=== PATIENT | male | born 1950 | race Caucasian/White ===

== ENCOUNTER 2018-07-16 11:17 | Inpatient (IN) | payer OTHER ==
[~2018-07-16] VITALS: Ht 185.4 cm; Wt 116.2 kg
[~2018-07-16 11:17] MED LIST: CYCL10 PO; Coumadin PO; FURO80 PO; GLIP10 PO; ISOMON20 PO; METF500 PO; METO25 PO; Nitroglycerin0.4 MG SL; Norco 10-325 T1 EACH PO; OMEP20ER PO; One Touch Ultr1 EACH MC; POTCHL20ER PO; Prinivil10 MG PO; SIMV40 PO
[2018-07-16 11:57] LABS: BASOPHILS ABSOLUTE AUTO 0.03 K/mm3 (0.00-0.23); BASOPHILS PERCENT AUTO 0 % (0-2); EOSINOPHILS ABSOLUTE AUTO 0.13 K/mm3 (0.00-0.68); EOSINOPHILS PERCENT AUTO 2 % (0-6); IMMATURE GRAN ABSOLUTE AUTO 0.01 K/mm3 (0.00-0.10); IMMATURE GRAN PERCENT AUTO 0 % (0-1); LYMPHOCYTES ABSOLUTE AUTO 0.92 K/mm3 (0.84-5.20); LYMPHOCYTES PERCENT AUTO 12 % (21-46); MONOCYTES ABSOLUTE AUTO 0.92 K/mm3 (0.16-1.47); MONOCYTES PERCENT AUTO 12 % (4-13); Mean Corpuscular HGB 27.3 pg (26.0-34.0); Mean Corpuscular HGB Conc 29.5 g/dL (31.5-36.5); Mean Corpuscular Volume 92 fL (80-100); Mean Platelet Volume 10.1 fL (9.1-12.4); NEUTROPHILS ABSOLUTE AUTO 5.62 K/mm3 (1.96-9.15); NEUTROPHILS PERCENT AUTO 74 % (41-73); Platelet Count 319 K/mm3 (150-400); RDW Coefficient Variation 14.3 % (11.7-14.2); RDW Standard Deviation 48.9 fL (35.1-46.3); Red Blood Cell Count 4.77 M/mm3 (4.30-5.90); White Blood Cell Count 7.63 K/mm3 (4.00-11.30)
[2018-07-16 12:18] LABS: Alanine Aminotransfer (ALT/SGP 27 U/L (12-78); Albumin, Blood 2.9 g/dL (3.4-5.0); Albumin/Globulin Ratio 0.7 (0.8-1.8); Alk Phos 84 U/L (50-136); Anion Gap 6 mmol/L (6-16); Aspartate Aminotrans (AST/SGOT 20 U/L (12-37); Bilirubin, Total 0.4 mg/dL (0.1-1.0); Blood Urea Nitrogen 14 mg/dL (8-24); Bun/Creatinine Ratio 15.2 (12.0-20.0); CO2, Blood 31 mmol/L (21-32); Calcium, Blood 8.6 mg/dL (8.5-10.1); Chloride, Blood 100 mmol/L (98-108); Creatinine, Blood 0.92 mg/dL (0.60-1.20); Glomerular Filtration Rate >60 (60-); Glucose, Blood 96 mg/dL (70-99); Potassium, Blood 4.8 mmol/L (3.5-5.5); Sodium, Blood 137 mmol/L (136-145); Total Protein, Blood 6.9 g/dL (6.4-8.2); Troponin I <0.015 ng/mL (0.000-0.040)
[2018-07-16 14:47] LABS: International Normalized Ratio 2.98; Prothrombin Time Results 28.6 Sec (9.7-11.5)
[2018-07-16] MEDS ORDERED: PIOG30 PO (19:42)
[2018-07-16] MEDS ORDERED: CHOL10002 PO (20:34)
[2018-07-16] MEDS ORDERED: CALCIUM 600+D31 EACH PO (20:34)
[2018-07-17 05:55] LABS: BASOPHILS ABSOLUTE AUTO 0.04 K/mm3 (0.00-0.23); BASOPHILS PERCENT AUTO 1 % (0-2); EOSINOPHILS ABSOLUTE AUTO 0.12 K/mm3 (0.00-0.68); EOSINOPHILS PERCENT AUTO 2 % (0-6); Hemoglobin 12.3 g/dL (13.5-17.5); IMMATURE GRAN ABSOLUTE AUTO 0.02 K/mm3 (0.00-0.10); IMMATURE GRAN PERCENT AUTO 0 % (0-1); LYMPHOCYTES ABSOLUTE AUTO 0.79 K/mm3 (0.84-5.20); LYMPHOCYTES PERCENT AUTO 11 % (21-46); MONOCYTES ABSOLUTE AUTO 0.86 K/mm3 (0.16-1.47); MONOCYTES PERCENT AUTO 12 % (4-13); Mean Corpuscular HGB 26.9 pg (26.0-34.0); Mean Corpuscular HGB Conc 29.3 g/dL (31.5-36.5); Mean Corpuscular Volume 92 fL (80-100); NEUTROPHILS ABSOLUTE AUTO 5.43 K/mm3 (1.96-9.15); NEUTROPHILS PERCENT AUTO 75 % (41-73); Platelet Count 296 K/mm3 (150-400); RDW Coefficient Variation 14.6 % (11.7-14.2); RDW Standard Deviation 48.4 fL (35.1-46.3); Red Blood Cell Count 4.58 M/mm3 (4.30-5.90); White Blood Cell Count 7.26 K/mm3 (4.00-11.30)
[2018-07-17 06:08] LABS: International Normalized Ratio 2.64; Prothrombin Time Results 25.6 Sec (9.7-11.5)
[2018-07-17 06:20] LABS: Alanine Aminotransfer (ALT/SGP 27 U/L (12-78); Albumin, Blood 2.7 g/dL (3.4-5.0); Albumin/Globulin Ratio 0.8 (0.8-1.8); Alk Phos 77 U/L (50-136); Anion Gap 7 mmol/L (6-16); Aspartate Aminotrans (AST/SGOT 19 U/L (12-37); Bilirubin, Total 0.7 mg/dL (0.1-1.0); Blood Urea Nitrogen 16 mg/dL (8-24); Bun/Creatinine Ratio 16.7 (12.0-20.0); CO2, Blood 32 mmol/L (21-32); Calcium, Blood 8.4 mg/dL (8.5-10.1); Chloride, Blood 100 mmol/L (98-108); Creatinine, Blood 0.96 mg/dL (0.60-1.20); Globulin, Blood 3.5 g/dL (2.2-4.0); Glomerular Filtration Rate >60 (60-); Glucose, Blood 121 mg/dL (70-99); Potassium, Blood 4.5 mmol/L (3.5-5.5); Sodium, Blood 139 mmol/L (136-145); Total Protein, Blood 6.2 g/dL (6.4-8.2)
--- NOTE | 2018-07-17 06:25 | NUR ---
SHIFT SUMMARY: BLE EDEMA UP TO LOWER ABD, NON-PITTING. REDNESS AND WARMTH TO BLE NOTED. PT HAS SEVERAL EPISODES OF SOB, W/ EXERTION AND DURING REST. ON 2L VIA NC; MAINTAINING O2 SATS WELL. VSS. TELE IN PLACE; A FIB @ 80 BPM. 900 ML OUTPUT THIS SHIFT. SBA TO THE BATHROOM; CALL LIGHT APPROP. NO INSULIN COV INDICATED TONIGHT. SKIN PEELING/DRY T/O BODY. 20g R WRIST PATENT AND SALINE LOCK. PT REPORTS THAT HE LIVES @ HOME IN A TRAILER ALONE WHERE HE DOES NOT HAVE ANY HOT RUNNING WATER, AND BATHROOM IS OUTSIDE. WILL CONT TO MONITOR AND PROVIDE CARE UNTIL PRESUMED BY ONCOMING RN.
--- NOTE | 2018-07-17 13:41 | NUR ---
echocardiogram completed
--- NOTE | 2018-07-17 17:07 | NUR ---
PT HAS BEEN DOING WELL. AOX4 AND COOPERATIVE OF ALL CARE. PT IS A 1 PERSON STANDBY TO TRANSFER TO CHAIR OR RESTROOM. PT CONTINUES TO FEEL SOB, BUT STATES HE FEELS MUCH BETTER ON HIS 2L OF O2. PT CONTINUES TO HAVE EDEMA +2 FROM TOP OF THIGH TO FEET REDNESS CONTINUES. PT VOIDING WELL, NO DISTRESS NOTED AT THIS TIME. WILL MONITOR.
[2018-07-18 05:39] LABS: International Normalized Ratio 2.96; Prothrombin Time Results 28.4 Sec (9.7-11.5)
[2018-07-18 05:49] LABS: Anion Gap 5 mmol/L (6-16); Blood Urea Nitrogen 15 mg/dL (8-24); Bun/Creatinine Ratio 16.2 (12.0-20.0); CO2, Blood 33 mmol/L (21-32); Calcium, Blood 8.4 mg/dL (8.5-10.1); Chloride, Blood 99 mmol/L (98-108); Creatinine, Blood 0.93 mg/dL (0.60-1.20); Glomerular Filtration Rate >60 (60-); Glucose, Blood 116 mg/dL (70-99); Potassium, Blood 4.6 mmol/L (3.5-5.5); Sodium, Blood 137 mmol/L (136-145)
--- NOTE | 2018-07-18 06:13 | NUR ---
07/18/18 0610 PT AWAKE MOST OF SHIFT. STATES HE "COULDN'T GET COMFORTABLE". SITTING AT BEDSIDE WATCHING TV. VITALS STABLE. SOME FORGETFULNESS NOTED THIS SHIFT. MEDICATED ONCE FOR GENERAL LEG/FEET DISCOMFORT AT 2200.
[2018-07-18] MEDS ORDERED: ASPI81CH PO (17:39)
--- NOTE | 2018-07-18 18:46 | NUR ---
PATIENT IS CONCERNED THAT HE IS NOT ON ALL OF HIS NORMAL MEDICATIONS. PATIENT WOULD LIKE TO KNOW WHY HE IS NOT ON HIS BABY ASPIRIN. ALSO PATIENT STATES THAT THURSDAY AND THURSDAY HE TAKES 7.5MG WARFARIN, THE REST OF THE WEEK HE TAKES 9MG. AT THE HOSPITAL HE IS SCHEDULED TO TAKE 9MG DAILY. HE REFUSED TO TAKE THE 9MG BUT DID AGREE ON TAKING 7.5MG. RN DISCUSSED WITH PATIENT THAT HE NEEDS TO SIT DOWN WITH THE DR AND DISCUSS THE MEDICATIONS HE IS TAKING/ISN'T TAKING AND WHY. TRAMADOL GIVEN FOR KNEE PAIN. PATIENT STATES [facility] IN [place] IS HIS PRIMARY CARE POSSIBLY HAVE HER FAX A MED LIST THURSDAY TO CHECK AGAINST [facility].
--- NOTE | 2018-07-18 22:23 | NUR ---
07/1018 INSTRUCTED PT ON FLUID RESTRICTION ORDER AND REASONS WHY. VERBALIZES UNDERSTANDING.
[2018-07-19 05:59] LABS: International Normalized Ratio 2.99; Prothrombin Time Results 28.7 Sec (9.7-11.5)
[2018-07-19 06:14] LABS: Anion Gap 4 mmol/L (6-16); Blood Urea Nitrogen 14 mg/dL (8-24); Bun/Creatinine Ratio 14.9 (12.0-20.0); CO2, Blood 37 mmol/L (21-32); Calcium, Blood 8.5 mg/dL (8.5-10.1); Chloride, Blood 96 mmol/L (98-108); Creatinine, Blood 0.94 mg/dL (0.60-1.20); Glomerular Filtration Rate >60 (60-); Glucose, Blood 111 mg/dL (70-99); Potassium, Blood 4.3 mmol/L (3.5-5.5); Sodium, Blood 137 mmol/L (136-145)
--- NOTE | 2018-07-19 08:02 | NUR ---
07/19/18 0630 VITALS STABLE. UNEVENTFUL NIGHT.
--- NOTE | 2018-07-19 18:45 | NUR ---
SHIFT SUMMARY PT GIVEN EDUCATION ABOUT FLUID RESTRICTION AND MONITERING HOW MUCH HE DRINKS WHEN HE GOES HOME. PT EXPRESSING FRUSTRATION WITH BEING LIMITED WITH WHAT HE CAN DRINK UBT IS ATTEMPTING TO FOLLOW THE LIMITATION. INDEPENDENT IN TO BATHROOM TO VOID. LEGS REMAIN QUITE EDEMATOUS WITH SCRATCHES TO SHINS.
--- NOTE | 2018-07-20 04:26 | NUR ---
07/20/18 0425 PT SLEEPING NOW AFTER PAIN MED GIVEN. HE IS FRUSTRATED BY FLUID RESTRICTION ORDER. C/O THIRST FREQUENTLY EVEN WHEN GIVEN LEMON SWABS AND ICE CHIPS THROUGHOUT NIGHT. EDEMA HAS GONE DOWN IN LEGS/FEET SINCE ADMISSION. VITALS REMAIN STABLE. NEEDS ENCOURAGEMENT TO FOLLOW PLAN OF CARE INCLUDING FLUID RESTRICTION.
[2018-07-20 05:19] LABS: International Normalized Ratio 2.93; Prothrombin Time Results 28.2 Sec (9.7-11.5)
--- NOTE | 2018-07-20 12:14 | NUR ---
DR. BARTLETT ASKED THAT THE PT'S O2 BE TAKEN OFF AND OXYGEN SATURATION MEASURED. THE PT'S OXYGEN SATURATION WAS BEWTEEN 86-90% AT REST IN THE CHAIR. DR. BARTLETT NOTIFIED. HE ASKED THAT THE PT BE KEPT ON 1-2L O2. PT MENTIONED THAT HE HAS NOT SLEPT WELL IN AROUND 5 YEARS BUT FEELS HE SLEEPS BETTER WITH OXYGEN. DR. BARTLETT NOTIFIED.
--- NOTE | 2018-07-20 16:58 | NUR ---
THIS PT BECOMES SOB UPON EXERTION. HE WEARS 4L O2 VIA NC AT HOME. HE IS [place] WITH ONE HEARING AID IN HIS LEFT EAR. HE USES A URINAL THAT HE PREFERS BE PLACED BETWEEN HIS LEGS WHILE LAYING IN BED. HE HAS COMPLAINED OF DISCOMFORT CAUSED BY WRINKLES IN HIS SHEETS, HE IS UNABLE TO RID THEM HIMSELF. HE HAS SMALL WOUND ON THE TIPS OF HIS BIG TOES, DRESSINGS CHANGED TODAY. HE IS ON A HONEY THICK LIQUIDS DIET AND PUREED FOOD. HIS CHILDREN WISH FOR HIM TO CONSUME 2 ENSURES A DAY. THE PLAN IS FOR HIM TO BE DISCHARGED TOMORROW BACK TO [facility]. NO ACUTE CHANGES THIS SHIFT. WILL CONTINUE TO MONITOR.
--- NOTE | 2018-07-20 17:15 | NUR ---
THIS PATIENT IS ON A 1,200 ML FLUID RESTRICTION. WE HAVE BEEN WORKING TO GIVE HIM 900ML OF FLUIDS DURING THE DAY LEAVING 300ML AT NIGHT. THIS HAS PROVEN TO BE DIFFICULT FOR THE PATIENT. HE IS ON 2L O2 VIA NC. HE HAS A 20G IV IN HIS RIGHT WRIST. HE REFUSED TO WORK WITH PHYSICAL THERAPY TODAY BECAUSE HE WANTED TO SLEEP. NO ACUTE CHANGES DURING THIS SHIFT. WILL CONTINUE TO MONITOR.
--- NOTE | 2018-07-21 03:56 | NUR ---
SHIFT SUMMARY NO ACUTE CHANGES THIS SHIFT. PT HAS RESTED FOR MOST OF THE NIGHT. COMPLIANT WITH 1200 ML FLUID RESTRICTION. MOSTLY REQUESTS ICE CHIPS IN ORDER TO MAKE HIS RESTRICTION STRETCH. PT HAS BEEN UP AMBULATING INDEPENDTLY WITH FWW TO THE BATHROOM. EDEMA TO BLE +2. PT IS BEING DIURESED AND HAS BEEN VOIDING ADEQUATELY. PT MEDICATED FOR PAIN X1. OVERALL ASSESSMENT UNCHANGED. WILL CONTINUE TO MONITOR AND REPORT TO ONCOMING RN.
[2018-07-21 05:46] LABS: International Normalized Ratio 3.77; Prothrombin Time Results 35.4 Sec (9.7-11.5)
[2018-07-21] MEDS ORDERED: ALBU2.5V5 INH (15:07)
[2018-07-21] MEDS ORDERED: DOCU100 PO (15:07)
[2018-07-21] MEDS ORDERED: OMEPRAZOLE MAGN20 MG PO (15:08)
[2018-07-21] MEDS ORDERED: Humulin R500 UNIT/1 SC (15:08)
[2018-07-21] MEDS ORDERED: TRAM50 PO (15:09)
--- NOTE | 2018-07-21 15:15 | NUR ---
PT DISCHARGED AT 15:15
--- NOTE | 2018-07-21 15:38 | NUR ---
BEDSIDE REPORT GIVEN TO CHUY LAURENT IN PCU. PT DISCHARGED FROM MEDICAL FLOOR AT 15:30.
== END 2018-07-21 15:15 | DRG 291 ==
LOC: ER 11:17 → MEDS 16:28
PROVIDERS: Emergency Medicine; Physician Assistant; ADMIT Student in an Organized Health Care Education/Training Program
DX: I50.43 Acute on chronic combined systolic (congestive) and diastolic (congestive) heart failure (principal); J96.01 Acute respiratory failure with hypoxia; I48.0 Paroxysmal atrial fibrillation; E11.65 Type 2 diabetes mellitus with hyperglycemia; F17.200 Nicotine dependence, unspecified, uncomplicated; Z79.01 Long term (current) use of anticoagulants; Z79.84 Long term (current) use of oral hypoglycemic drugs; Z79.899 Other long term (current) drug therapy
CPT/HCPCS: 36415; 71046; 80048; 80053; 82947; 83036; 83880; 84484; 85025; 85610; 85730; 93005; 93010; 93306; 94640; 94760; 96374; 97116; 97162; 97166; 97530; 97535; 99284-25; J1940

== ENCOUNTER 2020-01-16 08:31 | Inpatient (IN) | payer OTHER ==
[~2020-01-16] VITALS: Ht 188 cm; Wt 103.9 kg
[~2020-01-16 08:31] MED LIST changes: +ALBU2.5V5 INH; +ASPI81CH PO; +CALCIUM 600+D31 EACH PO; +CHOL10002 PO; +DOCU100 PO; +Humulin R500 UNIT/1 SC; +OMEPRAZOLE MAGN20 MG PO; +PIOG30 PO; +TRAM50 PO
[2020-01-16] MEDS ORDERED: STIOLTO RESPIMAT4 G1 INH (09:19)
[2020-01-16] MEDS ORDERED: SPIR25 PO (09:20)
[2020-01-16] MEDS ORDERED: TORSE20 PO (09:21)
[2020-01-16] MEDS ORDERED: FOLI1 PO (09:22)
[2020-01-16] MEDS ORDERED: FLUT.05NI (09:25)
[2020-01-16] MEDS ORDERED: WARF5 PO (09:25)
[2020-01-16] MEDS ORDERED: WARF4 PO (09:26)
[2020-01-16 09:32] LABS: BASOPHILS ABSOLUTE AUTO 0.03 K/mm3 (0.00-0.23); BASOPHILS PERCENT AUTO 0 % (0-2); EOSINOPHILS ABSOLUTE AUTO 0.11 K/mm3 (0.00-0.68); EOSINOPHILS PERCENT AUTO 1 % (0-6); Hematocrit 33.5 % (37.0-53.0); Hemoglobin 10.2 g/dL (13.5-17.5); IMMATURE GRAN ABSOLUTE AUTO 0.04 K/mm3 (0.00-0.10); IMMATURE GRAN PERCENT AUTO 0 % (0-1); LYMPHOCYTES ABSOLUTE AUTO 0.74 K/mm3 (0.84-5.20); LYMPHOCYTES PERCENT AUTO 7 % (21-46); MONOCYTES ABSOLUTE AUTO 0.91 K/mm3 (0.16-1.47); MONOCYTES PERCENT AUTO 8 % (4-13); Mean Corpuscular HGB Conc 30.4 g/dL (31.5-36.5); Mean Corpuscular Volume 89 fL (80-100); Mean Platelet Volume 9.8 fL (9.1-12.4); NEUTROPHILS ABSOLUTE AUTO 8.94 K/mm3 (1.96-9.15); NEUTROPHILS PERCENT AUTO 83 % (41-73); Platelet Count 422 K/mm3 (150-400); RDW Coefficient Variation 14.4 % (11.7-14.2); RDW Standard Deviation 46.6 fL (35.1-46.3); Red Blood Cell Count 3.78 M/mm3 (4.30-5.90); White Blood Cell Count 10.77 K/mm3 (4.00-11.30)
[2020-01-16 09:38] LABS: International Normalized Ratio 2.64; Prothrombin Time Results 26.7 Sec (9.7-11.5)
[2020-01-16 09:47] LABS: Albumin/Globulin Ratio 0.7 (0.8-1.8); Bilirubin, Total 0.3 mg/dL (0.1-1.0); Bun/Creatinine Ratio 21.4 (12.0-20.0); Creatinine, Blood 1.54 mg/dL (0.60-1.20); Globulin, Blood 4.6 g/dL (2.2-4.0); Potassium, Blood 4.5 mmol/L (3.5-5.5); Total Protein, Blood 7.6 g/dL (6.4-8.2)
--- NOTE | 2020-01-16 14:27 | NUR ---
ADMIT ARRIVAL TO UNIT AT APPROX 1245 FROM ER. ABLE TO STAND AND PIVOT TRANSFER FROM W/C TO BED. LEFT GANGRENOUS TOE OPEN TO AIR WITH SCANT SS DRAINAGE. CLEANSED AND COVERED WITH GAUZE AND KERLEX AND ELEVATED ON PILLOWS. SEVERE PITTING EDEMA NOTED TO BLE. ER REPORTS GIVING IV LASIX. PT ALERT AND ORIENTED. DENIES PAIN, BUT REPORTS NEUROPATHY TO BLE AND HAS DECREASED SENSATION TO BLE. DR. THOMPSON TO CONSULT TODAY FOR PODIATRY. ORIENTED TO ROOM AND CALL LIGHT. CALL LIGHT WITHIN REACH.
[2020-01-16] MEDS ORDERED: METO25ER PO (15:02)
[2020-01-16] MEDS ORDERED: Aspir 8181 MG PO (15:05)
[2020-01-16] MEDS ORDERED: CALCIUM CIT 311 EACH PO (15:06)
[2020-01-16] MEDS ORDERED: Magnesium250 MG PO (15:06)
[2020-01-16] MEDS ORDERED: TRAM50 PO (15:07)
[2020-01-16] MEDS ORDERED: PROAIR DIGIHAL90 MCG INH (15:07)
[2020-01-16] MEDS ORDERED: NITR.4SL SL (15:08)
--- NOTE | 2020-01-16 16:12 | NUR ---
SHIFT SUMMARY NO ACUTE CHANGES SINCE ADMIT TO UNIT. PT CONT TO DENY PAIN. DRESSING TO LEFT GREAT TOE REMAINS CDI. PT USING BEDSIDE URINAL TO VOID. WAITING FOR PODIATRY TO SEE PT THIS EVENING. NPO AT MIDNIGHT FOR POSSIBLE PROCEDURE TOMORROW. USES CALL LIGHT APPROPRIATELY.
--- NOTE | 2020-01-16 23:50 | NUR ---
PULSE OX ALARMING FOR HR DROPPING BELOW 50. HR OCC DROPPING TO 39 TO LOW 40'S. HOSPITALIST NOTIFIED. NEW ORDER FOR TELE. PER TELEMTRY, PT A/FIB WITH BBB AND PVC'S WITH AN AVERAGE HR IN 60'S.
--- NOTE | 2020-01-17 04:25 | NUR ---
SHIFT SUMMARY: PT HAS BEEN NPO SINCE MIDNIGHT FOR AMPUTATION OF LEFT GREAT TOE. WOUND CURRENTLY WRAPPED IN GAUZE+KERLEX. C/D/I WITH SCANT AMOUNT OF SEROUS DRAINAGE. PULSE TO LLE FAINT/THREADY. REDNESS, SWELLING AND SCALY SKIN NOTED FROM CALF TO FOOT. PT DENIES PAIN D/T NEUROPATHY. PT ABLE TO AMBULATE TO BATHROOM USING FWW. VOIDING WELL. NEW ORDER FOR TELE THIS SHIFT R/T DECREASE IN HR-SEE PREVIOUS NOTE.
[2020-01-17 06:38] LABS: BASOPHILS ABSOLUTE AUTO 0.03 K/mm3 (0.00-0.23); BASOPHILS PERCENT AUTO 0 % (0-2); EOSINOPHILS ABSOLUTE AUTO 0.11 K/mm3 (0.00-0.68); EOSINOPHILS PERCENT AUTO 1 % (0-6); Hematocrit 32.1 % (37.0-53.0); Hemoglobin 9.9 g/dL (13.5-17.5); IMMATURE GRAN ABSOLUTE AUTO 0.03 K/mm3 (0.00-0.10); IMMATURE GRAN PERCENT AUTO 0 % (0-1); LYMPHOCYTES ABSOLUTE AUTO 0.96 K/mm3 (0.84-5.20); LYMPHOCYTES PERCENT AUTO 11 % (21-46); MONOCYTES ABSOLUTE AUTO 0.81 K/mm3 (0.16-1.47); MONOCYTES PERCENT AUTO 10 % (4-13); Mean Corpuscular HGB 27.3 pg (26.0-34.0); Mean Corpuscular HGB Conc 30.8 g/dL (31.5-36.5); Mean Corpuscular Volume 88 fL (80-100); Mean Platelet Volume 9.6 fL (9.1-12.4); NEUTROPHILS ABSOLUTE AUTO 6.63 K/mm3 (1.96-9.15); NEUTROPHILS PERCENT AUTO 77 % (41-73); Platelet Count 394 K/mm3 (150-400); RDW Coefficient Variation 14.5 % (11.7-14.2); RDW Standard Deviation 46.9 fL (35.1-46.3); Red Blood Cell Count 3.63 M/mm3 (4.30-5.90); White Blood Cell Count 8.57 K/mm3 (4.00-11.30)
[2020-01-17 06:53] LABS: International Normalized Ratio 2.34; Prothrombin Time Results 23.9 Sec (9.7-11.5)
[2020-01-17 06:54] LABS: Bun/Creatinine Ratio 17.2 (12.0-20.0); Calcium, Blood 8.9 mg/dL (8.5-10.1); Creatinine, Blood 1.45 mg/dL (0.60-1.20); Potassium, Blood 4.1 mmol/L (3.5-5.5)
[2020-01-17 15:21] LABS: International Normalized Ratio 2.03
[2020-01-17 15:52] LABS: Prothrombin Time Results 20.9 Sec (9.7-11.5)
--- NOTE | 2020-01-17 16:13 | NUR ---
SHIFT SUMMARY SURGERY POSTPONED UNTIL TOMORROW R/T PT/INR BEING TOO HIGH. GIVING VITAMIN K PER ORDERS. NPO AT MIDNIGHT. LABS ORDERED FOR THE MORNING. PT AWARE OF PLAN. PT CONT TO DENY PAIN. LEFT GREAT TOE REMAINS DRESSED WITH GAUZE WITH SCANT SS DRAINAGE. IV ABX PER ORDERS. CALL LIGHT WITHIN REACH.
--- NOTE | 2020-01-18 04:43 | NUR ---
SHIFT SUMMARY: PT HAS BEEN NPO SINCE MIDNIGHT FOR POSSIBLE SURGERY TODAY ON L GREAT TOE. GANGRENOUS TOE WRAPPED IN KERLEX WITH SCANT AMOUNT OF SEROUS FLUID NOTED. DRESSING CHANGED IN BEGINNING OF SHIFT. PT DENIES PAIN R/T NEUROPATHY. STANDING AT BEDSIDE TO USE URINAL. VOIDING WELL. PLAN FOR REPEAT INR THIS MORNING.
[2020-01-18 05:14] LABS: International Normalized Ratio 1.44; Prothrombin Time Results 15.1 Sec (9.7-11.5)
--- NOTE | 2020-01-18 08:09 | NUR ---
lab by to see pt reviewed pt inr result pt was concearned re thinner prophlactic to prevent cva or tia pt is npo for surg today for big toe amp
[2020-01-18 08:17] LABS: BASOPHILS ABSOLUTE AUTO 0.05 K/mm3 (0.00-0.23); BASOPHILS PERCENT AUTO 1 % (0-2); EOSINOPHILS ABSOLUTE AUTO 0.25 K/mm3 (0.00-0.68); EOSINOPHILS PERCENT AUTO 3 % (0-6); Hemoglobin 10.5 g/dL (13.5-17.5); IMMATURE GRAN ABSOLUTE AUTO 0.04 K/mm3 (0.00-0.10); IMMATURE GRAN PERCENT AUTO 0 % (0-1); LYMPHOCYTES ABSOLUTE AUTO 0.78 K/mm3 (0.84-5.20); LYMPHOCYTES PERCENT AUTO 8 % (21-46); MONOCYTES ABSOLUTE AUTO 0.89 K/mm3 (0.16-1.47); MONOCYTES PERCENT AUTO 9 % (4-13); Mean Corpuscular HGB 26.8 pg (26.0-34.0); Mean Corpuscular Volume 89 fL (80-100); Mean Platelet Volume 9.3 fL (9.1-12.4); NEUTROPHILS ABSOLUTE AUTO 7.85 K/mm3 (1.96-9.15); NEUTROPHILS PERCENT AUTO 80 % (41-73); Platelet Count 425 K/mm3 (150-400); RDW Coefficient Variation 14.4 % (11.7-14.2); RDW Standard Deviation 46.5 fL (35.1-46.3); Red Blood Cell Count 3.92 M/mm3 (4.30-5.90); White Blood Cell Count 9.86 K/mm3 (4.00-11.30)
[2020-01-18 08:46] LABS: Bun/Creatinine Ratio 13.4 (12.0-20.0); Calcium, Blood 8.6 mg/dL (8.5-10.1); Creatinine, Blood 1.27 mg/dL (0.60-1.20); Potassium, Blood 4.1 mmol/L (3.5-5.5)
--- NOTE | 2020-01-18 08:48 | NUR ---
DR LEO BY TO SEE PT ASKED WHEN HE IS SCHED FOR SURG
--- NOTE | 2020-01-18 09:39 | NUR ---
pt had questions re his medication will review with him
--- NOTE | 2020-01-18 10:32 | NUR ---
PT IN SHOWER
--- NOTE | 2020-01-18 11:06 | NUR ---
new dressing placed to l big toe cleaned
--- NOTE | 2020-01-18 12:22 | NUR ---
ss by to see pt talked with her re pt home situation pt stated he was unable to bend down to do his dressing and exam his feet also had not had a shower for 3 years due to living in a camp trailer.
--- NOTE | 2020-01-18 13:15 | NUR ---
pt transported to day surg via [facility]
[2020-01-18] MEDS ORDERED: AMOCLA875 PO (14:48)
--- NOTE | 2020-01-18 14:51 | NUR ---
DR THOMPSON CALLED PT TO GO HOME WITH AUGMENTIN 875 MG PO BID FOR 10 DAYS AND A POST-OP SHOE
--- NOTE | 2020-01-18 15:26 | NUR ---
PT ARRIVED BACK TO ROOM 231 FROM PACU S/P L GREAT TOE AMP PT HAS BULKY DRESSING WITH NAKIA WRAP C/D/I ELEV ON PILLOW PT GETS OCC SHARP PAIN BUT GOES AWAY PT THIRSTY CL GIVEN
--- NOTE | 2020-01-18 17:16 | NUR ---
pt req pain meds 1 tab po ultram
--- NOTE | 2020-01-18 18:14 | NUR ---
PT EATING DINNER
--- NOTE | 2020-01-18 18:38 | NUR ---
pt stated pain is going up 81/0 req a stronger pain meds will call radha delgado
--- NOTE | 2020-01-18 23:15 | NUR ---
PERCOCET GIVEN FOR PAIN REPORTED AT 9/10 TO LLE NOT RELIEVED WITH ELEVATION, ICE, AND OTHER PAIN MEDS GIVEN PER MD ORDERS. REQUESTED WALLET BE GIVEN BACK TO HIM THAT WAS IN LOCKED DRAWER. BLACK WALLET GIVEN TO PT WHO THANKS NURSING AND BEGAN LOOKING INSIDE OF THE WALLET. SAFETY MEASURES IN PLACE. WILL CONTINUE TO MONITOR.
--- NOTE | 2020-01-19 06:41 | NUR ---
SHIFT SUMMARY LYING IN SEMI FOWLERS WITH EYES CLOSED. AAO X3, HERNANDEZ, FOLLOWS ALL COMMANDS. RESPIRATIONS EVEN AND UNLABORED ON O2 AT 2L/NC. LUNG SOUNDS CLEAR AND DIMINSHED IN BASES BILATERALLY. ABDOMEN SOFT AND NONDISTENDED. BOWEL SOUNDS PRESENT IN ALL QUADS. LLE ELEVATED ON PILLOWS, ICE PACK IN PLACE. FOOT WRAPPED WITH GAUZE AND NAKIA WRAP. NO BLEEDING, SHADOWING, OR OOZING NOTED. CONTINENT OF BOWEL AND BLADDER, USES URINAL WHILE STANDING AT BEDSIDE. BALANCED WITH FWW. REPOSITIONED FOR COMFORT. DENIES PAIN, DISCOMFORT, OR FURTHER NEEDS AT THIS TIME. SAFETY MEASURES IN PLACE. WILL CONTINUE TO MONITOR AND GIVE HAND OFF TO ONCOMING SHIFT USING SBAR DURING BEDSIDE REPORT.
--- NOTE | 2020-01-19 07:00 | NUR ---
recvd report from previous RN Elvia. sitting up in bed, a/o x 4, pleasant/cooperative, painful (RN Elvia medicating pt directly per mar), bed in lowest position, bed rails up x 2, call light within reach
--- NOTE | 2020-01-19 09:30 | NUR ---
PT/OT evaluated and treated pt this am.
--- NOTE | 2020-01-19 10:00 | NUR ---
01/19/20 Ronda Duggan VERIFICATIONS: EDIT CHART.
--- NOTE | 2020-01-19 11:01 | NUR ---
pt reported chest pain at 1050, pulled his ordered nitroquick and when brought to room pt denies chest pain, locked the nitroquick in pt's med drawer
--- NOTE | 2020-01-19 11:04 | NUR ---
on 100 q1 vs, BP 81/54, asymptomatic, will continue to monitor and notify anesthesiologist of sbp <80
--- NOTE | 2020-01-19 11:30 | NUR ---
this rn spoke with [facility] manager Christina re: recommendations per PT for SNF placement. notified pt of recommendations and plans
--- NOTE | 2020-01-19 16:18 | NUR ---
client care representative notified this RN pt approved for SNF to [facility], awaiting orders/prescription, transport at 1730. notified Pt of this plan
--- NOTE | 2020-01-19 17:35 | NUR ---
REMOVED PERIPHERAL IV X 2 WNL, PROVIDED REPORT TO CHUY DE LA TORRE AT [facility]; PT'S PACKET WITH WRITTEN PRESCRIPTION PROVIDED TO TRANSPORTER; PT'S BELONGINGS TRANSPORTED WITH PT VIA WHEELCHAIR TO AWAITING VAN
== END 2020-01-19 17:40 | DRG 255 ==
LOC: ER 08:31 → SURS 11:22
PROVIDERS: Emergency Medicine; Podiatrist Foot & Ankle Surgery; ADMIT Internal Medicine
PROC: 0Y6Q0Z0 Detachment at Left 1st Toe, Complete, Open Approach (ICD-10-PCS; principal; 2020-01-18 13:30)
DX: E11.52 Type 2 diabetes mellitus with diabetic peripheral angiopathy with gangrene (principal); I50.33 Acute on chronic diastolic (congestive) heart failure; J96.10 Chronic respiratory failure, unspecified whether with hypoxia or hypercapnia; N17.9 Acute kidney failure, unspecified; E11.65 Type 2 diabetes mellitus with hyperglycemia; I48.0 Paroxysmal atrial fibrillation; I50.9 Heart failure, unspecified; J44.9 Chronic obstructive pulmonary disease, unspecified; Z99.81 Dependence on supplemental oxygen; E78.5 Hyperlipidemia, unspecified; Z87.891 Personal history of nicotine dependence; Z79.01 Long term (current) use of anticoagulants
CPT/HCPCS: 36415; 71045; 73630; 80048; 80053; 82947; 83036; 83880; 85025; 85610; 85730; 88305; 88311; 93005; 93010; 94640; 94760; 94762; 96374; 97110; 97112; 97162; 97165; 97535; 99285-25; A9270; A9270-GY; J0295; J1650; J1940; J2250; J2405; J2704; J3010; J3430; J7050; J7120; U0002

== ENCOUNTER 2020-05-30 09:51 | Day surgery (SDC) | payer OTHER ==
[~2020-05-30 09:51] MED LIST changes: +AMOCLA875 PO; +Aspir 8181 MG PO; +CALCIUM CIT 311 EACH PO; +FLUT.05NI; +FOLI1 PO; +METO25ER PO; +Magnesium250 MG PO; +NITR.4SL SL; +PROAIR DIGIHAL90 MCG INH; +SPIR25 PO; +STIOLTO RESPIMAT4 G1 INH; +TORSE20 PO; +WARF4 PO; +WARF5 PO
== END 2020-05-30 09:52 | disposition home or self-care (01) ==
LOC: WOUND 09:51
DX: E11.621 Type 2 diabetes mellitus with foot ulcer (principal); L97.522 Non-pressure chronic ulcer of other part of left foot with fat layer exposed; E11.622 Type 2 diabetes mellitus with other skin ulcer; L97.821 Non-pressure chronic ulcer of other part of left lower leg limited to breakdown of skin; E11.52 Type 2 diabetes mellitus with diabetic peripheral angiopathy with gangrene; I96 Gangrene, not elsewhere classified; J44.9 Chronic obstructive pulmonary disease, unspecified; I48.91 Unspecified atrial fibrillation; I11.0 Hypertensive heart disease with heart failure; I50.9 Heart failure, unspecified; I25.10 Atherosclerotic heart disease of native coronary artery without angina pectoris; Z79.84 Long term (current) use of oral hypoglycemic drugs; Z79.82 Long term (current) use of aspirin; Z79.01 Long term (current) use of anticoagulants; Z79.899 Other long term (current) drug therapy; Z87.891 Personal history of nicotine dependence; Z89.412 Acquired absence of left great toe
CPT/HCPCS: G0463

== ENCOUNTER 2020-06-13 00:42 | Day surgery (SDC) | payer OTHER | END 2020-06-13 22:39 | disposition home or self-care (01) | LOC: WOUND 00:42 | DX: E11.621 Type 2 diabetes mellitus with foot ulcer (principal); L97.522 Non-pressure chronic ulcer of other part of left foot with fat layer exposed; S81.802D Unspecified open wound, left lower leg, subsequent encounter; E11.59 Type 2 diabetes mellitus with other circulatory complications; J44.9 Chronic obstructive pulmonary disease, unspecified; I48.91 Unspecified atrial fibrillation; T87.89 Other complications of amputation stump; X58.XXXD Exposure to other specified factors, subsequent encounter; Z89.412 Acquired absence of left great toe; Z79.01 Long term (current) use of anticoagulants ==

== ENCOUNTER 2020-06-20 00:27 | Day surgery (SDC) | payer OTHER ==
[2020-11-27] MEDS ORDERED: GABA300 PO (15:02)
== END 2020-06-20 22:45 | disposition home or self-care (01) ==
LOC: WOUND 00:27
DX: E11.621 Type 2 diabetes mellitus with foot ulcer (principal); E11.59 Type 2 diabetes mellitus with other circulatory complications; L97.522 Non-pressure chronic ulcer of other part of left foot with fat layer exposed; L97.821 Non-pressure chronic ulcer of other part of left lower leg limited to breakdown of skin; J44.9 Chronic obstructive pulmonary disease, unspecified; I48.91 Unspecified atrial fibrillation; R60.0 Localized edema; Z79.01 Long term (current) use of anticoagulants; Z89.412 Acquired absence of left great toe
CPT/HCPCS: A9270

== ENCOUNTER 2020-06-27 00:46 | Day surgery (SDC) | payer OTHER ==
[2020-11-27] MEDS ORDERED: GABA300 PO (15:02)
== END 2020-06-27 23:06 | disposition home or self-care (01) ==
LOC: WOUND 00:46
DX: E11.621 Type 2 diabetes mellitus with foot ulcer (principal); L97.522 Non-pressure chronic ulcer of other part of left foot with fat layer exposed; E11.622 Type 2 diabetes mellitus with other skin ulcer; L97.829 Non-pressure chronic ulcer of other part of left lower leg with unspecified severity; E11.52 Type 2 diabetes mellitus with diabetic peripheral angiopathy with gangrene; I96 Gangrene, not elsewhere classified; E11.59 Type 2 diabetes mellitus with other circulatory complications; J44.9 Chronic obstructive pulmonary disease, unspecified; I11.0 Hypertensive heart disease with heart failure; I50.9 Heart failure, unspecified; I25.10 Atherosclerotic heart disease of native coronary artery without angina pectoris; I48.91 Unspecified atrial fibrillation; Z79.01 Long term (current) use of anticoagulants; Z79.899 Other long term (current) drug therapy; Z79.84 Long term (current) use of oral hypoglycemic drugs; Z79.51 Long term (current) use of inhaled steroids; Z79.82 Long term (current) use of aspirin; Z89.412 Acquired absence of left great toe; Z20.822 Contact with and (suspected) exposure to COVID-19
CPT/HCPCS: A9270; G0463

== ENCOUNTER 2020-07-04 00:20 | Day surgery (SDC) | payer OTHER ==
[2020-11-27] MEDS ORDERED: GABA300 PO (15:02)
== END 2020-07-04 22:34 | disposition home or self-care (01) ==
LOC: WOUND 00:20
DX: T87.89 Other complications of amputation stump (principal); E11.621 Type 2 diabetes mellitus with foot ulcer; L97.522 Non-pressure chronic ulcer of other part of left foot with fat layer exposed; E11.622 Type 2 diabetes mellitus with other skin ulcer; L97.829 Non-pressure chronic ulcer of other part of left lower leg with unspecified severity; S81.802D Unspecified open wound, left lower leg, subsequent encounter; Z89.412 Acquired absence of left great toe

== ENCOUNTER 2020-07-11 00:15 | Day surgery (SDC) | payer OTHER ==
[2020-11-27] MEDS ORDERED: GABA300 PO (15:02)
== END 2020-07-11 23:45 | disposition home or self-care (01) ==
LOC: WOUND 00:15
DX: E11.621 Type 2 diabetes mellitus with foot ulcer (principal); L97.522 Non-pressure chronic ulcer of other part of left foot with fat layer exposed; S81.802D Unspecified open wound, left lower leg, subsequent encounter; E11.59 Type 2 diabetes mellitus with other circulatory complications; Z89.412 Acquired absence of left great toe; I87.2 Venous insufficiency (chronic) (peripheral); Z79.84 Long term (current) use of oral hypoglycemic drugs; J44.9 Chronic obstructive pulmonary disease, unspecified; I48.91 Unspecified atrial fibrillation; Z79.01 Long term (current) use of anticoagulants; X58.XXXD Exposure to other specified factors, subsequent encounter
CPT/HCPCS: A9270

== ENCOUNTER 2020-07-13 02:20 | Day surgery (SDC) | payer OTHER ==
[2020-11-27] MEDS ORDERED: GABA300 PO (15:02)
== END 2020-07-13 23:45 | disposition home or self-care (01) ==
LOC: WOUND 02:20
DX: E11.621 Type 2 diabetes mellitus with foot ulcer (principal); L97.509 Non-pressure chronic ulcer of other part of unspecified foot with unspecified severity; S81.802D Unspecified open wound, left lower leg, subsequent encounter; E11.59 Type 2 diabetes mellitus with other circulatory complications; Z89.412 Acquired absence of left great toe
CPT/HCPCS: A9270; G0463

== ENCOUNTER 2020-07-18 00:15 | Day surgery (SDC) | payer OTHER ==
[2020-11-27] MEDS ORDERED: GABA300 PO (15:02)
== END 2020-07-18 23:04 | disposition home or self-care (01) ==
LOC: WOUND 00:15
DX: E11.621 Type 2 diabetes mellitus with foot ulcer (principal); E11.59 Type 2 diabetes mellitus with other circulatory complications; L97.529 Non-pressure chronic ulcer of other part of left foot with unspecified severity; L97.829 Non-pressure chronic ulcer of other part of left lower leg with unspecified severity; I48.91 Unspecified atrial fibrillation; Z79.01 Long term (current) use of anticoagulants; J44.9 Chronic obstructive pulmonary disease, unspecified; I73.9 Peripheral vascular disease, unspecified; I87.2 Venous insufficiency (chronic) (peripheral); Z89.412 Acquired absence of left great toe
CPT/HCPCS: A9270; G0463

== ENCOUNTER 2020-07-25 01:32 | Day surgery (SDC) | payer OTHER ==
[2020-11-27] MEDS ORDERED: GABA300 PO (15:02)
== END 2020-07-25 22:57 | disposition home or self-care (01) ==
LOC: WOUND
DX: T87.89 Other complications of amputation stump (principal); E11.622 Type 2 diabetes mellitus with other skin ulcer; L97.821 Non-pressure chronic ulcer of other part of left lower leg limited to breakdown of skin; I87.2 Venous insufficiency (chronic) (peripheral); E11.51 Type 2 diabetes mellitus with diabetic peripheral angiopathy without gangrene; J44.9 Chronic obstructive pulmonary disease, unspecified; I48.91 Unspecified atrial fibrillation; Z79.01 Long term (current) use of anticoagulants
CPT/HCPCS: A9270; G0463

== ENCOUNTER 2020-08-01 00:27 | Day surgery (SDC) | payer OTHER ==
[2020-11-27] MEDS ORDERED: GABA300 PO (15:02)
== END 2020-08-01 22:45 | disposition home or self-care (01) ==
LOC: WOUND 00:27
DX: S81.802D Unspecified open wound, left lower leg, subsequent encounter (principal); E11.621 Type 2 diabetes mellitus with foot ulcer; E11.59 Type 2 diabetes mellitus with other circulatory complications; E11.51 Type 2 diabetes mellitus with diabetic peripheral angiopathy without gangrene; I87.2 Venous insufficiency (chronic) (peripheral); J44.9 Chronic obstructive pulmonary disease, unspecified; I48.91 Unspecified atrial fibrillation; X58.XXXD Exposure to other specified factors, subsequent encounter; Z79.01 Long term (current) use of anticoagulants; Z89.412 Acquired absence of left great toe
CPT/HCPCS: A9270; G0463

== ENCOUNTER 2020-08-08 00:07 | Day surgery (SDC) | payer OTHER ==
[2020-11-27] MEDS ORDERED: GABA300 PO (15:02)
== END 2020-08-08 22:37 | disposition home or self-care (01) ==
LOC: WOUND 00:07
DX: E11.621 Type 2 diabetes mellitus with foot ulcer (principal); E11.622 Type 2 diabetes mellitus with other skin ulcer; L97.529 Non-pressure chronic ulcer of other part of left foot with unspecified severity; L97.829 Non-pressure chronic ulcer of other part of left lower leg with unspecified severity; E11.59 Type 2 diabetes mellitus with other circulatory complications; E11.51 Type 2 diabetes mellitus with diabetic peripheral angiopathy without gangrene; I87.2 Venous insufficiency (chronic) (peripheral); J44.9 Chronic obstructive pulmonary disease, unspecified; I48.91 Unspecified atrial fibrillation; Z79.01 Long term (current) use of anticoagulants; Z89.412 Acquired absence of left great toe
CPT/HCPCS: A9270

== ENCOUNTER 2020-08-22 01:26 | Day surgery (SDC) | payer OTHER ==
[2020-11-27] MEDS ORDERED: GABA300 PO (15:02)
== END 2020-08-22 22:40 | disposition home or self-care (01) ==
LOC: WOUND 01:26
DX: E11.622 Type 2 diabetes mellitus with other skin ulcer (principal); L97.821 Non-pressure chronic ulcer of other part of left lower leg limited to breakdown of skin; E11.51 Type 2 diabetes mellitus with diabetic peripheral angiopathy without gangrene; I87.2 Venous insufficiency (chronic) (peripheral); Z89.412 Acquired absence of left great toe
CPT/HCPCS: A9270

== ENCOUNTER 2020-08-29 00:18 | Day surgery (SDC) | payer OTHER ==
[2020-11-27] MEDS ORDERED: GABA300 PO (15:02)
== END 2020-08-29 22:36 | disposition home or self-care (01) ==
LOC: WOUND 00:18
DX: L97.821 Non-pressure chronic ulcer of other part of left lower leg limited to breakdown of skin (principal); E11.621 Type 2 diabetes mellitus with foot ulcer; S81.802D Unspecified open wound, left lower leg, subsequent encounter; X58.XXXD Exposure to other specified factors, subsequent encounter; E11.59 Type 2 diabetes mellitus with other circulatory complications; Z89.412 Acquired absence of left great toe; I73.9 Peripheral vascular disease, unspecified; I87.2 Venous insufficiency (chronic) (peripheral)
CPT/HCPCS: A9270

== ENCOUNTER 2020-09-05 00:44 | Day surgery (SDC) | payer OTHER ==
[2020-11-27] MEDS ORDERED: GABA300 PO (15:02)
== END 2020-09-05 22:47 | disposition home or self-care (01) ==
LOC: WOUND 00:44
DX: E11.621 Type 2 diabetes mellitus with foot ulcer (principal); L97.529 Non-pressure chronic ulcer of other part of left foot with unspecified severity; E11.59 Type 2 diabetes mellitus with other circulatory complications; E11.51 Type 2 diabetes mellitus with diabetic peripheral angiopathy without gangrene; I87.2 Venous insufficiency (chronic) (peripheral); J44.9 Chronic obstructive pulmonary disease, unspecified; I48.91 Unspecified atrial fibrillation; Z89.412 Acquired absence of left great toe; Z79.01 Long term (current) use of anticoagulants
CPT/HCPCS: A9270; G0463

== ENCOUNTER 2020-09-12 00:18 | Day surgery (SDC) | payer OTHER ==
[2020-11-27] MEDS ORDERED: GABA300 PO (15:02)
== END 2020-09-12 22:40 | disposition home or self-care (01) ==
LOC: WOUND 00:18
DX: I87.2 Venous insufficiency (chronic) (peripheral) (principal); E11.51 Type 2 diabetes mellitus with diabetic peripheral angiopathy without gangrene; E11.59 Type 2 diabetes mellitus with other circulatory complications; J44.9 Chronic obstructive pulmonary disease, unspecified; I48.91 Unspecified atrial fibrillation; Z89.412 Acquired absence of left great toe; Z79.01 Long term (current) use of anticoagulants; Z86.31 Personal history of diabetic foot ulcer

== ENCOUNTER 2020-09-21 00:52 | Day surgery (SDC) | payer OTHER | END 2020-09-21 23:07 | disposition home or self-care (01) | LOC: WOUND 00:52 | DX: I87.2 Venous insufficiency (chronic) (peripheral) (principal); E11.51 Type 2 diabetes mellitus with diabetic peripheral angiopathy without gangrene; E11.59 Type 2 diabetes mellitus with other circulatory complications; J44.9 Chronic obstructive pulmonary disease, unspecified; I48.91 Unspecified atrial fibrillation; Z89.412 Acquired absence of left great toe; Z79.01 Long term (current) use of anticoagulants; Z86.31 Personal history of diabetic foot ulcer; Z79.84 Long term (current) use of oral hypoglycemic drugs | CPT/HCPCS: A9270 ==

== ENCOUNTER 2020-10-03 01:10 | Day surgery (SDC) | payer OTHER | END 2020-10-03 23:16 | disposition home or self-care (01) | LOC: WOUND 01:10 | DX: L30.9 Dermatitis, unspecified (principal); E11.621 Type 2 diabetes mellitus with foot ulcer; I87.2 Venous insufficiency (chronic) (peripheral); I73.9 Peripheral vascular disease, unspecified; E11.59 Type 2 diabetes mellitus with other circulatory complications; Z89.412 Acquired absence of left great toe; J44.9 Chronic obstructive pulmonary disease, unspecified; I48.91 Unspecified atrial fibrillation; Z79.01 Long term (current) use of anticoagulants | CPT/HCPCS: A9270 ==

== ENCOUNTER 2020-10-17 00:05 | Day surgery (SDC) | payer OTHER ==
[2020-11-27] MEDS ORDERED: GABA300 PO (15:02)
== END 2020-10-18 22:37 | disposition home or self-care (01) ==
LOC: WOUND 00:05
DX: L30.9 Dermatitis, unspecified (principal); I87.2 Venous insufficiency (chronic) (peripheral); I73.9 Peripheral vascular disease, unspecified; E11.621 Type 2 diabetes mellitus with foot ulcer; E11.59 Type 2 diabetes mellitus with other circulatory complications; Z89.412 Acquired absence of left great toe
CPT/HCPCS: A9270

== ENCOUNTER 2020-10-24 03:36 | Day surgery (SDC) | payer OTHER ==
[2020-11-27] MEDS ORDERED: GABA300 PO (15:02)
== END 2020-10-24 22:41 | disposition home or self-care (01) ==
LOC: WOUND 03:36
DX: I87.2 Venous insufficiency (chronic) (peripheral) (principal); I73.9 Peripheral vascular disease, unspecified; E11.621 Type 2 diabetes mellitus with foot ulcer; L97.509 Non-pressure chronic ulcer of other part of unspecified foot with unspecified severity; Z89.412 Acquired absence of left great toe; E11.59 Type 2 diabetes mellitus with other circulatory complications
CPT/HCPCS: A9270

== ENCOUNTER 2020-10-31 03:20 | Day surgery (SDC) | payer OTHER ==
[2020-11-27] MEDS ORDERED: GABA300 PO (15:02)
== END 2020-10-31 23:18 | disposition home or self-care (01) ==
LOC: WOUND 03:20
DX: L30.9 Dermatitis, unspecified (principal); I87.2 Venous insufficiency (chronic) (peripheral); I73.9 Peripheral vascular disease, unspecified; E11.621 Type 2 diabetes mellitus with foot ulcer; E11.59 Type 2 diabetes mellitus with other circulatory complications; Z89.412 Acquired absence of left great toe
CPT/HCPCS: A9270

== ENCOUNTER 2020-11-14 02:18 | Day surgery (SDC) | payer OTHER ==
[2020-11-27] MEDS ORDERED: GABA300 PO (15:02)
== END 2020-11-14 23:48 | disposition home or self-care (01) ==
LOC: WOUND 02:18
DX: L30.9 Dermatitis, unspecified (principal); I87.2 Venous insufficiency (chronic) (peripheral); I73.9 Peripheral vascular disease, unspecified; E11.59 Type 2 diabetes mellitus with other circulatory complications; E11.621 Type 2 diabetes mellitus with foot ulcer; Z89.412 Acquired absence of left great toe; J44.9 Chronic obstructive pulmonary disease, unspecified; I48.91 Unspecified atrial fibrillation
CPT/HCPCS: A9270

== ENCOUNTER 2020-11-28 08:21 | Day surgery (SDC) | payer OTHER ==
[~2020-11-28] VITALS: Ht 188 cm; Wt 102.7 kg
[~2020-11-28 08:21] MED LIST changes: +GABA300 PO
--- NOTE | 2020-11-28 11:07 | NUR ---
PATIENT RETURNED FROM THE CATHLAB VIA BED. MONITOR APPLIED AND CALL LIGHT IN REACH. VVS. NO PAIN NOTED. BILATERAL GROINS WITH ANGIOSEALS. CDI, NO BLEEDING. SBAR FROM CHUY COURTNEY
--- NOTE | 2020-11-28 11:46 | NUR ---
PATIENT REMAINS ON BEDREST AND BREAKFAST TRAY SERVED. SELF FED. BILATERAL GROIN CHECKED PEROFRMED EVERY 15 MINUTES. SIDERAILS UP X 2, CALL LIGHT IN REACH. URINAL AT THE BEDSIDE.
--- NOTE | 2020-11-28 12:42 | NUR ---
CALLED [facility] FOR POTENTIAL DISCAHRGE AT 1330
--- NOTE | 2020-11-28 12:51 | NUR ---
1240 REVIEWED DISCHARGE INSTRUCTIONS WITH THE PATIENT. ALL QUESTIONS ANSWERED AND SIGNATURES OBTAINED. COPIES GIVEN TO THE PATIENT FOR HIS HOME HEALTH WORKER TO REVIEW ALSO.
--- NOTE | 2020-11-28 13:01 | NUR ---
PATIENT SITTING UP ON THE SIDE OF THE BED. GROIN SITES BILATERALLY ARE STABLE, NO BLEEDING NOTED. PATIENT DRESSING SELF AND TO THE RESTROOM WITHOUT DIFFICULTY.
--- NOTE | 2020-11-28 13:03 | NUR ---
PIV REMOVED AND PRESSURE DRESSING APPLIED TO THE LEFT AC. PATIENT INSTRUCTED TO REMVOED THE PRESSURE DRESSING IN TWO HOURS.
--- NOTE | 2020-11-28 13:19 | NUR ---
DR. LEMUS AT THE BEDSIDE AND SPOKE AT LENGTH WITH THE PATIENT.
== END 2020-11-28 13:30 | disposition home or self-care (01) ==
LOC: WOUND → MHTC 08:21
DX: I70.213 Atherosclerosis of native arteries of extremities with intermittent claudication, bilateral legs (principal); S81.802A Unspecified open wound, left lower leg, initial encounter; X58.XXXA Exposure to other specified factors, initial encounter; I48.91 Unspecified atrial fibrillation; I11.0 Hypertensive heart disease with heart failure; I50.9 Heart failure, unspecified; E78.5 Hyperlipidemia, unspecified; E11.9 Type 2 diabetes mellitus without complications; K21.9 Gastro-esophageal reflux disease without esophagitis; Z79.899 Other long term (current) drug therapy; Z79.01 Long term (current) use of anticoagulants; Z79.84 Long term (current) use of oral hypoglycemic drugs
CPT/HCPCS: 37221; 75625; 75710; 75716; 75774; 76937; 99152; 99153; C1725; C1760; C1769; C1874; C1887; C1894; J2250; J3010; J7030; J7050; Q9967

== ENCOUNTER 2020-12-05 02:52 | Day surgery (SDC) | payer OTHER | END 2020-12-05 23:31 | disposition home or self-care (01) | LOC: WOUND 02:52 | DX: L30.9 Dermatitis, unspecified (principal); E11.621 Type 2 diabetes mellitus with foot ulcer; L97.509 Non-pressure chronic ulcer of other part of unspecified foot with unspecified severity; I87.2 Venous insufficiency (chronic) (peripheral); I73.9 Peripheral vascular disease, unspecified; E11.59 Type 2 diabetes mellitus with other circulatory complications; Z89.412 Acquired absence of left great toe ==

== ENCOUNTER 2020-12-20 00:31 | Day surgery (SDC) | payer OTHER | END 2020-12-20 22:41 | disposition home or self-care (01) | LOC: WOUND 00:31 | DX: Z09 Encounter for follow-up examination after completed treatment for conditions other than malignant neoplasm (principal); E11.622 Type 2 diabetes mellitus with other skin ulcer; L97.829 Non-pressure chronic ulcer of other part of left lower leg with unspecified severity; I87.2 Venous insufficiency (chronic) (peripheral); E11.51 Type 2 diabetes mellitus with diabetic peripheral angiopathy without gangrene; J44.9 Chronic obstructive pulmonary disease, unspecified; I48.91 Unspecified atrial fibrillation; Z79.01 Long term (current) use of anticoagulants; Z89.412 Acquired absence of left great toe; Z87.2 Personal history of diseases of the skin and subcutaneous tissue | CPT/HCPCS: G0463 ==

== ENCOUNTER 2021-01-02 01:26 | Day surgery (SDC) | payer OTHER | END 2021-01-02 22:41 | disposition home or self-care (01) | LOC: WOUND 01:26 | DX: L30.9 Dermatitis, unspecified (principal); E11.621 Type 2 diabetes mellitus with foot ulcer; L97.509 Non-pressure chronic ulcer of other part of unspecified foot with unspecified severity; I87.2 Venous insufficiency (chronic) (peripheral); E11.59 Type 2 diabetes mellitus with other circulatory complications; E11.51 Type 2 diabetes mellitus with diabetic peripheral angiopathy without gangrene; Z89.412 Acquired absence of left great toe ==

== ENCOUNTER 2021-01-16 01:29 | Day surgery (SDC) | payer OTHER | END 2021-01-16 22:36 | disposition home or self-care (01) | LOC: WOUND 01:29 | DX: E11.621 Type 2 diabetes mellitus with foot ulcer (principal); E11.622 Type 2 diabetes mellitus with other skin ulcer; L97.529 Non-pressure chronic ulcer of other part of left foot with unspecified severity; L97.829 Non-pressure chronic ulcer of other part of left lower leg with unspecified severity; E11.51 Type 2 diabetes mellitus with diabetic peripheral angiopathy without gangrene; E11.59 Type 2 diabetes mellitus with other circulatory complications; I87.2 Venous insufficiency (chronic) (peripheral); J44.9 Chronic obstructive pulmonary disease, unspecified; I48.91 Unspecified atrial fibrillation; Z89.412 Acquired absence of left great toe; Z79.01 Long term (current) use of anticoagulants ==

== ENCOUNTER 2021-01-23 02:22 | Day surgery (SDC) | payer OTHER | END 2021-01-23 23:06 | disposition home or self-care (01) | LOC: WOUND 02:22 | DX: I87.2 Venous insufficiency (chronic) (peripheral) (principal); E11.621 Type 2 diabetes mellitus with foot ulcer; E11.59 Type 2 diabetes mellitus with other circulatory complications; E11.51 Type 2 diabetes mellitus with diabetic peripheral angiopathy without gangrene; Z89.412 Acquired absence of left great toe; J44.9 Chronic obstructive pulmonary disease, unspecified; I48.91 Unspecified atrial fibrillation | CPT/HCPCS: A9270 ==

== ENCOUNTER 2021-01-30 00:27 | Day surgery (SDC) | payer OTHER | END 2021-01-30 23:07 | disposition home or self-care (01) | LOC: WOUND 00:27 | DX: E11.621 Type 2 diabetes mellitus with foot ulcer (principal); E11.59 Type 2 diabetes mellitus with other circulatory complications; I48.91 Unspecified atrial fibrillation; E11.51 Type 2 diabetes mellitus with diabetic peripheral angiopathy without gangrene; I87.2 Venous insufficiency (chronic) (peripheral); J44.9 Chronic obstructive pulmonary disease, unspecified; Z89.412 Acquired absence of left great toe; Z79.01 Long term (current) use of anticoagulants | CPT/HCPCS: G0463 ==

== ENCOUNTER → 2021-06-20 | Outpatient (CLI) | payer OTHER ==
[2021-06-25 09:09] LABS: CARBOXY-THC 31 (.)
== END | disposition home or self-care (01) ==
LOC: LAB SHORT 10:50
PROVIDERS: Family Medicine
DX: Z51.81 Encounter for therapeutic drug level monitoring (principal); Z79.899 Other long term (current) drug therapy
CPT/HCPCS: G0480

== ENCOUNTER 2021-07-17 10:12 | Inpatient (IN) | payer OTHER ==
[~2021-07-17] VITALS: Ht 188 cm; Wt 247.2 kg
[~2021-07-17 10:12] MED LIST changes: +Isosorbide Mono30 MG PO; +LISI5 PO; -Prinivil10 MG PO
[2021-07-17 11:03] LABS: BASOPHILS ABSOLUTE AUTO 0.05 K/mm3 (0.00-0.23); BASOPHILS PERCENT AUTO 1 % (0-2); EOSINOPHILS ABSOLUTE AUTO 0.23 K/mm3 (0.00-0.68); EOSINOPHILS PERCENT AUTO 3 % (0-6); Hematocrit 35.2 % (37.0-53.0); Hemoglobin 10.5 g/dL (13.5-17.5); IMMATURE GRAN ABSOLUTE AUTO 0.01 K/mm3 (0.00-0.10); IMMATURE GRAN PERCENT AUTO 0 % (0-1); LYMPHOCYTES ABSOLUTE AUTO 0.61 K/mm3 (0.84-5.20); LYMPHOCYTES PERCENT AUTO 8 % (21-46); MONOCYTES ABSOLUTE AUTO 0.88 K/mm3 (0.16-1.47); MONOCYTES PERCENT AUTO 12 % (4-13); Mean Corpuscular HGB 26.6 pg (26.0-34.0); Mean Corpuscular HGB Conc 29.8 g/dL (31.5-36.5); Mean Corpuscular Volume 89 fL (80-100); Mean Platelet Volume 10.4 fL (9.1-12.4); NEUTROPHILS ABSOLUTE AUTO 5.75 K/mm3 (1.96-9.15); NEUTROPHILS PERCENT AUTO 76 % (41-73); Platelet Count 301 K/mm3 (150-400); RDW Coefficient Variation 16.3 % (11.7-14.2); RDW Standard Deviation 53.5 fL (35.1-46.3); Red Blood Cell Count 3.94 M/mm3 (4.30-5.90); White Blood Cell Count 7.53 K/mm3 (4.00-11.30)
[2021-07-17 11:23] LABS: Albumin, Blood 3.4 g/dL (3.4-5.0); Albumin/Globulin Ratio 0.8 (0.8-1.8); Bilirubin, Total 0.4 mg/dL (0.1-1.0); Bun/Creatinine Ratio 34.1 (12.0-20.0); Calcium, Blood 8.5 mg/dL (8.5-10.1); Creatinine, Blood 1.82 mg/dL (0.60-1.20); Globulin, Blood 4.1 g/dL (2.2-4.0); Potassium, Blood 4.9 mmol/L (3.5-5.5); Total Protein, Blood 7.5 g/dL (6.4-8.2)
[2021-07-17 11:48] LABS: BASOPHILS ABSOLUTE MAN 0.07 K/mm3 (0.00-0.23); BASOPHILS PERCENT MAN 1 % (0-2); EOSINOPHILS ABSOLUTE MAN 0.07 K/mm3 (0.00-0.68); EOSINOPHILS PERCENT MAN 1 % (0-6); LYMPHOCYTES ABSOLUTE MAN 0.75 K/mm3 (0.84-5.20); LYMPHOCYTES PERCENT MAN 10 % (21-46); MONOCYTES ABSOLUTE MAN 0.82 K/mm3 (0.16-1.47); MONOCYTES PERCENT MAN 11 % (4-13); NEUTROPHILS ABSOLUTE MAN 5.79 K/mm3 (1.96-9.15); SEG NEUTROPHILS PERCENT MAN 77 % (41-73); TOTAL CELLS COUNTED 100
[2021-07-17 12:13] LABS: Base Excess Venous 6.8 mmol/L; Bicarbonate Venous 29.3 mmol/L (24.0-30.0); PCO2 Venous 60.8 mmHg (38-42); pH Blood Venous 7.34 (7.34-7.37)
[2021-07-17 17:11] LABS: International Normalized Ratio 1.88; Prothrombin Time Results 18.9 Sec (9.7-11.5)
--- NOTE | 2021-07-17 19:50 | NUR ---
1555 RECEIVED PT TO 361 VIA GURNEY FROM ER. PT ADMITTED FOR CHF AND FLUID OVERLOAD. IV LASIX GIVEN IN ER WITH 1000cc OUTPT. HX OF DM, A-FIB, GANGRENE L GREAT TOE AMPUTATION. BLE'S W/REDNESS AND SWELLING; SKIN TIGHT TO LE'S. PT ABLE TO TX SELF TO BED WITH SBA. A&O, PLEASANT AND CO-OP. CHRONIC 2L O2 PER PT; BIOX AT 97%. PT IS A 1P SBA USING FWW TO BTHRM, VOIDING ANOTHER 900cc SOON AFTER ADMISSION TO . PT IS ON 2000cc FLUID RESTRICTION. MEDS GIVEN PER EMAR. DENIED FURTHER NEEDS. CALL LT IN REACH.
--- NOTE | 2021-07-18 03:41 | NUR ---
SHIFT SUMMARY Pt alert, oriented x 4, no c/o pain, minoo po well, CBG 156 at H/S, no insulin coverage required. Pt up to side of bed independently, voiding without difficulty. Pt compliant with 2000 ml fluid restriction, BLE's with 1+ edema and skin jairo, dry to lower legs. Pedal pulses weak but palpable. Lungs clear, diminished, O2 on at 2L via n/c, congested, nonproductive cough noted, no distress noted, neb tx per RT. VSS, anticipate d/c when medically stable.
[2021-07-18 05:42] LABS: International Normalized Ratio 1.86; Prothrombin Time Results 18.8 Sec (9.7-11.5)
[2021-07-18 06:12] LABS: Albumin/Globulin Ratio 0.9 (0.8-1.8); Bilirubin, Total 0.5 mg/dL (0.1-1.0); Bun/Creatinine Ratio 31.4 (12.0-20.0); Calcium, Blood 8.7 mg/dL (8.5-10.1); Creatinine, Blood 1.88 mg/dL (0.60-1.20); Globulin, Blood 3.2 g/dL (2.2-4.0); Potassium, Blood 4.7 mmol/L (3.5-5.5); Total Protein, Blood 6.2 g/dL (6.4-8.2)
--- NOTE | 2021-07-18 14:31 | NUR ---
JOHNM Initial Interview with [employer] Pecan Picker 1. Who did you speak with? Spoke with patient 2. What is the patient's prior level of functions? Patient lives independently in an apartment in [place]. Patient is able to perform ADLs without assistance. DME: he has a 2WW and uses Oxygen ([facility]) at night. Patient states he has trouble sleeping due to breathing difficulty and uses pillows to elevate his legs. He has three children whom all live out of [facility]; two daughters-[place] and [place] and one son whom is in a [facility]. Patient communicates with his daughters, but states they have their own lives and are struggling financially and not able to visit him as often as he would like. Patient is friends with a couple who live near [facility] and they assist him when needed. 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 3. Does patient still drive? 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 4. POA/PCP/NOK: NOK: Emma and Yrn Erickson (in case of emergency)-friends/PCP Dr. Queta Solorio 5. ANTICIPATED DISCHARGE NEEDS/GOALS: TBD/Home Health - DME: patient has a 2WW/Oxygen and concentrator -Home Health: Patient has used [facility] in the past and would like to remain with company if needed. -Patient self manages medications -Preferred Pharmacy-[facility] [facility] -Patient would like caregiving services; finding it more difficult to housekeep and prepare meals. Patient eats mostly soups and microwavable meals. 6. List barriers to discharge: No barriers on this date 7. Discharge Plan: Home discharge with Home health ([facility])/Follow up with PCP within 7 days (NILAM will coordinate post discharge). 8. PCP Follow up appointment: Will be scheduled within seven calendar days of discharge. Explained importance of scheduling and attendance. Confirmed cell phone number: [phone] 9. OTHER COMMENTS: Patient is not a
--- NOTE | 2021-07-18 17:45 | NUR ---
CALLED DR ORTA- NEW ORDER WAS RECIEVED FOR IV BUMEX, LAST SBP WAS 108 REQUESTED PARAMETERS RECIEVED ORDER TO HOLD FOR SBP LESS THAN 100. AFTER THAT WAS ADMINISTERED HOME DOSE LISINOPRIL WAS RESUMED, CALLED TO REQUEST PARAMETERS TO HOLD THIS MEDICATION, ORDER RECIEVED TO DC IT AT THIS TIME. WENT TO GIVE PO MAGNESIUM AND PT MAG LEVEL WAS 2.6 ON LABS, CALLED AGAIN, ORDER RECIEVED TO GIVE THE MAGNESIUM. ALSO ASKED ABOUT THE PT DOSE OF GABAPENTIN, HE REFUSED THIS AFTERNOONS DOSE, CURRENT ORDER IS 900MG TID PT STATES HE TAKES 600MG BID. REQUESTED A FAXED LIST FROM THE PT PHARMACY AND HIS ORDER IS 1-2 CAPS OF 300MG GABAPENTIN BID. OK TO RESUME PT HOME DOSE OF GABAPENTIN. ORDER PLACED IN ORDER MANAGEMENT.
--- NOTE | 2021-07-18 18:11 | NUR ---
SHIFT SUMMARY- PT HAS HAD NO ACUTE CHANGE T/O THE SHIFT. DAILY WEIGHT DONE WITH THE STANDING SCALE THIS SHIFT AND DOCUMENTED. PT HAS SCDS IN PLACE FOR DVT PROPHILAXIS, IV SL. PT HAS BEEN INDEPENDENT IN THE ROOM T/O THE DAY, DENIES THE NEED FOR PAIN MEDICATION, DECLINED AFTERNOON DOSE OF GABAPENTIN, DR GALVAN SEE NEW ORDER. SEE PREVIOUS NOTES FOR DETAILS. PT PLACED ON TELE TODAY RUNNING AFIB IN THE 60'S WITH A BBB. PT CURRENTLY IN BED, CALL LIGHT IN REACH, HE REQUESTED A CHAIR AT THE BEDSIDE HE DOES NOT WANT TO STAY IN BED ALL THE TIME. CHAIR PLACED AT THE BEDSIDE ON THE SIDE PT REQUESTED. NO S&S OF DISTRESS AT THIS TIME WILL CTM.
--- NOTE | 2021-07-19 04:14 | NUR ---
SHIFT SUMMARY Pt doing well, no c/o pain, minoo po well, voiding without difficulty into urinal. Pt compliant with 2L fluid restriction, pt up independently in room, resting calmly during the shift. Lungs clear, diminished, no distress noted, 1+ edema noted to BLE's. Tele monitor on per orders with controlled afib noted. VSS, anticipate d/c when medically stable.
[2021-07-19 05:46] LABS: International Normalized Ratio 1.83; Prothrombin Time Results 18.5 Sec (9.7-11.5)
[2021-07-19 11:11] LABS: Bun/Creatinine Ratio 27.5 (12.0-20.0); Calcium, Blood 8.8 mg/dL (8.5-10.1); Creatinine, Blood 1.6 mg/dL (0.60-1.20); Potassium, Blood 4.5 mmol/L (3.5-5.5)
--- NOTE | 2021-07-19 15:30 | NUR ---
Nurse note - Mr Briseno is A&Ox3. Lung sounds diminished throughout, but clear after coughing. Expectorating some clear and some yellow sputum, which he said is normal for him. Hoarse voice. No resp distress on 2L nc. Heart sounds regular/irregular, on tele. Per tele report pt in Afib, BBB HR 60s. Abdomen round, firm, bowel sounds hypoactive this morning. Mr. Briseno said he hasn't been eating a lot since admission. Accucheck blood sugars 119 at 0730, 112 at 1130, so no insulin required. On 2L fluid restriction - Mr Briseno is careful with keeping to his fluid restriction. Extra one time dose of IV Bumex given this afternoon. Mr Briseno stands to urinate, steady to stand. Clear yellow urine noted. Edema 1-2+ to BLE. Numbness and tingling to both feet which is normal per pt. PIV patent, not tender, red or swollen.
--- NOTE | 2021-07-19 18:27 | NUR ---
Mr Briseno is A&Ox3. No resp distress on 2L O2. Requested RT for nebuliser this evening to help with expectorating sputum. He has been coughing up clear and yellow sputum throughout the shift. On tele - AFib/BBB with PVCs in the 60s reported by the photovoltaic fabrication technician and confirmed at 1830. Extra dose of Bumex given ~2pm and good UOP noted. Standing to urinate and steady at the bedside. Pt doing well with fluid restriction intake. Bed in low position. Call light in reach and pt calling appropriately when he needs assistance.
[2021-07-20 05:18] LABS: International Normalized Ratio 1.91; Prothrombin Time Results 19.2 Sec (9.7-11.5)
--- NOTE | 2021-07-20 06:07 | NUR ---
SHIFT SUMMARY Pt doing well, continues to void large amounts of urine this shift, pt compliant with 2L fluid restriction taking in mainly ice chips for fluid. Pt up in room independently to void, repositions self, vss, edema to BLE's improving. Anticipate d/c when medically stable.
--- NOTE | 2021-07-20 18:36 | NUR ---
SHIFT SUMMARY: PT A/O X 4 STANDBY ASSIST, PLEASANT AND COOPERATIVE. COMPLIANT WITH FR OF 2000 ML TODAY. PT URINATING LIGHT CLEAR YELLOW URINE. CONTINUES TO BE ON 2 LPM VIA NC. WHEN PT REMOVED SATS CHECKED AND DROPPED TO 82% ON RA. PT EDUCATED ON IMPORTANCE OF LEAVING OXYGEN ON AT ALL TIMES. HE REPORTED HE LIKES TO TAKE OFF TO EAT HIS MEALS. PT CONTINUED TO BE IN A-FIB T/OUT SHIFT. NO REPORTS OF CHEST PAIN, HE DOES HAVE SOB WITH EXERTION. PT CONTINUES TO FEEL LIKE HE HAS FLUID BUILD UP IN ABD, THIGHS AND LOWER LEGS. NO PITTING EDEMA AT THIS TIME. PT REPORTED TO ME HE HAS CONCERNS WHEN HE GOES HOME HE IS UNABLE TO COOK FOR HIMSELF AND WILL LIKELY EAT FOODS HIGH IN SODIUM. SOCIAL SERVICE CONSULT PLACED TO ADDRESS HIS CONCERNS. SUGGESTED HE FOLLOW-UP WITH HIS PCP AND ALSO DISCUSS CONCERNS AND SEE IF HE QUALIFIES FOR SERVICES SUCH MEAL ON WHEELS. PT WAS AGREEABLE.
[2021-07-21 04:43] LABS: BASOPHILS ABSOLUTE AUTO 0.05 K/mm3 (0.00-0.23); BASOPHILS PERCENT AUTO 1 % (0-2); EOSINOPHILS ABSOLUTE AUTO 0.21 K/mm3 (0.00-0.68); EOSINOPHILS PERCENT AUTO 3 % (0-6); Hematocrit 37.5 % (37.0-53.0); Hemoglobin 11.2 g/dL (13.5-17.5); IMMATURE GRAN ABSOLUTE AUTO 0.01 K/mm3 (0.00-0.10); IMMATURE GRAN PERCENT AUTO 0 % (0-1); LYMPHOCYTES ABSOLUTE AUTO 0.76 K/mm3 (0.84-5.20); LYMPHOCYTES PERCENT AUTO 10 % (21-46); MONOCYTES ABSOLUTE AUTO 0.91 K/mm3 (0.16-1.47); MONOCYTES PERCENT AUTO 12 % (4-13); Mean Corpuscular HGB 26.6 pg (26.0-34.0); Mean Corpuscular HGB Conc 29.9 g/dL (31.5-36.5); Mean Corpuscular Volume 89 fL (80-100); Mean Platelet Volume 10.1 fL (9.1-12.4); NEUTROPHILS ABSOLUTE AUTO 5.41 K/mm3 (1.96-9.15); NEUTROPHILS PERCENT AUTO 74 % (41-73); Platelet Count 321 K/mm3 (150-400); RDW Coefficient Variation 16.3 % (11.7-14.2); RDW Standard Deviation 53.1 fL (35.1-46.3); Red Blood Cell Count 4.21 M/mm3 (4.30-5.90); White Blood Cell Count 7.35 K/mm3 (4.00-11.30)
[2021-07-21 04:58] LABS: International Normalized Ratio 2.06; Prothrombin Time Results 20.6 Sec (9.7-11.5)
[2021-07-21 05:02] LABS: Bun/Creatinine Ratio 24.4 (12.0-20.0); Calcium, Blood 9.4 mg/dL (8.5-10.1); Creatinine, Blood 1.72 mg/dL (0.60-1.20); Potassium, Blood 3.7 mmol/L (3.5-5.5)
--- NOTE | 2021-07-21 07:46 | NUR ---
PT IS A/OX3-4. HE REMAINED ON 2L OF O2. PER TELE MONITOR HE WAS IN AFIB W/ BBB. HE IS INDEPENDENT IN THE ROOM USING HIS URINAL; HE DOES USE HIS CALL LIGHT APPROPRIATELY. NO OTHER CHANGES TO REPORT.
[2021-07-21] MEDS ORDERED: BUME2 PO (15:49)
--- NOTE | 2021-07-21 18:53 | NUR ---
SHIFT SUMMARY: PT A/O X 4 IND IN ROOM. PT READY FOR DISCHARGE AND AWAITING HIS RIDE. PT EDUCATED ON DC INSTRUCTIONS, MEDICATIONS, AND CHF EDUCATION. PT VU. PT EDUCATED ON SERVICES AND TO EXPECT A PHONE CALL FROM [facility] [employer] TO SET UP APPOINTMENTS. PT ASSISTED WITH PACKING UP BELONGINGS AND HE WAS ESCORTED TO [facility] VIA WC BY [facility].
--- NOTE | 2021-07-22 08:24 | NUR ---
Per Dr. Booth discharge appropriate. Patient does not oppose discharge. Patient discharged home to residence. [facility] Liaison Lilliam contacted to initiate Home Health services per discharge orders. Patient used [facility] in the past for home health services. Date of discharge: 07/21/2021 Date of admission: 07/17/2021 Provisional diagnosis at time of admission: CHF Final Diagnosis at time of discharge: CHF Transportation provided by: [facility] Location: [address] [place] DME Ordered: None needed (patient uses Oxygen/concentrator and on service with [facility]) Follow-ups needed: [facility] NILAM will contact patient to schedule hospital follow-up visit. Reinforced need to attend follow-up with option of telehealth appointment if can't make in-office visit. Provider/PCP: Dr. Madina Solorio When: WITHIN 1 WEEK Specialty: N/A When: N/A Confirmed numbers: Patient [phone] Comment: Explained to patient to contact PCP if any questions regarding medication management, social service needs, and if condition worsens go to Urgent Care/ER. No barriers to discharge. Patient has a support network.
== END 2021-07-21 19:20 | disposition home health service (06) | DRG 291 ==
LOC: ER 10:12 → MEDS 10:13
PROVIDERS: Student in an Organized Health Care Education/Training Program; ADMIT Internal Medicine
DX: I50.43 Acute on chronic combined systolic (congestive) and diastolic (congestive) heart failure (principal); J96.20 Acute and chronic respiratory failure, unspecified whether with hypoxia or hypercapnia; N17.9 Acute kidney failure, unspecified; E87.3 Alkalosis; I25.10 Atherosclerotic heart disease of native coronary artery without angina pectoris; I48.91 Unspecified atrial fibrillation; E11.22 Type 2 diabetes mellitus with diabetic chronic kidney disease; N18.30 Chronic kidney disease, stage 3 unspecified; E11.40 Type 2 diabetes mellitus with diabetic neuropathy, unspecified; E11.51 Type 2 diabetes mellitus with diabetic peripheral angiopathy without gangrene; E78.5 Hyperlipidemia, unspecified; J44.9 Chronic obstructive pulmonary disease, unspecified; I25.2 Old myocardial infarction; K21.9 Gastro-esophageal reflux disease without esophagitis; G89.4 Chronic pain syndrome; Z99.81 Dependence on supplemental oxygen; Z87.891 Personal history of nicotine dependence; Z89.412 Acquired absence of left great toe; Z79.899 Other long term (current) drug therapy; Z79.01 Long term (current) use of anticoagulants; Z79.84 Long term (current) use of oral hypoglycemic drugs
CPT/HCPCS: 36415; 71046; 80048; 80053; 82803; 82947; 83735; 83880; 84484; 85025; 85610; 93005; 93010; 94640; 94760; 94761; 96374; 99285-25; A9270; G0378; J1815; J1940

== ENCOUNTER 2021-07-29 15:16 | Emergency (ER) | payer OTHER ==
[~2021-07-29] VITALS: Ht 188 cm; Wt 123.4 kg
[~2021-07-29 15:16] MED LIST changes: +BUME2 PO
[2021-07-29 15:47] LABS: BASOPHILS ABSOLUTE AUTO 0.03 K/mm3 (0.00-0.23); BASOPHILS PERCENT AUTO 0 % (0-2); EOSINOPHILS ABSOLUTE AUTO 0.22 K/mm3 (0.00-0.68); EOSINOPHILS PERCENT AUTO 3 % (0-6); Hematocrit 37.6 % (37.0-53.0); IMMATURE GRAN ABSOLUTE AUTO 0.02 K/mm3 (0.00-0.10); IMMATURE GRAN PERCENT AUTO 0 % (0-1); LYMPHOCYTES ABSOLUTE AUTO 0.77 K/mm3 (0.84-5.20); LYMPHOCYTES PERCENT AUTO 9 % (21-46); MONOCYTES PERCENT AUTO 11 % (4-13); Mean Corpuscular HGB 26.5 pg (26.0-34.0); Mean Corpuscular HGB Conc 29.3 g/dL (31.5-36.5); Mean Corpuscular Volume 91 fL (80-100); Mean Platelet Volume 10.5 fL (9.1-12.4); NEUTROPHILS ABSOLUTE AUTO 6.53 K/mm3 (1.96-9.15); NEUTROPHILS PERCENT AUTO 77 % (41-73); Platelet Count 300 K/mm3 (150-400); RDW Coefficient Variation 16.5 % (11.7-14.2); RDW Standard Deviation 55.1 fL (35.1-46.3); Red Blood Cell Count 4.15 M/mm3 (4.30-5.90); White Blood Cell Count 8.47 K/mm3 (4.00-11.30)
[2021-07-29 16:07] LABS: Magnesium, Blood 2.5 mg/dL (1.6-2.4)
[2021-07-29 16:08] LABS: Albumin, Blood 3.6 g/dL (3.4-5.0); Albumin/Globulin Ratio 0.8 (0.8-1.8); Bilirubin, Total 0.3 mg/dL (0.1-1.0); Bun/Creatinine Ratio 34.4 (12.0-20.0); Calcium, Blood 8.3 mg/dL (8.5-10.1); Creatinine, Blood 1.89 mg/dL (0.60-1.20); Globulin, Blood 4.4 g/dL (2.2-4.0); Potassium, Blood 5.5 mmol/L (3.5-5.5)
[2021-07-29] MEDS ORDERED: METO2.5 PO (19:34)
== END 2021-07-29 20:03 | disposition home or self-care (01) ==
LOC: ER 15:16
PROVIDERS: Physician Assistant
DX: I50.41 Acute combined systolic (congestive) and diastolic (congestive) heart failure (principal); I25.10 Atherosclerotic heart disease of native coronary artery without angina pectoris; E11.22 Type 2 diabetes mellitus with diabetic chronic kidney disease; N18.30 Chronic kidney disease, stage 3 unspecified; K21.9 Gastro-esophageal reflux disease without esophagitis; Z79.899 Other long term (current) drug therapy; Z79.84 Long term (current) use of oral hypoglycemic drugs
CPT/HCPCS: 36415; 71045; 80053; 83735; 83880; 84484; 85025; 93005; 93010; 96374; 99284-25; A9270; J1940

== ENCOUNTER 2021-12-16 00:42 | Day surgery (SDC) | payer OTHER ==
[~2021-12-16 00:42] MED LIST changes: +Lasix40 MG PO; +METO2.5 PO
== END 2021-12-16 23:01 | disposition home or self-care (01) ==
LOC: WOUND 00:42
DX: I87.303 Chronic venous hypertension (idiopathic) without complications of bilateral lower extremity (principal); J44.9 Chronic obstructive pulmonary disease, unspecified; E11.9 Type 2 diabetes mellitus without complications; I87.8 Other specified disorders of veins; Z87.891 Personal history of nicotine dependence; Z79.01 Long term (current) use of anticoagulants
CPT/HCPCS: G0463

== ENCOUNTER 2021-12-16 18:37 | Emergency (ER) | payer OTHER ==
[~2021-12-16] VITALS: Ht 188 cm; Wt 120.2 kg
[2021-12-16 22:40] LABS: BASOPHILS ABSOLUTE AUTO 0.06 K/mm3 (0.00-0.23); BASOPHILS PERCENT AUTO 1 % (0-2); EOSINOPHILS ABSOLUTE AUTO 0.28 K/mm3 (0.00-0.68); EOSINOPHILS PERCENT AUTO 3 % (0-6); Hematocrit 38.2 % (37.0-53.0); Hemoglobin 11.4 g/dL (13.5-17.5); IMMATURE GRAN ABSOLUTE AUTO 0.02 K/mm3 (0.00-0.10); IMMATURE GRAN PERCENT AUTO 0 % (0-1); LYMPHOCYTES ABSOLUTE AUTO 0.79 K/mm3 (0.84-5.20); LYMPHOCYTES PERCENT AUTO 9 % (21-46); MONOCYTES ABSOLUTE AUTO 1.02 K/mm3 (0.16-1.47); MONOCYTES PERCENT AUTO 11 % (4-13); Mean Corpuscular HGB 25.3 pg (26.0-34.0); Mean Corpuscular HGB Conc 29.8 g/dL (31.5-36.5); Mean Corpuscular Volume 85 fL (80-100); Mean Platelet Volume 9.9 fL (9.1-12.4); NEUTROPHILS PERCENT AUTO 76 % (41-73); Platelet Count 327 K/mm3 (150-400); RDW Coefficient Variation 17.2 % (11.7-14.2); RDW Standard Deviation 53.2 fL (35.1-46.3); White Blood Cell Count 9.17 K/mm3 (4.00-11.30)
[2021-12-16 22:58] LABS: Albumin, Blood 3.2 g/dL (3.4-5.0); Albumin/Globulin Ratio 0.7 (0.8-1.8); Bilirubin, Total 0.3 mg/dL (0.1-1.0); Bun/Creatinine Ratio 16.3 (12.0-20.0); Creatinine, Blood 1.78 mg/dL (0.60-1.20); Globulin, Blood 4.4 g/dL (2.2-4.0); Potassium, Blood 4.5 mmol/L (3.5-5.5); Total Protein, Blood 7.6 g/dL (6.4-8.2)
[2021-12-17 00:19] LABS: Source, Urine Clean Catch
[2021-12-17 00:21] LABS: Bilirubin, Urine Neg (Neg); Blood, Urine Neg (Neg); Glucose Qualitative, Urine 4+ (Neg); Ketones, Urine Neg (Neg); Leukocyte Esterase, Urine Neg (Neg); Nitrite, Urine Neg (Neg); Protein, Urine Neg (Neg); Specific Gravity, Urine 1.005 (1.003-1.022); Urobilinogen, Urine NORM (Normal)
[2021-12-17 00:35] LABS: Appearance, Urine Clear (Clear); Color, Urine Pale Yellow (P-Yellow)
== END 2021-12-17 01:45 | disposition home or self-care (01) ==
LOC: ER 18:37
PROVIDERS: Physician Assistant
DX: T38.3X1A Poisoning by insulin and oral hypoglycemic [antidiabetic] drugs, accidental (unintentional), initial encounter (principal); R11.0 Nausea; I25.10 Atherosclerotic heart disease of native coronary artery without angina pectoris; I50.40 Unspecified combined systolic (congestive) and diastolic (congestive) heart failure; J44.9 Chronic obstructive pulmonary disease, unspecified; E11.22 Type 2 diabetes mellitus with diabetic chronic kidney disease; N18.30 Chronic kidney disease, stage 3 unspecified; K21.9 Gastro-esophageal reflux disease without esophagitis; Y92.9 Unspecified place or not applicable; Z79.899 Other long term (current) drug therapy; Z79.84 Long term (current) use of oral hypoglycemic drugs; Z79.01 Long term (current) use of anticoagulants
CPT/HCPCS: 36415; 80053; 81003; 82947; 85025; 99284

== ENCOUNTER → 2022-01-24 | Outpatient (CLI) | payer OTHER | LOC: LAB SHORT 13:53 → LAB 13:53 | DX: T14.8XXA Other injury of unspecified body region, initial encounter (principal) | CPT/HCPCS: 87015; 87116; 87206 ==

== ENCOUNTER → 2022-12-11 | Outpatient (CLI) | payer OTHER ==
[2022-12-11 15:00] LABS: International Normalized Ratio 3.28; Prothrombin Time Results 32.2 Sec (9.7-11.5)
== END | disposition home or self-care (01) ==
LOC: LAB SHORT 14:33 → LAB 14:33
PROVIDERS: Family Medicine
DX: I48.11 Longstanding persistent atrial fibrillation (principal); D68.69 Other thrombophilia
CPT/HCPCS: 85610

== ENCOUNTER → 2023-01-01 | Outpatient (CLI) | payer OTHER ==
[2023-01-01 16:16] LABS: International Normalized Ratio 2.03; Prothrombin Time Results 20.5 Sec (9.7-11.5)
== END ==
LOC: LAB 14:15 → LAB SHORT 14:15
PROVIDERS: Family Medicine
DX: Z51.81 Encounter for therapeutic drug level monitoring (principal); I48.11 Longstanding persistent atrial fibrillation
CPT/HCPCS: 85610

== ENCOUNTER → 2023-01-15 | Outpatient (CLI) | payer OTHER | LOC: LAB 12:15 | DX: I48.11 Longstanding persistent atrial fibrillation (principal); D68.69 Other thrombophilia ==

== ENCOUNTER → 2023-02-05 | Outpatient (CLI) | payer OTHER ==
[2023-02-05 13:59] LABS: International Normalized Ratio 2.19
== END ==
LOC: LAB 12:05 → LAB SHORT 12:05
PROVIDERS: Family Medicine
DX: Z51.81 Encounter for therapeutic drug level monitoring (principal); D68.69 Other thrombophilia; I48.91 Unspecified atrial fibrillation
CPT/HCPCS: 85610

== ENCOUNTER 2023-07-28 11:20 | Emergency (ER) | payer OTHER ==
[~2023-07-28] VITALS: Ht 188 cm; Wt 67.1 kg
[2023-07-28 12:06] LABS: BASOPHILS ABSOLUTE AUTO 0.03 K/mm3 (0.00-0.23); BASOPHILS PERCENT AUTO 0 % (0-2); EOSINOPHILS PERCENT AUTO 1 % (0-6); Hematocrit 46.6 % (37.0-53.0); Hemoglobin 14.4 g/dL (13.5-17.5); IMMATURE GRAN ABSOLUTE AUTO 0.02 K/mm3 (0.00-0.10); IMMATURE GRAN PERCENT AUTO 0 % (0-1); LYMPHOCYTES ABSOLUTE AUTO 0.75 K/mm3 (0.84-5.20); LYMPHOCYTES PERCENT AUTO 10 % (21-46); MONOCYTES ABSOLUTE AUTO 1.13 K/mm3 (0.16-1.47); MONOCYTES PERCENT AUTO 16 % (4-13); Mean Corpuscular HGB 28.2 pg (26.0-34.0); Mean Corpuscular HGB Conc 30.9 g/dL (31.5-36.5); Mean Corpuscular Volume 91 fL (80-100); Mean Platelet Volume 9.3 fL (9.1-12.4); NEUTROPHILS ABSOLUTE AUTO 5.27 K/mm3 (1.96-9.15); NEUTROPHILS PERCENT AUTO 72 % (41-73); Platelet Count 282 K/mm3 (150-400); RDW Coefficient Variation 15.3 % (11.7-14.2); RDW Standard Deviation 50.6 fL (35.1-46.3); Red Blood Cell Count 5.11 M/mm3 (4.30-5.90)
[2023-07-28 12:24] LABS: Albumin, Blood 3.4 g/dL (3.4-5.0); Albumin/Globulin Ratio 0.7 (0.8-1.8); Bilirubin, Total 0.3 mg/dL (0.1-1.0); Bun/Creatinine Ratio 17.2 (12.0-20.0); Calcium, Blood 9.3 mg/dL (8.5-10.1); Creatinine, Blood 2.03 mg/dL (0.60-1.20); Globulin, Blood 4.6 g/dL (2.2-4.0); Potassium, Blood 4.4 mmol/L (3.5-5.5)
[2023-07-28] MEDS ORDERED: METO25ER PO (13:51)
[2023-07-28] MEDS ORDERED: GLIP5 PO (13:53)
[2023-07-28] MEDS ORDERED: ALLO100 PO (13:54)
[2023-07-28] MEDS ORDERED: FAMO20 (13:55)
[2023-07-28] MEDS ORDERED: TAMS.4ER PO (13:56)
[2023-07-28] MEDS ORDERED: JARDIANCE25 MG PO (13:57)
[2023-07-28] MEDS ORDERED: AMIT25 PO (13:58)
[2023-07-28] MEDS ORDERED: IRON18 MG PO (14:03)
[2023-07-28] MEDS ORDERED: AZIT250 PO (14:09)
[2023-07-28] MEDS ORDERED: PRED20 PO (14:09)
[2023-07-28 14:11] LABS: Influenza A, PCR NEGATIVE (NEGATIVE); Influenza B, PCR NEGATIVE (NEGATIVE); Resp Syncytial Virus, PCR NEGATIVE (NEGATIVE); SARS-Cov-2 (COVID-19) PCR, MMC NEGATIVE (NEGATIVE)
[2023-07-28 14:15] VITALS: BP 128/78
== END 2023-07-28 14:36 | disposition home or self-care (01) ==
LOC: ER 11:20
PROVIDERS: Physician Assistant
DX: J44.1 Chronic obstructive pulmonary disease with (acute) exacerbation (principal); I48.91 Unspecified atrial fibrillation; I13.0 Hypertensive heart and chronic kidney disease with heart failure and stage 1 through stage 4 chronic kidney disease, or unspecified chronic kidney disease; E11.22 Type 2 diabetes mellitus with diabetic chronic kidney disease; N18.30 Chronic kidney disease, stage 3 unspecified; I50.40 Unspecified combined systolic (congestive) and diastolic (congestive) heart failure; I25.10 Atherosclerotic heart disease of native coronary artery without angina pectoris; E78.00 Pure hypercholesterolemia, unspecified; K21.9 Gastro-esophageal reflux disease without esophagitis; Z99.81 Dependence on supplemental oxygen; Z79.899 Other long term (current) drug therapy; Z79.01 Long term (current) use of anticoagulants; Z79.84 Long term (current) use of oral hypoglycemic drugs
CPT/HCPCS: 0241U; 71046; 80053; 82947; 83880; 84484; 85025; 93005; 93010; 99285-25

== ENCOUNTER 2023-12-21 15:50 | Emergency (ER) | payer OTHER ==
[~2023-12-21] VITALS: Ht 188 cm; Wt 104.8 kg
[~2023-12-21 15:50] MED LIST changes: +ALLO100 PO; +AMIT25 PO; +AZIT250 PO; +FAMO20; +GLIP5 PO; +IRON18 MG PO; +JARDIANCE25 MG PO; +PRED20 PO; +TAMS.4ER PO
[2023-12-21 16:59] LABS: BASOPHILS ABSOLUTE AUTO 0.04 K/mm3 (0.00-0.23); BASOPHILS PERCENT AUTO 1 % (0-2); EOSINOPHILS ABSOLUTE AUTO 0.15 K/mm3 (0.00-0.68); EOSINOPHILS PERCENT AUTO 2 % (0-6); Hematocrit 42.5 % (37.0-53.0); Hemoglobin 13.2 g/dL (13.5-17.5); IMMATURE GRAN ABSOLUTE AUTO 0.03 K/mm3 (0.00-0.10); IMMATURE GRAN PERCENT AUTO 0 % (0-1); LYMPHOCYTES ABSOLUTE AUTO 0.67 K/mm3 (0.84-5.20); LYMPHOCYTES PERCENT AUTO 9 % (21-46); MONOCYTES ABSOLUTE AUTO 0.86 K/mm3 (0.16-1.47); MONOCYTES PERCENT AUTO 11 % (4-13); Mean Corpuscular HGB 28.6 pg (26.0-34.0); Mean Corpuscular HGB Conc 31.1 g/dL (31.5-36.5); Mean Corpuscular Volume 92 fL (80-100); Mean Platelet Volume 9.4 fL (9.1-12.4); NEUTROPHILS ABSOLUTE AUTO 6.04 K/mm3 (1.96-9.15); NEUTROPHILS PERCENT AUTO 78 % (41-73); Platelet Count 270 K/mm3 (150-400); RDW Coefficient Variation 14.6 % (11.7-14.2); RDW Standard Deviation 49.4 fL (35.1-46.3); Red Blood Cell Count 4.62 M/mm3 (4.30-5.90); White Blood Cell Count 7.79 K/mm3 (4.00-11.30)
[2023-12-21 17:15] LABS: Albumin, Blood 3.2 g/dL (3.4-5.0); Albumin/Globulin Ratio 0.8 (0.8-1.8); Bilirubin, Total 0.2 mg/dL (0.1-1.0); Calcium, Blood 8.3 mg/dL (8.5-10.1); Creatinine, Blood 1.95 mg/dL (0.60-1.20); Globulin, Blood 4.2 g/dL (2.2-4.0); Potassium, Blood 4.3 mmol/L (3.5-5.5); Total Protein, Blood 7.4 g/dL (6.4-8.2)
[2023-12-21] MEDS ORDERED: VITAMIN D325 MC3 PO (19:41)
[2023-12-21] MEDS ORDERED: FERSU300 PO (19:41)
[2023-12-21] MEDS ORDERED: WARF5 PO (19:43)
[2023-12-21] MEDS ORDERED: CALC.25 PO (19:45)
[2023-12-21] MEDS ORDERED: AZELASTINE137 MCG/01 (19:46)
[2023-12-21 20:32] LABS: International Normalized Ratio 2.55; Prothrombin Time Results 25.5 Sec (9.7-11.5)
[2023-12-21] MEDS ORDERED: Doxycycline Hyclate 100 MG TAB PO ONE (21:25)
[2023-12-21] MEDS ORDERED: Vibramycin100 MG PO (21:26)
[2023-12-21 21:43] VITALS: BP 121/80
== END 2023-12-21 21:41 | disposition home or self-care (01) ==
LOC: ER 15:50
PROVIDERS: Emergency Medicine; Physician Assistant
DX: J42 Unspecified chronic bronchitis (principal); J43.9 Emphysema, unspecified; I50.40 Unspecified combined systolic (congestive) and diastolic (congestive) heart failure; I25.10 Atherosclerotic heart disease of native coronary artery without angina pectoris; N18.30 Chronic kidney disease, stage 3 unspecified; E11.22 Type 2 diabetes mellitus with diabetic chronic kidney disease; Z79.899 Other long term (current) drug therapy; Z79.01 Long term (current) use of anticoagulants; Z79.52 Long term (current) use of systemic steroids
CPT/HCPCS: 71046; 80053; 83880; 84484; 85025; 85610; 93005; 93010; 99285-25; A9270

== ENCOUNTER → 2024-02-29 | Outpatient (CLI) | payer OTHER ==
[~2024-02-29] MED LIST changes: +AZELASTINE137 MCG/01; +CALC.25 PO; +FERSU300 PO; +VITAMIN D325 MC3 PO; +Vibramycin100 MG PO
[2024-02-29 11:08] LABS: BASOPHILS ABSOLUTE AUTO 0.03 K/mm3 (0.00-0.23); BASOPHILS PERCENT AUTO 0 % (0-2); EOSINOPHILS ABSOLUTE AUTO 0.12 K/mm3 (0.00-0.68); EOSINOPHILS PERCENT AUTO 2 % (0-6); IMMATURE GRAN ABSOLUTE AUTO 0.01 K/mm3 (0.00-0.10); IMMATURE GRAN PERCENT AUTO 0 % (0-1); LYMPHOCYTES ABSOLUTE AUTO 0.63 K/mm3 (0.84-5.20); LYMPHOCYTES PERCENT AUTO 8 % (21-46); MONOCYTES ABSOLUTE AUTO 0.74 K/mm3 (0.16-1.47); MONOCYTES PERCENT AUTO 9 % (4-13); Mean Corpuscular HGB 27.7 pg (26.0-34.0); Mean Corpuscular HGB Conc 30.6 g/dL (31.5-36.5); Mean Corpuscular Volume 90 fL (80-100); Mean Platelet Volume 9.9 fL (9.1-12.4); NEUTROPHILS ABSOLUTE AUTO 6.37 K/mm3 (1.96-9.15); NEUTROPHILS PERCENT AUTO 81 % (41-73); Platelet Count 289 K/mm3 (150-400); RDW Standard Deviation 49.5 fL (35.1-46.3); Red Blood Cell Count 5.42 M/mm3 (4.30-5.90)
[2024-02-29 12:02] LABS: International Normalized Ratio 3.9; Prothrombin Time Results 37.7 Sec (9.7-11.5)
[2024-02-29 12:11] LABS: Albumin, Blood 3.7 g/dL (3.4-5.0); Albumin/Globulin Ratio 0.8 (0.8-1.8); Bilirubin, Total 0.4 mg/dL (0.1-1.0); Bun/Creatinine Ratio 19.8 (12.0-20.0); Calcium, Blood 10.2 mg/dL (8.5-10.1); Creatinine, Blood 1.72 mg/dL (0.60-1.20); Globulin, Blood 4.8 g/dL (2.2-4.0); Potassium, Blood 4.6 mmol/L (3.5-5.5); Total Protein, Blood 8.5 g/dL (6.4-8.2)
== END ==
LOC: LAB SHORT 10:57 → LAB 10:57
PROVIDERS: Family Medicine
DX: I48.91 Unspecified atrial fibrillation (principal)
CPT/HCPCS: 80053; 84484; 85025; 85379; 85610

== ENCOUNTER → 2024-03-09 | Outpatient (CLI) | payer OTHER ==
[2024-03-09 10:59] LABS: BASOPHILS ABSOLUTE AUTO 0.02 K/mm3 (0.00-0.23); BASOPHILS PERCENT AUTO 0 % (0-2); EOSINOPHILS ABSOLUTE AUTO 0.12 K/mm3 (0.00-0.68); EOSINOPHILS PERCENT AUTO 1 % (0-6); Hematocrit 45.5 % (37.0-53.0); Hemoglobin 13.7 g/dL (13.5-17.5); IMMATURE GRAN ABSOLUTE AUTO 0.04 K/mm3 (0.00-0.10); IMMATURE GRAN PERCENT AUTO 1 % (0-1); LYMPHOCYTES PERCENT AUTO 6 % (21-46); MONOCYTES ABSOLUTE AUTO 0.74 K/mm3 (0.16-1.47); MONOCYTES PERCENT AUTO 9 % (4-13); Mean Corpuscular HGB 27.5 pg (26.0-34.0); Mean Corpuscular HGB Conc 30.1 g/dL (31.5-36.5); Mean Corpuscular Volume 91 fL (80-100); Mean Platelet Volume 9.7 fL (9.1-12.4); NEUTROPHILS ABSOLUTE AUTO 7.03 K/mm3 (1.96-9.15); NEUTROPHILS PERCENT AUTO 83 % (41-73); Platelet Count 246 K/mm3 (150-400); RDW Coefficient Variation 15.2 % (11.7-14.2); RDW Standard Deviation 50.4 fL (35.1-46.3); Red Blood Cell Count 4.98 M/mm3 (4.30-5.90); White Blood Cell Count 8.45 K/mm3 (4.00-11.30)
[2024-03-09 12:01] LABS: Bun/Creatinine Ratio 20.5 (12.0-20.0); Calcium, Blood 9.2 mg/dL (8.5-10.1); Creatinine, Blood 1.61 mg/dL (0.60-1.20); Potassium, Blood 4.4 mmol/L (3.5-5.5)
[2024-03-09 17:22] LABS: International Normalized Ratio 2.38; Prothrombin Time Results 23.9 Sec (9.7-11.5)
== END | disposition home or self-care (01) ==
LOC: LAB 10:44 → LAB SHORT 10:44
PROVIDERS: Family Medicine; Physician Assistant
DX: I48.20 Chronic atrial fibrillation, unspecified (principal); R06.02 Shortness of breath
CPT/HCPCS: 80048; 83880; 85025; 85610

== ENCOUNTER 2024-03-16 12:38 | Inpatient (IN) | payer OTHER ==
[~2024-03-16] VITALS: Ht 188 cm; Wt 93.5 kg
[2024-03-16 13:18] LABS: BASOPHILS ABSOLUTE AUTO 0.01 K/mm3 (0.00-0.23); BASOPHILS PERCENT AUTO 0 % (0-2); EOSINOPHILS ABSOLUTE AUTO 0.14 K/mm3 (0.00-0.68); EOSINOPHILS PERCENT AUTO 2 % (0-6); Hematocrit 48.4 % (37.0-53.0); Hemoglobin 14.5 g/dL (13.5-17.5); IMMATURE GRAN ABSOLUTE AUTO 0.02 K/mm3 (0.00-0.10); IMMATURE GRAN PERCENT AUTO 0 % (0-1); LYMPHOCYTES ABSOLUTE AUTO 0.42 K/mm3 (0.84-5.20); LYMPHOCYTES PERCENT AUTO 4 % (21-46); MONOCYTES PERCENT AUTO 7 % (4-13); Mean Corpuscular HGB 27.7 pg (26.0-34.0); Mean Corpuscular Volume 92 fL (80-100); Mean Platelet Volume 9.5 fL (9.1-12.4); NEUTROPHILS ABSOLUTE AUTO 8.35 K/mm3 (1.96-9.15); NEUTROPHILS PERCENT AUTO 87 % (41-73); Platelet Count 273 K/mm3 (150-400); RDW Coefficient Variation 14.9 % (11.7-14.2); Red Blood Cell Count 5.24 M/mm3 (4.30-5.90); White Blood Cell Count 9.64 K/mm3 (4.00-11.30)
[2024-03-16 14:03] LABS: Albumin/Globulin Ratio 0.7 (0.8-1.8); Bilirubin, Total 0.5 mg/dL (0.1-1.0); Bun/Creatinine Ratio 23.9 (12.0-20.0); Creatinine, Blood 1.55 mg/dL (0.60-1.20); Globulin, Blood 4.1 g/dL (2.2-4.0); Potassium, Blood 4.3 mmol/L (3.5-5.5); Total Protein, Blood 7.1 g/dL (6.4-8.2)
[2024-03-16 14:13] LABS: Influenza A, PCR NEGATIVE (NEGATIVE); Influenza B, PCR NEGATIVE (NEGATIVE); Resp Syncytial Virus, PCR NEGATIVE (NEGATIVE); SARS-Cov-2 (COVID-19) PCR, MMC NEGATIVE (NEGATIVE)
[2024-03-16 18:10] LABS: Base Excess Venous 16.4 mmol/L; PCO2 Venous 81.2 mmHg (38-42); pH Blood Venous 7.33 (7.34-7.37)
[2024-03-16] MEDS ORDERED: MethylPREDNISolone Sod Succ 125 MG Vial IV ONE (18:25)
[2024-03-16] MEDS ORDERED: Ipratropium Bromide INH 0.02% 0.5 mg/2.5ML Vial INH SCH ×2 (19:30→21:15)
[2024-03-16] MEDS ORDERED: Albuterol 2.5 MG/3 ML VIAL INH SCH ×2 (19:30→21:15)
[2024-03-16] MEDS ORDERED: Ipratropium/Albuterol SulF 2.5-0.5MG/3 ML Amp INH SCH (23:40)
[2024-03-16] MEDS ORDERED: FLU VACC TS2024-25(6MOS UP)/PF 45 MCG/0.5 ML SYRINGE IM SCH (23:40)
[2024-03-16] MEDS ORDERED: Acetaminophen 650 MG Supp PR PRN (23:45)
[2024-03-16] MEDS ORDERED: Acetaminophen 325 MG TABLET PO PRN (23:45)
[2024-03-16] MEDS ORDERED: Ondansetron HCl 2 MG / ML 2ML Vial IV PRN (23:45)
[2024-03-17] VITALS (38 sets, daily range): BP systolic 87–130; BP diastolic 55–93
[2024-03-17] MEDS ORDERED: MethylPREDNISolone Sod Succ 125 MG Vial IV SCH
[2024-03-17] MEDS ORDERED: Azithromycin 500 MG in NS 250 ML IV SCH (00:21)
[2024-03-17] MEDS ORDERED: Warfarin Sodium 4 MG Tab PO ONE ×2 (01:45→04:30)
[2024-03-17] MEDS ORDERED: Albuterol 2.5 MG/3 ML VIAL INH PRN (03:25)
--- NOTE | 2024-03-17 03:39 | NUR ---
ADMISSION PATIENT ARRIVES TO PCU. PATIENT ABLE TO STAND AND PIVOT TO PCU BED FROM [facility]. PATIENT IS WEAK BUT IS ABLE TO TRANSFER SELF. RT AT BEDSIDE SETTING UP AIRVO, 55L 55% FIO2. PATIENT TOLERATING WELL, SATTING MID 90s. PATIENT IS SOFT SPOKEN, AUDIBLE UPPER AIRWAY OBSTRUCTION PRESENT. NO SIGNS OF AIRWAY COMPROMISE AT THIS TIME. PATIENT SPEAKING IN SHORT SENTENCES. ON TELE READING AFIB. BP STABLE. URINAL AT BEDSIDE FOR PATIENT USE. PATIENT MADE NPO AT THIS TIME PENDING ENT CONSULT. ORIENTED TO ROOM AND CALL LIGHT SYSTEM. BED ALARM ON FOR SAFETY.
[2024-03-17 04:10] LABS: BASOPHILS ABSOLUTE AUTO 0.01 K/mm3 (0.00-0.23); BASOPHILS PERCENT AUTO 0 % (0-2); EOSINOPHILS PERCENT AUTO 0 % (0-6); Hematocrit 46.7 % (37.0-53.0); Hemoglobin 13.9 g/dL (13.5-17.5); IMMATURE GRAN ABSOLUTE AUTO 0.01 K/mm3 (0.00-0.10); IMMATURE GRAN PERCENT AUTO 0 % (0-1); LYMPHOCYTES ABSOLUTE AUTO 0.12 K/mm3 (0.84-5.20); LYMPHOCYTES PERCENT AUTO 1 % (21-46); MONOCYTES ABSOLUTE AUTO 0.04 K/mm3 (0.16-1.47); MONOCYTES PERCENT AUTO 1 % (4-13); Mean Corpuscular HGB 27.8 pg (26.0-34.0); Mean Corpuscular HGB Conc 29.8 g/dL (31.5-36.5); Mean Corpuscular Volume 93 fL (80-100); NEUTROPHILS ABSOLUTE AUTO 8.24 K/mm3 (1.96-9.15); NEUTROPHILS PERCENT AUTO 98 % (41-73); Platelet Count 271 K/mm3 (150-400); RDW Coefficient Variation 14.9 % (11.7-14.2); White Blood Cell Count 8.42 K/mm3 (4.00-11.30)
[2024-03-17 04:21] LABS: International Normalized Ratio 2.23; Prothrombin Time Results 22.5 Sec (9.7-11.5)
[2024-03-17 04:36] LABS: Albumin, Blood 2.9 g/dL (3.4-5.0); Albumin/Globulin Ratio 0.7 (0.8-1.8); Bilirubin, Total 0.4 mg/dL (0.1-1.0); Bun/Creatinine Ratio 23.1 (12.0-20.0); Calcium, Blood 9.2 mg/dL (8.5-10.1); Creatinine, Blood 1.6 mg/dL (0.60-1.20); Globulin, Blood 3.9 g/dL (2.2-4.0); Potassium, Blood 4.6 mmol/L (3.5-5.5); Total Protein, Blood 6.8 g/dL (6.4-8.2)
--- NOTE | 2024-03-17 05:43 | NUR ---
SHIFT SUMMARY PATIENT ALERT, ORIENTED x3-4. ABLE TO MAKE NEEDS KNOWN. BP STABLE. PATIENT ON AIRVO 55L 55%, SPO2 >90%. PATIENT SOFT SPOKEN AND SPEAKING IN SHORT SENTENCES. PATIENT HAS NOT DESATTED SINCE BEING ON AIRVO. PATIENT STANDING AT BEDSIDE WITH ASSISTANCE AND USING URINAL. ADEQUATE OUTPUT. PATIENT MADE NPO, AWAITNG ENT CONSULT. NO OTHER CHANGES SINCE ADMISSION NOTE. WILL REPORT TO DAY SHIFT RN.
[2024-03-17] MEDS ORDERED: Oxymetazoline 0.05% Nasal Relief Spray 15mL BTL ONE ×2 (06:50→09:32)
[2024-03-17] MEDS ORDERED: Lidocaine HCl 4% Topical Soln 50 ML BTL TOP ONE (06:50)
[2024-03-17] MEDS ORDERED: Lidocaine HCl 4% 5 ML SDA ONE (08:19)
[2024-03-17] MEDS ORDERED: Lactated Ringer's 1,000 ML IV SCH (08:20)
[2024-03-17] MEDS ORDERED: Dexmedetomidine HCL 200 MCG / 2 ML ONE (08:24)
[2024-03-17] MEDS ORDERED: Midazolam HCl 1MG / ML 2ML Vial ONE (08:29)
--- NOTE | 2024-03-17 08:36 | NUR ---
OR / TRANSFER TO ICU PT ALERT AND ORIENTED X4. VSS. PT ON AIRVO 55 L/MIN 55% FIO2, 02 >90%. L/S DIM T/O, PT SPEECH SOFT. DR ROWLEY TO BEDSIDE FOR BRONCHOSCOPY, OBSTRUCTION OF AIRWAY PRESENT. DR ROWLEY DISCUSSED PLAN OF CARE WITH PT FOR PT TO GO TO OR FOR TRACHEOSTOMY, CONSENT SIGNED FOR PROCEDURE. PT SWITCHED TO 10L VIA NC FOR TRANSPORT TO OR FOR PROCEDURE WITH SPO2 > 90%. EMT [facility]ONNE[facility] TO BEDSIDE TO TRANSPORT PT. PT REQUESTING FRIEND VIBHA BE NOTIFIED. VIBHA INFORMED. REPORT GIVEN TO ICU NURSE ASSUMING CARE OF PT AFTER OR.
--- NOTE | 2024-03-17 08:49 | NUR ---
Pre-Op teaching done. Pt verbalizes understanding. History, Chart, Medications and Allergies reviewed before start of procedure.Patient confirms NPO status and agrees with scheduled surgery.
[2024-03-17] MEDS ORDERED: propofoL 20 ML IV ONE (08:52)
[2024-03-17] MEDS ORDERED: Lactobacil 2-S.Thermo-Bifido 1 1 Cap PO SCH (09:00)
[2024-03-17] MEDS ORDERED: GuaiFENesin 600 MG TabCR PO SCH (09:00)
[2024-03-17] MEDS ORDERED: Lidocaine 1%-Epineph 1:100000 20 ML MDV INJ ONE (09:09)
[2024-03-17] MEDS ORDERED: Lactated Ringer's 0 ML IV ONE (09:30)
[2024-03-17] MEDS ORDERED: EpiNEPhrine 1 MG/1 ML 1ML Vial ONE (09:31)
[2024-03-17] MEDS ORDERED: Tranexamic Acid 100 ML IV SCH (09:35)
[2024-03-17] MEDS ORDERED: Ondansetron HCl 2 MG / ML 2ML Vial ONE (09:37)
[2024-03-17] MEDS ORDERED: Sugammadex Sodium 200 MG/2ML SDV (100 MG/ML) ONE (09:51)
--- NOTE | 2024-03-17 10:14 | NUR ---
ASSUMED CARE/TRANSFER FROM OR TOOK REPORT FROM JAD VERA, PT IS SEDATED AND HAS NEW TRACH IN PLACE. HE IS ON 15LPM NRB TO TRACH UPON ARRIVE. PT SPO2 IS AT 80-82%. RT ATTEMPTED AIRVO 92% FIO2. ANESTHESIA AT BEDSIDE AT THIS TIME. PATIENT UNABLE TO PULL APPRIOPRIATE VOLUMES. ORDERS RECEIVED TO PUT PATIENT ON VENT. SWITCHED TO VENT AC/VC 14/500/5/100%, PT SPO2 90-92%. HIS HEARTRATE IS 30-50S, IMPROVES WITH NOXIOUS STIMULI. ETCO2 IS 60. DR. WADE AT BESIDE WITH PATIENT. CONTINUOUS CARDIAC MONITORING IN PLACE. PT IN A-FIB W SYSTOLIC BP >90, MAP IS >70.
[2024-03-17] MEDS ORDERED: Atropine Sulfate 0.1 MG/ML 10ML SYR ONE (10:16)
[2024-03-17] MEDS ORDERED: FentaNYL Citrate 50 MCG/ML 2 ML Injection IV PRN ×2 (10:45→12:00)
[2024-03-17] MEDS ORDERED: Atropine Sulfate 0.1 MG/ML 10ML SYR IV ONE (10:45)
[2024-03-17] MEDS ORDERED: propofoL 100 ML IV SCH (10:45)
--- NOTE | 2024-03-17 14:57 | NUR ---
Spiritual Care | Nurse Request Pt. is resting in his bed when he welcomes my visit. Communication is difficult as Pt. has a Trach, but he also has a pad of paper. Facilitated a rather short inrotduction. Pt. writes in his pad about his hay in [place]. Prayed for the Pt. Informed the Pt. that his nurse in PCU had asked this rail filler to visit, and the Pt. whispered "She is worried about me." The Pt. instructed me non-verbally to let her know how we was doing. Reported update to Pts. former PCU nurse, who displayed evidence of being encouraged.
--- NOTE | 2024-03-17 17:57 | NUR ---
SHIFT SUMMARY PT HAS BEEN ALERT AND ORIENTED X4 AFTER HIS PROCEDURAL ANESTHESIA WORE OFF LATE THIS AM. HE HAS TRACH WITH VENT. VENT SETTING ARE 14/500/5/50%. HIS TRACH IS 8.0 SHILEY CUFFED AND NON-FENESTRATED. HE IS ABLE TO COMMUNICATE EFFECTIVELY BY WRITING WITH PEN AND PAPER. PT TRACH SITE HAS MINIMAL RED EXUDATE ON GAUZE, SUCIONING PRODUCES SMALL AMOUNTS OF RED MUCUS. PT IS COUGHING UP RED/BROWN MUCUS FROM OROPHARYNX. CONTINUOUS CARDIAC MONITORING IN PLACE. PT HAS BEEN IN AFIB W/ HR IN 70-80S. [id number] BP >90 AND MAP >65. PT HAS HAD URINARY RETENTION THIS SHIFT, HE WAS UNABLE TO VOID, PERFORMED BLADDER SCAN WITH 999+ML PRESENT. PERFORMED STRAIGHT CATH WITH RESULTING 1800ML URINE. PT IS NPO. HE HAS NOT HAD BM THIS SHIFT. BED IN LOWEST POSITION. CALL LIGHT IN REACH.
[2024-03-17] MEDS ORDERED: Insulin Regular 100 UNIT/ML 10ML Vial SC SCH (18:00)
[2024-03-17] MEDS ORDERED: Lisinopril 5 MG Tab PO SCH (18:00)
[2024-03-17 20:48] LABS: pH Blood Venous 7.44 (7.34-7.37)
[2024-03-17 20:49] LABS: Base Excess Venous 15.4 mmol/L; Bicarbonate Venous 36.3 mmol/L (24.0-30.0)
[2024-03-18] VITALS (34 sets, daily range): BP systolic 88–141; BP diastolic 63–94
[2024-03-18 03:37] LABS: BASOPHILS ABSOLUTE AUTO 0.02 K/mm3 (0.00-0.23); BASOPHILS PERCENT AUTO 0 % (0-2); EOSINOPHILS PERCENT AUTO 0 % (0-6); Hematocrit 42.1 % (37.0-53.0); Hemoglobin 12.7 g/dL (13.5-17.5); IMMATURE GRAN ABSOLUTE AUTO 0.02 K/mm3 (0.00-0.10); IMMATURE GRAN PERCENT AUTO 0 % (0-1); LYMPHOCYTES ABSOLUTE AUTO 0.18 K/mm3 (0.84-5.20); LYMPHOCYTES PERCENT AUTO 2 % (21-46); MONOCYTES ABSOLUTE AUTO 0.36 K/mm3 (0.16-1.47); MONOCYTES PERCENT AUTO 3 % (4-13); Mean Corpuscular HGB 27.6 pg (26.0-34.0); Mean Corpuscular HGB Conc 30.2 g/dL (31.5-36.5); Mean Corpuscular Volume 92 fL (80-100); Mean Platelet Volume 9.8 fL (9.1-12.4); NEUTROPHILS ABSOLUTE AUTO 11.67 K/mm3 (1.96-9.15); NEUTROPHILS PERCENT AUTO 95 % (41-73); Platelet Count 240 K/mm3 (150-400); RDW Coefficient Variation 15.1 % (11.7-14.2); RDW Standard Deviation 49.2 fL (35.1-46.3); White Blood Cell Count 12.25 K/mm3 (4.00-11.30)
[2024-03-18 04:02] LABS: Bun/Creatinine Ratio 25.3 (12.0-20.0); Creatinine, Blood 1.5 mg/dL (0.60-1.20); Potassium, Blood 4.5 mmol/L (3.5-5.5)
--- NOTE | 2024-03-18 06:46 | NUR ---
SHIFT SUMMARY: NO ACUTE CHANGES OVERNIGHT; VSS THROUGHOUT THE SHIFT. PT HAD NEW TRACH PLACED ON 03/17; 8.0 SHILEY, CUFFED WITH TRACH COLLAR IN PLACE. ON VENT WITH SETTINGS AC/PC RATE-15, 8/5, AND 50%. PT TOLERATING VENT WELL; PT REMAINS UNSEDATED AT THIS TIME. PT A&O X 4, PLEASANT AND COOPERATIVE WITH CARE. PT AMBULATORY AT BASELINE; UP TO BSC WITH TWO STAFF MEMBERS, OBSERVED STEADY ON FEET BUT TIRES QUICKLY. PT NPO AT THIS TIME; ORAL CARE AND MOIST SWABS THROUGHOUT THE NIGHT. PT USING URINAL AT BEDSIDE WITH ASSISTNACE TO SET UP; GOOD OUTPUT THIS SHIFT. PT MOUTHING WORDS AND WRITTING ON NOTEPAD TO COMMUNICATE. PT MAKES NEEDS KNOWN APPROPRIATELY. PIV TO BOTH FOREARMS THAT ARE PATENT AND SALINE LOCKED. BED LOWERED, CALL LIGHT IN REACH.
[2024-03-18] MEDS ORDERED: D5W-1/2NS KCl 20mEq 1,000 ML IV SCH (10:45)
--- NOTE | 2024-03-18 15:06 | NUR ---
KING WONG WAS TRANSITIONED TO AIRVO OFF THE VENTILATOR. HE HAS BEEN TOLERATING THIS VERY WELL. HE CONTINUES WITH SECRETIONS AND HIS TRACH HAS BEEN SUCTIONED A COUPLE OF TIMES. IV FLUIDS STARTED BY . JOHN FROM [facility] HERE FOR EVAL. PT WAS HAVING DIFFICULTY URINATING SINCE THIS AM WHEN HE WAS ABLE TO VOID 200ML. HE WAS STRAIGHT CATHED WITH QUITE A BIT OF RETURN. ASKED THAT THE CATHETER STAY IN FOR NOW.
--- NOTE | 2024-03-18 17:15 | NUR ---
WONG GAVE ME PERMISSION TO SPEAK WITH HIS DAUGHTER SHARMILA, WHO CALLED FOR AN UPDATE. SHE WAS GIVEN A COMPLETE UPDATE OF HIS STAY SO FAR, HER QUESTIONS WERE ANSWERED. HER NUMBER IS [phone]. SHE LIVES IN [place], [place].
--- NOTE | 2024-03-18 19:30 | NUR ---
ASSUMPTION OF CARE BEDSIDE SHIFT REPORT RECEIVED FROM LOHIFT RN. PT RESTING IN BED, ALERT AND ORIENTED. PT MOUTHS WORDS/WRITES ON WRITTING PAD TO COMMUNICATE. PT ANSWERS QUESTIONS APPROPRIATELY, FOLLOWS DIRECTION WHEN PROMPTED AND IS ABLE TO MAKE HIS NEEDS KNOWN. PT MOVES EXTREMITIES EQUALLY BILATERALLY. HR 60-70'S AFIB, MAP >65. PT WITH NEW TRACH CONNECTED TO AIRVO 45L 74%, OXYGEN SATURATION >90%. PT WITH PAIN TO TRACH SITE OCCASIONALLY. PT HAS MODERATE AMOUNT OF HENDRICKSON SPUTUM, PT ABLE TO COUGH SOME SECRETIONS UP, IN LINE SUCTION PERFORMED. ABDOMEN SOFT, BOWEL TONES ACTIVE IN ALL FOUR QUADRANTS. VARGAS IN PLACE PATENT DRAINING YELLOW URINE TO GRAVITY. PT UP TO BEDSIDE COMMMODE FOR BM. PIV IN PLACE TO RFA AND LFA. D5 1/2 NS WITH 20MEQ KCL INFUSING AT 100MLS/HR. BED IN LOWEST POSITION, CALL LIGHT WITHIN REACH, CARE CONTINUES.
[2024-03-18 20:35] LABS: Source, Urine Foley catheter
[2024-03-18 20:38] LABS: Appearance, Urine Clear (Clear); Bilirubin, Urine Neg (Neg); Blood, Urine 4+ (Neg); Glucose Qualitative, Urine 4+ (Neg); Ketones, Urine Neg (Neg); Leukocyte Esterase, Urine 1+ (Neg); Nitrite, Urine Neg (Neg); Protein, Urine 2+ (Neg); Specific Gravity, Urine 1.015 (1.003-1.022); Urobilinogen, Urine NORM (Normal)
--- NOTE | 2024-03-18 20:40 | NUR ---
PT UPDATE DR. ROWLEY TO BEDSIDE, PLAN FOR TRACH CHANGE ON THURSDAY TO 8.0 SHILEY UN-CUFFED FENESTRATED WITH SPEAKING VALVE. CARE CONTINUES.
[2024-03-18 20:56] LABS: Color, Urine Pale Yellow (P-Yellow)
[2024-03-18 21:00] LABS: Amorphous Light (0-Heavy); Bacteria Mod /hpf; Squamous Epithelial Cells Few /hpf (Few)
[2024-03-19] VITALS (19 sets, daily range): BP systolic 121–178; BP diastolic 68–91
[2024-03-19 03:55] LABS: BASOPHILS ABSOLUTE AUTO 0.01 K/mm3 (0.00-0.23); BASOPHILS PERCENT AUTO 0 % (0-2); EOSINOPHILS PERCENT AUTO 0 % (0-6); Hematocrit 41.9 % (37.0-53.0); Hemoglobin 12.7 g/dL (13.5-17.5); IMMATURE GRAN ABSOLUTE AUTO 0.05 K/mm3 (0.00-0.10); IMMATURE GRAN PERCENT AUTO 0 % (0-1); LYMPHOCYTES ABSOLUTE AUTO 0.14 K/mm3 (0.84-5.20); LYMPHOCYTES PERCENT AUTO 1 % (21-46); MONOCYTES ABSOLUTE AUTO 0.35 K/mm3 (0.16-1.47); MONOCYTES PERCENT AUTO 3 % (4-13); Mean Corpuscular HGB 27.5 pg (26.0-34.0); Mean Corpuscular HGB Conc 30.3 g/dL (31.5-36.5); Mean Corpuscular Volume 91 fL (80-100); Mean Platelet Volume 9.8 fL (9.1-12.4); NEUTROPHILS PERCENT AUTO 95 % (41-73); Platelet Count 229 K/mm3 (150-400); RDW Coefficient Variation 15.7 % (11.7-14.2); RDW Standard Deviation 51.6 fL (35.1-46.3); Red Blood Cell Count 4.62 M/mm3 (4.30-5.90); White Blood Cell Count 11.65 K/mm3 (4.00-11.30)
[2024-03-19 04:09] LABS: International Normalized Ratio 2.51; Prothrombin Time Results 25.1 Sec (9.7-11.5)
[2024-03-19 04:14] LABS: Albumin, Blood 2.7 g/dL (3.4-5.0); Albumin/Globulin Ratio 0.8 (0.8-1.8); Bilirubin, Total 0.3 mg/dL (0.1-1.0); Bun/Creatinine Ratio 28.8 (12.0-20.0); Calcium, Blood 8.8 mg/dL (8.5-10.1); Creatinine, Blood 1.39 mg/dL (0.60-1.20); Globulin, Blood 3.4 g/dL (2.2-4.0); Potassium, Blood 4.5 mmol/L (3.5-5.5); Total Protein, Blood 6.1 g/dL (6.4-8.2)
--- NOTE | 2024-03-19 06:30 | NUR ---
SHIFT SUMMARY NO ACUTE CHANGES THIS SHIFT. PT RESTING IN BED, ALERT AND ORIENTED. PT COMMUNICATES BY MOUTHING WORDS AND/OR WRITING THINGS OUT. PT MOVES EXTREMITIES EQUALLY BILATERALLY, FOLLOWS DIRECTION WHEN PROMPTED AND IS ABLE TO MAKE HIS NEEDS KNONW. HR 60-70'S AFIB, MAP >65. PT WITH NEW TRACH CONNECTED TO AIRVO AT 60L 69%, OXYGEN SATURATION >90%. PT WITH COPIOUS AMOUNTS OF THICK BROWN SECRETIONS SUCTIONED THROUGH TRACH. VARGAS IN PLACE PATENT DRAINING YELLOW URINE TO GRAVITY. PIV IN PLACE TO RFA AND LFA. D5 1/2 NS WITH 20MEG KCL INFUSING AT 100MLS/HR. BED IN LOWEST POSITION, CALL LIGHT WITHIN REACH, CARE CONTINUES.
[2024-03-19] MEDS ORDERED: Enoxaparin 100 MG/ML 1ML SYR SC SCH (11:20)
[2024-03-19] MEDS ORDERED: TPN Consult Notification XX ONE (12:25)
--- NOTE | 2024-03-19 12:27 | NUR ---
WONG HAS HAD EXTENSIVE CONVERSATIONS WITH , , MANAGER UTIL[employer]ATION AND JENNY FROM [facility] ABOUT NOT HAVING ANYTHING IN HIS MOUTH. EXPLAINING ABOUT HIS POOR SWALLOW AND THAT THE ONLY WAY WE DO THE SWABS IS THE SUCTION SWABS FOR CLEANING. HE JUST REFUSED THE ORAL SUCTION SWABS STATING HE DIDN'T LIKE THE "TASTE". ENCOURAGEMENT GIVEN. EDUCATION ABOUT THE PLAN AND THE PROCESSES INVOLVED OVER THE NEXT COUPLE OF DAYS. HE WAS ASKED TO GET IN THE CHAIR AND HE REFUSED. THE 2 LITERS OF IV FLUIDS HAVE FINISHED, CRISTI THE MANAGER UTILIZATION JUST SPOKE WITH HIM AND AWAIT HIS ORDERS FOR IV NUTRITION THROUGH THE WEEKEND. PLAN FOR MODIFIED SWALLOW WITH [facility] AND TRACH CHANGE WITH ON THURSDAY. FOLLOWED BY SURGICAL CONSULT FOR PEG TUBE IF RESULT OF SWALLOW SHOULD CONFIRM THIS.
--- NOTE | 2024-03-19 16:56 | NUR ---
WONG IS BECOMING MORE FRUSTRATED AND AGITATED WITH ONLY BEING ALLOWED TO HAVE SUCTION SWABS. HE GETS ANGRY AND UPSET WITH NURSES WHO TRY TO GIVE HIM MOUTH MOISTURE. HE SAYS IT "PISSES HIM OFF BECAUSE IT TASTES LIKE TOOTHPASTE". HE IS REMINDED THAT HE HAS BEEN COUGHING UP LESS FLUID TODAY SINCE HE HAS BEEN NOT BEEN ALLOWED TO HAVE ANYTHING ORALLY.
[2024-03-19] MEDS ORDERED: Parenteral Electolytes 40 ML,Potassium Phosphate Dibasic 30 MM,Multivitamins 10 ML,ZINC... IV SCH (17:00)
--- NOTE | 2024-03-19 18:37 | NUR ---
WONG IS ENCOURAGED TO SLEEP. HE HAS NOT SLEPT FOR DAYS. HE IS EDUCATED ABOUT WHAT THE IMPORTANCE OF SLEEP IS FOR THE BODY. HE SHARES THAT HE WAS TOLD HE HAD A SLEEP DISORDER WITH HIS BREATHING. HE IS EDUCATED ABOUT SLEEP APNEA AND THE CAUSES, ENCOURAGED THAT HE HAS A PERMANENT OPENING AT THIS TIME WITH HIS TRACH AND THAT THE APNEA SPELLS SHOULD NOT HAPPEN. HE IS ENCOURAGED THAT HE IS DOING WELL NOW AND THAT HE IS SAFE TO SLEEP. POSITIVE REINFORCEMENT GIVEN. OFFERED SLEEP MASK AND EAR PLUGS, MUSIC IS PLAYING IN ROOM.
[2024-03-20] VITALS (13 sets, daily range): BP systolic 123–154; BP diastolic 54–108
[2024-03-20 03:40] LABS: BASOPHILS PERCENT AUTO 0 % (0-2); EOSINOPHILS PERCENT AUTO 0 % (0-6); Hematocrit 44.1 % (37.0-53.0); Hemoglobin 13.3 g/dL (13.5-17.5); IMMATURE GRAN ABSOLUTE AUTO 0.05 K/mm3 (0.00-0.10); IMMATURE GRAN PERCENT AUTO 0 % (0-1); LYMPHOCYTES ABSOLUTE AUTO 0.12 K/mm3 (0.84-5.20); LYMPHOCYTES PERCENT AUTO 1 % (21-46); MONOCYTES ABSOLUTE AUTO 0.47 K/mm3 (0.16-1.47); MONOCYTES PERCENT AUTO 4 % (4-13); Mean Corpuscular HGB 27.5 pg (26.0-34.0); Mean Corpuscular HGB Conc 30.2 g/dL (31.5-36.5); Mean Corpuscular Volume 91 fL (80-100); Mean Platelet Volume 10.1 fL (9.1-12.4); NEUTROPHILS ABSOLUTE AUTO 10.91 K/mm3 (1.96-9.15); NEUTROPHILS PERCENT AUTO 95 % (41-73); Platelet Count 199 K/mm3 (150-400); RDW Coefficient Variation 15.5 % (11.7-14.2); RDW Standard Deviation 51.2 fL (35.1-46.3); Red Blood Cell Count 4.84 M/mm3 (4.30-5.90); White Blood Cell Count 11.55 K/mm3 (4.00-11.30)
[2024-03-20 03:55] LABS: Anion Gap 9 mmol/L (3-11); Blood Urea Nitrogen 47 mg/dL (8-24); Bun/Creatinine Ratio 38.2 (12.0-20.0); CO2, Blood 31 mmol/L (21-32); Calcium, Blood 8.8 mg/dL (8.5-10.1); Chloride, Blood 108 mmol/L (98-108); Creatinine, Blood 1.23 mg/dL (0.60-1.20); Glomerular Filtration Rate 61 (60-); Glucose, Blood 216 mg/dL (70-99); Magnesium, Blood 2.9 mg/dL (1.6-2.4); Potassium, Blood 4.9 mmol/L (3.5-5.5); Sodium, Blood 143 mmol/L (136-145); Triglycerides 106 mg/dL (30-160)
[2024-03-20 04:04] LABS: International Normalized Ratio 1.7; Prothrombin Time Results 17.5 Sec (9.7-11.5)
--- NOTE | 2024-03-20 06:45 | NUR ---
SHIFT SUMMARY PATIENT SLEPT VERY LITTLE THROUGH NIGHT. PATIENT WANTED ICE CHIPS AND CONSTANT ORAL CARE TO DINK WATER ON GREEN SPONGE. COMMUNICATES BY MOUTHING WORDS OR WRITING. VARGAS CATH DRAINING TO GRAVITY. 200MLS OF THICKER LIGHT BROWN SPUTUM. SBP 120-130'S HR 60-70'S. PPN RUNNING AT 110MLS PER HOUR. CALL LIGHT WITHIN REACH.
--- NOTE | 2024-03-20 10:54 | NUR ---
ASSUMED CARE. PATIENT IS RESTING QUIETLY IN HIS BED. HE IS A&OX4, AWAKE, AND PARTICIPATES IN BSSR. PT IS ON AIRVO 50L/50% WITH UNLABORED RESPIRATIONS. SPO2 >92. HE IS ON CONTINUOUS CARDIAC MONITORING WITH MONITOR SHOWING AFIB. SYSTOLIC BP >140 AND SYSTOLIC >70. HE MOUTHS WORDS AND USES HIS PHONE TO TEXT NEEDS AND QUESTIONS. PT HAS PPN INFUSING AT 110ML/HR IN PERIPHERAL IV IN Z[place]. SITE IS WITHOUT REDNESS OR INFLAMMATION. PT HAS VARGAS CATHETER PATENT AND DRAINING CLEAR YELLOW URINE TO GRAVITY. BED IN LOWEST POSITION, CALL LIGHT IN REACH.
[2024-03-20] MEDS ORDERED: CefTRIAXone Sodium 1,000 MG in NS 100 ML IV SCH (16:00)
--- NOTE | 2024-03-20 18:36 | NUR ---
SHIFT SUMMARY PT HAS BEEN A&OX4 THIS SHIFT. HE IS INVOLVED IN HIS CARE AND ASKS APPROPRIATE QUESTIONS. PT HAS REQUESTED WATER THROUGHOUT THE DAY AND STATES HE IS VERY THIRSTY. HE IS STRICT NPO D/T LARYNGEAL MASS. BARIUM SWALLOW TOMORROW. PT IS ON AIRVO TRACH MASK ON 50L/50%. HIS SPO2 IS >94%. PT REQUIRES SUCTIONING EVERY 2-3 HOURS FOR COPIOUS THICK HENDRICKSON SECRETIONS. PT WILL REQUEST SUCTIONING. CONTINUOUS CARDIAC MONITORING IN PLACE, SYSTOLIC BP >140, MAP >100. HR IN 60-70S. PT HAS VARGAS CATH PATENT AND DRAINING CLEAR YELLOW URINE. PT DAUGHTER VISITED EARLIER IN DAY. BED IN LOWEST POSITION. CALL LIGHT IN REACH.
[2024-03-20] MEDS ORDERED: Enoxaparin 100 MG/ML 1ML SYR SC SCH (21:00)
[2024-03-21] VITALS (13 sets, daily range): BP systolic 118–141; BP diastolic 70–109
[2024-03-21 05:29] LABS: BASOPHILS ABSOLUTE AUTO 0.01 K/mm3 (0.00-0.23); BASOPHILS PERCENT AUTO 0 % (0-2); EOSINOPHILS PERCENT AUTO 0 % (0-6); Hematocrit 45.5 % (37.0-53.0); Hemoglobin 13.7 g/dL (13.5-17.5); IMMATURE GRAN ABSOLUTE AUTO 0.03 K/mm3 (0.00-0.10); IMMATURE GRAN PERCENT AUTO 0 % (0-1); LYMPHOCYTES ABSOLUTE AUTO 0.08 K/mm3 (0.84-5.20); LYMPHOCYTES PERCENT AUTO 1 % (21-46); MONOCYTES ABSOLUTE AUTO 0.37 K/mm3 (0.16-1.47); MONOCYTES PERCENT AUTO 4 % (4-13); Mean Corpuscular HGB 27.7 pg (26.0-34.0); Mean Corpuscular HGB Conc 30.1 g/dL (31.5-36.5); Mean Corpuscular Volume 92 fL (80-100); Mean Platelet Volume 10.4 fL (9.1-12.4); NEUTROPHILS ABSOLUTE AUTO 8.18 K/mm3 (1.96-9.15); NEUTROPHILS PERCENT AUTO 94 % (41-73); Platelet Count 168 K/mm3 (150-400); RDW Coefficient Variation 15.4 % (11.7-14.2); Red Blood Cell Count 4.94 M/mm3 (4.30-5.90); White Blood Cell Count 8.67 K/mm3 (4.00-11.30)
[2024-03-21 05:51] LABS: International Normalized Ratio 1.15; Prothrombin Time Results 12.2 Sec (9.7-11.5)
[2024-03-21 05:52] LABS: Bun/Creatinine Ratio 45.2 (12.0-20.0); Calcium, Blood 8.9 mg/dL (8.5-10.1); Creatinine, Blood 1.24 mg/dL (0.60-1.20); Magnesium, Blood 2.9 mg/dL (1.6-2.4); Phosphorus, Blood 3.6 mg/dL (2.5-4.9); Potassium, Blood 5.2 mmol/L (3.5-5.5)
--- NOTE | 2024-03-21 06:15 | NUR ---
SHIFT SUMMARY PATIENT SLEPT OFF AND ON THROUGH NIGHT. PATIENT STILLS WANTS SOMETHING TO DRINK BADLY. PATIENT KNOWS HE WILL GET ORAL CARE EVERY 4 HOURS ON THE DOT. PATEINT WRITES ON NOTEPAD TO COMMUNICATE. A&O X4, SBP 130-140'S, HR IN THE 60'S. HAS PPN PETER @110MLS/HR. PATIENT GOT UP AND OUT OF BED WITH NURSE ASSISTS. SAT ON BEDSIDE COMMODE FOR A WHILE BUT NO BM. CALL LIGHT WITHIN REACH.
--- NOTE | 2024-03-21 07:50 | NUR ---
ASSUMED CARE. PT AWAKE IN BED DURING BSSR. HE HAS BEEN REQUESTING WATER ALL NIGHT PER NOC RN. PT IS ON HEATED HIGH FLOW TRACH COLLAR AIRVO 50L/50% W/ SPO2 >96 AT REST. HIS RESPIRATIONS ARE EVEN AND UNLABORED. HE HAS OCCASIONAL COUGH. CONTINUOUS CARDIAC MONITORING SHOWS AFIB W/ RATE 70-90. SYSTOLIC BP >130S. MAP >70. PT HAS VARGAS CATH PATENT AND DRAINING CLEAR YELLOW URINE. BED IN LOWEST POSITION. CALL LIGHT IN REACH.
--- NOTE | 2024-03-21 10:30 | NUR ---
ATTEMPTED TO D/C VARGAS CATHETER. PT REFUSED. PT IS NO LONGER NEEDING VARGAS CATH FOR CRITICAL 1/O. EDUCATED PATIENT ON THE BENEFIT OF REMOVING CATHETER TO REDUCE INFECTION RISK. PT REFUSED TO HAVE CATHETER REMOVED. WHEN ASKED WHY, HE STATED THAT HE HAD URINARY RETENTION AT HOME AND HE WAS UNABLE TO FULLY EMPTY HIS BLADDER AND IT WAS PAINFUL FOR HIM. HE REPORTS HE FEELS MUCH BETTER WITH THE CATHETER IN PLACE IN THE HOSPITAL AND DOES NOT WANT A PAINFUL BLADDER ANYMORE. EDUCATED PATIENT ON BLADDER TRAINING MEASURES TO PREPARE HIM FOR THE D/C OF VARGAS, HE WAS NOT AGREEABLE AND STATED "I DO NOT WANT IT OUT." .
--- NOTE | 2024-03-21 13:00 | NUR ---
STARTED BLADDER TRAINING. ATTEMPTED TO EDUCATE PATIENT ON BLADDER TRAINING MEASURES. HE STATED THAT HE WAS WILLING TO TRY. CLAMPED VARGAS CATHETER TUBE. PT STATED HE DID NOT WANT IT CLAMPED AND ATTEMPTED TO UNCLAMP IT. PROVIDED FURTHER INFORMATION THAT BLADDER TRAINING WOULD NOT HURT HIS BLADDER AND INSTEAD IT WOULD HELP HIS BLADDER GET BETTER AT LEARNING TO EMPTY. PT AGREED TO LEAVE CLAMP IN PLACE. WHEN LEAVING THE ROOM, PT WAS ATTEMPTING TO REACH CLAMP.
[2024-03-21] MEDS ORDERED: MethylPREDNISolone Sod Succ 125 MG Vial IV SCH (16:00)
--- NOTE | 2024-03-21 18:19 | NUR ---
SHIFT SUMMARY PT HAS BEEN STRONGER THIS SHIFT. HE HAS A GOOD APPETITE AND PASSED HIS BARIUM SWALLOW AT 1230 THIS AM. HE STARTED MINCED AND MOIST DIET WITH MODERATELY THICK LIQUID. HE IS ON A HEATED AIRVO TRACH COLLAR AT 40L/55%. SPO2 >96. PT RESPIRATIONS ARE EVEN AND UNLABORED. PT HAS HAD LESS TRACH SECRETIONS AND HAS ONLY REQUIRED SUCTIONING EVERY 4-6 HOURS. HE HAS AN OCCASIONAL COUGH. SECRETIONS ARE CLEAR/HENDRICKSON AND THICK. PT IS ON CONTINUOUS CARDIAC MONITORING IN AFIB. HIS HR IS 60-70S. SYSTOLIC BP >120. MAP >80. VARGAS CATH WAS D/C AT 1800. PT IS CONCERNED HE WILL HAVE RETENTION AND STATES HE WOULD PREFER NOT TO HAVE IT REMOVED. PT'S FRIEND VISITED HIM TODAY AT BEDSIDE. CALL LIGHT IN REACH
--- NOTE | 2024-03-21 20:00 | NUR ---
Assumed care of pt at 1900 Pt sitting up on bed, appears comfortable. PT speaking over trach w/ soft speech. Alert and oriented and able to make needs known. Pt on airvo w/ trach collar- 40Lpm/ 42% Fio2. Lungs dim in bases. Pt has productive cough w/ thick secretions- suctioning self frequently. Pt on continuous candy decorator, afib w/ rate of 100-110s. BP stable w/ systolics in 130s. Pt has lynn cath removed during previous shift- no output at this time. Call light w/ in reach. Plan of care ongoing.
[2024-03-22] VITALS (12 sets, daily range): BP systolic 109–153; BP diastolic 65–111
[2024-03-22 03:29] LABS: BASOPHILS PERCENT AUTO 0 % (0-2); EOSINOPHILS PERCENT AUTO 0 % (0-6); Hematocrit 45.8 % (37.0-53.0); Hemoglobin 13.8 g/dL (13.5-17.5); IMMATURE GRAN ABSOLUTE AUTO 0.04 K/mm3 (0.00-0.10); IMMATURE GRAN PERCENT AUTO 0 % (0-1); LYMPHOCYTES ABSOLUTE AUTO 0.12 K/mm3 (0.84-5.20); LYMPHOCYTES PERCENT AUTO 1 % (21-46); MONOCYTES ABSOLUTE AUTO 0.33 K/mm3 (0.16-1.47); MONOCYTES PERCENT AUTO 4 % (4-13); Mean Corpuscular HGB 27.8 pg (26.0-34.0); Mean Corpuscular HGB Conc 30.1 g/dL (31.5-36.5); Mean Corpuscular Volume 92 fL (80-100); Mean Platelet Volume 10.4 fL (9.1-12.4); NEUTROPHILS ABSOLUTE AUTO 8.41 K/mm3 (1.96-9.15); NEUTROPHILS PERCENT AUTO 95 % (41-73); Platelet Count 159 K/mm3 (150-400); RDW Coefficient Variation 15.2 % (11.7-14.2); RDW Standard Deviation 51.8 fL (35.1-46.3); Red Blood Cell Count 4.97 M/mm3 (4.30-5.90)
[2024-03-22 03:44] LABS: International Normalized Ratio 1.1; Prothrombin Time Results 11.7 Sec (9.7-11.5)
[2024-03-22 03:53] LABS: Bun/Creatinine Ratio 43.2 (12.0-20.0); Calcium, Blood 8.8 mg/dL (8.5-10.1); Creatinine, Blood 1.32 mg/dL (0.60-1.20); Magnesium, Blood 2.6 mg/dL (1.6-2.4); Phosphorus, Blood 3.9 mg/dL (2.5-4.9)
--- NOTE | 2024-03-22 05:41 | NUR ---
End of shift summary No acute events. Pt alert and oriented and awake t/o most of shift. Using call light appropriately. Pt able to make need known- speech valve in place. Pt lungs coarse. Thick secretions via trach suctioned out per pt request. Pt remains on trach collar w/ airvo- 40lpm/42%fio2. Pt in afib, rate of 60-70s. Bp stable w/ systolics of 130s. Afebrile. No bm during shift. Pt used urinal w/ assistance. Call light w/ in reach. Plan of care ongoing
[2024-03-22] MEDS ORDERED: Insulin Regular 100 UNIT/ML 10ML Vial SC SCH (08:45)
[2024-03-22] MEDS ORDERED: NS 500 ML IV ONE (15:37)
[2024-03-22] MEDS ORDERED: DiphenhydrAMINE HCL/Zinc Acet Cream TOP PRN (16:20)
[2024-03-22] MEDS ORDERED: NS 250 ML IV PRN (16:25)
--- NOTE | 2024-03-22 18:06 | NUR ---
SHIFT NOTE Pt required minimal suctioning from RN today. Up in the chair multiple times, good appetiete with meals. Encouraged independence with ADL's throughout the day. Pt complaining of itchyness in arms/hands, unrelieved by lotion. Bendadryl cream ordered and given with good effect. Pt encouraged to void throughout the day, straight cathed x1. States he does not feel the urge to void. N AOX4 C AFIB ON TELE R AIRVO 40% 42L, CLEAR/DIM. SPEAKING VALVE IN PLACE GI/ RETAINING URINE. BELLY SOFT, GOOD BOWEL SOUNDS SKIN TOI BLE, SCATTERED BRUISING, SCRATED ON R FOREARM, TRACH SITE SUTURED GTT TKO LINES BILATERAL PIV
--- NOTE | 2024-03-22 21:16 | NUR ---
PROVIDER CONTACTED HOSPITALIST JEREMIAH CALLED, REGARDING PT HAVING 20 BEAT RUN OF UNSUSTAINED V-TACH. ASYMPTOMATIC.
[2024-03-22 22:05] LABS: Magnesium, Blood 2.4 mg/dL (1.6-2.4)
[2024-03-22] MEDS ORDERED: Nitroglycerin 0.4 MG SUBL ONE (22:10)
[2024-03-22 22:12] LABS: Potassium, Blood 4.2 mmol/L (3.5-5.5); Thyroid Stimulating Hormone 0.443 uIU/mL (0.360-4.800)
[2024-03-22] MEDS ORDERED: Nitroglycerin 0.4 MG SUBL SL PRN (22:15)
[2024-03-22] MEDS ORDERED: Acetylcysteine 200 MG/ML 4ML Vial INH SCH (23:30)
[2024-03-23] VITALS (15 sets, daily range): BP systolic 108–134; BP diastolic 70–114
[2024-03-23 04:15] LABS: BASOPHILS ABSOLUTE AUTO 0.01 K/mm3 (0.00-0.23); BASOPHILS PERCENT AUTO 0 % (0-2); EOSINOPHILS ABSOLUTE AUTO 0.02 K/mm3 (0.00-0.68); EOSINOPHILS PERCENT AUTO 0 % (0-6); Hematocrit 44.6 % (37.0-53.0); Hemoglobin 13.7 g/dL (13.5-17.5); IMMATURE GRAN ABSOLUTE AUTO 0.04 K/mm3 (0.00-0.10); IMMATURE GRAN PERCENT AUTO 0 % (0-1); LYMPHOCYTES ABSOLUTE AUTO 0.25 K/mm3 (0.84-5.20); LYMPHOCYTES PERCENT AUTO 2 % (21-46); MONOCYTES ABSOLUTE AUTO 0.74 K/mm3 (0.16-1.47); MONOCYTES PERCENT AUTO 7 % (4-13); Mean Corpuscular HGB 27.7 pg (26.0-34.0); Mean Corpuscular HGB Conc 30.7 g/dL (31.5-36.5); Mean Corpuscular Volume 90 fL (80-100); NEUTROPHILS ABSOLUTE AUTO 9.98 K/mm3 (1.96-9.15); NEUTROPHILS PERCENT AUTO 90 % (41-73); Platelet Count 170 K/mm3 (150-400); RDW Coefficient Variation 15.2 % (11.7-14.2); RDW Standard Deviation 49.7 fL (35.1-46.3); Red Blood Cell Count 4.94 M/mm3 (4.30-5.90); White Blood Cell Count 11.04 K/mm3 (4.00-11.30)
--- NOTE | 2024-03-23 05:26 | NUR ---
End of shift summary Pt had episode of 7/10 chest discomfort or 'indigestion' followed by desaturations to 79%. Pain unaffected by nitro and prn fentanyl. 20 beat run of unsustained vtach also occured during this time. Rt attempted suctioning of trach multiple times and pt continued to desaturate despite increasing oxygen. Dr. Elliott came to bedside to evaluate pt. Pt temporarily placed back on ventilator. Rt determines they are unable to advance suction catheter or bag properly through trach. Concern for obstruction. Plans to contact Dr. Eller for further eval in am. PT placed on heated high flow o2 via nasal cannula- 40lpm/35% and sats improve to 98%. Pt on continuous gambling monitor, afib rate of 50-90s observed. Bp stable. frequent pvcs. Pt voided 50ml of urine and bladder scanned performed, pt retaining urine. Straight cath performed, 1150ml drained from bladder. No bm this shift. Pt using call light appropriately. Plan of care ongoing.
[2024-03-23 07:32] LABS: Bun/Creatinine Ratio 33.8 (12.0-20.0); Calcium, Blood 8.2 mg/dL (8.5-10.1); Creatinine, Blood 1.3 mg/dL (0.60-1.20); Potassium, Blood 4.6 mmol/L (3.5-5.5)
[2024-03-23] MEDS ORDERED: Pantoprazole Sodium 40 MG Injection IV SCH (09:00)
[2024-03-23] MEDS ORDERED: Fluticasone 0.05% Nasal Spray SCH (09:00)
--- NOTE | 2024-03-23 14:00 | NUR ---
SIGNIFICANT EVENT 0830 Dr. Eller at bedside to evaluate patients airway. RT Corina and CHUY Mayer at bedside to assist. Bronch was performed, trach replaced. Per Dr. Eller, no trach manipulation to be performed and no drain sponges are to be used. Only suctioning allowed. Stoma guard ok.
--- NOTE | 2024-03-23 14:08 | NUR ---
FAMILY UPDATE 0453 Daughter Alonso updated on patients condition and plan of care. Alonso was requesting information on how to become the patient's medical POA. Case management was made aware.
--- NOTE | 2024-03-23 19:48 | NUR ---
SHIFT SUMMARY Patient worked with PT during the day. Up to chair for meals. No further issues noted with trach. Patient had a 10 beat run of VTach at 1804, Dr. Pimentel notified, patient was asymptomatic, no new orders. Lynn placed during shift for urinary retention. Able to wean AIRVO throughout the day N AOX4 C Afib with PVCs R Airvo on trach at 35% 30 L GI/ BM today, lynn patent. Good appetite and tollerating diet well S no changes GTT none LINES bilateral PIV Pt in bed with call dupree within reach.
--- NOTE | 2024-03-23 20:00 | NUR ---
ASSESSMENT/ASSUMED CARE PT SITTING UP IN BED WATCHING TV. DENIES PAIN OR DISCOMFORT. LUNGS CLEAR BUT DECREASED. TRACH WITH SPEECHING VALVE ON. PT COUGHING AND SUCTIONING MOUTH. AIRVIO VIA TRACH IS 35 LITERS 30%. WASHED PT CHEST DUE TO DRIED SPUTUM FROM TRACH ON CHEST. RESP EVEN AND NONLABORED. HEART RATE IRREGULAR IN THE 50-70'S. BP STABLE. NO EDEMA. BT+ ABD SOFT AND NONTENDER. DENIES N/V. VARGAS CATH PATENT DRAINING YELLOW URINE. MOVING SELF AROUND IN BED. TAKING THICKENED LIQUED WITHOUT DIFFICULTY
[2024-03-24] VITALS (18 sets, daily range): BP systolic 101–127; BP diastolic 62–93
[2024-03-24 03:49] LABS: BASOPHILS ABSOLUTE AUTO 0.01 K/mm3 (0.00-0.23); BASOPHILS PERCENT AUTO 0 % (0-2); EOSINOPHILS ABSOLUTE AUTO 0.12 K/mm3 (0.00-0.68); EOSINOPHILS PERCENT AUTO 1 % (0-6); Hematocrit 44.9 % (37.0-53.0); Hemoglobin 13.5 g/dL (13.5-17.5); IMMATURE GRAN ABSOLUTE AUTO 0.03 K/mm3 (0.00-0.10); IMMATURE GRAN PERCENT AUTO 0 % (0-1); LYMPHOCYTES ABSOLUTE AUTO 0.41 K/mm3 (0.84-5.20); LYMPHOCYTES PERCENT AUTO 4 % (21-46); MONOCYTES ABSOLUTE AUTO 0.67 K/mm3 (0.16-1.47); MONOCYTES PERCENT AUTO 7 % (4-13); Mean Corpuscular HGB 27.3 pg (26.0-34.0); Mean Corpuscular HGB Conc 30.1 g/dL (31.5-36.5); Mean Corpuscular Volume 91 fL (80-100); NEUTROPHILS ABSOLUTE AUTO 8.67 K/mm3 (1.96-9.15); NEUTROPHILS PERCENT AUTO 88 % (41-73); Platelet Count 145 K/mm3 (150-400); RDW Standard Deviation 49.6 fL (35.1-46.3); Red Blood Cell Count 4.94 M/mm3 (4.30-5.90); White Blood Cell Count 9.91 K/mm3 (4.00-11.30)
[2024-03-24 04:04] LABS: Bun/Creatinine Ratio 27.1 (12.0-20.0); Creatinine, Blood 1.07 mg/dL (0.60-1.20); Potassium, Blood 4.4 mmol/L (3.5-5.5)
--- NOTE | 2024-03-24 06:13 | NUR ---
SHIFT SUMMARY PT RESTING QUIETLY. TRACH AIRVO O2 INCREASED DURING THE NIGHT TO 35 LITERS 50%. PT DOING ORAL SUCTION. SUCTIONED THREE TIMES DURING THE NIGHT FOR THICK HENDRICKSON SECRECTIONS VIA TRACH. SPEAKING VALVE REMOVED FOR SLEEP FOR 3 HOURS, BUT THEN PT WANTED IT BACK. RESP EVEN AND NONLABORED. HEART RATE IRREGULAR 40-70'S BP STABLE. MOVING SELF IN BED. NO ACUTE CHANGE. REPORT TO ON COMING NURSE
--- NOTE | 2024-03-24 19:49 | NUR ---
SHIFT SUMMARY: NEURO: PATIENT ALERT AND ORIENTED X4. PATIENT ANXIOUS AT TIMES THAT IMPACTS HIS ABILITY TO ABSORB NEW KNOWLEDGE. PATIENT RESPONDS WELL TO REPEATED INFORMATION. PATIENT IS WEAK WITH HIS MOVEMENTS, BUT ALBE TO STAND WITH ONE ASSIST AND WALKER. PATIENT UP TO THE RECLINER FOR LUNCH AND SOME OF THE AFTERNOON. PATIENT WORKED WITH PT IN THE BED. CARDIAC: PATIENT'S VITALS STABLE THROUGHOUT THE SHIFT. HR IN THE 50S-70S. AFIB THROUGHOUT THE SHIFT. PATIENT REPORTED POOR CIRCULATION. PATIENT HAS STAINING OF BLE THAT HE REPORTS IS BASELINE. PEDAL PULSES PRESENT. RESPIRATORY: PATIENT CONTINUES TO HAVE HUMIDIFIED HIGH FLOW THROUGH TRACH COLLAR. SETTINGS STAYED AT 35L/45-50% THROUGHOUT THE SHIFT. SPO2 >94%. PATIENT DENIED SHORTNESS OF BREATH OR DIFFICULTY BREATHING. PATIENT HAS A STRONG COUGH AND IS ABLE TO RELAY WHEN HE NEEDS TO BE SUCTIONED. GI/: PATIENT EXPRESSES SOME FRUSTRATION OVER THICKENED LIQUIDS, BUT RESPONDS WELL TO CHOICES. PATIENT HAS AN EXCELLENT APPETITE. PATIENT DENIES GASTIRIC UPSET. NO BOWEL MOVEMENT THIS SHIFT. VARGAS IN PLACE AND DRAINING CLEAR, YELLOW URINE. PSYCHSOCIAL: PATIENT ANXOUS AND FRUSTRATED AT TIMES. HE IS ANXIOUS ABOUT VIBRA AND WHAT WILL HAPPEN WITH THIS CANCER TREATMENT. CONSULT CALLED THIS AFTERNOON TO DR. BRAVO PER ORDERS. PATIENT RESPONDS WELL TO ENCOURAGEMENT AND EDUCATION. NO FOUL ODOR NOTED.
[2024-03-24] MEDS ORDERED: Apixaban 5 MG Tab PO SCH (21:00)
[2024-03-24] MEDS ORDERED: Enoxaparin 100 MG/ML 1ML SYR SC SCH ×2 (21:00)
[2024-03-25 00:11] VITALS: BP 103/67
[2024-03-25 04:15] VITALS: BP 108/64
[2024-03-25 04:49] LABS: BASOPHILS ABSOLUTE AUTO 0.01 K/mm3 (0.00-0.23); BASOPHILS PERCENT AUTO 0 % (0-2); EOSINOPHILS ABSOLUTE AUTO 0.19 K/mm3 (0.00-0.68); EOSINOPHILS PERCENT AUTO 2 % (0-6); Hematocrit 42.5 % (37.0-53.0); IMMATURE GRAN ABSOLUTE AUTO 0.04 K/mm3 (0.00-0.10); IMMATURE GRAN PERCENT AUTO 1 % (0-1); LYMPHOCYTES ABSOLUTE AUTO 0.39 K/mm3 (0.84-5.20); LYMPHOCYTES PERCENT AUTO 4 % (21-46); MONOCYTES ABSOLUTE AUTO 0.66 K/mm3 (0.16-1.47); MONOCYTES PERCENT AUTO 8 % (4-13); Mean Corpuscular HGB 27.4 pg (26.0-34.0); Mean Corpuscular HGB Conc 30.6 g/dL (31.5-36.5); Mean Corpuscular Volume 90 fL (80-100); Mean Platelet Volume 11.8 fL (9.1-12.4); NEUTROPHILS ABSOLUTE AUTO 7.56 K/mm3 (1.96-9.15); NEUTROPHILS PERCENT AUTO 85 % (41-73); Platelet Count 157 K/mm3 (150-400); RDW Coefficient Variation 14.7 % (11.7-14.2); RDW Standard Deviation 47.9 fL (35.1-46.3); Red Blood Cell Count 4.74 M/mm3 (4.30-5.90); White Blood Cell Count 8.85 K/mm3 (4.00-11.30)
[2024-03-25 05:15] LABS: Bun/Creatinine Ratio 22.2 (12.0-20.0); Calcium, Blood 8.1 mg/dL (8.5-10.1); Creatinine, Blood 0.99 mg/dL (0.60-1.20); Potassium, Blood 4.4 mmol/L (3.5-5.5)
--- NOTE | 2024-03-25 05:44 | NUR ---
SHIFT SUMMARY ASSUMED CARE OF PT AT 1900. PT IS A/OX4. HEART SOUNDS IRREGULAR, TELE SHOWED AFIB. LUNG SOUNDS HAVE CRACKLES IN THE UPPER LOBES, PT HAS TRACH WITH AIRVO ATTCHED AT 35L AND 30%. PT TOOK OUT SPEACH VALVE FOR THE NOC AND USED WRITING COMMUNICATION. PT NEEDED TO BE DEEP SUCTIONED 3 TIMES THIS NOC. PT THINKS THAT IT IS HIS NARES DRIPPING INTO HIS THROAT. SPUTUM IS THICK AND WHITE/YELLOW. PT TURNED Q2, BUTTOCK RED BUT BLANCHABLE. PT HAS VARGAS DRAINING CLEAR YELLOW URINE.
--- NOTE | 2024-03-25 06:59 | NUR ---
UPDATE; VTACH THIS NURSE WAS NOTIFIED BY TELE THAT PT HAD A 5 BEART RUN OF VTACH AFTER GETTING UP TO THE BEDSIDE COMMODE. LABS STABLE VITAL SIGNS STABLE. WILL PASS TO DAYSHIFT TEAM.
[2024-03-25] MEDS ORDERED: FOSAPREPITANT DIMEGLUMINE 150 MG IV ONE (11:25)
[2024-03-25] MEDS ORDERED: DOCETAXEL IV ONE (11:25)
[2024-03-25] MEDS ORDERED: Ondansetron HCl 2 MG / ML 2ML Vial IV PRN (11:30)
--- NOTE | 2024-03-25 18:31 | NUR ---
Summary. Pt rested in bed this shift, up to bedside commode with [address] Ocampo rounded on pt this am, chemotherapy medications ordered, plan is to start chemo tomorrow. Pt requiring frequent trach suctioning. Remains on Airvo, see rt charting for details. No acute events this shift, see chart for further details.
[2024-03-25 20:21] VITALS: BP 90/65
[2024-03-25] MEDS ORDERED: Dexamethasone Sodium Phosphate 4 MG/ML 5ML VIAL IV SCH (21:00)
[2024-03-26 00:08] VITALS: BP 121/77
[2024-03-26 03:59] VITALS: BP 115/89
[2024-03-26] MEDS ORDERED: TRULICITY3 MG/0.5 M SC (04:05)
[2024-03-26 04:52] LABS: BASOPHILS ABSOLUTE AUTO 0.01 K/mm3 (0.00-0.23); BASOPHILS PERCENT AUTO 0 % (0-2); EOSINOPHILS ABSOLUTE AUTO 0.21 K/mm3 (0.00-0.68); EOSINOPHILS PERCENT AUTO 3 % (0-6); Hematocrit 43.3 % (37.0-53.0); IMMATURE GRAN ABSOLUTE AUTO 0.02 K/mm3 (0.00-0.10); IMMATURE GRAN PERCENT AUTO 0 % (0-1); LYMPHOCYTES PERCENT AUTO 7 % (21-46); MONOCYTES PERCENT AUTO 8 % (4-13); Mean Corpuscular HGB 27.3 pg (26.0-34.0); Mean Corpuscular Volume 91 fL (80-100); Mean Platelet Volume 11.1 fL (9.1-12.4); NEUTROPHILS ABSOLUTE AUTO 6.31 K/mm3 (1.96-9.15); NEUTROPHILS PERCENT AUTO 83 % (41-73); Platelet Count 163 K/mm3 (150-400); RDW Coefficient Variation 14.8 % (11.7-14.2); RDW Standard Deviation 49.3 fL (35.1-46.3); Red Blood Cell Count 4.77 M/mm3 (4.30-5.90); White Blood Cell Count 7.65 K/mm3 (4.00-11.30)
[2024-03-26 05:39] LABS: Bun/Creatinine Ratio 20.1 (12.0-20.0); Calcium, Blood 7.9 mg/dL (8.5-10.1); Creatinine, Blood 0.94 mg/dL (0.60-1.20); Magnesium, Blood 2.1 mg/dL (1.6-2.4); Potassium, Blood 4.6 mmol/L (3.5-5.5)
--- NOTE | 2024-03-26 05:59 | NUR ---
SHIFT SUMMARY ASSUMED CARE OF PT AT 1900. PT A&O4 AND COOPERATIVE IN CARE. PT IS ABLE TO MAKE NEEDS KNOWN BY USING SPEAKING VALVE OR WRITING ON TABLET. PT REQUESTS FREQUENT DEEP SUCTIONING BY MYSELF AND RT. PT MAY BENEFIT FROM MUCOMYST, MUCINEX OR SCOPOLAMINE PATCH TO HELP WITH THE LARGE AMOUNT OF SECRETIONS NEEDING TO BE SUCTIONED. PT DID HAVE COMPLAINTS OF PAIN AFTER COUGHING FITS. VSS WHILE PT IS ON AIRVO 35L @ 33%. BED AT LOWEST POSITION AND CALL LIGHT WITHIN REACH.
[2024-03-26 08:02] VITALS: BP 118/79
[2024-03-26 12:19] VITALS: BP 128/87
--- NOTE | 2024-03-26 13:16 | NUR ---
ASSUMPTION OF CARE PT ALERT AND ORIENTED TO ALL, HE IS CALM, COOPERATIVE TO CARE, HE IS ABLE TO EXPRESS NEEDS VIA WRITTEN/VERBAL. HE HAS SCATTERED SCRATCHES/REDNESS T/O EXTREMITIES. AFIB, 60'S-70'S. SBP STABLE, DENIES CP/PRESSURE, NUMB/TINGLING. 02 >92% ON AIRVO VIA TRACHEOSTOMY, 33L/MIN, 34% FIO2, L/S COARSE T/O, FREQUENT SUCTIONING FOR PT WITH LARGE AMOUNTS OF SECRETIONS, HACKING COUGH. +BS, FIRM, NONTENDER. PT DENIES ANY CONCERNS AT THIS TIME. HE IS AGREEABLE TO TREATMENT FOR HIS CANCER AND WILL PLAN TO SEE ONCOLOGY THURSDAY. WILL CONTINUE TO MONITOR PT.
[2024-03-26 15:00] VITALS: BP 134/92
--- NOTE | 2024-03-26 17:54 | NUR ---
SHIFT SUMMARY PT ALERT AND ORIENTED TO ALL. HR IN THE 70-80'S, SBP STABLE. O2 >92% ON AIRVO VIA TRACH, 33L/MIN 35% FIO2, FREQUENT SUCTION NEEDED. AWAITING CONSULT WITH DR BRAVO TO INITIATE CANCER TREATMENT. NO ACUTE CHANGES THROUGH SHIFT. PT DENIES QUESTIONS OR CONCERNS AT THIS TIME. WILL CONTINUE TO MONITOR AND REPORT TO REGISTRATION REP RN.
[2024-03-26] MEDS ORDERED: HYDROmorphone HCl/Pf 1MG SYR IV PRN (19:30)
[2024-03-26] MEDS ORDERED: Scopolamine Hydrobromide Patch TOP PRN (19:30)
[2024-03-26] MEDS ORDERED: Acetylcysteine 200 MG/ML 4ML Vial INH SCH (19:45)
[2024-03-26] MEDS ORDERED: Benzocaine Oral Spray 0.5ML UD MT PRN (19:45)
[2024-03-26 19:57] VITALS: BP 119/77
[2024-03-27] VITALS (7 sets, daily range): BP systolic 109–125; BP diastolic 61–87
--- NOTE | 2024-03-27 04:21 | NUR ---
SHIFT SUMMARY. SHIFT HAS GONE WELL OVERALL. PT AOX4, PLEASANT, MOSTLY COOPERATIVE WITH CARE, ABLE TO MAKE NEEDS KNOWN. HAS BEEN ABLE TO REST COMFORTABLY THROUGHOUT MOST OF SHIFT. EARLY IN SHIFT, SPOKE WITH RESIDENT DR. GORDY SCHREIBER REGARDING REPORTED INADEQUATE PAIN MANAGEMENT FOR PATIENT. PT WAS RECEIVING FENTANYL 25-50 MCG PRN FOR PAIN MANAGEMENT. DUE TO VERY FREQUENT TRACH SUCTION, PT REPORTED FEELING LIKE HE "HAD NAILS IN HIS THROAT" THAT WAS UNALLEVIATED VIA EMAR MANAGEMENT. DR. GORDY SCHREIBER DCd FENTANYL AND ORDERED DILAUDID 0.5-1MG Q4P FOR MANAGEMENT. ADMINISTERED TWICE THUS FAR. PT HAS SINCE REPORTED THAT PAIN HAS BEEN MUCH MUCH BETTER MANAGED AND FOR THE FIRST TIME SINCE ADMITTANCE HE HAS BEEN ABLE TO SLEEP. OTHER THAN THAT, SHIFT HAS BEEN UNREMARKABLE. VITALS STABLE. TRACH SUCTION PRN. REPOSITIONED PATIENT ALLOWS HE MORE OFTEN THAN NOT REFUSES TO REPOSITION HE FEELS HE IS COMFORTABLE AT THAT TIME. BED LOCKED IN LOWEST POSITION. CALL LIGHT LEFT WITHIN REACH. CONTINUING TO MONITOR.
[2024-03-27 04:55] LABS: BASOPHILS ABSOLUTE AUTO 0.01 K/mm3 (0.00-0.23); BASOPHILS PERCENT AUTO 0 % (0-2); EOSINOPHILS ABSOLUTE AUTO 0.16 K/mm3 (0.00-0.68); EOSINOPHILS PERCENT AUTO 2 % (0-6); Hematocrit 42.3 % (37.0-53.0); Hemoglobin 12.7 g/dL (13.5-17.5); IMMATURE GRAN ABSOLUTE AUTO 0.04 K/mm3 (0.00-0.10); IMMATURE GRAN PERCENT AUTO 1 % (0-1); LYMPHOCYTES ABSOLUTE AUTO 0.46 K/mm3 (0.84-5.20); LYMPHOCYTES PERCENT AUTO 6 % (21-46); MONOCYTES ABSOLUTE AUTO 0.53 K/mm3 (0.16-1.47); MONOCYTES PERCENT AUTO 7 % (4-13); Mean Corpuscular HGB 27.3 pg (26.0-34.0); Mean Corpuscular Volume 91 fL (80-100); Mean Platelet Volume 11.4 fL (9.1-12.4); NEUTROPHILS ABSOLUTE AUTO 6.18 K/mm3 (1.96-9.15); NEUTROPHILS PERCENT AUTO 84 % (41-73); Platelet Count 202 K/mm3 (150-400); RDW Coefficient Variation 14.9 % (11.7-14.2); RDW Standard Deviation 49.3 fL (35.1-46.3); Red Blood Cell Count 4.66 M/mm3 (4.30-5.90); White Blood Cell Count 7.38 K/mm3 (4.00-11.30)
[2024-03-27 05:23] LABS: Anion Gap 7 mmol/L (3-11); Blood Urea Nitrogen 17 mg/dL (8-24); Bun/Creatinine Ratio 19.2 (12.0-20.0); CO2, Blood 29 mmol/L (21-32); Calcium, Blood 7.8 mg/dL (8.5-10.1); Chloride, Blood 107 mmol/L (98-108); Creatinine, Blood 0.89 mg/dL (0.60-1.20); Glomerular Filtration Rate 89 (60-); Glucose, Blood 135 mg/dL (70-99); Magnesium, Blood 2.1 mg/dL (1.6-2.4); Potassium, Blood 4.9 mmol/L (3.5-5.5); Sodium, Blood 138 mmol/L (136-145); Triglycerides 145 mg/dL (30-160)
[2024-03-27] MEDS ORDERED: Dexamethasone Sodium Phosphate 4 MG/ML 1ML Vial IV SCH (09:00)
[2024-03-27] MEDS ORDERED: FOSAPREPITANT DIMEGLUMINE IV ONE (09:10)
[2024-03-27] MEDS ORDERED: NS IV ONE (09:10)
[2024-03-27] MEDS ORDERED: Ondansetron HCl 2 MG / ML 2ML Vial IV ONE (10:30)
[2024-03-27] MEDS ORDERED: Polyethylene Glycol 3350 17 gm PO PRN (11:35)
[2024-03-27] MEDS ORDERED: Bisacodyl 10 MG Supp PR PRN (11:40)
--- NOTE | 2024-03-27 12:05 | NUR ---
NURSE NOTE ASSUMED CARE AT 0700. PATIENT IS ALERT AND ORIENTATED X4, ABLE TO MAKE NEEDS KNOWN. PATIENT REQUESTED TO BE SUCTIONED AT 0815, PT WAS SUCTIONED AND ABLE TO COUGH AND DEEP BREATH. PT SITTING UP IN BED WITH FAN BLOWING ON HIM. AT 1010 PATIENT REQUESTED IV DILAUDID, AND TO BE SUCTIONED AGAIN, PATIENT WAS ABLE TO EXCRETE A LARGE AMOUNT OF PINK TINGED/ WHITE COLORED MUCUS. PATIENT TOLLERATED SUCTIONING OF HIS TRACH. AT THIS TIME PATIENT IS SITTING UP IN BED EATINING LUNCH W/ FAMILY AT BEDSIDE. CALL LIGHT IN REACH.
[2024-03-27] MEDS ORDERED: ALBU90OI INH (16:07)
--- NOTE | 2024-03-27 18:01 | NUR ---
SHIFT SUMMARY PATIENT A+O X4, VSS, 1 PERSON TRANSFER WITH WALKER AND GAIT BELT. PATIENT WILL REQUEST SUCTIONING, HAS TRACH COLAR IN PLACE, WITH AIRVO. SATURATION HAS BEEN ABOVE 93% DURING MY SHIFT. OFFERED TO GET PATIENT UP TO CHAIR 3 TIMES DURING MY SHIFT, PATIENT DENIED THIS REQUEST BUT WAS ABLE TO DANGLE AND SIT AT BEDSIDE FOR DINNER. MED REQ WAS COMPLETED TODAY AFTER A FAMILY MEMBER BROUGHT IN ALL HOME MEDICATIONS WHICH ARE IN THE PATIENT'S ROOM WITH HIM, THERE WAS NO ONE TO RETURN THEM HOME. MEDICATIONS ARE LOCATED IN THE CLOSET IN A PATIENT BELONGING BAG. CALL LIGHT IN REACH, WILL CONTINUE TO CARE FOR PATIENT UNTIL SHIFT CHANGE.
[2024-03-27] MEDS ORDERED: Docusate Sodium 100 MG Cap PO SCH (21:00)
--- NOTE | 2024-03-27 22:09 | NUR ---
ASSUMPTION OF CARE AFTER RECEIVING REPORT FROM CHRIS RN, THIS RN ASSUMED CARE AT APPROX 1915. PATIENT ALERT AND ORIENTED X4. COMMUNICATING NEEDS EFFECTIVELY VERBALLY THROUGH SPEAKING VALVE OR WITH WRITTEN COMMUNICATION. PERRLA. MOVES ALL EXTREMITIES EQUALLY WITH GENERALIZED WEAKNESS. TELEMETRY SHOWING AFIB 70s-80s. DENIES CHEST PAIN, PRESSURE. BP STABLE, SBP 120s. +1 EDEMA TO BLE. SCDs IN PLACE. REQUIRING FREQUENT SUCTIONING THROUGH TRACH - THICK, PURULENT SPUTUM. STRONG COUGH - ABLE TO ASSIST WITH SUCTIONING PROCESS. ON HIGH FLOW FI02 41, SATs >90%. TOLERATING HONEY THICKENED LIQUIDS AND MEDS WHOLE OR CRUSHED IN [place]. BOWEL CARE STARTED THIS EVENING. ORAL CARE PROVIDED. VARGAS CATHETER IN PLACE DRAINING YELLOW URINE TO GRAVITY. Q2H REPOSITIONING. CALL LIGHT IN REACH.
--- NOTE | 2024-03-28 02:16 | NUR ---
PATIENT NOTED TO NOT HAVE ANY MORNING LABS ORDERED. MD KAUR CONTACTED. RECEIVED ORDER FOR ROUTINE CBC AND BMB AT 0500.
[2024-03-28 03:08] VITALS: BP 96/71
[2024-03-28 04:27] LABS: BASOPHILS ABSOLUTE AUTO 0.01 K/mm3 (0.00-0.23); BASOPHILS PERCENT AUTO 0 % (0-2); EOSINOPHILS ABSOLUTE AUTO 0.08 K/mm3 (0.00-0.68); EOSINOPHILS PERCENT AUTO 1 % (0-6); Hemoglobin 12.6 g/dL (13.5-17.5); IMMATURE GRAN ABSOLUTE AUTO 0.03 K/mm3 (0.00-0.10); IMMATURE GRAN PERCENT AUTO 1 % (0-1); LYMPHOCYTES PERCENT AUTO 5 % (21-46); MONOCYTES ABSOLUTE AUTO 0.45 K/mm3 (0.16-1.47); MONOCYTES PERCENT AUTO 7 % (4-13); Mean Corpuscular HGB 27.8 pg (26.0-34.0); Mean Corpuscular HGB Conc 30.7 g/dL (31.5-36.5); Mean Corpuscular Volume 90 fL (80-100); Mean Platelet Volume 11.2 fL (9.1-12.4); NEUTROPHILS ABSOLUTE AUTO 5.35 K/mm3 (1.96-9.15); NEUTROPHILS PERCENT AUTO 86 % (41-73); Platelet Count 211 K/mm3 (150-400); RDW Coefficient Variation 14.9 % (11.7-14.2); RDW Standard Deviation 48.8 fL (35.1-46.3); Red Blood Cell Count 4.54 M/mm3 (4.30-5.90); White Blood Cell Count 6.22 K/mm3 (4.00-11.30)
[2024-03-28 04:45] LABS: Bun/Creatinine Ratio 18.5 (12.0-20.0); Calcium, Blood 7.9 mg/dL (8.5-10.1); Creatinine, Blood 0.92 mg/dL (0.60-1.20); Potassium, Blood 4.8 mmol/L (3.5-5.5)
[2024-03-28 05:44] LABS: Magnesium, Blood 1.9 mg/dL (1.6-2.4)
--- NOTE | 2024-03-28 06:51 | NUR ---
SHIFT SUMMARY NO ACUTE EVENTS OVERNIGHT. PATIENT SLEPT PERIODICALLY T/O NIGHT, EASILY AROUSABLE WITH VERBAL STIMULI. COMMUNICATING NEEDS EFFECTIVELY. AFEBRILE. TELEMETRY SHOWING AFIB 70s-80s WITH AN ALTERNATING BUNDLE BRANCH BLOCK TO A VENTRICULAR RHYTHM. MD KAUR CONTACTED - RECEIVED ORDER FOR MAGNESIUM LEVEL WITH AM LABS. PATIENT ASYMPTOMATIC - DENIES CHEST PAIN, PRESSURE. BP STABLE, SBP 90s-120s. MAP >65. REMAINS ON HEATED HIGH FLOW 41%, SATs >90%. FREQUENT SUCTIONING OF TRACH T/O NIGHT TO MANAGE THICK SECRETIONS. STRONG COUGH. MANAGING AIRWAY PAIN PER EMAR. VARGAS CATHETER IN PLACE - DRAINING YELLOW URINE TO GRAVITY. UP TO BSC WITH ONE PERSON ASSIST FOR MEDIUM BM THIS MORNING. Q2H REPOSITIONING. ORAL CARE ALLOWED. CALL LIGHT IN REACH. WILL CONTINUE TO MONITOR AND REPORT TO ONCOMING RN.
[2024-03-28 09:06] VITALS: BP 111/78
[2024-03-28] MEDS ORDERED: Dexamethasone Sodium Phosphate 4 MG/ML 1ML Vial IV SCH (11:00)
[2024-03-28] MEDS ORDERED: FOSAPREPITANT DIMEGLUMINE IV ONE (12:30)
[2024-03-28] MEDS ORDERED: Ondansetron HCl 2 MG / ML 2ML Vial IV ONE (12:30)
[2024-03-28] MEDS ORDERED: NS IV ONE ×2 (12:30→14:00)
[2024-03-28] MEDS ORDERED: WATER IV ONE (13:00)
[2024-03-28] MEDS ORDERED: DEXTROSE 5% IV ONE (13:00)
[2024-03-28] MEDS ORDERED: DOCETAXEL IV ONE (13:00)
[2024-03-28] MEDS ORDERED: Lidocaine HCl 4% 5 ML SDA INH ONE (13:20)
[2024-03-28] MEDS ORDERED: CARBOPLATIN IV ONE (14:00)
[2024-03-28 16:15] VITALS: BP 131/83
--- NOTE | 2024-03-28 18:16 | NUR ---
SHIFT SUMMARY PATIENT IS A+O X4, VSS, SBA W/ FWW AND GAIT BELT TO BS, PT HAS VARGAS CATH IN PLACE DRAINING TO GRAVITY. DR. ROWLEY ROUNDED ON PATIENT TODAY CHANGED TRACH AT BEDSIDE. PATIENT STARTED CHEMO THERAPY TODAY IN ROOM. PATIENT NEEDING IV DILAUDID Q4 DUE TO AIRWAY PAIN FROM NEW TRACH. PATIENT BEGAN ENDORSING LOW BACK PAIN DURING MY SHIFT, ATTEMPTED TO ASSIT PATIENT TO CHAIR OR RECLINER PATIENT DENIED THIS REQUEST. PILLOWS WERE PLACED UNDER PATIENT'S HIPS THROUGHOUT SHIFT. PATIENT IS ABLE TO MAKE NEEDS KNOWN. CALL LIGHT IN REACH OF PATIENT, WILL CONTINUE TO TREAT UNTIL END OF SHIFT.
[2024-03-28 19:32] VITALS: BP 123/74
--- NOTE | 2024-03-28 20:50 | NUR ---
ASSUMPTION OF CARE AFTER RECEIVING REPORT FROM CHRIS RN, THIS RN ASSUMED CARE AT APPROX 1915. PATIENT ALERT, SITTING UP IN CHAIR EATING DINNER DURING INITIAL ENCOUNTER. COMMUNICATING APPROPRIATELY THROUGH SPEAKING VALVE OR WRITTEN COMMUNICATION. PERRLA. MOVES ALL EXTREMITIES EQUALLY WITH GENERALIZED WEAKNESS. AFEBRILE. TELEMETRY SHOWING AFIB 60s-70s. BP STABLE, SBP 120s. MAP >65. DENIES CHEST PAIN, PRESSURE. ON 35L 25% HEATED HIGH FLOW, SATs 88-92%. PRODUCTIVE COUGH - SUCTIONING TRACH PRN. REPORTING AIRWAY, NECK PAIN - MEDICATED PER EMAR. TOLERATING MEDS WHOLE WITH YOGURT AND HONEY THICKENED LIQUIDS. VARGAS CATHETER IN PLACE DRAINING YELLOW URINE TO GRAVITY. PATIENT TRANSFERRED FROM CHAIR TO BED WITH ONE PERSON ASSIST [place]. ORAL CARE PROVIDED POST MED ADMINISTRATION AND TRACH SUCTION. CALL LIGHT IN REACH.
[2024-03-28 23:10] VITALS: BP 133/84
[2024-03-29 03:23] VITALS: BP 126/70
[2024-03-29 04:09] LABS: BASOPHILS ABSOLUTE AUTO 0.01 K/mm3 (0.00-0.23); BASOPHILS PERCENT AUTO 0 % (0-2); EOSINOPHILS PERCENT AUTO 0 % (0-6); Hematocrit 40.3 % (37.0-53.0); Hemoglobin 12.4 g/dL (13.5-17.5); IMMATURE GRAN ABSOLUTE AUTO 0.02 K/mm3 (0.00-0.10); IMMATURE GRAN PERCENT AUTO 1 % (0-1); LYMPHOCYTES ABSOLUTE AUTO 0.14 K/mm3 (0.84-5.20); LYMPHOCYTES PERCENT AUTO 4 % (21-46); MONOCYTES PERCENT AUTO 3 % (4-13); Mean Corpuscular HGB 27.5 pg (26.0-34.0); Mean Corpuscular HGB Conc 30.8 g/dL (31.5-36.5); Mean Corpuscular Volume 89 fL (80-100); Mean Platelet Volume 10.7 fL (9.1-12.4); NEUTROPHILS ABSOLUTE AUTO 3.37 K/mm3 (1.96-9.15); NEUTROPHILS PERCENT AUTO 93 % (41-73); Platelet Count 232 K/mm3 (150-400); RDW Coefficient Variation 14.6 % (11.7-14.2); RDW Standard Deviation 47.9 fL (35.1-46.3); Red Blood Cell Count 4.51 M/mm3 (4.30-5.90); White Blood Cell Count 3.64 K/mm3 (4.00-11.30)
[2024-03-29 04:27] LABS: Albumin, Blood 2.2 g/dL (3.4-5.0); Albumin/Globulin Ratio 0.6 (0.8-1.8); Bilirubin, Total 0.2 mg/dL (0.1-1.0); Bun/Creatinine Ratio 19.8 (12.0-20.0); Calcium, Blood 7.9 mg/dL (8.5-10.1); Creatinine, Blood 0.96 mg/dL (0.60-1.20); Globulin, Blood 3.6 g/dL (2.2-4.0); Potassium, Blood 5.6 mmol/L (3.5-5.5); Total Protein, Blood 5.8 g/dL (6.4-8.2)
[2024-03-29] MEDS ORDERED: Lidocaine HCl 1% 20 ML MDV ONE (06:05)
[2024-03-29] MEDS ORDERED: Lidocaine 2%-Epineph 1:100000 20 ML MDV INJ STA (06:13)
--- NOTE | 2024-03-29 06:48 | NUR ---
SHIFT SUMMARY SEE PREVIOUS ASSUMPTION OF CARE NOTE. AROUND 0500, WHILE THIS RN ON BREAK, PATIENT UP TO BS FOR BM WITH SUPERVISOR PAPER MACHINE. WHILE TRANSFERRING FROM BED TO BSC, PATIENTs TRACH HAD BEEN CAUGHT AGAINST BED RAIL CAUSING TRACH TO BE DISPLACED. IN HOME TUTOR MARC TO BEDSIDE. THIS RN BACK FROM BREAK AND AT BEDSIDE. TRACH GROSSLY SHIFTED TO THE RIGHT, PULLED FORWARD EXPOSING INTERNAL TISSUES. SATs REMAIN >90% ON HEATED HIGH FLOW 35L 25%. PATIENT ALERT, ABLE TO COMMUNICATE THROUGH SPEECH VALVE AND THROUGH WRITING. WHILE TALKING, TRACH PUSHING FORWARD. RT CALLED TO BEDSIDE - RECOMMENDING MD ROWLEY TO BE CONTACTED UNABLE TO MANIPULATE TRACH DUE TO ANATOMY. CALL PLACED TO MD ROWLEY - TO BEDSIDE TO REINSERT TRACH. RT CALLED TO BEDSIDE FOR PROCEDURE. TRACH REINSERTED SUCCESSFULLY WITH X4 SUTURES PLACED. PER MD, PATIENT IS NOT TO USE SPEECH VALVE AT THIS TIME. PATIENT REMAINS ON HEATED HIGH FLOW THROUGH TRACH, SATs >90%. TELEMETRY SHOWING AFIB 50s-60s T/O NIGHT WITH RATE DECREASES TO 30s WITH SLEEP. BP STABLE. DENIES CHEST PAIN, PRESSURE. SUCTIONING TRACH PRN T/O NIGHT. STRONG COUGH. MANAGING NECK PAIN PER EMAR. VARGAS CATHETER IN PLACE DRAINING YELLOW URINE TO GRAVITY. X1 BM THIS MORNING. Q2H REPOSITIONING. CALL LIGHT IN REACH. WILL CONTINUE TO MONITOR AND REPORT TO ONCOMING RN.
[2024-03-29 08:40] VITALS: BP 123/78
[2024-03-29] MEDS ORDERED: Furosemide 10 MG / ML 2ML Vial IV ONE (11:00)
[2024-03-29 12:04] VITALS: BP 111/99
[2024-03-29 16:34] VITALS: BP 125/76
--- NOTE | 2024-03-29 18:05 | NUR ---
SHIFT SUMMARY; ASSUMED CARE AT 0700 WITH NURSE SEN ORIENTING. A/A/OX3, VSS, TRACH WITH AIR VO. TRACH SUCTION PRN WITH NO MANIPULATION OF TRACH PER ORDERS. SATS 93-97 DURING SHIFT. TRACH SUTURES IN PLACE. SPEAKING VALVE LEFT OFF TODAY PER ORDER. PT ABLE TO MAKE NEEDS KNOWN USING CALL LIGHT AND WRITING NOTES TO STAFF. ENCOURAGED GETTING UP TO CHAIRS FOR MEALS, PT REFUSED. ASSISTS MINIMALLY WITH REPOSITIONING DESPITE ENCOURAGEMENT. VARGAS CATH IN PLACE DRAINING TO GRAVITY, NO ACUTE MEDICAL CHANGES, WILL CONTINUE TO MONITOR AND TREAT UNTIL CHANGE OF SHIFT.
[2024-03-29 19:44] VITALS: BP 118/69
--- NOTE | 2024-03-29 21:23 | NUR ---
ASSUMPTION OF CARE AFTER RECEIVING REPORT FROM GEETA VERA, THIS RN ASSUMED CARE AT APPROX 1915. PATIENT ALERT, COMMUNICATING NEEDS EFFECTIVELY THROUGH WRITTEN COMMUNICATION. PER MD ROWLEY, SPEECH VALVE TO BE AVOIDED AT THIS TIME. AFEBRILE. TELEMETRY SHOWING AFIB 60s-70s. BP STABLE, SBP 110s. MAP >65. DENIES CHEST PAIN, PRESSURE. TRACH IN PLACE W/ TRACH COLLAR. X4 SUTURES APPEAR WNL - MILD PAIN AND SWELLING AT SITES. ON 25L 30% HEATED HIGH FLOW, SATs >90%. MILD TACHPYNEA, RR 20s. SUCTIONING TRACH PRN - THICK SECRETIONS W/ STRONG COUGH. MEDICATED PER EMAR FOR NECK, THROAT PAIN. VARGAS CATHETER IN PLACE, DRAINING YELLOW URINE TO GRAVITY. PATIENT CURRENTLY RESTING IN BED, ATTEMPTING TO FALL ASLEEP. DENIES NEEDS AT THIS TIME. CALL LIGHT IN REACH.
[2024-03-29 23:16] VITALS: BP 118/63
[2024-03-30 03:22] VITALS: BP 115/71
[2024-03-30 03:40] LABS: BASOPHILS PERCENT AUTO 0 % (0-2); EOSINOPHILS PERCENT AUTO 0 % (0-6); Hematocrit 37.2 % (37.0-53.0); Hemoglobin 11.5 g/dL (13.5-17.5); IMMATURE GRAN ABSOLUTE AUTO 0.01 K/mm3 (0.00-0.10); IMMATURE GRAN PERCENT AUTO 0 % (0-1); LYMPHOCYTES ABSOLUTE AUTO 0.15 K/mm3 (0.84-5.20); LYMPHOCYTES PERCENT AUTO 4 % (21-46); MONOCYTES ABSOLUTE AUTO 0.13 K/mm3 (0.16-1.47); MONOCYTES PERCENT AUTO 3 % (4-13); Mean Corpuscular HGB 27.6 pg (26.0-34.0); Mean Corpuscular HGB Conc 30.9 g/dL (31.5-36.5); Mean Corpuscular Volume 89 fL (80-100); Mean Platelet Volume 10.8 fL (9.1-12.4); NEUTROPHILS ABSOLUTE AUTO 3.68 K/mm3 (1.96-9.15); NEUTROPHILS PERCENT AUTO 93 % (41-73); Platelet Count 209 K/mm3 (150-400); RDW Coefficient Variation 14.8 % (11.7-14.2); RDW Standard Deviation 47.6 fL (35.1-46.3); Red Blood Cell Count 4.17 M/mm3 (4.30-5.90); White Blood Cell Count 3.97 K/mm3 (4.00-11.30)
[2024-03-30 04:00] LABS: Albumin, Blood 2.1 g/dL (3.4-5.0); Albumin/Globulin Ratio 0.6 (0.8-1.8); Bilirubin, Total 0.2 mg/dL (0.1-1.0); Bun/Creatinine Ratio 20.2 (12.0-20.0); Calcium, Blood 7.6 mg/dL (8.5-10.1); Creatinine, Blood 0.99 mg/dL (0.60-1.20); Globulin, Blood 3.3 g/dL (2.2-4.0); Potassium, Blood 5.2 mmol/L (3.5-5.5); Total Protein, Blood 5.4 g/dL (6.4-8.2)
--- NOTE | 2024-03-30 05:14 | NUR ---
SHIFT SUMMARY NO ACUTE EVENTS SINCE ASSUMPTION OF CARE. PATIENT SLEPT INTERMITTENTLY T/O NIGHT, EASILY AROUSABLE WITH VERBAL STIMULI. COMMUNICATING NEEDS EFFECTIVELY. AFEBRILE. TELEMETRY SHOWING AFIB 50s-70s. BP STABLE, SBP 110s. MAP >65. DENIES CHEST PAIN, PRESSURE. REMAINS ON HEATED HIGH FLOW 25L 30% THROUGH TRACH, SATs >90%. TRACH IN PLACE W/ TRACH COLLAR. SUCTIONING PRN. X4 SUTURES APPEAR WNL. MEDICATING PER EMAR FOR THROAT, NECK PAIN. VARGAS CATHETER PATENT DRAINING YELLOW URINE TO GRAVITY. Q2H REPOSITIONING. CALL LIGHT IN REACH. WILL CONTINUE TO MONITOR AND REPORT TO ONCOMING RN.
[2024-03-30 08:52] VITALS: BP 115/60
[2024-03-30 12:18] VITALS: BP 140/77
[2024-03-30] MEDS ORDERED: HYDROmorphone HCl/Pf 1MG SYR IV PRN (12:20)
[2024-03-30] MEDS ORDERED: FentaNYL 25 MCG Patch TOP SCH (12:20)
[2024-03-30] MEDS ORDERED: TraZODone HCl 50 MG Tab PO PRN (12:20)
[2024-03-30 16:43] VITALS: BP 138/73
--- NOTE | 2024-03-30 19:28 | NUR ---
SHIFT SUMMARY: PT&OX4 THROUGHOUT SHIFT. NO ACUTE NEURO CHANGES. PT CALLED MULTIPLE TIMES THROUGHOUT SHIFT FOR SUCTIONING. GOT UP TO BSC WITH ASSISTANCE. NO SIGNIFICANT EVENTS HAPPENED THROUGHOUT SHIFT.
[2024-03-30 20:00] VITALS: BP 159/84
[2024-03-31] VITALS (7 sets, daily range): BP systolic 116–152; BP diastolic 67–84
[2024-03-31 04:28] LABS: BASOPHILS PERCENT AUTO 0 % (0-2); EOSINOPHILS PERCENT AUTO 0 % (0-6); Hemoglobin 11.9 g/dL (13.5-17.5); IMMATURE GRAN ABSOLUTE AUTO 0.03 K/mm3 (0.00-0.10); IMMATURE GRAN PERCENT AUTO 1 % (0-1); LYMPHOCYTES ABSOLUTE AUTO 0.25 K/mm3 (0.84-5.20); LYMPHOCYTES PERCENT AUTO 5 % (21-46); MONOCYTES ABSOLUTE AUTO 0.08 K/mm3 (0.16-1.47); MONOCYTES PERCENT AUTO 2 % (4-13); Mean Corpuscular HGB 27.3 pg (26.0-34.0); Mean Corpuscular HGB Conc 30.5 g/dL (31.5-36.5); Mean Corpuscular Volume 89 fL (80-100); Mean Platelet Volume 10.9 fL (9.1-12.4); NEUTROPHILS ABSOLUTE AUTO 4.43 K/mm3 (1.96-9.15); NEUTROPHILS PERCENT AUTO 93 % (41-73); Platelet Count 228 K/mm3 (150-400); RDW Coefficient Variation 14.8 % (11.7-14.2); RDW Standard Deviation 48.3 fL (35.1-46.3); Red Blood Cell Count 4.36 M/mm3 (4.30-5.90); White Blood Cell Count 4.79 K/mm3 (4.00-11.30)
[2024-03-31 04:42] LABS: Albumin, Blood 2.3 g/dL (3.4-5.0); Albumin/Globulin Ratio 0.7 (0.8-1.8); Bilirubin, Total 0.2 mg/dL (0.1-1.0); Bun/Creatinine Ratio 23.9 (12.0-20.0); Calcium, Blood 8.4 mg/dL (8.5-10.1); Creatinine, Blood 0.92 mg/dL (0.60-1.20); Globulin, Blood 3.2 g/dL (2.2-4.0); Potassium, Blood 4.8 mmol/L (3.5-5.5); Total Protein, Blood 5.5 g/dL (6.4-8.2)
--- NOTE | 2024-03-31 07:29 | NUR ---
SHIFT SUMMARY PT A&O X4. VSS T/O SHIFT. PT TRACH REMAINS IN PLACE, WITH AIRVO AT PREVIOUS SETTINGS; NO CHANGES TO THESE DURING THE SHIFT. SPO2 GREATER THAN 94% ON THESE SETTINGS. SUCTIONING NEEDED AND PPR. PT WITH STRONG COUGH IN PLACE. PT WITH MODERATE PAIN T/O SHIFT; MEDICATION PER EMAR. PT STATES HIS "NECK" IS "VERY SORE" AND REQUESTING PAIN MEDS FREQUENTLY FOR THIS. MEDICATION PROVIDED MILD - MODERATE RELIEF. NO ACUTE CHANGES TO PATIENT OR CONDITION THIS SHIFT. VARGAS IN PLACE WITH AMPLE OUTPUT; SEE CHARTING. PT TOLERATING PO INTAKE. PT UP TO USE BSC THIS SHIFT; [address] TO COCCYX D/T REDNESS; C/D/I. CALL LIGHT IN REACH AND PT ABLE TO MAKE NEEDS KNOWN. WILL UPDATE ONCOMING RN.
[2024-03-31] MEDS ORDERED: OxyCODONE HCL 5 MG TAB PO PRN (10:50)
--- NOTE | 2024-03-31 17:25 | NUR ---
SHIFT SUMMARY: PT A&OX4. MAKES NEEDS KNOWN TO STAFF AND CALLS APPROPRIATELY. PT GOT UP TO THE CHAIR FOR BREAKFAST AND SAT UP FOR A FEW HOURS. PT ALSO WORKED WITH PT TODAY AND WAS ABLE TO AMBULATE INTO THE HALLWAY AND AROUND IN THE ROOM. AIRVO WAS REMOVED AND A VENTI MASK WAS APPLIED OVER TRACH AND CONNECTED TO A PORTABLE TANK FOR EASIER TRANSPORTATION TO PROTECT TRACH. PTS TRACH REMAINS IN PLACE AND ON AIRVO AT 25L/30%. PT HAS DENIED ANY CP OR SOB THROUGHOUT THE SHIFT. VARGAS REMAINS IN PLACE AND IS DRAINING CLEAR YELLOW URINE. NO SIGNIFICANT EVENTS HAPPENED DURING THIS SHIFT. WILL CONTINUE TO CARE FOR PT TILL SHIFT CHANGE.
[2024-04-01 03:40] VITALS: BP 132/77
[2024-04-01 04:04] LABS: BASOPHILS PERCENT AUTO 0 % (0-2); EOSINOPHILS ABSOLUTE AUTO 0.02 K/mm3 (0.00-0.68); EOSINOPHILS PERCENT AUTO 1 % (0-6); Hemoglobin 11.9 g/dL (13.5-17.5); IMMATURE GRAN ABSOLUTE AUTO 0.01 K/mm3 (0.00-0.10); IMMATURE GRAN PERCENT AUTO 0 % (0-1); LYMPHOCYTES ABSOLUTE AUTO 0.59 K/mm3 (0.84-5.20); LYMPHOCYTES PERCENT AUTO 18 % (21-46); MONOCYTES ABSOLUTE AUTO 0.07 K/mm3 (0.16-1.47); MONOCYTES PERCENT AUTO 2 % (4-13); Mean Corpuscular HGB 27.4 pg (26.0-34.0); Mean Corpuscular HGB Conc 30.5 g/dL (31.5-36.5); Mean Corpuscular Volume 90 fL (80-100); Mean Platelet Volume 10.8 fL (9.1-12.4); NEUTROPHILS ABSOLUTE AUTO 2.63 K/mm3 (1.96-9.15); NEUTROPHILS PERCENT AUTO 79 % (41-73); Platelet Count 208 K/mm3 (150-400); RDW Standard Deviation 49.8 fL (35.1-46.3); Red Blood Cell Count 4.35 M/mm3 (4.30-5.90); White Blood Cell Count 3.32 K/mm3 (4.00-11.30)
[2024-04-01 04:35] LABS: Albumin, Blood 2.3 g/dL (3.4-5.0); Albumin/Globulin Ratio 0.7 (0.8-1.8); Bilirubin, Total 0.3 mg/dL (0.1-1.0); Bun/Creatinine Ratio 23.5 (12.0-20.0); Calcium, Blood 8.1 mg/dL (8.5-10.1); Creatinine, Blood 0.94 mg/dL (0.60-1.20); Globulin, Blood 3.2 g/dL (2.2-4.0); Potassium, Blood 4.6 mmol/L (3.5-5.5); Total Protein, Blood 5.5 g/dL (6.4-8.2)
--- NOTE | 2024-04-01 05:00 | NUR ---
SHIFT SUMMARY NO ACUTE CHANGES THIS SHIFT. VSS. AXO4. CONTINUING TO COMMUNICATE VIA WRITING. PT DISPLAYS MODERATE ANXIETY REGARDING THE POSSIBILITY OF TRACH BEING PULLED OUT AGAIN, SPECIAL MEASURES MADE TO ALLEVIATE ANXIETY WITH REPOSITIONIG PT/CARE. REQUIRING AROUND THE CLOCK PAIN MEDICATION IV & PO FOR THROAT PAIN. PT CONTINUES TO REQUIRE SUCTIONING, BUT TRYING TO LIMIT FREQUENCY TO CUT DOWN ON IRRITAATION TO AIRWAY. VARGAS PATENT. PT WITH BLANCHABLE RED SPOT TO SACRUM, FREQAUENT REPOSITIONING TO ALLEVIATE THIS. FENT PATCH REMAINS IN PLACE. OTHERWISE, PT HAS BEEN VERY GRATEFUL FOR CARE. USES CALL LIGHT OFTEN BUT APPROPRIATELY. RESTING RARELY BUT STAFF TRYING TO ENCOURAGE THIS WITH UNINTERRUPTED REST- PT DID DENY NEEDING TRAZADONE DOSE WHEN OFFERED. OTHERWISE, BED IN LOW POSITION/CALL LIGHT WITHIN REACH.
[2024-04-01] MEDS ORDERED: Insulin Human Lispro 100 Units/ML 3ML Syringe SC SCH (07:30)
[2024-04-01] MEDS ORDERED: HYDROmorphone 1 MG/ML 30 ML Bag IV PRN (09:35)
[2024-04-01] MEDS ORDERED: FILGRASTIM-AYOW 480 MCG/0.8 ML 0.8MLSYR SC SCH (12:00)
[2024-04-01 12:34] VITALS: BP 123/68
[2024-04-01 15:02] VITALS: BP 132/89
--- NOTE | 2024-04-01 18:00 | NUR ---
PT HAS BEEN BETWEEN BED AND CHAIR T/O THE DAY, HE IS ABLE TO TRANSFER WITH A TWO PERSON ASSIST DUE TO TRACH WITH FWW. SUCTIONING WAS DONE TO TRACH BY RT EXCLUSIVELY TODAY. HE HAS BEEN REQETING SUCTIONING QUITE OFTEN, RT HAS AND MYSELF HAVE EDUCATED HIM THAT FREQUENT SUCTIONING IS NOT RECOMMENDED. PT IS ABLE TO COMMINUCATE NEEDS VIA PAPER AND PEN. PT EXPRESSED TO DR KESSLER THIS AM THAT HE DID NOT FEEL THAT HIS PAIN WAS BEING PROPERLY MEDICATED FOR PAIN, DR KESSLER CHANGED PAIN MANAGEMENT TO DILAUDID STACKER AND SORTER OPERATOR, HE THEN EXPRESSED THAT HE WAS ANGRY THAT HE WAS NO LONGER GETTING PO PAIN MEDCIATIONS, HE WAS EDCUATED THAT THIS WAS STOPPED DUE TO HIM HAVING A CONTINUOUS INFUSION AND ON DEMAND DILAUDID.
[2024-04-01 20:44] VITALS: BP 131/78
[2024-04-01 23:55] VITALS: BP 137/69
[2024-04-02 04:15] VITALS: BP 137/77
[2024-04-02 04:27] LABS: BASOPHILS ABSOLUTE AUTO 0.06 K/mm3 (0.00-0.23); BASOPHILS PERCENT AUTO 0 % (0-2); EOSINOPHILS ABSOLUTE AUTO 0.06 K/mm3 (0.00-0.68); EOSINOPHILS PERCENT AUTO 0 % (0-6); Hemoglobin 11.9 g/dL (13.5-17.5); IMMATURE GRAN ABSOLUTE AUTO 0.34 K/mm3 (0.00-0.10); IMMATURE GRAN PERCENT AUTO 2 % (0-1); LYMPHOCYTES ABSOLUTE AUTO 0.34 K/mm3 (0.84-5.20); LYMPHOCYTES PERCENT AUTO 2 % (21-46); MONOCYTES ABSOLUTE AUTO 0.07 K/mm3 (0.16-1.47); MONOCYTES PERCENT AUTO 0 % (4-13); Mean Corpuscular HGB 27.6 pg (26.0-34.0); Mean Corpuscular HGB Conc 30.5 g/dL (31.5-36.5); Mean Corpuscular Volume 91 fL (80-100); Mean Platelet Volume 10.6 fL (9.1-12.4); NEUTROPHILS ABSOLUTE AUTO 17.61 K/mm3 (1.96-9.15); NEUTROPHILS PERCENT AUTO 95 % (41-73); Platelet Count 189 K/mm3 (150-400); RDW Coefficient Variation 15.1 % (11.7-14.2); RDW Standard Deviation 50.3 fL (35.1-46.3); Red Blood Cell Count 4.31 M/mm3 (4.30-5.90); White Blood Cell Count 18.48 K/mm3 (4.00-11.30)
[2024-04-02 04:58] LABS: Albumin, Blood 2.3 g/dL (3.4-5.0); Albumin/Globulin Ratio 0.7 (0.8-1.8); Bilirubin, Total 0.3 mg/dL (0.1-1.0); Bun/Creatinine Ratio 19.8 (12.0-20.0); Calcium, Blood 8.4 mg/dL (8.5-10.1); Creatinine, Blood 1.01 mg/dL (0.60-1.20); Globulin, Blood 3.4 g/dL (2.2-4.0); Potassium, Blood 4.5 mmol/L (3.5-5.5); Total Protein, Blood 5.7 g/dL (6.4-8.2)
--- NOTE | 2024-04-02 06:51 | NUR ---
SHIFT SUMMARY ASSUMED CARE OF PT AT APPROX 2030. PT A&O4 AND COOPERATIVE IN CARE. PT REQUESTED TO BE SUCTIONED APPROX 4 TIME BY MYSELF, NOT INCLUDING RT. EDUCATED THE PT ON DECREASING THE NUMBER OF TIMES DEEP SUCTION TO REDUCE POTENTIAL TRAUMA. ENCOURAGED THE PT TO USE PEN AND PAPER INSTEAD OF TRYING TO TALK WHICH SEEMED TO AGRAVATE HIS THROAT. PT WOULD BEGIN TO FALL ASLEEP WHILE ON THE BEDSIDE COMMODE, EDUCATED THE PT ON CALLING FOR ASSISTANCE BACK TO BED BEFORE THIS HAPPENS. PT'S BED IN LOWEST POSITION AND CALL LIGHT WITHIN REACH.
[2024-04-02 08:43] VITALS: BP 113/64
[2024-04-02] MEDS ORDERED: Polyethylene Glycol 3350 17 gm PO SCH (09:00)
[2024-04-02 12:31] VITALS: BP 109/66
[2024-04-02 15:40] VITALS: BP 125/85
--- NOTE | 2024-04-02 18:29 | NUR ---
Shift Summary Pt alert, oriented x4; repeative at times. Pt reporting pain t/o shift, medicating with SAFETY OFFICER hydromorphone. Pt denies chest pain, nausea, dizziness and numb/tingling. Pt on airvo 40l 62% via trach, pt requesting multiple suctioning t/o shift, new hemoptosis with suctioning MD aware. Tele afib bbb, 70-80's, bp stable. Abd soft, nontender, passing gas with +bt t/o. other vss. No other acute changes noted. Will continue to monitor.
[2024-04-02 20:49] VITALS: BP 145/84
[2024-04-03] VITALS (7 sets, daily range): BP systolic 107–163; BP diastolic 65–98
[2024-04-03 04:44] LABS: BASOPHILS ABSOLUTE AUTO 0.05 K/mm3 (0.00-0.23); BASOPHILS PERCENT AUTO 1 % (0-2); EOSINOPHILS ABSOLUTE AUTO 0.04 K/mm3 (0.00-0.68); EOSINOPHILS PERCENT AUTO 0 % (0-6); Hemoglobin 11.1 g/dL (13.5-17.5); IMMATURE GRAN ABSOLUTE AUTO 0.16 K/mm3 (0.00-0.10); IMMATURE GRAN PERCENT AUTO 2 % (0-1); LYMPHOCYTES ABSOLUTE AUTO 0.32 K/mm3 (0.84-5.20); LYMPHOCYTES PERCENT AUTO 3 % (21-46); MONOCYTES ABSOLUTE AUTO 0.09 K/mm3 (0.16-1.47); MONOCYTES PERCENT AUTO 1 % (4-13); Mean Corpuscular HGB 27.4 pg (26.0-34.0); Mean Corpuscular Volume 91 fL (80-100); Mean Platelet Volume 10.8 fL (9.1-12.4); NEUTROPHILS ABSOLUTE AUTO 8.86 K/mm3 (1.96-9.15); NEUTROPHILS PERCENT AUTO 93 % (41-73); Platelet Count 180 K/mm3 (150-400); RDW Standard Deviation 50.1 fL (35.1-46.3); Red Blood Cell Count 4.05 M/mm3 (4.30-5.90); White Blood Cell Count 9.52 K/mm3 (4.00-11.30)
[2024-04-03 05:08] LABS: Albumin, Blood 2.2 g/dL (3.4-5.0); Albumin/Globulin Ratio 0.7 (0.8-1.8); Bilirubin, Total 0.3 mg/dL (0.1-1.0); Calcium, Blood 8.1 mg/dL (8.5-10.1); Creatinine, Blood 0.9 mg/dL (0.60-1.20); Globulin, Blood 3.2 g/dL (2.2-4.0); Potassium, Blood 4.7 mmol/L (3.5-5.5); Total Protein, Blood 5.4 g/dL (6.4-8.2)
--- NOTE | 2024-04-03 05:30 | NUR ---
SHIFT SUMMARY ASSUMED CARE OF PT AT 1900. PT SEEMS TO BE MORE FORGETFUL TODAY, HANDWRITING BECOMING MORE MESSY, ILLEGIBLE AT TIMES AND MIDWAY THRU WRITING PT LOSES HIS TRAIN OF THOUGHT. ALONG WITH CALLING FOR ASSISTANCE THEN FORGETTING WHY HE CALLED. I EDUCATED THE PT ON POSSIBLY USING THE CHEMISTRY QUALITY CONTROL ANALYST PUMP LESS OFTEN BUT NO CHANGES OF YET. PT DID REQUEST SUCTIONING LESS OFTEN TONIGHT, SECRETIONS THINNER AND BLOOD TINGED OVERNIGHT. PT'S BED IN LOWEST POSITION AND CALL LIGHT WITHIN REACH.
--- NOTE | 2024-04-03 18:31 | NUR ---
End of shift note. Trach has mostly been managed by RT this shift. Pt is producing a moderate amount of thick pink tinged sputum. Pt has been requesting frequent suctioning but Pt was educated on the importance of minimal deep suction to help prevent additional irritation. Pt has been needed to be reminded about this multiple times but does agree. Sputum color has improved to a griffin color this evening. Significant amount of call light usage. Pt was educated on the importance of consolidating needs while staff is in the room. Pt requires a large amount of time when assisting with needs to due having to write out all communication. YARDER continues to infuse. Pt continually rates pain 7/10. Pt attempts for the pain button multiple times before it is available for use. Pt falls asleep while talking with staff. Previous staff noted more forgetfulness and a decrease in his writing legibility. May need to reevaluate dosages. Pt is able to make needs known, call light is within reach.
[2024-04-04 04:02] VITALS: BP 142/83
[2024-04-04 04:15] LABS: BASOPHILS ABSOLUTE AUTO 0.03 K/mm3 (0.00-0.23); BASOPHILS PERCENT AUTO 1 % (0-2); EOSINOPHILS ABSOLUTE AUTO 0.04 K/mm3 (0.00-0.68); EOSINOPHILS PERCENT AUTO 1 % (0-6); Hematocrit 36.5 % (37.0-53.0); Hemoglobin 10.8 g/dL (13.5-17.5); IMMATURE GRAN ABSOLUTE AUTO 0.05 K/mm3 (0.00-0.10); IMMATURE GRAN PERCENT AUTO 1 % (0-1); LYMPHOCYTES ABSOLUTE AUTO 0.34 K/mm3 (0.84-5.20); LYMPHOCYTES PERCENT AUTO 7 % (21-46); MONOCYTES ABSOLUTE AUTO 0.12 K/mm3 (0.16-1.47); MONOCYTES PERCENT AUTO 3 % (4-13); Mean Corpuscular HGB Conc 29.6 g/dL (31.5-36.5); Mean Corpuscular Volume 91 fL (80-100); Mean Platelet Volume 10.5 fL (9.1-12.4); NEUTROPHILS ABSOLUTE AUTO 4.03 K/mm3 (1.96-9.15); NEUTROPHILS PERCENT AUTO 87 % (41-73); Platelet Count 168 K/mm3 (150-400); RDW Coefficient Variation 14.8 % (11.7-14.2); RDW Standard Deviation 49.6 fL (35.1-46.3); White Blood Cell Count 4.61 K/mm3 (4.00-11.30)
[2024-04-04 04:35] LABS: Albumin, Blood 2.2 g/dL (3.4-5.0); Albumin/Globulin Ratio 0.6 (0.8-1.8); Bilirubin, Total 0.4 mg/dL (0.1-1.0); Bun/Creatinine Ratio 18.2 (12.0-20.0); Calcium, Blood 8.2 mg/dL (8.5-10.1); Creatinine, Blood 0.82 mg/dL (0.60-1.20); Globulin, Blood 3.4 g/dL (2.2-4.0); Potassium, Blood 4.4 mmol/L (3.5-5.5); Total Protein, Blood 5.6 g/dL (6.4-8.2)
--- NOTE | 2024-04-04 04:53 | NUR ---
SHIFT SUMMARY ASSUMED CARE OF PT AT 1900. PT A&O4 AND IS ABLE TO EXPRESS SELF VIA PEN AND PAPER. TRACH COLLAR PRESENTED WITH SCANT DRIED BLOOD BUT LESS BLOOD TINGED MUCOUS FROM TRACH. PT REQUESTED LESS SURFACE SUCTIONING OVERNIGHT, DEEP SUCTIONING NOT REQUIRED D/T PT'S STRONG COUGH. PT MORE EMOTIONAL OVERNIGHT, SPENT MORE TIME IN EDUCATION AND THERAPEUTIC LISTENING. PT'S BED IN LOWEST POSITION AND CALL LIGHT WITHIN REACH.
[2024-04-04 08:25] VITALS: BP 102/63
[2024-04-04 11:43] VITALS: BP 117/58; BP 133/83
[2024-04-04 16:42] VITALS: BP 134/71
--- NOTE | 2024-04-04 18:47 | NUR ---
SHIFT SUMMARY: PT HAS BEEN A&Ox4, ABLE TO MAKE NEEDS KNOWN BY WRITING ON A PAD OR BY MOUTHING THE WORDS. PT FREQUENTLY USING CALL LIGHT TO MAKE NEEDS KNOWN. NO SIGNIFICANT CHANGE TO TRACH/COLLAR/O2 FLOW. PT CONTINUES TO HAVE FORCED COUGH THAT IS PRODUCTIVE OF HENDRICKSON SPUTUM, SUCTIONING PROVIDED NEEDED. DR ROWLEY TO BEDSIDE FOR RE-EVALUATION TODAY, NO NEW ORDERS. PT DENIES CP, AFIB ON MONITOR, RATE 90s. EDEMA TO BLE AFTER SITTING IN RECLINER FOR EXTENDED TIME, EXTREMITIES ELEVATED UPON RETURN TO BED AND SCDs APPLIED. PT ASSISTED TO BSC FOR BM x2 TODAY. INDWELLING VARGAS CONTINUES PATENT, DRAINING TO GRAVITY. COAL MINER PUMP CONTINUES IN PLACE FOR PAIN MANAGEMENT. PT CURRENTLY RESTING IN RECLINER, CALL LIGHT IN REACH.
[2024-04-04 20:17] VITALS: BP 120/66
[2024-04-05 00:05] VITALS: BP 116/76
[2024-04-05 04:26] VITALS: BP 128/89
--- NOTE | 2024-04-05 06:53 | NUR ---
SHIFT SUMMARY ASSUMED CARE OF PT AT 1900. PT A&O4 AND ABLE TO MAKE NEEDS KNOW WITH PEN AND PAPER. PT REQUESTED BEING SUCTIONED MORE OFTEN OVERNIGHT THAN YESTERDAY. EDUCATED PT ON HAVING A STRONG ENOUGH COUGH FOR NOT NEEDING SUCTION AND PT CONTINUED TO REQUEST IT. NOTICED FUR OPERATOR BEING CHANGED MORE OFTEN BUT WHEN ASKED PT FOR PAIN SCORE, IT WAS ALWAYS 7/10 WITH LITTLE TO NO RELIEF FROM FUR OPERATOR PUMP. PT REFUSED MIRALAX ORDERED BY D/T HIM HAVING FREQUENT BMs T/O THE DAY, ONCE OVERNIGHT. MILDLY THICK, PINK TINGDED SPUTUM SUCTIONED FROM TRACH COLLAR. CALL LIGHT WITHIN REACH AND BED IN LOWEST POSITION.
[2024-04-05 07:15] LABS: BASOPHILS ABSOLUTE AUTO 0.02 K/mm3 (0.00-0.23); BASOPHILS PERCENT AUTO 1 % (0-2); EOSINOPHILS ABSOLUTE AUTO 0.02 K/mm3 (0.00-0.68); EOSINOPHILS PERCENT AUTO 1 % (0-6); Hematocrit 34.8 % (37.0-53.0); Hemoglobin 10.5 g/dL (13.5-17.5); IMMATURE GRAN ABSOLUTE AUTO 0.02 K/mm3 (0.00-0.10); IMMATURE GRAN PERCENT AUTO 1 % (0-1); LYMPHOCYTES ABSOLUTE AUTO 0.26 K/mm3 (0.84-5.20); LYMPHOCYTES PERCENT AUTO 10 % (21-46); MONOCYTES ABSOLUTE AUTO 0.31 K/mm3 (0.16-1.47); MONOCYTES PERCENT AUTO 12 % (4-13); Mean Corpuscular HGB 27.7 pg (26.0-34.0); Mean Corpuscular HGB Conc 30.2 g/dL (31.5-36.5); Mean Corpuscular Volume 92 fL (80-100); Mean Platelet Volume 11.4 fL (9.1-12.4); NEUTROPHILS ABSOLUTE AUTO 2.06 K/mm3 (1.96-9.15); NEUTROPHILS PERCENT AUTO 77 % (41-73); Platelet Count 180 K/mm3 (150-400); RDW Coefficient Variation 14.7 % (11.7-14.2); RDW Standard Deviation 49.6 fL (35.1-46.3); Red Blood Cell Count 3.79 M/mm3 (4.30-5.90); White Blood Cell Count 2.69 K/mm3 (4.00-11.30)
[2024-04-05 07:18] LABS: Albumin, Blood 2.1 g/dL (3.4-5.0); Albumin/Globulin Ratio 0.6 (0.8-1.8); Bilirubin, Total 0.4 mg/dL (0.1-1.0); Bun/Creatinine Ratio 18.9 (12.0-20.0); Calcium, Blood 8.3 mg/dL (8.5-10.1); Creatinine, Blood 0.9 mg/dL (0.60-1.20); Globulin, Blood 3.6 g/dL (2.2-4.0); Magnesium, Blood 1.7 mg/dL (1.6-2.4); Phosphorus, Blood 2.3 mg/dL (2.5-4.9); Potassium, Blood 4.5 mmol/L (3.5-5.5); Total Protein, Blood 5.7 g/dL (6.4-8.2)
[2024-04-05 08:13] VITALS: BP 122/68
[2024-04-05] MEDS ORDERED: Empagliflozin 25 MG TAB PO SCH (09:00)
[2024-04-05] MEDS ORDERED: TBO FILGRASTIM 480 MCG/0.8 ML SC SCH (12:00)
[2024-04-05] MEDS ORDERED: FILGRASTIM-AYOW 480 MCG/0.8 ML 0.8MLSYR SC SCH (12:18)
[2024-04-05 16:54] VITALS: BP 116/73
--- NOTE | 2024-04-05 16:58 | NUR ---
PT TRANSFERED TO RM 363 WITH ALL BELONGINGS. RT AWARE AND EPQUIPMENT TRANSFERED WELL. PT NOTIFIED LOVED ONES BY TEXT MESSAGE. REPORT GIVEN TO RECEIVING RN. SHIFT SUMMARY: PT NOTED TO BE AWAKE, ALERT AND ENGAGED WITH STAFF TODAY. RT PROVIDED TRACH TEACHING AND PT WAS RECEPTIVE. PT OOB TO CHAIR AND UP AND DOWN TO COMMODE T/O THE SHIFT. WORKED WITH SPEECH THERAPY WELL. NO DEEP SUCTIONING REQUIRED FROM THIS RN T/O THE DAY. PAIN WELL CONTROLLED WITH EDUCATIONAL PROGRAM DIRECTOR. NO ACUTE EVENTS, TRACH REMAINED SECURE.
--- NOTE | 2024-04-05 17:53 | NUR ---
TRANSFER AND SHIFT SUMMARY PATIENT TRANSFERED UP FROM PCU. PATIENT ALERT AND ORIENTED. ABLE TO MAKE NEEDS KNOWN BY MOUTHING OR WRITING NOTES. PATIENT TO HAVE TRACH CHANGED TOMORROW BY DR. ROWLEY AT BEDSIDE. PATIENT USING SPECTRAL SCIENTIST FOR PAIN CONTROL. PATIENT ON HUMIDIFIED AIR TO HELP WITH SECRETIONS. PATIENT ABLE TO COUGH UP THICK SECRETIONS THROUGH TRACH WITHOUT ASSISTANCE. PATIENT MAKING MULTIPLE REQUESTS SINCE ARRIVAL TO ROOM.
[2024-04-05 20:26] VITALS: BP 112/68
[2024-04-06 04:28] VITALS: BP 107/72
[2024-04-06 04:34] LABS: Hematocrit 35.7 % (37.0-53.0); Hemoglobin 10.7 g/dL (13.5-17.5); Mean Corpuscular HGB 27.4 pg (26.0-34.0); Mean Corpuscular Volume 91 fL (80-100); Mean Platelet Volume 10.4 fL (9.1-12.4); Platelet Count 207 K/mm3 (150-400); RDW Coefficient Variation 14.8 % (11.7-14.2); RDW Standard Deviation 49.6 fL (35.1-46.3); Red Blood Cell Count 3.91 M/mm3 (4.30-5.90); White Blood Cell Count 3.39 K/mm3 (4.00-11.30)
[2024-04-06 04:57] LABS: Albumin, Blood 2.2 g/dL (3.4-5.0); Albumin/Globulin Ratio 0.6 (0.8-1.8); Bilirubin, Total 0.4 mg/dL (0.1-1.0); Bun/Creatinine Ratio 19.8 (12.0-20.0); Creatinine, Blood 1.01 mg/dL (0.60-1.20); Globulin, Blood 3.8 g/dL (2.2-4.0); Potassium, Blood 4.8 mmol/L (3.5-5.5)
--- NOTE | 2024-04-06 05:03 | NUR ---
SHIFT SUMMARY 73 YR M ADMITTED ON 03/16/24. FULL CODE. PT HAS BEEN VERY DEMANDING THIS SHIFT USING THE CALL LIGHT OVER AND OVER TO REQUEST SMALL THINGS. HE GETS AGITATED IF SOMEONE DOES NOT COME IMMEDIATELY. AT ONE POINT HE INSISTED THAT A BUSINESS INTELLIGENCE MANAGER SUCTION HIS TRACH AND GOT UPSET THAT RT HAD TO BE CALLED TO DO IT. RT WAS THERE SHORTLY AND TOOK CARE OF IT. PT DOES NOT APPEAR TO HAVE SLEPT THROUGHOUT THE NIGHT.
[2024-04-06 05:38] LABS: BAND PERCENT MAN 18 % (0-8); BASOPHILS PERCENT MAN 0 % (0-2); EOSINOPHILS PERCENT MAN 0 % (0-6); LYMPHOCYTES ABSOLUTE MAN 0.23 K/mm3 (0.84-5.20); LYMPHOCYTES PERCENT MAN 7 % (21-46); MONOCYTES ABSOLUTE MAN 0.44 K/mm3 (0.16-1.47); MONOCYTES PERCENT MAN 13 % (4-13); NEUTROPHILS ABSOLUTE MAN 2.71 K/mm3 (1.96-9.15); SEG NEUTROPHILS PERCENT MAN 62 % (41-73); TOTAL CELLS COUNTED 100
[2024-04-06 07:20] VITALS: BP 107/62
[2024-04-06] MEDS ORDERED: BusPIRone HCl 5 MG Tab PO PRN (11:00)
--- NOTE | 2024-04-06 15:30 | NUR ---
Review of pt with nursing. Pt had trach changed today and having more secretions. Pt forgetfull and agitated. Plan is to see Dr Ocampo. Review of patient with speech therapist. kps score is 40%.
[2024-04-06] MEDS ORDERED: GuaiFENesin 100 MG/5 ML 5ML UDC PO SCH (16:00)
[2024-04-06 16:34] VITALS: BP 113/60
--- NOTE | 2024-04-06 19:49 | NUR ---
SHIFT SUMMARY PATIENT ALERT AND ANXIOUS. PATIENT VERY FIXATED ON EVERYTHING. PATIENT USING CALL LIGHT STAFF LEAVE THE ROOM. PATIENT WRITING OUT HIS NEEDS AND ASKING REPEATED QUESTIONS. PATIENT ON HUMIDIFIED 02 THROUGH AIRVO. TRACH CHANGED TO A [address] ROWLEY AT BEDSIDE TODAY. EXCHANGE WITH NO COMPLICATIONS. NEW NECK COLLAR AND SILICONE PAD PLACE UNDER TRACH. PATIENT VERY ANXIOUS AFTER PROCEDURE AND FORCING HIMSELF TO COUGH. PATIENT ABLE TO COUGH UP THICK SECRETIONS THROUGH TRACH AND WOULD THEN CONTINUE COUGHING. SPUTUM COLLECTED DURING TRACH EXCHANGE AND SENT TO LAB. PATIENT UP IN CHAIR MOST OF THE DAY. PATIENT VERBALIZING CONCERNS THAT HE IS NOT GETTING HIS LASIX THAT HE NORMALLY TAKES AT HOME. PATIENT REPEATEDLY ASKING FOR LASIX. REASSURED PATIENT THAT THE DOCTORS WILL ORDER IT WHEN THEY FEEL IT IS NEEDED.
[2024-04-06 20:14] VITALS: BP 108/67
[2024-04-07] VITALS (7 sets, daily range): BP systolic 101–112; BP diastolic 60–78
[2024-04-07 05:42] LABS: Hematocrit 34.6 % (37.0-53.0); Hemoglobin 10.6 g/dL (13.5-17.5); Mean Corpuscular HGB Conc 30.6 g/dL (31.5-36.5); Mean Corpuscular Volume 91 fL (80-100); Mean Platelet Volume 10.9 fL (9.1-12.4); NRBC ABSOLUTE 0.04 K/mm3 (0.00-0.02); NRBC Auto 0.5 /100 WBC (0.0-0.2); Platelet Count 258 K/mm3 (150-400); RDW Coefficient Variation 14.7 % (11.7-14.2); RDW Standard Deviation 48.9 fL (35.1-46.3); Red Blood Cell Count 3.79 M/mm3 (4.30-5.90); White Blood Cell Count 7.53 K/mm3 (4.00-11.30)
[2024-04-07 06:21] LABS: Albumin, Blood 2.1 g/dL (3.4-5.0); Albumin/Globulin Ratio 0.6 (0.8-1.8); Bilirubin, Total 0.2 mg/dL (0.1-1.0); Bun/Creatinine Ratio 18.4 (12.0-20.0); Creatinine, Blood 1.14 mg/dL (0.60-1.20); Globulin, Blood 3.6 g/dL (2.2-4.0); Potassium, Blood 4.3 mmol/L (3.5-5.5); Total Protein, Blood 5.7 g/dL (6.4-8.2)
--- NOTE | 2024-04-07 06:41 | NUR ---
CALLED PODIATRY CONSULT TO AFTER-HOURS LINE FOR DR. THOMPSON. ANSWERING SERVICE CALLED BACK AND REPORTED THAT NO PROVIDER IS ON-CALL TODAY, BUT DR. THOMPSON WILL BEGIN TAKING CALL TOMORROW. PER THE EMERGENCY DEPARTMENT CALL SCHEDULE, DR. THOMPSON IS SCHEDULED TO BE ON-CALL TODAY. ESCALATED ISSUE TO SIGNAL PROCESSING ENGINEER AND NURSING SUPPLY CONTROLLER.
--- NOTE | 2024-04-07 06:47 | NUR ---
SHIFT SUMMARY: WONG IS A&OX3-4. VSS, NO ACUTE EVENTS OVERNIGHT, CONTINUOUS PULSE OX IN PLACE. HE IS COUGHING THICK, BROWN SPUTUM THROUGH HIS TRACH, AIR-VO IN PLACE, MAINTAINING SATS >90%. HE IS A ONE TO TWO PERSON ASSIST TO THE BEDSIDE COMMODE. VARGAS PATENT, POWERGLIDE TO LEFT UPPER ARM PATENT, PROGRESSIVE CARE NURSE IN PLACE WITH HANDLE WITHIN PT'S REACH. PT HAS BEEN TURNED AND REPOSITIONED FREQUENTLY THIS SHIFT. CALLED AND REQUESTED PODIATRY CONSULT D/T PT'S TOENAILS GROWING AND CAUSING WEAR ON TOES AND PT BEING DIABETIC, WELL OVERALL POOR CONDITION OF PT'S FEET WITH PEELING, SCALING, AND DISCOLORATION. PT USES THE CALL LIGHT APPROPRIATELY AND WRITES NOTES TO COMMUNICATE HIS NEEDS. HE IS LYING IN BED WITH THE CALL LIGHT IN REACH, BED IN LOWEST POSITION, VARGAS BAG HANGING ABOVE FLOOR. WILL GIVE REPORT TO DAY SHIFT RN.
[2024-04-07 06:52] LABS: BAND PERCENT MAN 25 % (0-8); BASOPHILS PERCENT MAN 0 % (0-2); EOSINOPHILS ABSOLUTE MAN 0.15 K/mm3 (0.00-0.68); EOSINOPHILS PERCENT MAN 2 % (0-6); LYMPHOCYTES ABSOLUTE MAN 0.37 K/mm3 (0.84-5.20); LYMPHOCYTES PERCENT MAN 5 % (21-46); METAMYELOCYTE ABSOLUTE MAN 0.22 K/mm3 (0.00-0.00); METAMYELOCYTE PERCENT MAN 3 % (0-0); MONOCYTES ABSOLUTE MAN 1.05 K/mm3 (0.16-1.47); MONOCYTES PERCENT MAN 14 % (4-13); MYELOCYTE ABSOLUTE MAN 0.07 K/mm3 (0.00-0.00); MYELOCYTE PERCENT MAN 1 % (0-0); NEUTROPHILS ABSOLUTE MAN 5.64 K/mm3 (1.96-9.15); SEG NEUTROPHILS PERCENT MAN 50 % (41-73); TOTAL CELLS COUNTED 100
[2024-04-07] MEDS ORDERED: Allopurinol 100 MG Tab PO SCH (09:00)
[2024-04-07] MEDS ORDERED: Bumetanide 1 MG Tab PO SCH (09:00)
[2024-04-07] MEDS ORDERED: Ferrous Sulfate 325 MG Tab PO SCH (09:00)
[2024-04-07] MEDS ORDERED: Metoprolol Succinate 25 MG TABCR PO SCH (09:00)
[2024-04-07] MEDS ORDERED: Isosorbide Mononitrate 30 MG TABCR PO SCH (09:00)
[2024-04-07] MEDS ORDERED: Spironolactone 25 MG Tab PO SCH ×2 (09:00→18:00)
[2024-04-07] MEDS ORDERED: Calcitriol 0.25 MCG Cap PO SCH (09:00)
[2024-04-07] MEDS ORDERED: Bumetanide 0.25 MG/ML 4ML ViaL IV SCH (12:00)
[2024-04-07] MEDS ORDERED: Folic Acid 400 MCG TAB PO SCH (12:00)
--- NOTE | 2024-04-07 12:10 | NUR ---
REPORT RECIEVED FROM [facility] AD[facility] RN AT 1205.
--- NOTE | 2024-04-07 12:19 | NUR ---
REPORT GIVEN TO FOREIGN VERA IN PCU PATIENT CURRENTLY DOWN IN IMAGAIN FOR BARIUM SWALLOW AND WILL GO TO PCU 18 AFTERWARDS
--- NOTE | 2024-04-07 13:14 | NUR ---
ARRIVAL TO UNIT PT ARRIVED TO PCU FROM BARIUM SWALLOW EVAL AT 1230. PT ARRIVED VIA GURNEY AND WITH AIRVO 40L 57%. PT ORIENTED TO ROOM AND CALL LIGHT. PT ASSISTED IN ROLLING THE REMOVAL OF BEDDING THAT WAS ON THE GURNEY, PT TOLERATED WELL. ITINERANT TEACHER ASSISTANT IN PLACE PER ORDER. RT AT BEDSIDE AT TIME OF ARRIVAL. PT LEGS ELEVATED PER PT REQUEST VIA PILLOWS. PT FLOATED ON PILLOWS FOR COMFORT. VSS STABLE AT TIME OF ARRIVAL. PT PERSONAL BELONGINGS BROUGHT TO PCU 18 PRIOR TO PT ARRIVAL BY [facility].
[2024-04-07] MEDS ORDERED: Calcium/Vit D 600 mg-400 Unit Tab PO SCH (17:00)
[2024-04-07] MEDS ORDERED: Magnesium Oxide 400 MG Tab PO SCH (18:00)
--- NOTE | 2024-04-07 18:24 | NUR ---
SHIFT SUMMARY PT A/OX4. PT USED HIS CALL LIGHT FREQUENTYL DURING SHIFT, PT EDUCATED THAT STAFF HAVE OTHER PATIENTS. PT VSS SINCE ARRIVING TO UNIT. PT INFORMED THAT HE NEEDS TO START LEARNING TO DO SUCTIONING ON HIS OWN AND ENCOURAGED TO BE MORE INDEPENDENT WITH SOME OF HIS ADL'S, PT RESPONDED "I'M NOT READY." PT CONTINUD TO USE HIS CALL INAPPROPIATELY THROUGHOUT SHIFT. TR TO PT'S ROOM TO ALSO EDUCATE PT ON HOW TO USE SUCTION ON HIS TRACH, PT UNITERESTED. PT DAUGHTER UPDATED ON MICHAEL OF CARE. VARGAS REMAINED IN PLACE, PATENT.
[2024-04-07] MEDS ORDERED: Atorvastatin 10 MG Tab PO SCH (21:00)
[2024-04-07] MEDS ORDERED: Amitriptyline HCl 25 MG Tab PO SCH (21:00)
[2024-04-07] MEDS ORDERED: Tamsulosin HCl 0.4 MG Cap PO SCH (21:00)
--- NOTE | 2024-04-08 00:40 | NUR ---
0000 UPDATE. PT ORIENTED, COOPERATIVE, ABLE TO MAKE NEEDS KNOWN. RESTING COMFORTABLY AT THIS TIME. VITALS REMAIN STABLE. O2 MAINTAINING >88% ON AIRVO. PT IS PLEASANT BUT IS HESITANT TO ASSIST WITH CARE AT TIMES, NEEDS REINFORCEMENT ON IMPORTANCE OF DEVELOPING INDEPENDENCE BEFORE DISCHARGE. CONTINUES TO RUN AFIB RATE CONTROLLED. REPOSITIONING Q2 ALLOWED, AT TIMES PT REFUSED REPOSITIONING D/T FEELING COMFORTABLE ALREADY. VARGAS CATHETER IN PLACE, DRAINING TO GRAVITY WITH NO COMPLAINTS OF PAIN/PRESSURE. BED LOCKED IN LOWEST POSITION. CALL LIGHT LEFT WITHIN REACH. CONTINUING TO MONITOR.
[2024-04-08 04:19] VITALS: BP 130/56
--- NOTE | 2024-04-08 04:26 | NUR ---
SHIFT SUMMARY. PT HAS REMAINED STABLE THROUGHOUT SHIFT THUS FAR. SEE PREVIOUS NOTE FOR DETAILS. PT HAS BEEN ABLE TO REST COMFORTABLY THROUGHOUT SHIFT. VITALS REMAIN STABLE. PT CONTINUES TO BE ANXIOUS AT TIMES. PAIN ADEQUATELY MANAGED VIA PAINTER MAINTENANCE PUMP. BED LOCKED IN LOWEST POSITION. CALL LIGHT LEFT WITHIN REACH. CONTINUING TO MONITOR.
[2024-04-08 05:13] LABS: Hematocrit 35.8 % (37.0-53.0); Hemoglobin 10.8 g/dL (13.5-17.5); Mean Corpuscular HGB 27.8 pg (26.0-34.0); Mean Corpuscular HGB Conc 30.2 g/dL (31.5-36.5); Mean Corpuscular Volume 92 fL (80-100); Mean Platelet Volume 10.5 fL (9.1-12.4); NRBC ABSOLUTE 0.08 K/mm3 (0.00-0.02); NRBC Auto 0.4 /100 WBC (0.0-0.2); Platelet Count 325 K/mm3 (150-400); RDW Coefficient Variation 15.1 % (11.7-14.2); RDW Standard Deviation 50.4 fL (35.1-46.3); Red Blood Cell Count 3.89 M/mm3 (4.30-5.90); White Blood Cell Count 21.76 K/mm3 (4.00-11.30)
[2024-04-08 05:38] LABS: BAND PERCENT MAN 29 % (0-8); BASOPHILS PERCENT MAN 0 % (0-2); EOSINOPHILS PERCENT MAN 0 % (0-6); LYMPHOCYTES ABSOLUTE MAN 0.43 K/mm3 (0.84-5.20); LYMPHOCYTES PERCENT MAN 2 % (21-46); MONOCYTES ABSOLUTE MAN 1.52 K/mm3 (0.16-1.47); MONOCYTES PERCENT MAN 7 % (4-13); SEG NEUTROPHILS PERCENT MAN 62 % (41-73); TOTAL CELLS COUNTED 100
[2024-04-08 05:48] LABS: Albumin, Blood 2.2 g/dL (3.4-5.0); Albumin/Globulin Ratio 0.6 (0.8-1.8); Bilirubin, Total 0.3 mg/dL (0.1-1.0); Bun/Creatinine Ratio 15.9 (12.0-20.0); Calcium, Blood 9.2 mg/dL (8.5-10.1); Creatinine, Blood 1.13 mg/dL (0.60-1.20); Globulin, Blood 3.7 g/dL (2.2-4.0); Potassium, Blood 4.1 mmol/L (3.5-5.5); Total Protein, Blood 5.9 g/dL (6.4-8.2)
[2024-04-08] MEDS ORDERED: Omeprazole 20 MG CapCR PO SCH (06:00)
[2024-04-08 08:49] VITALS: BP 105/69
[2024-04-08] MEDS ORDERED: Calcitriol 0.25 MCG Cap PO SCH (09:00)
[2024-04-08 12:24] VITALS: BP 107/71
--- NOTE | 2024-04-08 13:02 | NUR ---
PT CONTINUES TO REFUSE THE REMOVAL OF CATHETER. PT EDUCATED ON RISK.
[2024-04-08] MEDS ORDERED: OxyCODONE HCL 5 MG TAB PO PRN (15:30)
[2024-04-08] MEDS ORDERED: HYDROmorphone HCl/Pf 1MG SYR IV PRN (15:35)
[2024-04-08 16:27] VITALS: BP 119/70
[2024-04-08] MEDS ORDERED: Magnesium Oxide 400 MG Tab PO SCH (18:00)
--- NOTE | 2024-04-08 18:02 | NUR ---
SHIFT SUMMARY PT A/OX3-4, FORGETFUL AT TIMES. PT USES CALL LIGHT TO MAKE NEEDS KNOWN, USING CALL LIGHT MORE APPROPIATELY AFTER PT WAS EDUCATED ON POOLING HIS CARE THAT IS NEEDED INTO A LUMP SUM. PT VSS THROUGHOUT SHIFT WITH O2 SATS IN SABI 90'S VIA TRACH COLLAR, 40L 70%FIO2 AIRVO. NO REPORT OF CHEST PAIN/PRESSURE THROUGHOUT SHIFT. COUNTER CONTROL OPERATOR PUMP DISCONTINUED TODAY AND PT SWITCHED TO PO PAIN MEDS WITH IV BREAKTHROUGH, SEE EMAR. PT CONTINUES TO REFUSE TO HAVE VARGAS REMOVED, EDUCATED ON RISK. PT BEING ENCOURAGED TO PARTICIPATE IN ADL'S MORE, PT ANXIOUS ABOUT CARING FOR HIMSELF. PT UP TO CHAIR FOR MEALS, 2 PERSON ASSIST, TOLERATED FAIR.
[2024-04-08 20:29] VITALS: BP 116/68
--- NOTE | 2024-04-08 22:22 | NUR ---
late assumption of care note. pt oriented but forgetful and requires frequent reminding/reeducation. heavy 2 person assist transfer from chair to commode to bed. lynn catheter remains in place with no complaints of pain/pressure. vitals stable. pt desaturates into high 80s at times when sleeping but has maintained >87% outside of when he was eating earlier. pt requires frequent reeducation on importance of developing independence and trying to do things on his own rather than depending on staff for things he could otherwise do on his own. 2100 medications administered without difficulty. bed locked in lowest position. call light left within reach. continuing to monitor.
[2024-04-08 23:57] VITALS: BP 106/66
[2024-04-09] VITALS (8 sets, daily range): BP systolic 87–131; BP diastolic 60–75
--- NOTE | 2024-04-09 | NUR ---
0000 NOTE. PT WAS SLEEPING UPON ENTERING ROOM. ABLE TO ANSWER ORIENTATION QUESTIONS APPROPRIATELY BUT WAS ASKING ABOUT HIS DAUGHTER BEING HERE WHO HAS NOT BEEN HERE ALL SHIFT. PT WAS UNDER IMPRESSION IT WAS DAY TIME BEFORE BEING INFORMED THAT IT WAS MIDNIGHT. PT MORE SOMNOLENT THAN EARLIER IN SHIFT, FALLING ASLEEP QUICKLY AFTER CONVERSATION WAS OVER. PT REFUSED 0000 ROBITUSSIN. BED LOCKED IN LOWEST POSITION. CALL LIGHT LEFT WITHIN REACH. CONTINUING TO MONITOR.
--- NOTE | 2024-04-09 04:33 | NUR ---
SHIFT SUMMARY. SHIFT HAS OVERALL GONE WELL, NO ACUTE CHANGES. THIS MORNING, PT STARTED TO REPORT PAIN AND REQUESTED COLLEGE ADMISSIONS COUNSELOR PUMP TO BE PUT BACK INTO PLACE. EDUCATED ON INDICATION FOR COLLEGE ADMISSIONS COUNSELOR PUMP AND FACT THAT DOCTOR PUT PO PAIN MANAGEMENT ORDERS IN EMAR. PT WAS NOT HAPPY WITH THIS BUT AFTER SOME REPEATED EDUCATION WAS AGREEABLE TO TAKING PO MEDICATION FOR PAIN MANAGEMENT. PT REPORTED THAT HIS PAIN WAS UNDERMANAGED. REMINDED PT THAT AT THAT TIME THIS RN HAD BEEN ON SHIFT FOR ~7 HOURS AND UP UNTIL THAT TIME PT HAD DENIED HAVING PAIN. PT WAS ABLE TO REST COMFORTABLY FOR SOME TIME AFTER PO PAIN MEDICATION ADMINISTRATION UNTIL HE REPORTED PAIN ON HIS COCCYX THAT HE REPORTED WAS POSITIONAL IN ORIGIN. REPOSITIONED PT AND ATTEMPTED TO FURTHER ALLEVIATE PAIN WITH MORE REPOSITIONING BUT PT REFUSED. PT AGAIN REQUESTED COLLEGE ADMISSIONS COUNSELOR PUMP. EDUCATED ON BENEFIT OF REPOSITIONING TO ALLEVIATE POSITIONAL PAIN BUT ENCOURAGED TO CALL AGAIN IF NEW POSITION WAS INSUFFICIENT TO ALLEVIATE PAIN. PT WAS UNHAPPY WITH THIS AND AGAIN REQUESTED COLLEGE ADMISSIONS COUNSELOR PUMP BUT WAS AGREEABLE WITH SOME MOTIVATION. SINCE THAT TIME, PT HAS BEEN ABLE TO REST COMFORTABLY IN BED AND HAS NOT AGAIN CALLED TO REPORT PAIN. VITALS HAVE REMAINED STABLE THUS FAR. BED LOCKED IN LOWEST POSITION. CLAL LIGHT LEFT WITHIN REACH. CONTINUING TO MONITOR.
--- NOTE | 2024-04-09 14:10 | NUR ---
ASSUMED CARE OF PT AT 0700 THIS AM. COMPLETE BED CHANGE AND BED BATH COMPLETED THIS AM. PT OOB TO CHAIR FOR BREAKFAST. PT INFORMED BY AIR DRILL OPERATOR OF NEED FOR REMOVED OF VARGAS CATHETER. PT CONTINUES TO BE RESISTANT. PLAN TO START BLADDER TRAINING TODAY AND REMOVE CATHETER. PT IS BEING STRONGLY ENCOURAGED BY STAFF TO PERFORM MORE TASKS INDEPENDENTLY AND DECREASING RELIANCE ON STAFF FOR EACH AND EVERY NEED. PT ABLE TO SUCTION HIS TRACH THIS AM WITH THIS RN SUPERVISING. PT WORKED WITH SPEECH THERAPRY THIS AM. REMAINED OOB UNTIL AFTER LUNCH. BECAME IRRITATED WITH STAFF FOR "INTERUPTING HIM TOO MUCH" AND TOLD SWAGING MACHINE ADJUSTER SHE WAS A "BITCH." AT THIS TIME, PT IS RESTING IN BED AND APPEARS TO BE ASLEEP, EYES CLOSED, RESPIRATIONS EVEN AND UNLABORED. CONTINUOUS SPO2 MONITORING IN PLACE. CALL LIGHT IN REACH, WILL CONTINUE TO MONITOR.
--- NOTE | 2024-04-09 17:51 | NUR ---
NO ACUTE EVENTS T/O THE SHIFT. VARGAS CATHETER WAS DISCONTINUED AFTER A LONG DISCUSSION BETWEEN THIS RN AND PT. MALE PUREWICK PLACED. PT VOICED CONCERNS OF HIS BLADDER NOT FULLY EMPTYING W/O THE CATHETER, PT REASSURED THAT HE HAS BEEN RECEIVING FLOMAX AND STAFF CAN BLADDER SCAN HIM LATER IF HE IS CONCERNED. VARGAS WAS REMOVED WITHOUT ANY COMPLICATIONS NOTED. LAVAGE AND SELF SUCTIONING REVIEWED AGAIN WITH THIS RN. PT NEEDS TO PRACTICE MUCH POSSIBLE TO GAIN CONFIDENCE. CLEARS SECRETIONS WELL AFTER SMALL AMOUNT OF SALINE LAVAGE. PT TOLERATING DIET AND MEDICATIONS W/O DIFFICULTIES. PT NEEDS REMINDERS TO EAT/DRINK SLOWLY, SWALLOW WELL AND TAKE SMALL BITES. MEDICATIONS WHOLE WITH APPLESAUCE OR YOGURT. ROBITUSSIN LIQUID THICKENED. POWER GLIDE TO JEWEL NOTED TO BE KINKED THIS AM, DRESSING REMOVED, SITE CLEANSED, TUBING STRAIGHTENED AND REPOSITIONED, +BLOOD DRAW AND FLUSH, NEW STAT LOCK AND CHG TEGADERM APPLIED. PLAN OF CARE DISCUSSED WITH DR STEWARD ON ROUNDS. IV DILAUDID D/C'd. PT IS SITTING UP IN CHAIR AT THIS TIME EATING DINNER. CALL LIGHT IN REACH. WILL CONTINUE TO MONITOR AND GIVE REPORT TO NOC SHIFT RN.
[2024-04-10 04:20] VITALS: BP 115/69
--- NOTE | 2024-04-10 06:31 | NUR ---
SHIFT SUMMARY PATIENT ALERT, ORIENTED x4. PATIENT ABLE TO USE SPEAKING VALVE OR WRITE ON PAPER TO MAKE NEEDS KNOWN. BP STABLE. TRACH COLLAR IN PLACE, 40L 69% FIO2, SPO2 LOW TO MID 90s. PATIENT WILL DESAT WITH ACTIVITY AND PROLONGED COUGHING BUT IS ABLE TO RECOVER WITHOUT O2 ADJUSTMENTS. PATIENT ABLE TO STAND AND TRANSFER SELF TO BEDSIDE COMMODE WITH WALKER AND ASSISTANCE FROM STAFF. PATIENT HAD TO BE STRAIGHT CATHED x2 D/T RETENTION, CONTINUES TO STATE HE CANNOT VOID. TOLERATING PO PER DIET ORDERS. MEDICATED PER EMAR FOR PAIN. NO OTHER CHANGES DURING THE NIGHT. WILL REPORT TO DAY SHIFT RN.
[2024-04-10 09:16] VITALS: BP 141/71
[2024-04-10 12:04] VITALS: BP 126/80
--- NOTE | 2024-04-10 13:35 | NUR ---
ASSUMED CARE OF PT AT 0700 THIS AM. NO ACUTE EVENTS SO FAR THIS SHIFT. PT OOB TO RECLINER CHAIR FOR BREAKFAST AND ABLE TO TRANSFER WITH FWW/GAIT BELT AND STAFF ASSISTANCE. PT USING PASSY-MARCO ANTONIO VALVE FOR COMMUNICATION. DYSPNEA W EXERTION BUT RECOVERS AFTER REST. 02 NEEDS NOTED TO BE DECREASING, LOWER SPO2%. BREATH SOUNDS ARE MUCH IMPROVED COMPARED TO ASSESSMENT YESTERDAY AM, LUNGS NO LONGER SOUND COARSE T/O. URINARY RETENTION CONTINUES, PT STATES HE FEELS BLADDER PRESSURE AND THE NEED TO VOID, BUT CANNOT PASS URINE. BLADDER SCANED/STRAIGHT CATH APROX 1200 WITH 900ML OF URINE REMOVED. PLAN TO BLADDER SCAN AGAIN PRIOR TO END OF SHIFT AND CONTACT MD NEEDED. PT IS VISITING WITH HIS DTR AT BEDSIDE THIS AFTERNOON. NO NEEDS AT THIS TIME. CALL LIGHT IN REACH. BED IN LOWEST, LOCKED POSITION. WILL CONTINUE TO MONITOR.
[2024-04-10 13:55] LABS: Hemoglobin 11.1 g/dL (13.5-17.5); Mean Corpuscular HGB 27.7 pg (26.0-34.0); Mean Corpuscular Volume 92 fL (80-100); Mean Platelet Volume 9.6 fL (9.1-12.4); Platelet Count 334 K/mm3 (150-400); RDW Standard Deviation 50.4 fL (35.1-46.3); Red Blood Cell Count 4.01 M/mm3 (4.30-5.90); White Blood Cell Count 11.24 K/mm3 (4.00-11.30)
[2024-04-10 14:12] LABS: Albumin, Blood 2.2 g/dL (3.4-5.0); Albumin/Globulin Ratio 0.6 (0.8-1.8); Bilirubin, Total 0.2 mg/dL (0.1-1.0); Bun/Creatinine Ratio 16.7 (12.0-20.0); Calcium, Blood 9.2 mg/dL (8.5-10.1); Creatinine, Blood 1.14 mg/dL (0.60-1.20); Potassium, Blood 4.5 mmol/L (3.5-5.5); Total Protein, Blood 6.2 g/dL (6.4-8.2)
[2024-04-10 14:42] LABS: BAND PERCENT MAN 25 % (0-8); BASOPHILS ABSOLUTE MAN 0.11 K/mm3 (0.00-0.23); BASOPHILS PERCENT MAN 1 % (0-2); EOSINOPHILS PERCENT MAN 0 % (0-6); LYMPHOCYTES ABSOLUTE MAN 0.56 K/mm3 (0.84-5.20); LYMPHOCYTES PERCENT MAN 5 % (21-46); METAMYELOCYTE ABSOLUTE MAN 0.44 K/mm3 (0.00-0.00); METAMYELOCYTE PERCENT MAN 4 % (0-0); MONOCYTES ABSOLUTE MAN 0.89 K/mm3 (0.16-1.47); MONOCYTES PERCENT MAN 8 % (4-13); MYELOCYTE ABSOLUTE MAN 0.44 K/mm3 (0.00-0.00); MYELOCYTE PERCENT MAN 4 % (0-0); NEUTROPHILS ABSOLUTE MAN 8.54 K/mm3 (1.96-9.15); PROMYELOCYTE ABSOLUTE MAN 0.22 K/mm3 (0.00-0.00); PROMYELOCYTE PERCENT MAN 2 % (0-0); SEG NEUTROPHILS PERCENT MAN 51 % (41-73); TOTAL CELLS COUNTED 100
--- NOTE | 2024-04-10 18:26 | NUR ---
NO ACUTE EVENTS SINCE LAST NOTE. PT APPEARED TO SLEEP FOR A FEW HOURS THIS EVENING PRIOR TO DINNER. PT STILL HAS NOT BEEN ABLE TO VOID, WILL BLADDER SCAN AND INTERVENE PER PROTOCOL. AFTERNOON VITIAL SIGNS DEFERRED TO ALLOW PT UNINTERRUPTED REST. PT IS ABLE TO MAKE NEEDS KNOWN W PASSY-MARCO ANTONIO VALVE OR IN WRITTING. ABLE TO USE CALL LIGHT. CALL LIGHTIN REACH, WILL CONTINUE TO MONITOR AND GIVE REPORT TO NOC SHIFT RN.
[2024-04-10 20:55] VITALS: BP 106/66
[2024-04-11] VITALS (7 sets, daily range): BP systolic 103–133; BP diastolic 61–73
--- NOTE | 2024-04-11 06:21 | NUR ---
SHIFT SUMMARY ASSUMED CARE OF PT AT 1900. PT A&O4, COOPERATIVE IN CARE AND USE CALL LIGHT AND EXPRESS SELF WITH PEN AND PAPER. PT HAD COMPLAINTS OF THROAT AND STOMACH (BY HERNIA SITE) PAINS AND A SORE CHEST. EDUCATED THE PT ON STRAINING WHILE COUGH AND WHILE ON BSC, PRN ANALGESICS GIVEN. LATER IN THE SHIFT PT BECAME ANXIOUS AND STATED HE COULDN'T SLEEP, PRNs GIVEN FOR BOTH. PT REQUESTED SUCTIONING BY ME ONCE AND SELF SUCTIONED T/O THE SHIFT. VSS AND PT REMAINED ON AIRVO TO [facility]. NO ACUTE EVENT OVERNIGHT. PT'S BED IN LOWEST POSITION AND CALL LIGHT WITHIN REACH.
--- NOTE | 2024-04-11 13:17 | NUR ---
ASSUMED CARE OF PT AT 0700 THIS AM. NO ACUTE EVENTS REPORTED OVERNIGHT. PT APPEARS TO BE LESS MOTIVATED TODAY. PT DECLINED TO WORK WITH PHYSICAL THERAPY OR GET OOB FOR BREAKFAST THIS AM. PT C/O PAIN AND IS MEDICATED PER EMAR. SEE DOCUMENTED VS AND ASSESSMENT. RESP THERAPY IN TO SEE PT THIS AM, INNER CANULA CHANGES. TRACH SUCTION PERFORMED BY THIS RN WITH MODERATE AMOUNT OF THICK HENDRICKSON SPUTUM CLEARED. THIS RN REVIEWED CASE WITH [facility] FOR ASPIRATION CONCERNS. PT IS OOB IN RECLINER FOR LUNCH. CALL LIGHT IN REACH. WILL CONTINUE TO MONITOR.
[2024-04-11 13:57] LABS: International Normalized Ratio 1.05; Prothrombin Time Results 11.2 Sec (9.7-11.5)
--- NOTE | 2024-04-11 14:29 | NUR ---
PHYSICIAN CONTACT: THIS RN COVERING FOR PRIMARY RN LUNCH BREAK. CALL TO MD MCLAIN REGARDING 12-BEAT RUN OF VTACH ON TELE & INCREASED PVC'S. TO PLACE LAB ORDERS.
[2024-04-11] MEDS ORDERED: Warfarin Sodium 4 MG Tab PO ONE (18:00)
--- NOTE | 2024-04-11 18:21 | NUR ---
NO FUTHER RUNS OF VTACH NOTED ON TELE SINCE MD CONTACTED. PT HAS SPENT MOST OF THE DAY IN BED. NO ACUTE CHANGES. THIS RN SUCTIONED TRACH X 2 THIS SHIFT WITH LARGE AMOUNTS OF HENDRICKSON SPUTUM REMOVED. PT TOLERATING MINCE/MOIST DIET BETTER WITH LESS COUGHING NOTED. BED IN LOWEST, LOCKED POSITION. CALL LIGHT IN REACH. WILL CONTINUE TO MONITOR AND GIVE REPORT TO NOC SHIFT RN.
[2024-04-12 04:23] LABS: International Normalized Ratio 1.08; Prothrombin Time Results 11.5 Sec (9.7-11.5)
[2024-04-12 04:24] VITALS: BP 99/65
--- NOTE | 2024-04-12 05:51 | NUR ---
SHIFT SUMMARY ASSUMED CARE OF PT AT 1900. PT A&O4, COOPERATIVE IN CARE AND ABLE TO MAKE NEEDS KNOWN WITH PEN AND PAPER. PT EXPRESSED PAIN TO HIS THROAT AND UMBILICAL HERNIA AREA, PT PROVIDED WITH ANALGESICS AND ABDOMINAL BINDER TO ASSIST IN EXCERTION. EDUCATED PT ON THE INTENSITY OF HIS COUGHS AND WHEN HE HAS A BM. PT REFUSED MIRALAX AND STATES HE NOW HAS DIARRHEA AND SOMETIMES DOES NOT MAKE IT TO THE BSC IN TIME. PT SELF SUCTIONING MORE FREQUENTLY ALONE AND ASKING LESS FOR DEEP SUCTIONING. NO ACUTE EVENTS OVERNIGHT. PT DENIES CP AND SOB. BED IN LOWEST POSITION AND CALL LIGHT WITHIN REACH.
[2024-04-12 08:52] VITALS: BP 103/65
--- NOTE | 2024-04-12 14:31 | NUR ---
CARE NOTE PT CALLED AT APPROX. 1420 AND REQUESTED ASSISTANCE W/ DEEP SUCTION. THIS RN PROVIDED GUIDANCE AND ENCOURAGED PT TO DEEP SUCTION INDEPENDENTLY, HE DEMONSTRATED ABILITY TO DO SO. HE IS CURRENTLY UP IN CHAIR, CALL LIGHT IS W/IN REACH.
--- NOTE | 2024-04-12 15:19 | NUR ---
Spiritual Care Visit. Pt. is awake and sitting up in a chair. Pt. welcomes my visit and is pleasant. Pt. is on a trach and utilizes his trach speak valve. Facilitated a life revie and consider matters of hay and belief. Pt. also verbalized that his daughter is working arrangemts for what is next. Listen with focused interest and empathy. Prayed with pt. pt. displayed evidence of confidence and nusrat. Prayed with Pt. Pt. welcomed this purse seiner to return.
[2024-04-12 17:00] VITALS: BP 115/63
[2024-04-12] MEDS ORDERED: Warfarin Sodium 5 MG Tab PO SCH (18:00)
--- NOTE | 2024-04-12 18:08 | NUR ---
SHIFT SUMMARY PT IS ALERT AND ORIENTED X 4, HE IS ABLE TO MAKE HIS NEEDS KNOWN AND ANSWERS QUESTIONS APPROPRIATELY. BP AND HR STABLE, SPO2 MAINTAINED >95% VIA TRACH COLLAR W/ 4OL @ 58% FIO2. HE HAS REQUIRED DEEP SUCTIONING MANY TIMES DURING THE SHIFT AND HAS DEMONSTRATED ABILITY TO DEEP SUCTION INDEPENDENTLY ALTHOUGH HE REQUIRES MUCH ENCOURAGEMENT TO DO SO. HE IS A MINIMAL ASSIST W/ FWW UP TO CHAIR AND BEDSIDE COMMODE. HE HAS DENEID FEELINGS OF CHEST PAIN/PRESSURE WELL LIGHTHEADEDNESS/DIZZINESS. HE REPORTED PAIN IN HIS NECK, PLEASE SEE EMAR FOR PAIN MANAGEMENT, HE ALSO REPORTED PAIN IN ABD DUE TO UMBILICAL HERNIA, ABD BINDER IN PLACE TO ASSIST IN ALLEVIATING ABD PAIN FROM COUGHING. HE HAS DENIED FEELINGS OF NAUSEA. STRONG PRODUCTIVE COUGH NOTED W/ ABILITY TO CLEAR HENDRICKSON COLORED SPUTUM. REDNESS NOTED NEAR TRACH COLLAR, SKIN KEPT DRY AND CLEAN T/O SHIFT. REDNESS ALSO NOTED ON COCCYX, MEPILEX DRESSING AND BARRIER CREAM APPLIED. PT IS ABLE TO REPOSITION SELF WHILE IN BED BUT ASSISTANCE PROVIDED PRN TO MAINTAIN COMFORT WELL TO KEEP OFF OF PRESSURE POINTS. PT IS CURRENTLY SITTING UP IN CHAIR. CALL LIGHT IS W/IN REACH.
--- NOTE | 2024-04-12 18:34 | NUR ---
CARE NOTE PT IN BED. AT APPROX. 1820 HE CALLED AND REQUESTED DEEP SUCTIONING, HE REFUSED TO DEEP SUCTION HIMSELF, THIS RN PROVIDED ASSISTANCE AND EDUCATED PT ON NEED TO PARTICIPATE IN CARE BY WORKING TOWARDS INDEPENDENCE. CALL LIGHT AND PERSONAL ITEMS W/IN REACH.
[2024-04-12 20:58] VITALS: BP 109/67
[2024-04-12 23:42] VITALS: BP 110/62
[2024-04-13] MEDS ORDERED: Simethicone 40 MG/0.6 ML 30ML BTL PO SCH (01:00)
[2024-04-13 03:54] VITALS: BP 99/63
[2024-04-13] MEDS ORDERED: Lidocaine HCl 2% Jelly 120MG/6ML SYR (20MG PER ML) TOP PRN (04:10)
[2024-04-13 04:48] LABS: International Normalized Ratio 1.29; Prothrombin Time Results 13.5 Sec (9.7-11.5)
[2024-04-13] MEDS ORDERED: HYDROmorphone HCl/Pf 1MG SYR IV ONE (05:00)
[2024-04-13] MEDS ORDERED: HYDROmorphone HCl/Pf 1MG SYR IV PRN (05:00)
--- NOTE | 2024-04-13 06:43 | NUR ---
SHIFT SUMMARY ASSUMED CARE OF PT AT 1900. PT A&O4, COOPERATIVE IN CARE AND ABLE TO EXPRESS SELF APPRORIATELY WITH PEN AND PAPER. PT MORE APT TO SUCTION SELF BUT DID REQUESTION DEEP SUCTIONING TWICE OVERNIGHT. PT DENIES CP AND SOB ALTHOUGH PT DID REQUEST PAIN MEDS MORE OFTEN. OVERNIGHT RESIDENT ADDED PRN FOR SEVERE PAIN AVAILABLE TO PT. PT NOW RESTING CALMLY, EYES CLOSED AND CHEST RISING. PT'S BED IN LOWEST POSITION AND CALL LIGHT WITHIN REACH.
[2024-04-13] MEDS ORDERED: OxyCODONE HCL 5 MG TAB PO PRN (08:45)
[2024-04-13 08:46] VITALS: BP 103/90
[2024-04-13 12:20] VITALS: BP 116/73
[2024-04-13 16:13] VITALS: BP 102/63
--- NOTE | 2024-04-13 17:43 | NUR ---
HELP DESK ADMINISTRATOR CALLED AND PATIENT HAD A 16 BEAT RUN OF V-TACH THAT WAS ASYMPTOMATIC PER BREAK NURSE. BREAK NURSE STATED SHE CALLED BUT HE DID NOT ANSWER. PT SEEN AND VITAL SIGNS STABLE, PT DENIED FEELING CHEST PAIN/PRESSURE OR FEELING FUNNY. ANOTHER CALL WAS PLACED TO BUT NO ANSWER AGAIN.
--- NOTE | 2024-04-13 17:47 | NUR ---
DR. ALVAREZ CALLED AND WAS NOTIFED OF THE 16 BEAT RUN OF V-TACH AND DID NOT GIVE FURTHER ORDERS.
[2024-04-13] MEDS ORDERED: Warfarin Sodium 5 MG Tab PO SCH (18:00)
--- NOTE | 2024-04-13 18:02 | NUR ---
END OF SHIFT SUMMARY: PATIENT IS ALERT AND ORIENTED X4 AND COOPERATIVE WITH HIS CARE. SATTING >92% ON AIRVO WITH SETTINGS 40 LITERS AT 58%, RT IS MANAGING AND DEEP SUCTIONED HIM TODAY AND REPLACED TRACH PARTS. IS ON TELE SHOWING AFIB WITH RATE IN 80'S. HAD A 16 BEAT OF V-TACH AROUND 1800 AND WAS ASYMPTOMATIC. CALL WAS PLACED TO HUMAN RESOURCES DEPARTMENT SUPERVISOR DOCTOR AND DID NOT ORDER ANYTHING. GOT INTO THE CHAIR FOR MEALS AND NEEDED SOME COVERAGE FOR BLOOD SUGARS THROUGHOUT THE SHIFT. MEDICATIONS WITH APPLESAUCE AND FLUIDS MIDLY THICK, IS A 1 PERSON ASSIST WITH FRONT WHEELED WALKER AND GAIT BELT. PLAN FOR PATIENT IS TO DISCHARGE TO AN ADULT FOSTER HOME AND WILL BE GETTING CHEMO ON April. WILL NOTIFY TO ONCOMING HUMAN RESOURCES DEPARTMENT SUPERVISOR RN.
[2024-04-13 20:08] VITALS: BP 117/63
[2024-04-14] VITALS (7 sets, daily range): BP systolic 103–122; BP diastolic 51–82
--- NOTE | 2024-04-14 07:20 | NUR ---
NOC SHIFT SUMMARY PT ORIENTED X4, PLEASANT AND COOPEARTIVE. SPEAKING VALVE FOR COMMUNICATION OR WRITING. PAIN WITH COUGHING, PRNS GIVEN X1 WITH RELIEF. SEE EMAR FOR DETAILS. SUCTION X1 AND TOLERATED WELL. CONTINUED EDUCATION GIVEN. UP X1 W/BM OVERNIGHT. VARGAS TO DD WITH ADEQUATE OUTPUT. TRACH COLLAR @ 40L AND 71% TO MAINTAIN SATS ABOVE 92%
[2024-04-14 08:05] LABS: International Normalized Ratio 1.67; Prothrombin Time Results 17.2 Sec (9.7-11.5)
--- NOTE | 2024-04-14 08:12 | NUR ---
spo2 85% and pt had asked the BUSINESS EDITOR to call the nurse for suctioning. Pt had been self suctioning with the perrykaur. Deep suctioning done once, spo2 improved to 92% on the airvo blow by over trache and pt was at ease sitting up in the chair.
--- NOTE | 2024-04-14 15:46 | NUR ---
Trache care was completed about an hour ago. Moderate amount of yellow thin secretions noted around the trache collar and the collar ties. The trache collar was cleansed using sterile technique with NS soaked gauze, cotton swabs and dry gauze. Skin around the collar also cleansed and wiped clean. Collar foam strap with velcro ties was changed for a new clean one. The pt was sitting up in the chair throughout the time, and was pleasant, calm and tolerated it very well.
[2024-04-14] MEDS ORDERED: Warfarin Sodium 5 MG Tab PO SCH (18:00)
--- NOTE | 2024-04-14 18:18 | NUR ---
Pt states that his pain pills only gave him minimal relief. He is sitting up in a straight back chair, finished his dinner and now drinking a hot drink. No signs of acute anxiety or distress. Respirations are even and unlabored; his affect is calm and pleasant in conversation. States when he is done with eating / drinking he would like to get back to bed.
--- NOTE | 2024-04-14 18:51 | NUR ---
Pt was stable throughout the day; alert, oriented and generally cheerful. STates at end of shift that he is very tired of being in the chair. Said that every time he tried to nap in bed someone was here to get him up. Trache care was given, moderate amount of yellow secretions suctioned and cleaned from his trache today. Has an occasional cough. He is using the yankaur to self suction. Ate and drank with good appetite today, including the glucerna supplement.
[2024-04-15 03:51] VITALS: BP 96/70
[2024-04-15 04:37] LABS: International Normalized Ratio 2.62; Prothrombin Time Results 26.1 Sec (9.7-11.5)
--- NOTE | 2024-04-15 06:19 | NUR ---
PT HAD A GOOD NIGHT, SPO2 REMAINED ABOVE 92% ONCE ALTERING THE AIRVO MACHINE. PT REQUESTING DEEP SUCTIONING TWICE DURING SHIFT, OTHERWISE HE HAS BEEN INDEPENDENT WITH HIS OWN SUCTIONING. PT RELYING HEAVILY ON PAIN MEDS, REQUESTING IV DILAUDED STILL. EDUCATION PROVIDED TO PATIENT THAT HE WILL BE DISCHARGED ON PO MEDS AND HE NEEDS TO TRY THESE FIRST, AND USE DILAUDED LAST RESORT. PATIENT UP WITH ONE PERSON TO BSC, SAM REMAINS IN PLACE FOR RETENTION. PATIENT ULTIMATELY INDEPENDENT WITH PLACING HIS SPEAKING VALVE ON, FEEDING HIMSELF, AND REPOSITIONING HIMSELF. NO OTHER NEEDS TO NOTE.
[2024-04-15 08:00] VITALS: BP 110/63
[2024-04-15] MEDS ORDERED: HYDROmorphone HCl/Pf 1MG SYR IV PRN (10:00)
[2024-04-15 11:11] VITALS: BP 117/58
--- NOTE | 2024-04-15 15:16 | NUR ---
Pt c/o chest pain , states it is hurting from coughing so much. Given prn dilaudid per orders (oxycodone not able to be given until 4 pm) as well as robitussin cough syrup.
[2024-04-15 15:45] VITALS: BP 113/58
[2024-04-15] MEDS ORDERED: Warfarin Sodium 5 MG Tab PO SCH (18:00)
[2024-04-15 20:57] VITALS: BP 111/74
--- NOTE | 2024-04-16 00:39 | NUR ---
transfer of care- report given to CHUY taylor. patient wheeled in bed to room 336 at 0030 with RT assist to handle the AirVo and monitor patients' oxygen needs. patient suctioned prior to leaving PCU by RT. patient stable throughout transfer with all belongings.
[2024-04-16 02:34] VITALS: BP 101/63
--- NOTE | 2024-04-16 06:38 | NUR ---
SHIFT SUMMARY PT ARRIVED FROM PCU AROUND 0030. PT ORIENTED TO ROOM. RT WAS AT BEDSIDE TO SET UP PT'S AIRVO. PT USES AIVO CONTINIOUSLY OVER TRACH. SUCTION SET UP AT BEDSIDE AND PER RT, PT IS ABLE TO USE SUCTION INDEPENDENTLY. CONTINIOUS BIOX IN PLACE. RT AT BEDSIDE IN THE AM TO DEEP SUCTION PT. NO C/O PAIN. VARGAS DRAINING TO GRAVITY. PT USES NOTEPAD TO COMMUNICATE NEEDS. PER PCU NURSE, PT SHOULD BE ENCOURAGED TO PERFORM MUCH TRACH CARE POSSIBLE. BED IN LOWEST POSITION AND CALL LIGHT IN REACH.
[2024-04-16 07:10] LABS: Hematocrit 36.7 % (37.0-53.0); Mean Corpuscular HGB 27.4 pg (26.0-34.0); Mean Corpuscular Volume 92 fL (80-100); Mean Platelet Volume 9.7 fL (9.1-12.4); Platelet Count 377 K/mm3 (150-400); RDW Coefficient Variation 15.3 % (11.7-14.2); RDW Standard Deviation 50.4 fL (35.1-46.3); Red Blood Cell Count 4.01 M/mm3 (4.30-5.90); White Blood Cell Count 11.76 K/mm3 (4.00-11.30)
[2024-04-16 07:27] VITALS: BP 101/64
[2024-04-16 07:40] LABS: Albumin, Blood 2.2 g/dL (3.4-5.0); Albumin/Globulin Ratio 0.6 (0.8-1.8); Bilirubin, Total 0.2 mg/dL (0.1-1.0); Bun/Creatinine Ratio 18.8 (12.0-20.0); Calcium, Blood 9.3 mg/dL (8.5-10.1); Creatinine, Blood 1.12 mg/dL (0.60-1.20); Magnesium, Blood 1.9 mg/dL (1.6-2.4); Phosphorus, Blood 3.4 mg/dL (2.5-4.9); Potassium, Blood 4.2 mmol/L (3.5-5.5); Total Protein, Blood 6.2 g/dL (6.4-8.2)
[2024-04-16 07:54] LABS: International Normalized Ratio 2.58; Prothrombin Time Results 25.7 Sec (9.7-11.5)
[2024-04-16 07:55] LABS: BAND PERCENT MAN 4 % (0-8); BASOPHILS PERCENT MAN 0 % (0-2); EOSINOPHILS PERCENT MAN 0 % (0-6); LYMPHOCYTES ABSOLUTE MAN 0.47 K/mm3 (0.84-5.20); LYMPHOCYTES PERCENT MAN 4 % (21-46); MONOCYTES ABSOLUTE MAN 0.58 K/mm3 (0.16-1.47); MONOCYTES PERCENT MAN 5 % (4-13); MYELOCYTE ABSOLUTE MAN 0.23 K/mm3 (0.00-0.00); MYELOCYTE PERCENT MAN 2 % (0-0); NEUTROPHILS ABSOLUTE MAN 10.46 K/mm3 (1.96-9.15); SEG NEUTROPHILS PERCENT MAN 85 % (41-73); TOTAL CELLS COUNTED 100
[2024-04-16] MEDS ORDERED: Budesonide 1 MG/2 ML RESP INH SCH (08:35)
[2024-04-16] MEDS ORDERED: BusPIRone HCl 10 MG Tab PO SCH (09:00)
[2024-04-16] MEDS ORDERED: Bumetanide 1 MG Tab PO SCH (09:00)
[2024-04-16 15:15] VITALS: BP 112/78
[2024-04-16] MEDS ORDERED: Warfarin Sodium 4 MG Tab PO ONE (18:00)
--- NOTE | 2024-04-16 18:11 | NUR ---
SHIFT SUMMARY PATIENT ON AIRVO OXYGEN SYSTEM THIS SHIFT, RESPIRATORY ADJUSTING NEEDED. SPUTUM CX SENT TO LAB, RESPIRATORY COLLECTED. TRACH IN PLACE, INDEPENDENT SHALLOW SUCTIONING PERFORMED BY PATIENT. BROWN THICK SPUTUM COUGHED UP, PERCUSSION VEST PLACED, PATIENT TOLERATED WELL. C/O THROAT AND NECK PAIN THROUGHOUT SHIFT, NOT REPORTING MUCH RELIEF DESPITE MEDS. UP TO COMMODE WITH 1+WALKER SEVERAL TIMES. VARGAS IN PLACE DRAINING TO GRAVITY, YELLOW URINE. CONTINUES ON DROPLET ISOLATION. ABLE TO MAKE NEEDS KNOWN EITHER THROUGH LIPPING NEEDS OR WRITTING DOWN, MINIMAL VOICE VOLUME WHEN USING SPEAKING VALVE. CALL LIGHT IN REACH, A/O X4. CARES ONGOING.
[2024-04-16 19:07] VITALS: BP 121/76
[2024-04-17 04:07] VITALS: BP 104/66
--- NOTE | 2024-04-17 04:56 | NUR ---
SHIFT SUMMARY PT A&Ox4. REMAINS ON AIRVO COVERING TRACH AND SATING ABOVE 90%. RT AT BEDSIDE T/O NIGHT. MEDICATED FOR PAIN PER EMAR. PT USES BEDSIDE SUCTION TO COUGH AND SUCTION END OF TRACH. PT CAN DESAT QUICKLY DURING THIS TIME AND NEEDS PROMPTING TO PUT AIRVO MASK BACK ON UNTIL SATS IMPROVE. ASSISTED PT WITH ORDERING MEALS FOR THURSDAY. VSS. ABLE TO HAVE LARGE BM USING BSC. NO ACUTE CHANGES OVERNIGHT. BED IN LOWEST POSITION AND CALL LIGHT IN REACH.
[2024-04-17 06:24] LABS: International Normalized Ratio 2.66; Prothrombin Time Results 26.5 Sec (9.7-11.5)
[2024-04-17 07:39] VITALS: BP 98/64
[2024-04-17] MEDS ORDERED: MethylPREDNISolone Sod Succ 125 MG Vial IV SCH (10:39)
[2024-04-17 16:23] VITALS: BP 107/79
--- NOTE | 2024-04-17 17:23 | NUR ---
SHIFT SUMMARY PATIENT A/O X3-4, TELLS REPEATITIVE STORIES, DOESN'T RECOGNIZE STAFF FROM PREVIOUS DAY. C/O HEADACHE IN AM, GIVEN IMITREX WITH GOOD RELIEF. IV SITE ROTATED. RECIEVING IV ELECTROLYTE REPLACEMENT, TOLERATING WELL. ABLE TO MAKE NEEDS KNOWN. CALL LIGHT IN REACH, CARES ONGOING.
--- NOTE | 2024-04-17 17:31 | NUR ---
SHIFT SUMMARY PATIENT ABLE TO USE BSC WITH SBA AND WALKER, NEEDED HELP WITH LINES. CONTINUES TO REQUIRE AIRVO, MANAGED BY RESPIRATORY, REQUESTING CPT VEST SEVERAL TIMES THIS SHIFT. SHALLOW SUCTIONING PERFORMED INDEPENDENTLY. TRACH IN PLACE, NO CONCERNS. PAIN MEDS GIVEN PER AUG. PATIENT DEMANDING 2 STAFF COME TO ROOM AND REPOSITION HIM IN BED, WAS ENCOURAGED TO PERFORM THIS TASK WITH MINIMAL ASSISTANCE HE IS CAPABLE OF SBA, PATIENT DECLINED AND TOLD THIS RN TO JUST LEAVE. RN CONTINUED CARES AT A LATER TIME AND PATIENT WAS MORE AGREEABLE TO TRY TO ASSIST HIMSELF. POWERGLIDE IN PLACE TO LEFT ARM, PATENT. ABLE TO MAKE NEEDS KNOWN. CALL LIGHT IN REACH, CARES ONGOING. CONTINUES TO BE IN DROPLET ISOLATION.
[2024-04-17] MEDS ORDERED: Warfarin Sodium 4 MG Tab PO ONE (18:00)
[2024-04-17 19:28] VITALS: BP 103/58
[2024-04-18 03:37] VITALS: BP 108/65
[2024-04-18 06:00] LABS: International Normalized Ratio 2.47; Prothrombin Time Results 24.7 Sec (9.7-11.5)
[2024-04-18 07:47] VITALS: BP 107/64
[2024-04-18] MEDS ORDERED: Ondansetron HCl 2 MG / ML 2ML Vial IV PRN (09:00)
[2024-04-18] MEDS ORDERED: FOSAPREPITANT DIMEGLUMINE 150 MG IV ONE (09:00)
[2024-04-18] MEDS ORDERED: Dexamethasone Sodium Phosphate 4 MG/ML 5ML VIAL IV ONE (09:00)
[2024-04-18] MEDS ORDERED: FOSAPREPITANT DIMEGLUMINE IV SCH (12:15)
[2024-04-18] MEDS ORDERED: NS IV SCH ×2 (12:15→13:00)
[2024-04-18] MEDS ORDERED: Dexamethasone Sod Phos 10 MG/ML 1ML VIAL IV SCH (12:30)
[2024-04-18] MEDS ORDERED: Ondansetron HCl 2 MG / ML 2ML Vial IV SCH (12:30)
[2024-04-18] MEDS ORDERED: CARBOPLATIN IV SCH (13:00)
[2024-04-18] MEDS ORDERED: DEXTROSE 5% IV SCH (14:00)
[2024-04-18] MEDS ORDERED: WATER IV SCH (14:00)
[2024-04-18] MEDS ORDERED: DOCETAXEL IV SCH (14:00)
[2024-04-18 15:13] VITALS: BP 100/57
[2024-04-18] MEDS ORDERED: Warfarin Sodium 4 MG Tab PO ONE (18:00)
--- NOTE | 2024-04-18 18:45 | NUR ---
SHIFT SUMMARY PT A&OX4, SOFT BP, ON AIRVO 40 LPM, AMB TO THE BSC W/ ASSIST, TOLERATING PO, VOIDING, AND PAIN MANAGED PER EMAR. PT HAD CHEMO TX TODAY AND TOLERATED IT WELL. PT SELF SUCTIONED TRACH T/O SHIFT. NO OTHER ACUTE CHANGES. CALL LIGHT WITHIN REACH AND PT ABLE TO MAKE NEEDS KNOWN.
[2024-04-18 19:51] VITALS: BP 111/73
--- NOTE | 2024-04-19 03:24 | NUR ---
SHIFT SUMMARY NO ACUTE EVENTS DURING THIS SHIFT. O2 WITH ARVIO >90%. MEDICATED T/O THIS SHIFT FOR C/O 8 CHEST REGION PAIN, NOT EFFECTIVE PER PT REPORT. TELE:A-FIB 61. VARGAS DRAINING YELLOW COLOR URINE. PT IS A&O X4, ABLE TO MAKE HIS NEEDS KNOWN BY WRITING ON A NOTE PAD, OR SPEAKING BY WHISPERING. SOME COUGHING NOTED. RT BY THE BEDSIDE WHEN TX'S GIVEN. BED AT THE LOWEST POSITION, CALL LIGHT WITHIN REACH.
[2024-04-19 03:50] VITALS: BP 108/64
[2024-04-19 07:17] VITALS: BP 105/67
[2024-04-19 07:50] LABS: BASOPHILS ABSOLUTE AUTO 0.01 K/mm3 (0.00-0.23); BASOPHILS PERCENT AUTO 0 % (0-2); EOSINOPHILS PERCENT AUTO 0 % (0-6); Hematocrit 35.4 % (37.0-53.0); IMMATURE GRAN ABSOLUTE AUTO 0.18 K/mm3 (0.00-0.10); IMMATURE GRAN PERCENT AUTO 2 % (0-1); LYMPHOCYTES ABSOLUTE AUTO 0.28 K/mm3 (0.84-5.20); LYMPHOCYTES PERCENT AUTO 3 % (21-46); MONOCYTES ABSOLUTE AUTO 0.08 K/mm3 (0.16-1.47); MONOCYTES PERCENT AUTO 1 % (4-13); Mean Corpuscular HGB 28.1 pg (26.0-34.0); Mean Corpuscular HGB Conc 31.1 g/dL (31.5-36.5); Mean Corpuscular Volume 90 fL (80-100); Mean Platelet Volume 10.4 fL (9.1-12.4); NEUTROPHILS ABSOLUTE AUTO 10.45 K/mm3 (1.96-9.15); NEUTROPHILS PERCENT AUTO 95 % (41-73); Platelet Count 534 K/mm3 (150-400); RDW Coefficient Variation 15.2 % (11.7-14.2); RDW Standard Deviation 49.2 fL (35.1-46.3); Red Blood Cell Count 3.92 M/mm3 (4.30-5.90)
[2024-04-19 08:02] LABS: International Normalized Ratio 3.4; Prothrombin Time Results 33.2 Sec (9.7-11.5)
[2024-04-19 08:05] LABS: Albumin, Blood 2.3 g/dL (3.4-5.0); Albumin/Globulin Ratio 0.6 (0.8-1.8); Bilirubin, Total 0.2 mg/dL (0.1-1.0); Calcium, Blood 8.9 mg/dL (8.5-10.1); Creatinine, Blood 1.23 mg/dL (0.60-1.20); Globulin, Blood 4.1 g/dL (2.2-4.0); Magnesium, Blood 2.5 mg/dL (1.6-2.4); Potassium, Blood 4.5 mmol/L (3.5-5.5); Total Protein, Blood 6.4 g/dL (6.4-8.2)
[2024-04-19] MEDS ORDERED: FILGRASTIM-AYOW 480 MCG/0.8 ML 0.8MLSYR SC SCH (09:00)
[2024-04-19 15:23] VITALS: BP 108/69
[2024-04-19] MEDS ORDERED: Warfarin Sodium 5 MG Tab PO SCH (18:00)
[2024-04-19 18:04] VITALS: BP 110/68
--- NOTE | 2024-04-19 18:31 | NUR ---
SHIFT SUMMARY PT ON AIRVO 35 LPM, IMPROVEMENT FROM YESTERDAY AT 40 LPM. CHEST XR COMPLETED THIS SHIFT, SEE IMAGING. PT UP IN THE CHAIR T/O SHIFT AND PAIN MANAGED PER EMAR. NO OTHER ACUTE CHANGES. CALL LIGHT WITHIN REACH AND PT ABLE TO MAKE NEEDS KNOWN.
[2024-04-19 19:18] VITALS: BP 106/72
[2024-04-20 03:48] VITALS: BP 102/67
--- NOTE | 2024-04-20 04:00 | NUR ---
SHIFT SUMMARY ADMITTED FOR RESPIRATORY FAILURE. FULL CODE. DROPLET PRECAUTIONS FOR CORYNEBACTERIUM STRIATUM. STEROIDS ARE SCHEDULED. HOPING TO DECREASE DEMAND FOR O2. HE IS ON AIRVO @ 35 LPM W/TRACH. HE SELF SUCTIONS. A&O X4. 1 ASSIST TO BSC. PUREE DIET. AC CBG'S - LOW SS. VARGAS IN PLACE FOR RETENTION. POWERGLIDE IN LUE. DR. BRAVO IS CONSULT FOR LARYNGEAL CANCER. 2 LPM O2 VIA NC IS BASELINE. WARFARIN IS MANAGED BY PHARMACY.
[2024-04-20 05:39] LABS: Hematocrit 36.1 % (37.0-53.0); Hemoglobin 11.2 g/dL (13.5-17.5); Mean Corpuscular HGB 27.6 pg (26.0-34.0); Mean Corpuscular Volume 89 fL (80-100); Mean Platelet Volume 10.4 fL (9.1-12.4); Platelet Count 516 K/mm3 (150-400); RDW Coefficient Variation 15.2 % (11.7-14.2); RDW Standard Deviation 48.7 fL (35.1-46.3); Red Blood Cell Count 4.06 M/mm3 (4.30-5.90)
[2024-04-20 05:47] LABS: White Blood Cell Count 57.03 K/mm3 (4.00-11.30)
[2024-04-20 06:04] LABS: Albumin, Blood 2.3 g/dL (3.4-5.0); Albumin/Globulin Ratio 0.6 (0.8-1.8); BAND PERCENT MAN 2 % (0-8); BASOPHILS PERCENT MAN 0 % (0-2); Bilirubin, Total 0.3 mg/dL (0.1-1.0); Bun/Creatinine Ratio 44.5 (12.0-20.0); Calcium, Blood 8.8 mg/dL (8.5-10.1); Creatinine, Blood 1.19 mg/dL (0.60-1.20); EOSINOPHILS PERCENT MAN 0 % (0-6); Globulin, Blood 3.8 g/dL (2.2-4.0); LYMPHOCYTES ABSOLUTE MAN 1.14 K/mm3 (0.84-5.20); LYMPHOCYTES PERCENT MAN 2 % (21-46); METAMYELOCYTE ABSOLUTE MAN 1.14 K/mm3 (0.00-0.00); METAMYELOCYTE PERCENT MAN 2 % (0-0); MONOCYTES ABSOLUTE MAN 0.57 K/mm3 (0.16-1.47); MONOCYTES PERCENT MAN 1 % (4-13); Magnesium, Blood 2.5 mg/dL (1.6-2.4); NEUTROPHILS ABSOLUTE MAN 54.17 K/mm3 (1.96-9.15); SEG NEUTROPHILS PERCENT MAN 93 % (41-73); TOTAL CELLS COUNTED 100; Total Protein, Blood 6.1 g/dL (6.4-8.2)
[2024-04-20 07:34] LABS: Prothrombin Time Results 42.4 Sec (9.7-11.5)
[2024-04-20 07:41] LABS: International Normalized Ratio 4.42
[2024-04-20 08:17] VITALS: BP 112/66
[2024-04-20] MEDS ORDERED: Insulin Human Lispro 100 Units/ML 3ML Syringe SC SCH (11:30)
--- NOTE | 2024-04-20 12:41 | NUR ---
PT TAKEN TO THE CROP OR LIVESTOCK TENANT FARMER AT APPROX 1220 FOR PERMACATH PLACEMENT.
[2024-04-20 15:25] VITALS: BP 116/70
[2024-04-20 18:02] VITALS: BP 109/71
--- NOTE | 2024-04-20 18:23 | NUR ---
SHIFT SUMMARY PT'S INR 4.42 AND WBC 57.03 THIS AM, NOTIFIED. SOLU MEDROL ORDER ADJUSTED. FILGRASTIM OK TO CONT TO BE GIVEN PER , SEE PROVIDER PROGRESS NOTE. PT BLOOD SUGAR 354 THIS AFTERNOON, PROVIDER NOTIFIED, AND NEW ORDER RECEIVED FOR MEDIUM SLIDING SCALE. PAIN MANAGED PER EMAR. NO OTHER ACUTE CHANGES. CALL LIGHT WITHIN REACH AND PT ABLE TO MAKE NEEDS KNOWN.
[2024-04-20 19:09] VITALS: BP 113/70
[2024-04-20] MEDS ORDERED: MethylPREDNISolone Sod Succ 40 MG VIAL IV SCH (21:00)
[2024-04-21 04:08] VITALS: BP 107/66
--- NOTE | 2024-04-21 05:02 | NUR ---
SHIFT SUMMARY ADMITTED FOR RESPIRATORY FAILURE. FULL CODE. DROPLET ISO FOR CORYNEBACTERIUM STRIATUM. STEROIDS ARE SCHEDULED. HE IS ON AIRVO @ [address] BRAVO IS ONCOLOGY CONSULT FOR LARYNGEAL CANCER. TRACH IN PLACE. TELEMETRY: NSR @ [address] FOR RETENTION. POWERGLIDE IN LUE. 1 ASSIST TO BSC. A&O X4. WARFARIN HELD ON PREVIOUS SHIFT DUE TO INR OF 4.42. ELEVATED WBC'S ARE TO BE EXPECTED DUE TO FILGRASTIM RX. 2 LPM O2 VIA NC WAS HIS BASELINE. PAIN MEDICATIONS GIVEN IV AND PO THIS SHIFT.
[2024-04-21 05:59] LABS: International Normalized Ratio 3.02; Prothrombin Time Results 29.8 Sec (9.7-11.5)
[2024-04-21 07:55] VITALS: BP 109/66
[2024-04-21 17:12] VITALS: BP 101/65
--- NOTE | 2024-04-21 17:48 | NUR ---
SHIFT SUMMARY: PT AOX4, ORIENTED TO ROOM. DIFFICULTY SPEAKING AND SOME FRUSTRATING COMMUNICATION BUT ABLE TO HAVE NEEDS MET. MEDICATED FOR PAIN PER EMR, ATTEMPTED TO STAGGER MEDS TO MAINTAIN PAIN CONTROL. SELF SUCTIONING TRACH, AND CLEANING EXUDATE. WOUND CLEAN DRY AND INTACT. SOME REDNESS AND SWELLING. BLOOD SUGAR CONTROLED PER EMR. TOLERATED A FEW PILLS ONE AT A TIME WITH WATER BUT PREFERS WHOLE WITH APPLESAUCE/ PUDDING/ YOGURT. FIGURING OUT PLACEMENT AND WORKING WITH CASE MGMT ABOUT SCHEDULING CHEMO AND REHAB. PT MOST CONCERNED WITH CHEMO AND RADIATION COMPLIANCE. ANXIOUS BUT COOPERATIVE. PT WAITING FOR DINNER, RESTING IN BED, BED IN LOWEST POSITION, CALL LIGHT IN REACH. CONTINUING CARE.
[2024-04-21] MEDS ORDERED: Warfarin Sodium 2.5 MG Tab PO ONE (18:00)
--- NOTE | 2024-04-21 18:06 | NUR ---
THIS JAVA FRONT END WEB DEVELOPER HAS REVIEWED AND AGREES WITH ALL NOTES AND ASSESSMENTS BY CHUY CHAVEZ.
[2024-04-21 20:03] VITALS: BP 119/77
[2024-04-22 02:04] VITALS: BP 116/74
--- NOTE | 2024-04-22 05:17 | NUR ---
SHIFT SUMMARY PT MAINTAINED ON AIRVO- 35L WITH 02 SATS LOW 90'S. PT ABLE TO COUGH UP AND USE SUCTION FOR MOST SECRETIONS. RESPIRATORY THERAPY ASSISTED PT WITH SECRETIONS. PT ABLE TO TAKE MEDICATIONS WHOLE IN APPLESAUCE AND DRINK WATER WITHOUT SIGNS OF ASPIRATION. MEDICATED THROUGH THE NIGHT FOR GENERALIZED PAIN WITH OXYCODONE AND DILAUDID- SEE EMAR. PT ABLE TO MAKE NEEDS KNOWN, SOMETIMES VERBALLY WITH SPEAKER-VALVE AND SOMETIMES THROUGH WRITING. PT CALLS FREQUENTLY- ALL NEEDS ADDRESSED. VARGAS CATHETETER- DUE TO RETENTION- WITH LARAGE AMOUNTS CLEAR YELLOW URINE. PT SLEPT VERY SHORT INTERVALS THROUGH THE NIGHT. SIDE RAILS UP X2, CALL LIGHT WITHIN REACH.
[2024-04-22 06:28] LABS: International Normalized Ratio 1.68; Prothrombin Time Results 17.3 Sec (9.7-11.5)
[2024-04-22 07:16] VITALS: BP 114/70
--- NOTE | 2024-04-22 16:00 | NUR ---
1500 PT REQUESTED SUCTION. SUCTION WAS PREFORMED USING STERILE TECHNIQUE. PT TOLERATED WELL AND STATED IT WAS EFFECTIVE. NO DISTRESS NOTED.
[2024-04-22 16:31] VITALS: BP 122/72
--- NOTE | 2024-04-22 17:33 | NUR ---
SHIFT SUMMARY: PT AOX4 TOLERATING DIET AND MEDICATIONS WELL. DRINKING WATER WITHOUT ISSUE. REPLACED SPEAKER VALVE, TODAY AFTER OLD ONE WAS MALFUNCTIONING. STAYING ON TOP OF PAIN, MEDICATING PER EMR. BLOOD SUGARS CONTROLED PER EMR. NEEDED DEEP SUCTIONING WITH SOME LOOSENING WITH NS. TOLERATED IT WELL AND WAS COOPERATIVE THROUGHOUT PROCEDURE. COMPLAINED OF SOME INDIGESTION AND GI DISCOMFORT, MEDICATED PER EMR. AWAITING PLACEMENT AND CHEMO. PT RESTING IN BED, CALL LIGHT IN REACH, BED IN LOWEST POSITION. CONTINUING CARE.
[2024-04-22] MEDS ORDERED: Warfarin Sodium 4 MG Tab PO SCH (18:00)
--- NOTE | 2024-04-22 18:07 | NUR ---
THIS PARALEGAL INSTRUCTOR HAS REVIEWED AND AGREES WITH ALL NOTES AND ASSESSMENTS BY CHUY CHAVEZ.
[2024-04-22 19:57] VITALS: BP 115/69
[2024-04-23 04:56] VITALS: BP 136/76
--- NOTE | 2024-04-23 05:41 | NUR ---
SHIFT SUMMARY PT CONTINUES ON AIRVO 35L. PT MOSTLY ABLE TO COUGH OUT USE SUCTION FOR SECRETIONS. INNER TRACH CANULA CHANGED BY RESPIRATORY THERAPY SECONDARY TO PT C/O NOT BEING ABLE TO COUGH OUT SECRETIONS. MEDICATED FOR GENERALIZED BODY PAIN WITH OXYCODONE/ DILAUDID- SEE EMAR. PT ABLE TO MAKE NEEDS KNOWN USING SPEAKING VALVE AND WRITING. VARGAS CONTINUES TO DRAIN LARGE AMOUNTS OF CLEAR YELLOW URINE. PT SLEPT SHORT PERIODS OFF/ON THROUGH THE NIGHT.
[2024-04-23 07:21] VITALS: BP 107/75
[2024-04-23 07:32] LABS: Hematocrit 37.6 % (37.0-53.0); Hemoglobin 11.6 g/dL (13.5-17.5); Mean Corpuscular HGB 27.3 pg (26.0-34.0); Mean Corpuscular HGB Conc 30.9 g/dL (31.5-36.5); Mean Corpuscular Volume 89 fL (80-100); Mean Platelet Volume 10.9 fL (9.1-12.4); Platelet Count 386 K/mm3 (150-400); RDW Coefficient Variation 15.7 % (11.7-14.2); RDW Standard Deviation 49.9 fL (35.1-46.3); Red Blood Cell Count 4.25 M/mm3 (4.30-5.90); White Blood Cell Count 34.34 K/mm3 (4.00-11.30)
[2024-04-23 07:43] LABS: International Normalized Ratio 1.32; Prothrombin Time Results 13.8 Sec (9.7-11.5)
[2024-04-23 08:04] LABS: Albumin, Blood 2.8 g/dL (3.4-5.0); Albumin/Globulin Ratio 0.8 (0.8-1.8); Bilirubin, Total 0.3 mg/dL (0.1-1.0); Bun/Creatinine Ratio 40.5 (12.0-20.0); Calcium, Blood 9.2 mg/dL (8.5-10.1); Creatinine, Blood 1.16 mg/dL (0.60-1.20); Globulin, Blood 3.5 g/dL (2.2-4.0); Potassium, Blood 4.4 mmol/L (3.5-5.5); Total Protein, Blood 6.3 g/dL (6.4-8.2)
[2024-04-23 09:00] LABS: BAND PERCENT MAN 5 % (0-8); BASOPHILS PERCENT MAN 0 % (0-2); EOSINOPHILS PERCENT MAN 0 % (0-6); LYMPHOCYTES ABSOLUTE MAN 0.68 K/mm3 (0.84-5.20); LYMPHOCYTES PERCENT MAN 2 % (21-46); MONOCYTES PERCENT MAN 0 % (4-13); NEUTROPHILS ABSOLUTE MAN 33.65 K/mm3 (1.96-9.15); SEG NEUTROPHILS PERCENT MAN 93 % (41-73); TOTAL CELLS COUNTED 100
[2024-04-23 15:59] VITALS: BP 104/61
[2024-04-23] MEDS ORDERED: Warfarin Sodium 5 MG Tab PO SCH (18:00)
--- NOTE | 2024-04-23 18:02 | NUR ---
SHIFT NOTE: PT A/OX4 ABLE TO MAKE HIS NEEDS KNOWN USING THE CALL LIGHT AND A PAD OF PAPER AND PEN. PT EDUCATED ON THE NURSING STAFF ROUNDING HOURLY. TRACH CARE DONE BY THIS RN AND RT T/O SHIFT. THIS RN SUCTIONED PATIENT PER PEQUEST TO ASSIST WITH MUCUS SECRETIONS. AIRVO ON 35L 50%. CONTINUOUS PULSE OX IN PLACE. 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 NO BM THIS SHIFT. HE REPORTS PAIN "ALL OVER" MEDICATED PER EMAR. PT ABLE TO TAKE PILLS WHOLE WITH WATER. MEPILEX ON COCCYX C/D/I. PT UNMOVITATED TO PERFORM OWN ADLS, THIS RN EDUCATED PT ON NEED TO MAINTAIN IND. PT 1P SBA WITH FWW TO CHAIR/BSC. PT EDUCATED ON NEED TO CONTINUE ORAL CARE. PT STATED HIS DISLIKE FOR HOSPITAL TOOTHPASTE. THIS RN CONTIUED TO EDUCATE ON IMPORTANCE OF ORAL CARE. CALL LIGHT IN REACH, PT RESTING WITH UNLABORED RESPIRATIONS.
[2024-04-23 20:10] VITALS: BP 110/61
[2024-04-24 05:23] VITALS: BP 107/70
--- NOTE | 2024-04-24 05:43 | NUR ---
SHIFT SUMMARY PT A&OX4. TRACH WITH 35L AIRVO MAINTAINED. PT ABLE TO COUGH AND CLEAR MOST SECRETIONS, USING YANKOUR SUCTION NEEDED. PT SLEPT 2-3 HOURS AT A TIME DURING THE NIGHT AFTER TRAZADONE GIVEN. MEDICATED WITH OXYCODONE FOR C/O GENERALIZED BODY PAIN- SEE EMAR. UPON AWAKENING THIS AM, PT COMMUNICATED THAT HE WAS HAVING TROUBLE CLEARING ALL OF HIS SECRETIONS AND WAS HAVING DIFFICULTY SWALLOWING. RESPIRATORY THERAPIST SPENT MUCH TIME AT BEDSIDE, ASSISTING PT TO EXPEL SECRETIONS AND DEEP SUCTIONED PT. PER RT, SECRETIONS MUCH THINNER THIS AM, COMPARED TO EARLIER IN THE SHIFT. PT ABLE TO SWALLOW WATER AND APPLESAUCE WITH PILLS, AND COMMUNICATES THAT IT IS EASIER WHEN HE DOESN'T EAT OR DRINK FAST. PT COMMUNICATES WITH SPEAKING VALVE AND WRITING. CALL LIGHT WITHIN REACH, SIDE RAILS UP X2.
[2024-04-24 06:05] LABS: Hematocrit 35.2 % (37.0-53.0); Hemoglobin 11.2 g/dL (13.5-17.5); Mean Corpuscular HGB 27.8 pg (26.0-34.0); Mean Corpuscular HGB Conc 31.8 g/dL (31.5-36.5); Mean Corpuscular Volume 87 fL (80-100); Mean Platelet Volume 10.8 fL (9.1-12.4); Platelet Count 317 K/mm3 (150-400); RDW Coefficient Variation 15.2 % (11.7-14.2); RDW Standard Deviation 48.4 fL (35.1-46.3); Red Blood Cell Count 4.03 M/mm3 (4.30-5.90); White Blood Cell Count 15.29 K/mm3 (4.00-11.30)
[2024-04-24 06:19] LABS: International Normalized Ratio 1.45; Prothrombin Time Results 15.1 Sec (9.7-11.5)
[2024-04-24 06:26] LABS: BAND PERCENT MAN 4 % (0-8); BASOPHILS PERCENT MAN 0 % (0-2); EOSINOPHILS PERCENT MAN 0 % (0-6); LYMPHOCYTES ABSOLUTE MAN 0.15 K/mm3 (0.84-5.20); LYMPHOCYTES PERCENT MAN 1 % (21-46); MONOCYTES ABSOLUTE MAN 0.15 K/mm3 (0.16-1.47); MONOCYTES PERCENT MAN 1 % (4-13); NEUTROPHILS ABSOLUTE MAN 14.98 K/mm3 (1.96-9.15); SEG NEUTROPHILS PERCENT MAN 94 % (41-73); TOTAL CELLS COUNTED 100
[2024-04-24 06:35] LABS: Albumin, Blood 2.7 g/dL (3.4-5.0); Albumin/Globulin Ratio 0.8 (0.8-1.8); Bilirubin, Total 0.4 mg/dL (0.1-1.0); Bun/Creatinine Ratio 42.2 (12.0-20.0); Calcium, Blood 9.3 mg/dL (8.5-10.1); Creatinine, Blood 1.02 mg/dL (0.60-1.20); Globulin, Blood 3.3 g/dL (2.2-4.0); Potassium, Blood 4.2 mmol/L (3.5-5.5)
[2024-04-24 08:27] VITALS: BP 103/64
--- NOTE | 2024-04-24 12:23 | NUR ---
DR KATHLEEN ORDERED CXR: WILL NEED TO AMBULATE TO IMAGING FOR 2V. PER DR KATHLEEN, OKAY FOR 1V TO BE DONE IN THE ROOM.
--- NOTE | 2024-04-24 12:24 | NUR ---
BARRIUM SWALLOW CANNOT BE DONE TODAY SPEECH IS NOT IN; PROVIDER AWARE.
--- NOTE | 2024-04-24 12:30 | NUR ---
PATIENT RECEIVED [facility] ON TRAY; REQUESTING GLUCERNA DUE TO DIABETES STATUS. CALL TO KITCHEN: THE ONLY GLUCERNA THEY CARRY IS STRAWBERRY FLAVORED WHICH PATIENT HAS EXPLICITLY REQUESTED TO NOT RECEIVE. ENSURE MAX HAS ONE CCHO MORE THAN GLUCERNA AND 1G SUGARS WITHOUT ADDED SUGARS; EQUIVALENT TO GLUCERNA. PT IN AGREEMENT TO ACCEPT E[facility].
[2024-04-24 15:05] VITALS: BP 113/74
[2024-04-24] MEDS ORDERED: Warfarin Sodium 4 MG Tab PO SCH (18:00)
--- NOTE | 2024-04-24 18:22 | NUR ---
END OF SHIFT SUMMARY: A&Ox4. PLEASANT AND COOPERATIVE WITH CARE. CALLS APPROPRIATELY AND IS ABLE TO ADVOCATE NEEDS EFFECTIVELY. AMBULATES SBA c FWW. CONTINENT OF BOWEL TO BSC. VARGAS IN PLACE FOR RETENTION; 2000mL OUTPUT THIS SHIFT. PAIN Tx PRN OXYCODONE 10MG Q4H x2. MEDS WHOLE WITH APPLESAUCE. C/O DYSPHAGIA; ORDER FOR CXR AND BARIUM SWALLOW ORDERED TO BE COMPLETED TOMORROW DUE TO LACK OF SPEECH THERAPY SERVICES ON SITE TODAY. SPUTUM Cx COLLECTED AND SENT TO LAB. DAUGHTER IN TO VISIT TODAY; WOULD LIKE CARE COORDINATION TO CALL HER TOMORROW; MESSAGE ON CM-2 PHONE. BED IN LOWEST POSITION. CALL LIGHT WITHIN REACH. ALL NEEDS MET. REPORT TO ONCOMING NURSE.
[2024-04-24 19:24] VITALS: BP 115/67
[2024-04-25 03:00] VITALS: BP 103/60
--- NOTE | 2024-04-25 05:39 | NUR ---
SHIFT SUMMARY PT A&OX4. TRACH WITH 35L, 50% AIRVO. PT CONTINUES TO PARTICIPATE IN TRACH CARE, COUGHING TO CLEAR SECRETIONS, USING YANKOUR. RESPIRATORY THERAPIST PROVIDING CARE AND ENCOURAGEMENT TO PT. PT ABLE TO MAKE NEEDS KNOWN USING SPEAKING VALVE AND WRITING. PT PARTICIPATING MORE WITH POSITION CHANGES. MEPILEX INTACT TO COCCYX. MEDICATED FOR PAIN PER EMAR. SLEPT SHORT INTERVALS THROUGH THE NIGHT. BED IN LOWEST POSITION, CALL LIGHT WITHIN REACH, SIDE RAILS UP X2.
[2024-04-25 06:11] LABS: Hematocrit 34.4 % (37.0-53.0); Hemoglobin 10.7 g/dL (13.5-17.5); LYMPHOCYTES ABSOLUTE AUTO 0.51 K/mm3 (0.84-5.20); LYMPHOCYTES PERCENT AUTO 7 % (21-46); MONOCYTES ABSOLUTE AUTO 0.48 K/mm3 (0.16-1.47); MONOCYTES PERCENT AUTO 7 % (4-13); Mean Corpuscular HGB 27.4 pg (26.0-34.0); Mean Corpuscular HGB Conc 31.1 g/dL (31.5-36.5); Mean Corpuscular Volume 88 fL (80-100); Mean Platelet Volume 10.8 fL (9.1-12.4); Platelet Count 272 K/mm3 (150-400); RDW Coefficient Variation 15.4 % (11.7-14.2); Red Blood Cell Count 3.91 M/mm3 (4.30-5.90); White Blood Cell Count 7.13 K/mm3 (4.00-11.30)
[2024-04-25 06:19] LABS: BASOPHILS ABSOLUTE AUTO 0.01 K/mm3 (0.00-0.23); BASOPHILS PERCENT AUTO 0 % (0-2); EOSINOPHILS ABSOLUTE AUTO 0.09 K/mm3 (0.00-0.68); EOSINOPHILS PERCENT AUTO 1 % (0-6); IMMATURE GRAN PERCENT AUTO 1 % (0-1); NEUTROPHILS ABSOLUTE AUTO 5.94 K/mm3 (1.96-9.15); NEUTROPHILS PERCENT AUTO 83 % (41-73)
[2024-04-25 06:27] LABS: International Normalized Ratio 1.63; Prothrombin Time Results 16.8 Sec (9.7-11.5)
[2024-04-25 06:44] LABS: Albumin, Blood 2.6 g/dL (3.4-5.0); Albumin/Globulin Ratio 0.8 (0.8-1.8); Bilirubin, Total 0.6 mg/dL (0.1-1.0); Calcium, Blood 9.2 mg/dL (8.5-10.1); Creatinine, Blood 1.11 mg/dL (0.60-1.20); Globulin, Blood 3.4 g/dL (2.2-4.0); Potassium, Blood 3.9 mmol/L (3.5-5.5)
[2024-04-25 07:39] VITALS: BP 97/59
[2024-04-25 07:41] VITALS: BP 102/56
[2024-04-25] MEDS ORDERED: FILGRASTIM-AYOW 480 MCG/0.8 ML 0.8MLSYR SC SCH (09:00)
--- NOTE | 2024-04-25 09:37 | NUR ---
NOTE NOTIFIED DR. MCARTHUR ABOUT THE PRELIMINARY MICROBIO CULTURES, THAT GRAM POSITIVE COCCI AND GRAM POS BACILLI GROWING. DR. MCARTHUR SAID HE WOULD LOOK INTO IT, NO NEW ORDERS AT THIS TIME.
[2024-04-25 15:30] VITALS: BP 105/65
[2024-04-25] MEDS ORDERED: Bumetanide 1 MG Tab PO SCH (18:00)
[2024-04-25] MEDS ORDERED: Warfarin Sodium 4 MG Tab PO SCH (18:00)
--- NOTE | 2024-04-25 19:04 | NUR ---
SHIFT SUMMARY PT A&OX4. PT ADMITTED DUE TO RESPIRTATORY FAILURE WITH HYPOXIA AND HYPERCAPNIA. TRACH WITH 35L, AND 50% AIRVO. PT PARTICIPATES WITH TRACH CARE, COUGHING TO CLEAR SECRETIONS AND USES YANKOUR. RT CAME TO ROOM AND PROVIDED ENCOURAGEMENT AND CARE. PT PARTICIPATES WITH REPOSITIONING. PT HAD A VISITOR DURING SHIFT. PT TOLERATES PUREED DIET AND TAKES MEDS WHOLE WITH APPLESAUCE. VSS. PT USES BSC AND IS A STAND PIVOT TRANSFER WITH WALKER. PT CALLS APPROPRIATELY, CALL LIGHT IN REACH. PT ABLE TO MAKE NEEDS KNOWN USING SPEAKING VALVE AND WRITING. PT REPORTED PAIN "EVERYWHERE AND IN NECK AREA", PT MEDICATED PER EMAR. PT WORKED WITH PHYSICAL THERAPY TODAY.
[2024-04-25 19:36] VITALS: BP 139/117
[2024-04-26 02:11] VITALS: BP 98/66
--- NOTE | 2024-04-26 04:16 | NUR ---
NOC SUMMARY- PT PAIN MANGED WELL. PT REMAINS ON AIRVO. PT MANAGING SECRETIONS ON HIS OWN. PT HAD TRACH SHIFT SOME AND RT WAS ABLE TO REPOSITION CORRECTLY. PT VARGAS DRAINING WELL TO GRAVITY. PT ABLE TO HAVE BM THIS SHIFT. PT HAS NO COMPLAINTS. CALL LIGHT IN REACH.
[2024-04-26 07:01] LABS: Hematocrit 36.3 % (37.0-53.0); Hemoglobin 11.1 g/dL (13.5-17.5); LYMPHOCYTES PERCENT AUTO 10 % (21-46); MONOCYTES ABSOLUTE AUTO 1.08 K/mm3 (0.16-1.47); MONOCYTES PERCENT AUTO 15 % (4-13); Mean Corpuscular HGB 27.2 pg (26.0-34.0); Mean Corpuscular HGB Conc 30.6 g/dL (31.5-36.5); Mean Corpuscular Volume 89 fL (80-100); Mean Platelet Volume 11.1 fL (9.1-12.4); Platelet Count 249 K/mm3 (150-400); RDW Coefficient Variation 15.1 % (11.7-14.2); RDW Standard Deviation 48.7 fL (35.1-46.3); Red Blood Cell Count 4.08 M/mm3 (4.30-5.90); White Blood Cell Count 7.13 K/mm3 (4.00-11.30)
[2024-04-26 07:08] LABS: BASOPHILS ABSOLUTE AUTO 0.05 K/mm3 (0.00-0.23); BASOPHILS PERCENT AUTO 1 % (0-2); EOSINOPHILS ABSOLUTE AUTO 0.07 K/mm3 (0.00-0.68); EOSINOPHILS PERCENT AUTO 1 % (0-6); IMMATURE GRAN PERCENT AUTO 3 % (0-1); NEUTROPHILS ABSOLUTE AUTO 5.03 K/mm3 (1.96-9.15); NEUTROPHILS PERCENT AUTO 71 % (41-73)
[2024-04-26 07:11] VITALS: BP 97/66
[2024-04-26 07:26] LABS: International Normalized Ratio 1.81; Prothrombin Time Results 18.5 Sec (9.7-11.5)
[2024-04-26 07:45] LABS: Albumin, Blood 2.6 g/dL (3.4-5.0); Albumin/Globulin Ratio 0.7 (0.8-1.8); Bilirubin, Total 0.4 mg/dL (0.1-1.0); Bun/Creatinine Ratio 31.8 (12.0-20.0); Calcium, Blood 9.2 mg/dL (8.5-10.1); Creatinine, Blood 1.07 mg/dL (0.60-1.20); Globulin, Blood 3.7 g/dL (2.2-4.0); Potassium, Blood 3.8 mmol/L (3.5-5.5); Total Protein, Blood 6.3 g/dL (6.4-8.2)
--- NOTE | 2024-04-26 13:25 | NUR ---
CALL FROM JUAN CARLOS @ [facility]. PATIENT IS TO GO FOR TREATMENT TOMORROW 04/27/24. DR HUGHES WILL BE CONSULTING THIS AFTERNOON. ANTICIPATE TREATMENT TOMORROW. NEEDS TRANSPORTATION SET TO BE @ [facility] BY 0900. THEY ARE UNABLE TO ADMINISTER PAIN MEDICATIONS WHILE HE IS THERE SO WILL LIKELY NEED TO BE PREMEDICATED FOR PAIN. A COPY OF CURRENT MEDICATION LIST NEEDS TO BE SENT. BECAUSE PATIENT IS ON OXYGEN, THIS WILL NEED TO BE COORDINATED FOR HIM. IT IS ALSO THE HOSPITAL'S RESPONSIBILITY TO COORDINATE TRANSPORTATION TO DROP OFF AND INTEGRATION SOFTWARE ENGINEER. JUAN CARLOS @ [facility] [phone] [phone]
[2024-04-26 16:40] VITALS: BP 101/66
--- NOTE | 2024-04-26 17:30 | NUR ---
DR HUGHES TO BEDSIDE TO CONSULT.
[2024-04-26] MEDS ORDERED: Warfarin Sodium 4 MG Tab PO ONE (18:00)
--- NOTE | 2024-04-26 18:39 | NUR ---
END OF SHIFT SUMMARY: A&Ox4. PLEASANT AND COOPERATIVE WITH CARE. CALLS APPROPRIATELY AND IS ABLE TO ADVOCATE NEEDS EFFECTIVELY USING WRITTEN COMMUNICATION, GESTURES AND SOME VERBAL COMMUNICATION. PRESSURED, HOARSE SPEECH SECONDARY TO TRACH. AMBULATES c SBA & FWW TO BSC. CT HEAD AND NECK DONE TODAY. CONTINENT OF BOWEL USING BSC. VARGAS PATENT AND DRAINING TO GRAVITY. POLYURIA SECONDARY TO DIURETICS. MEDS WHOLE WITH APPLESAUCE, THOUGH DID REQUEST PUDDING TODAY. C/O "GETTING SICK OF SAME MEALS" AND CONTINUES TO LOSE WEIGHT. OFFERED ALTERNATIVES TO WHICH HE DECLINED. DR HUGHES TO BEDSIDE FOR ONCOLOGY RADIATION CONSULT. WILL GO TO [facility] TOMORROW FOR RADIATION; RT HAS COORDINATED TRANSPORTING ADEQUATE OXYGEN SUPPLEMENT WITH HIM WHEN HE GOES. [facility] WILL PICK HIM UP AT 0830. WILL NEED COMPLETE MEDICATION LIST SENT WITH HIM. WILL NEED PAIN MEDS ADMINISTERED PRIOR TO LEAVING THEY ARE UNABLE TO ADMINISTER IN THEIR CLINIC. SUCTION TUBING CHANGED TODAY. TRACH 6.0 NON-FENESTRATED AND NON-CUFFED. AIRVO 35LPM @ 50% VSS. SMALL BM TODAY. MEPILEX REMOVED FROM SACRUM; SKIN C/D/I. BED IN LOWEST POSITION. CALL LIGHT WITHIN REACH. ALL NEEDS MET. REPORT TO ONCOMING NURSE.
[2024-04-26 19:04] VITALS: BP 119/64
[2024-04-27 05:11] VITALS: BP 107/73
--- NOTE | 2024-04-27 05:55 | NUR ---
NOC SUMMARY= PT PAIN MANGED WELL PER AUG. PT ORDERED COUGH MED W/ CODEINE IS NOT AVAILABLE IN OUR PHARMACY. PT REPORTSFEELING ANXIOUS ABOUT UPCOMING RADIATION TREATMENTS. PT MANAGED TRACH SECRETIONS WELL. PT HAD NO OTHER ISSSUES. CALL LIGHT IN REACH.
[2024-04-27 06:47] LABS: Hematocrit 35.6 % (37.0-53.0); Hemoglobin 11.2 g/dL (13.5-17.5); International Normalized Ratio 2.19; Mean Corpuscular HGB 27.1 pg (26.0-34.0); Mean Corpuscular HGB Conc 31.5 g/dL (31.5-36.5); Mean Corpuscular Volume 86 fL (80-100); Mean Platelet Volume 10.7 fL (9.1-12.4); Platelet Count 273 K/mm3 (150-400); Prothrombin Time Results 22.1 Sec (9.7-11.5); RDW Coefficient Variation 15.2 % (11.7-14.2); RDW Standard Deviation 47.3 fL (35.1-46.3); Red Blood Cell Count 4.13 M/mm3 (4.30-5.90); White Blood Cell Count 7.46 K/mm3 (4.00-11.30)
[2024-04-27 07:07] VITALS: BP 105/72
[2024-04-27 07:38] LABS: Albumin, Blood 2.6 g/dL (3.4-5.0); Albumin/Globulin Ratio 0.7 (0.8-1.8); Bilirubin, Total 0.2 mg/dL (0.1-1.0); Bun/Creatinine Ratio 25.2 (12.0-20.0); Calcium, Blood 9.5 mg/dL (8.5-10.1); Creatinine, Blood 1.19 mg/dL (0.60-1.20); Globulin, Blood 3.7 g/dL (2.2-4.0); Total Protein, Blood 6.3 g/dL (6.4-8.2)
[2024-04-27 08:13] LABS: BAND PERCENT MAN 6 % (0-8); BASOPHILS PERCENT MAN 0 % (0-2); EOSINOPHILS ABSOLUTE MAN 0.14 K/mm3 (0.00-0.68); EOSINOPHILS PERCENT MAN 2 % (0-6); LYMPHOCYTES ABSOLUTE MAN 0.74 K/mm3 (0.84-5.20); LYMPHOCYTES PERCENT MAN 10 % (21-46); METAMYELOCYTE ABSOLUTE MAN 0.07 K/mm3 (0.00-0.00); METAMYELOCYTE PERCENT MAN 1 % (0-0); MONOCYTES ABSOLUTE MAN 0.89 K/mm3 (0.16-1.47); MONOCYTES PERCENT MAN 12 % (4-13); NEUTROPHILS ABSOLUTE MAN 5.59 K/mm3 (1.96-9.15); SEG NEUTROPHILS PERCENT MAN 69 % (41-73); TOTAL CELLS COUNTED 100
--- NOTE | 2024-04-27 11:46 | NUR ---
RADIATION TREATMENT AT [facility] PATIENT TRANSFERED TO [facility] VIA WHEELCHAIR TRANSPORT ON OXYMASK. EXTRA 02 TANKS SENT WITH PATIENT. PATIENT RETURNED TO ROOM. PER JUAN CARLOS AT [facility] PATIENT COMPLETED MAPPING AND INTAKE APPOINTMENT TODAY BUT DID NOT RECIEVED RADIATION TREATMENT. PATIENT'S TENTATIVE READIATION SCHEDULE WILL BE THURSDAY-THURSDAY FOR 7 WEEKS OF RADIATION. RADIATION ONCOLOGIST TO CALL AND UPDATE WITH START DATE.
--- NOTE | 2024-04-27 11:48 | NUR ---
PATIENT RETURNED TO FACILITY FROM RADIATION TREATMENT.
--- NOTE | 2024-04-27 16:31 | NUR ---
JESÚS GOLDSTEIN UNAVAILABLE IN FACILITY.
[2024-04-27] MEDS ORDERED: Warfarin Sodium 4 MG Tab PO SCH (18:00)
--- NOTE | 2024-04-27 18:41 | NUR ---
END OF SHIFT SUMMARY: A&Ox4. PLEASANT AND COOPERATIVE WITH CARE. CALLS APPROPRIATELY AND IS ABLE TO ADVOCATE NEEDS EFFECTIVELY. AMBULATES c SBA TO BSC. CONTINENT OF BOWEL. VARGAS FOR ACUTE RETENTION AND LARGE DOSES OF DIURETICS. MEDS WHOLE WITH PUDDING--WILL NOT USE APPLESAUCE. ROUTINELY REQUESTS PAIN MEDICATIONS. WENT TO [facility] FOR RADIATION MASK FITTING TODAY. EXTREMELY TIRED UPON RETURN AND HAS SLEPT MAJORITY OF DAY SINCE RETURNING. BED IN LOWEST POSITION. CALL LIGHT WITHIN REACH. ALL NEEDS MET. REPORT TO ONCOMING NURSE.
[2024-04-27 19:42] VITALS: BP 110/72
[2024-04-28 02:16] VITALS: BP 109/68
--- NOTE | 2024-04-28 04:02 | NUR ---
SHIFT SUMMARY 73 YR M ADMITTED ON 03/16/24. FULL CODE. NO ACUTE CHANGES THIS SHIFT. PT IS A&O X 4 AND IS ABLE TO MAKE HIS NEEDS KNOWN. HE IS PLEASANT AND COOPERATIVE WITH CARE. HE DOES MOST OF HIS TRACHE SUCTIONING HIMSELF BUT WILL ASK RT FOR ASSISTANCE WHEN NEEDED. HE REGULARLY ASKS FOR PAIN MEDS DUE TO NECK AND GENERALIZED PAIN. VARGAS IS PATENT AND DRAINING TO GRAVITY. BED IN LOW POSITION AND CALL LIGHT IN REACH.
[2024-04-28 06:32] LABS: International Normalized Ratio 2.33; Prothrombin Time Results 23.4 Sec (9.7-11.5)
[2024-04-28 07:23] VITALS: BP 107/62
--- NOTE | 2024-04-28 12:57 | NUR ---
SPOKE WITH RANDELL IN INFECTION CONTROL: IF SPUTUM CULTURE FROM 04/24 COMES BACK NEGATIVE (ONLY IN PRELIM AT THE MOMENT) OKAY TO REMOVE ISO PRECAUTIONS.
[2024-04-28] MEDS ORDERED: Bumetanide 1 MG Tab PO SCH (18:00)
[2024-04-28] MEDS ORDERED: Warfarin Sodium 5 MG Tab PO SCH (18:00)
--- NOTE | 2024-04-28 18:36 | NUR ---
PATIENT TRANSFERRED TO ROOM #334; HE WILL NOTIFY HIS FAMILY OF ROOM NUMBER CHANGE.
--- NOTE | 2024-04-28 18:38 | NUR ---
END OF SHIFT SUMMARY: A&Ox4. PLEASANT AND COOPERATIVE WITH CARE. CALLS APPROPRIATELY AND IS ABLE TO ADVOCATE NEEDS EFFECTIVELY. CONTINENT OF BOWEL; TRANSFERS VIA SBA c FWW TO BSC. VARGAS FOR VOIDING. T.O. FROM DR. BANG FOR BLADDER TRAINING AND PULL VARGAS TOMORROW. PATIENT DENIED AND WANTED TO KEEP FOR NOW, HE'S AFRAID HE WON'T BE ABLE TO VOID DUE TO BPH. HE WILL DISCUSS WITH PROVIDER TOMORROW. WILL ALSO SEE DR. JOSEPH TOMORROW. MEDICATED PRN Q4H OXYCODONE 10MG FOR GENERALIZED PAIN. CONTINUES TO SUCTION OWN TRACH AND PROVIDE MUCH OF OWN CARE, ACTIVE IN OWN CARE, MUCH POSSIBLE. SMALL BOWEL MOVEMENT TODAY; CONTINUES TO REFUSE MIRALAX FOR FEAR OF "HAVING A BLOWOUT". NO ACUTE CONCERNS THIS SHIFT. BED IN LOWEST POSITION. CALL LIGHT WITHIN REACH. ALL NEEDS MET. REPORT TO ONCOMING NURSE.
[2024-04-28 19:41] VITALS: BP 114/70
[2024-04-29 03:24] VITALS: BP 97/63
--- NOTE | 2024-04-29 07:27 | NUR ---
SHIFT SUMMARY. PATIENT IS A&OX4. PATIENT CALLS APPROPRIATELY AND IS COOPERATIVE WITH CARE. PATIENT UP TO BSC c SBA. PATIENT DOING MUCH PERSONAL CARE POSSIBLE AT THIS TIME. PATIENT HAS THICK BROWN SPUTUM AND IS SELF SUCTIONING. PATIENT IS BEING MONITORED BY RT FOR TRACH. PATIENT C/O PAIN MEDICATED WITH OXYCODONE FOR GENERALIZED PAIN. BED IS LOCKED IN THE LOWEST POSITION WITH CALL LIGHT IN REACH. REPORT GIVEN TO DAYSHIFT NURSE.
[2024-04-29 07:37] VITALS: BP 99/64
[2024-04-29] MEDS ORDERED: Ferrous Sulfate 325 MG Tab PO SCH (09:00)
[2024-04-29 09:45] LABS: BASOPHILS ABSOLUTE AUTO 0.06 K/mm3 (0.00-0.23); BASOPHILS PERCENT AUTO 1 % (0-2); EOSINOPHILS ABSOLUTE AUTO 0.01 K/mm3 (0.00-0.68); EOSINOPHILS PERCENT AUTO 0 % (0-6); Hematocrit 37.9 % (37.0-53.0); Hemoglobin 11.8 g/dL (13.5-17.5); IMMATURE GRAN PERCENT AUTO 4 % (0-1); LYMPHOCYTES ABSOLUTE AUTO 0.74 K/mm3 (0.84-5.20); LYMPHOCYTES PERCENT AUTO 11 % (21-46); MONOCYTES PERCENT AUTO 10 % (4-13); Mean Corpuscular HGB 27.6 pg (26.0-34.0); Mean Corpuscular HGB Conc 31.1 g/dL (31.5-36.5); Mean Corpuscular Volume 89 fL (80-100); Mean Platelet Volume 10.4 fL (9.1-12.4); NEUTROPHILS ABSOLUTE AUTO 5.26 K/mm3 (1.96-9.15); NEUTROPHILS PERCENT AUTO 75 % (41-73); Platelet Count 275 K/mm3 (150-400); RDW Coefficient Variation 15.5 % (11.7-14.2); Red Blood Cell Count 4.28 M/mm3 (4.30-5.90); White Blood Cell Count 7.07 K/mm3 (4.00-11.30)
[2024-04-29 09:58] LABS: International Normalized Ratio 2.03; Prothrombin Time Results 20.6 Sec (9.7-11.5)
[2024-04-29 10:04] LABS: Albumin, Blood 2.8 g/dL (3.4-5.0); Albumin/Globulin Ratio 0.7 (0.8-1.8); Bilirubin, Total 0.2 mg/dL (0.1-1.0); Bun/Creatinine Ratio 29.4 (12.0-20.0); Calcium, Blood 9.3 mg/dL (8.5-10.1); Creatinine, Blood 1.19 mg/dL (0.60-1.20); Globulin, Blood 4.2 g/dL (2.2-4.0); Potassium, Blood 3.8 mmol/L (3.5-5.5)
[2024-04-29 15:43] VITALS: BP 109/66
[2024-04-29] MEDS ORDERED: Warfarin Sodium 4 MG Tab PO ONE (18:00)
--- NOTE | 2024-04-29 18:35 | NUR ---
SHIFT SUMMARY PT CONT LEVEL OF CARE WITH NO ACUTE CHANGES NOTED. PT NOTED TO WORK WITH THERAPY AND AMBULATE IN [place] THIS SHIFT. THERAPY STATED TO ENCOURAGE PT TO AMUBLATE IN [place] WITH STAFF. PT REQUIRES PORTABLE O2 AT 15L. WALKER FOLLOWED BY W/C AND A MASK COVERING HIS FACE AND TRACH.
[2024-04-29 19:18] VITALS: BP 120/69
[2024-04-30 02:55] VITALS: BP 106/77
[2024-04-30 05:31] LABS: Prothrombin Time Results 20.3 Sec (9.7-11.5)
[2024-04-30 07:29] VITALS: BP 96/65
[2024-04-30 07:50] LABS: Albumin, Blood 2.6 g/dL (3.4-5.0); Anion Gap 13 mmol/L (3-11); Blood Urea Nitrogen 36 mg/dL (8-24); Bun/Creatinine Ratio 30.5 (12.0-20.0); CO2, Blood 29 mmol/L (21-32); Calcium, Blood 9.3 mg/dL (8.5-10.1); Chloride, Blood 96 mmol/L (98-108); Creatinine, Blood 1.18 mg/dL (0.60-1.20); Glomerular Filtration Rate 64 (60-); Glucose, Blood 159 mg/dL (70-99); Phosphorus, Blood 3.6 mg/dL (2.5-4.9); Sodium, Blood 134 mmol/L (136-145)
[2024-04-30 16:05] VITALS: BP 112/76
--- NOTE | 2024-04-30 17:51 | NUR ---
SHIFT SUMMARY PT AWAKE FOR SHIFT REPORT THIS AM. IN DROPLET ISO. PT WITH TRACH ON AIRVO; SETTINGS DECREASED THRU OUT THE DAY BY RT; LAST @ 1610; 35L @ 43% WITH BIOX @ 97%. PT UP TO BSC AND THEN CHAIR AT BS FOR A WHILE THIS AFTERNOON. MEDS TAKEN WHOLE WITH PUDDING. MEDICATED FOR C/O PAIN TO TRACH AREA AND STOMACH FROM COUGHING. PT IS VERY NEEDY, PUSHING CALL LT AT LEAST TWICE EVERY MINUTE, MOST OF THE TIME. PT EVEN PUSHING CALL LT WHEN STAFF IN . PT IS VERY IMPATIENT AND DEMANDING. PER PT, STILL RECEIVING CHEMO AND RADIATION FOR CANCER MASS PER SCHEDULE. PT UNWILLING TO HELP HIMSELF WHEN HE IS ABLE. VARGAS TO GRAVITY; PATENT. CALL LT IN REACH. ABLE TO MAKE NEEDS KNOWN.
[2024-04-30] MEDS ORDERED: Warfarin Sodium 4 MG Tab PO SCH (18:00)
[2024-04-30 19:09] VITALS: BP 105/67
[2024-05-01 02:46] VITALS: BP 93/68
--- NOTE | 2024-05-01 05:02 | NUR ---
EXECUTIVE ADMINISTRATIVE ASST SUMMARY NO ACUTE CHANGES OVERNIGHT. SEE ASSESSMENT CHARTING, VITAL SIGNS AND EMAR.
[2024-05-01 08:22] VITALS: BP 97/69
[2024-05-01 09:09] LABS: BASOPHILS ABSOLUTE AUTO 0.06 K/mm3 (0.00-0.23); BASOPHILS PERCENT AUTO 1 % (0-2); EOSINOPHILS ABSOLUTE AUTO 0.01 K/mm3 (0.00-0.68); EOSINOPHILS PERCENT AUTO 0 % (0-6); Hematocrit 38.3 % (37.0-53.0); Hemoglobin 11.7 g/dL (13.5-17.5); IMMATURE GRAN ABSOLUTE AUTO 0.19 K/mm3 (0.00-0.10); IMMATURE GRAN PERCENT AUTO 3 % (0-1); LYMPHOCYTES PERCENT AUTO 9 % (21-46); MONOCYTES PERCENT AUTO 7 % (4-13); Mean Corpuscular HGB 27.3 pg (26.0-34.0); Mean Corpuscular HGB Conc 30.5 g/dL (31.5-36.5); Mean Corpuscular Volume 90 fL (80-100); Mean Platelet Volume 9.9 fL (9.1-12.4); NEUTROPHILS ABSOLUTE AUTO 5.65 K/mm3 (1.96-9.15); NEUTROPHILS PERCENT AUTO 81 % (41-73); Platelet Count 205 K/mm3 (150-400); RDW Coefficient Variation 15.7 % (11.7-14.2); RDW Standard Deviation 49.5 fL (35.1-46.3); Red Blood Cell Count 4.28 M/mm3 (4.30-5.90); White Blood Cell Count 7.01 K/mm3 (4.00-11.30)
[2024-05-01 09:23] LABS: International Normalized Ratio 2.34; Prothrombin Time Results 23.5 Sec (9.7-11.5)
[2024-05-01 09:29] LABS: Albumin, Blood 2.7 g/dL (3.4-5.0); Albumin/Globulin Ratio 0.6 (0.8-1.8); Bilirubin, Total 0.3 mg/dL (0.1-1.0); Bun/Creatinine Ratio 28.1 (12.0-20.0); Calcium, Blood 9.2 mg/dL (8.5-10.1); Creatinine, Blood 1.21 mg/dL (0.60-1.20); Globulin, Blood 4.2 g/dL (2.2-4.0); Potassium, Blood 4.3 mmol/L (3.5-5.5); Total Protein, Blood 6.9 g/dL (6.4-8.2)
[2024-05-01] MEDS ORDERED: Ibuprofen 600 MG Tab PO ONE (13:00)
[2024-05-01] MEDS ORDERED: Ibuprofen 600 MG Tab PO PRN (13:00)
[2024-05-01 15:20] VITALS: BP 110/70
--- NOTE | 2024-05-01 16:37 | NUR ---
NO ACUTE CHANGES, ALERT AND OREINTED X4, DAUGHTER VISITED TODAY, PATIENTS SPEECH IS VERY MUMBLED, PATIENT SELF SUCTIONS, MEDICATED FOR PAIN, ADVIL STARTED. PATIENT MORE PLEASANT TO CARE WHEN DAUGHTER VISITING, DAUGHTER TO BE BACK DONE NEXT THURSDAY, CALL LIGHT WITH IN REACH, CLEARLY MAKES NEEDS KNOWN, WILL RELAY TO PM RN
[2024-05-01] MEDS ORDERED: Warfarin Sodium 4 MG Tab PO SCH (18:00)
[2024-05-01 19:33] VITALS: BP 103/77
--- NOTE | 2024-05-02 04:04 | NUR ---
FORENSIC ENGINEER SUMMARY NO ACUTE CHANGES OVERNIGHT. PT REQUIRING UP TO 50%FIO2 AND 40L/MIN WITH TRACH COLLAR AIRVO.
[2024-05-02 04:14] VITALS: BP 91/66
[2024-05-02 05:49] LABS: BASOPHILS ABSOLUTE AUTO 0.04 K/mm3 (0.00-0.23); BASOPHILS PERCENT AUTO 1 % (0-2); EOSINOPHILS ABSOLUTE AUTO 0.02 K/mm3 (0.00-0.68); EOSINOPHILS PERCENT AUTO 1 % (0-6); Hemoglobin 10.4 g/dL (13.5-17.5); IMMATURE GRAN ABSOLUTE AUTO 0.11 K/mm3 (0.00-0.10); IMMATURE GRAN PERCENT AUTO 3 % (0-1); LYMPHOCYTES ABSOLUTE AUTO 0.87 K/mm3 (0.84-5.20); LYMPHOCYTES PERCENT AUTO 20 % (21-46); MONOCYTES ABSOLUTE AUTO 0.41 K/mm3 (0.16-1.47); MONOCYTES PERCENT AUTO 9 % (4-13); Mean Corpuscular HGB 27.7 pg (26.0-34.0); Mean Corpuscular HGB Conc 31.5 g/dL (31.5-36.5); Mean Corpuscular Volume 88 fL (80-100); Mean Platelet Volume 9.6 fL (9.1-12.4); NEUTROPHILS ABSOLUTE AUTO 2.91 K/mm3 (1.96-9.15); NEUTROPHILS PERCENT AUTO 67 % (41-73); Platelet Count 186 K/mm3 (150-400); RDW Coefficient Variation 15.6 % (11.7-14.2); RDW Standard Deviation 48.2 fL (35.1-46.3); Red Blood Cell Count 3.76 M/mm3 (4.30-5.90); White Blood Cell Count 4.36 K/mm3 (4.00-11.30)
[2024-05-02] MEDS ORDERED: Insulin Human Lispro 100 Units/ML 3ML Syringe SC SCH (06:00)
[2024-05-02 06:04] LABS: International Normalized Ratio 2.2; Prothrombin Time Results 22.2 Sec (9.7-11.5)
[2024-05-02 06:14] LABS: Albumin, Blood 2.6 g/dL (3.4-5.0); Albumin/Globulin Ratio 0.7 (0.8-1.8); Bilirubin, Total 0.2 mg/dL (0.1-1.0); Bun/Creatinine Ratio 30.5 (12.0-20.0); Creatinine, Blood 1.28 mg/dL (0.60-1.20); Globulin, Blood 3.7 g/dL (2.2-4.0); Potassium, Blood 3.9 mmol/L (3.5-5.5); Total Protein, Blood 6.3 g/dL (6.4-8.2)
[2024-05-02 08:07] VITALS: BP 98/71
--- NOTE | 2024-05-02 11:44 | NUR ---
RECEIVED CALL FROM INFECTION CONTROL RANDELL MCLEOD PATIENT NO LONGER REQUIRES DROPLET ISOLATION PRECAUTIONS.
--- NOTE | 2024-05-02 16:28 | NUR ---
PATIENT A/0 X 4. PATIENT TRACH HAS HAD COPIOUS AMOUNT OF WHITE THICK SECRETIONS BEING EXPELLED OUT OF TRACH. PATIENT WAS TAKEN OUT OF ISOLATION AND IS ABLE TO COMMUNICATE WITH STAFF WITH EASE. PATIENT READS LIPS TO COMMUNICATE AND DOES HAVE A SPEAK PIECE FOR HIS TRACH TO TALK. PATIENT HAS PRESSURE WOUND ON HIS COCCYX WHICH IS BLANCHABLE. PATIENT HAS MEPILEX. PATIENT IS ABLE TO GET UP WITH STAND BY ASSIST WITH WALKER. PATIENT ON AIRVO AT 40L AT 51% FIO2.
[2024-05-02] MEDS ORDERED: Warfarin Sodium 4 MG Tab PO SCH (18:00)
[2024-05-02 19:13] VITALS: BP 116/74
[2024-05-03 03:11] VITALS: BP 111/73
[2024-05-03 05:37] LABS: BASOPHILS ABSOLUTE AUTO 0.03 K/mm3 (0.00-0.23); BASOPHILS PERCENT AUTO 1 % (0-2); EOSINOPHILS ABSOLUTE AUTO 0.01 K/mm3 (0.00-0.68); EOSINOPHILS PERCENT AUTO 0 % (0-6); Hematocrit 39.3 % (37.0-53.0); Hemoglobin 12.2 g/dL (13.5-17.5); IMMATURE GRAN ABSOLUTE AUTO 0.08 K/mm3 (0.00-0.10); IMMATURE GRAN PERCENT AUTO 2 % (0-1); LYMPHOCYTES ABSOLUTE AUTO 0.75 K/mm3 (0.84-5.20); LYMPHOCYTES PERCENT AUTO 15 % (21-46); MONOCYTES ABSOLUTE AUTO 0.37 K/mm3 (0.16-1.47); MONOCYTES PERCENT AUTO 8 % (4-13); Mean Corpuscular HGB 27.2 pg (26.0-34.0); Mean Corpuscular Volume 88 fL (80-100); Mean Platelet Volume 9.9 fL (9.1-12.4); NEUTROPHILS ABSOLUTE AUTO 3.64 K/mm3 (1.96-9.15); NEUTROPHILS PERCENT AUTO 75 % (41-73); Platelet Count 175 K/mm3 (150-400); RDW Coefficient Variation 15.8 % (11.7-14.2); RDW Standard Deviation 48.3 fL (35.1-46.3); Red Blood Cell Count 4.48 M/mm3 (4.30-5.90); White Blood Cell Count 4.88 K/mm3 (4.00-11.30)
[2024-05-03 05:59] LABS: International Normalized Ratio 2.32; Prothrombin Time Results 23.3 Sec (9.7-11.5)
[2024-05-03 06:07] LABS: Albumin, Blood 2.9 g/dL (3.4-5.0); Albumin/Globulin Ratio 0.7 (0.8-1.8); Bilirubin, Total 0.3 mg/dL (0.1-1.0); Bun/Creatinine Ratio 29.9 (12.0-20.0); Calcium, Blood 9.4 mg/dL (8.5-10.1); Creatinine, Blood 1.27 mg/dL (0.60-1.20); Globulin, Blood 4.3 g/dL (2.2-4.0); Potassium, Blood 4.3 mmol/L (3.5-5.5); Total Protein, Blood 7.2 g/dL (6.4-8.2)
[2024-05-03 07:15] VITALS: BP 105/72
[2024-05-03 15:34] VITALS: BP 103/77
[2024-05-03] MEDS ORDERED: Warfarin Sodium 5 MG Tab PO ONE (18:00)
[2024-05-03 19:19] VITALS: BP 113/79
--- NOTE | 2024-05-03 19:36 | NUR ---
END OF SHIFT SUMMARY: A&Ox4. PLEASANT AND COOPERATIVE WITH CARE. CALLS APPROPRIATELY AND IS ABLE TO ADVOCATE NEEDS EFFECTIVELY. CONTINENT OF BOWEL; SBA TO BSC c FWW. VARGAS PATENT AND DRAINING TO GRAVITY. LBM TODAY. MEDS WHOLE WITH PUDDING. C/O CONSISTENT PAIN; PAIN MEDS REQUESTED ROUTINELY T/O DAY. HE IS REQUESTING PRN IV DILAUDID AND PO OXY AT THE SAME TIME. DISCUSSION REGARDING ALTERNATING TO AVOID POSSIBLE RESPIRATORY DEPRESSION; HE REPORTS IT WORKS BETTER THSI WAY. NO ACUTE CONCERNS THIS SHIFT. BED IN LOWEST POSITION, CALL LIGHT WITHIN REACH, ALL NEEDS MET. REPORT TO ONCOMING NURSE.
[2024-05-04 03:09] VITALS: BP 96/70
[2024-05-04 05:40] LABS: International Normalized Ratio 2.36; Prothrombin Time Results 23.7 Sec (9.7-11.5)
[2024-05-04 08:20] VITALS: BP 114/73
--- NOTE | 2024-05-04 14:42 | NUR ---
SHIFT SUMMARY PT RESTING QUIETLY AT START OF SHIFT. WOKE EASILY FOR CARE. PT IS MEDICALLY STABLE, WAITING FOR PLACEMENT. GOAL IS TO D/C TO [facility] IF POSSIBLE, TO BE CLOSE TO DAUGHTER. VARGAS TO GRAVITY; PATENT AND DRAINING CL YELLOW. PT STILL REFUSING TO HAVE VARGAS D/C'D. CHEMO SCHEDULE OBTAINED FROM CANCER CENTER AND PLACED ON CHART. PT UP TO BSC FOR BM AGAIN TODAY. LUNGS T/O IMPROVING. PT ABLE TO MANAGE TRACH ON HIS OWN. RT HERE TO MAINTAIN HUMIDIFIED AIR AND TX'S NEEDED. DIRECTOR COMMUNITY HEALTH NURSING HERE EARLIER FOR W/C MEASUREMENTS R/T D/C WHEN PLACEMENT AVAILABLE. MEDICATED FOR C/O PAIN PER EMAR. CALL LT IN REACH. PT ABLE TO MAKE NEEDS KNOWN.
[2024-05-04] MEDS ORDERED: Lidocaine 2% Viscous Soln 20 ML,Nystatin 100,000 Unit/ml Susp 20 ML,Mag Hydrox/Al Hydro... MT PRN (15:50)
[2024-05-04 15:56] VITALS: BP 108/83
[2024-05-04] MEDS ORDERED: Warfarin Sodium 4 MG Tab PO ONE (18:00)
[2024-05-04 19:28] VITALS: BP 106/70
[2024-05-05 04:15] VITALS: BP 92/66
--- NOTE | 2024-05-05 04:20 | NUR ---
SHIFT SUMMARY NO ACUTE EVENTS DURING THIS SHIFT. MAINTAINING O2>92%. MEDICATED FOR 9/10 THROAT PAIN Q4HRS WITH OXYCODONE 10MG AND ADVIL 600MG. VSS. PT IS A&O X4, ABLE TO MAKE HIS NEEDS KNOWN. BED AT THE LOWEST POSITION, CALL LIGHT W/I REACH.
[2024-05-05 05:17] LABS: BASOPHILS ABSOLUTE AUTO 0.04 K/mm3 (0.00-0.23); BASOPHILS PERCENT AUTO 1 % (0-2); EOSINOPHILS ABSOLUTE AUTO 0.01 K/mm3 (0.00-0.68); EOSINOPHILS PERCENT AUTO 0 % (0-6); Hematocrit 34.7 % (37.0-53.0); Hemoglobin 10.9 g/dL (13.5-17.5); IMMATURE GRAN ABSOLUTE AUTO 0.03 K/mm3 (0.00-0.10); IMMATURE GRAN PERCENT AUTO 0 % (0-1); LYMPHOCYTES PERCENT AUTO 9 % (21-46); MONOCYTES ABSOLUTE AUTO 0.34 K/mm3 (0.16-1.47); MONOCYTES PERCENT AUTO 5 % (4-13); Mean Corpuscular HGB 27.7 pg (26.0-34.0); Mean Corpuscular HGB Conc 31.4 g/dL (31.5-36.5); Mean Corpuscular Volume 88 fL (80-100); NEUTROPHILS ABSOLUTE AUTO 6.04 K/mm3 (1.96-9.15); NEUTROPHILS PERCENT AUTO 86 % (41-73); Platelet Count 156 K/mm3 (150-400); RDW Coefficient Variation 15.9 % (11.7-14.2); Red Blood Cell Count 3.93 M/mm3 (4.30-5.90); White Blood Cell Count 7.06 K/mm3 (4.00-11.30)
[2024-05-05 05:34] LABS: International Normalized Ratio 2.09; Prothrombin Time Results 21.2 Sec (9.7-11.5)
[2024-05-05 05:52] LABS: Albumin, Blood 2.7 g/dL (3.4-5.0); Albumin/Globulin Ratio 0.7 (0.8-1.8); Bilirubin, Total 0.3 mg/dL (0.1-1.0); Bun/Creatinine Ratio 33.8 (12.0-20.0); Creatinine, Blood 1.42 mg/dL (0.60-1.20); Globulin, Blood 3.7 g/dL (2.2-4.0); Magnesium, Blood 2.3 mg/dL (1.6-2.4); Potassium, Blood 4.3 mmol/L (3.5-5.5); Total Protein, Blood 6.4 g/dL (6.4-8.2)
[2024-05-05] MEDS ORDERED: Insulin Human Lispro 100 Units/ML 3ML Syringe SC SCH (08:00)
--- NOTE | 2024-05-05 09:00 | NUR ---
Pt laying in bed awake, asking for pain meds, states his pain 8-9/10, a/ox4, difficult to understand due to speech is a whisper, cooperative with care, follows commands well, lungs are clear in upper arce, a bit course in bases, has wet cough,trach in place with copious white sputum production, self suctions, on airvo blow by at 35 liters, hrr, piv to rfa site is clear and patent, btx4, abd flat soft nontender, did not want miralax at first but states his stool is pretty hard, did take it, lynn cath draining yellow urine, skin c/w/d, rita, one person assist to bsc, rafaela, call light in reach.
[2024-05-05 09:22] VITALS: BP 94/62
[2024-05-05 11:53] VITALS: BP 125/75
--- NOTE | 2024-05-05 14:09 | NUR ---
Pt has been discharged to home, iv removed intact, went over discharge instructions with him, he verbalized understanding, no new meds to call in, left via ambulation with all his belongings.
[2024-05-05 16:04] VITALS: BP 110/75
[2024-05-05] MEDS ORDERED: Warfarin Sodium 4 MG Tab PO ONE (18:00)
[2024-05-05] MEDS ORDERED: HYDROmorphone HCl 2 MG Tab PO PRN (18:55)
[2024-05-05] MEDS ORDERED: FentaNYL Citrate 50 MCG/ML 2 ML Injection IV PRN (18:55)
--- NOTE | 2024-05-05 19:26 | NUR ---
pt not getting relief with oxycodone, call to . she ok for iv dilaudid to be used, and will adjust his oral meds, she came to see him, iv dilaudid was given, he reported little relief, ordered more bowel care as well as stools are hard, no further changes this shift. call light in reach.
[2024-05-05 19:32] VITALS: BP 101/67
[2024-05-05] MEDS ORDERED: Docusate Sodium/Senna 1 Tab PO SCH ×2 (21:00)
--- NOTE | 2024-05-06 04:24 | NUR ---
SHIFT SUMMARY PT IS A&O X4, ABLE TO UTILIZE THE CALL LIGHT AND ADVOCATE FOR HIMSELF VERY WELL. PT C/O 9/10 THROAT PAIN. PRN OXYCODONE (Q4HRS) 10MG ADMINISTERED T/O THIS SHIFT. PT REPORTS NOT EFFECTIVE. CONTINUING TO EDUCATE PT R/T MEDICATION REGIMEN. PRN PO DILAUDID 2MG ADMINISTERED ONCE, PT REPORTS NOT EFFECTIVE, AND PREFERS THE OXYCODONE. PRN HS TRAZADONE ADMINISTERED ORDERED. O2>94%, RT MANAGING THE TX'S. PT PRODUCING LARGE AMOUNT OF SPUTUM. VARGAS DRAINING LIGHT YELLOW URINE. NO ACUTE EVENTS DURING THIS SHIFT. BED AT THE LOWEST POSITION, CALL LIGHT WITHIN REACH.
[2024-05-06 05:30] LABS: BASOPHILS ABSOLUTE AUTO 0.04 K/mm3 (0.00-0.23); BASOPHILS PERCENT AUTO 1 % (0-2); EOSINOPHILS ABSOLUTE AUTO 0.01 K/mm3 (0.00-0.68); EOSINOPHILS PERCENT AUTO 0 % (0-6); Hematocrit 36.7 % (37.0-53.0); Hemoglobin 11.6 g/dL (13.5-17.5); IMMATURE GRAN ABSOLUTE AUTO 0.03 K/mm3 (0.00-0.10); IMMATURE GRAN PERCENT AUTO 1 % (0-1); LYMPHOCYTES ABSOLUTE AUTO 0.42 K/mm3 (0.84-5.20); LYMPHOCYTES PERCENT AUTO 8 % (21-46); MONOCYTES ABSOLUTE AUTO 0.24 K/mm3 (0.16-1.47); MONOCYTES PERCENT AUTO 4 % (4-13); Mean Corpuscular HGB Conc 31.6 g/dL (31.5-36.5); Mean Corpuscular Volume 89 fL (80-100); NEUTROPHILS ABSOLUTE AUTO 4.77 K/mm3 (1.96-9.15); NEUTROPHILS PERCENT AUTO 87 % (41-73); Platelet Count 166 K/mm3 (150-400); RDW Coefficient Variation 16.1 % (11.7-14.2); RDW Standard Deviation 50.3 fL (35.1-46.3); Red Blood Cell Count 4.14 M/mm3 (4.30-5.90); White Blood Cell Count 5.51 K/mm3 (4.00-11.30)
[2024-05-06 05:57] LABS: Albumin, Blood 2.8 g/dL (3.4-5.0); Albumin/Globulin Ratio 0.7 (0.8-1.8); Bilirubin, Total 0.3 mg/dL (0.1-1.0); Bun/Creatinine Ratio 34.1 (12.0-20.0); Calcium, Blood 9.4 mg/dL (8.5-10.1); Creatinine, Blood 1.38 mg/dL (0.60-1.20); Globulin, Blood 4.2 g/dL (2.2-4.0); Magnesium, Blood 2.3 mg/dL (1.6-2.4); Potassium, Blood 4.4 mmol/L (3.5-5.5)
[2024-05-06 06:00] LABS: International Normalized Ratio 2.26; Prothrombin Time Results 22.8 Sec (9.7-11.5)
[2024-05-06 06:20] VITALS: BP 106/67
[2024-05-06 07:48] VITALS: BP 98/71
[2024-05-06 15:51] VITALS: BP 128/75
--- NOTE | 2024-05-06 16:42 | NUR ---
SHIFT SUMMARY MR DOHERTY C/O FEELING GENERALLY WEAK. TRACHE WITH COPIOUS SECRETIONS ON HIGH FLOW AIRVO. ENCOURAGED TO COUGH, HE HAS ABDOMINAL HERNIA AND IS SPLINTING HERNIA TO COUGH, BUT ABDOMEN IS SORE. C/O QUITE A LOT OF THROAT AND NECK PAIN, GIVEN PO OXY AND DILAUDID WHICH TAKES THE EDGE OFF IT. NOW C/O NECK PAIN IN THE BACK OF HIS NECK AND HEADACHE, GIVEN MEDICATIONS AND ICE PACK, REPOSITIONED. ABDOMEN IS FIRM AND ROUND, PT SAID HE HAD A STOOL THIS MORNING. GIVEN MIRILAX THIS AM. HE IS EATING AND DRINKING WELL. 20LB WT LOSS SINCE ADMISSION, MICROCOMPUTER SUPPORT SPECIALIST NOTIFIED. VARGAS IN PLACE, DISCUSSED RISKS OF AGING BOX HAND VARGAS PLACEMENT WITH PT. DR ANDERSON DISCUSSED CONTINUED VARGAS PLACEMENT WITH PT AND AT THIS TIME PT WANTS TO KEEP IT IN AND DR ANDERSON IN AGREEMENT. FEET ARE VERY DRY WITH A LOT OF FLAKEY DRY SKIN, SOAKED AND CLEANSED AND LOTION APPLIED. 1 PERSON ASSIST WITH WALKER TO CHAIR AND BED, TIRED AND WEAK BUT STEADY. IN BED NOW, CALL LIGHT IN REACH, REPOSITIONED AT LEAST Q2HRS THROUGHOUT THE DAY.
[2024-05-06] MEDS ORDERED: Warfarin Sodium 4 MG Tab PO ONE (18:00)
[2024-05-06 20:18] VITALS: BP 106/73
--- NOTE | 2024-05-07 04:03 | NUR ---
Pt awake most of shift, a&o x4 VS WNL, lynn to BSD with good UOP, trach to humidified mask, and pt does keep speaking valve on most of time. RT to see Pt whom he did a tx, and deep sxn. Pt with pain in head, neck, and back. Medicated with ibuprofen and oxycodone, using ice packs also for relief. on continuous O2 monitor with sats staying in mid 90's, skin fragile, meds whole with , to start radtx on thursday, and family looking at Adult foster homes, recomendations are for SNF.
[2024-05-07 04:40] VITALS: BP 111/76
[2024-05-07 05:23] LABS: BASOPHILS ABSOLUTE AUTO 0.03 K/mm3 (0.00-0.23); BASOPHILS PERCENT AUTO 1 % (0-2); EOSINOPHILS ABSOLUTE AUTO 0.02 K/mm3 (0.00-0.68); EOSINOPHILS PERCENT AUTO 0 % (0-6); Hematocrit 35.7 % (37.0-53.0); Hemoglobin 11.1 g/dL (13.5-17.5); IMMATURE GRAN ABSOLUTE AUTO 0.02 K/mm3 (0.00-0.10); IMMATURE GRAN PERCENT AUTO 0 % (0-1); LYMPHOCYTES ABSOLUTE AUTO 0.67 K/mm3 (0.84-5.20); LYMPHOCYTES PERCENT AUTO 12 % (21-46); MONOCYTES ABSOLUTE AUTO 0.62 K/mm3 (0.16-1.47); MONOCYTES PERCENT AUTO 11 % (4-13); Mean Corpuscular HGB 27.3 pg (26.0-34.0); Mean Corpuscular HGB Conc 31.1 g/dL (31.5-36.5); Mean Corpuscular Volume 88 fL (80-100); Mean Platelet Volume 9.6 fL (9.1-12.4); NEUTROPHILS PERCENT AUTO 77 % (41-73); Platelet Count 185 K/mm3 (150-400); RDW Coefficient Variation 16.4 % (11.7-14.2); RDW Standard Deviation 51.3 fL (35.1-46.3); Red Blood Cell Count 4.06 M/mm3 (4.30-5.90); White Blood Cell Count 5.76 K/mm3 (4.00-11.30)
[2024-05-07 05:36] LABS: International Normalized Ratio 2.15; Prothrombin Time Results 21.7 Sec (9.7-11.5)
[2024-05-07 05:55] LABS: Albumin, Blood 2.7 g/dL (3.4-5.0); Albumin/Globulin Ratio 0.7 (0.8-1.8); Bilirubin, Total 0.3 mg/dL (0.1-1.0); Bun/Creatinine Ratio 31.7 (12.0-20.0); Calcium, Blood 9.5 mg/dL (8.5-10.1); Creatinine, Blood 1.45 mg/dL (0.60-1.20); Globulin, Blood 3.9 g/dL (2.2-4.0); Magnesium, Blood 2.4 mg/dL (1.6-2.4); Potassium, Blood 4.4 mmol/L (3.5-5.5); Total Protein, Blood 6.6 g/dL (6.4-8.2)
[2024-05-07 07:25] VITALS: BP 104/72
[2024-05-07 15:10] VITALS: BP 110/77
--- NOTE | 2024-05-07 16:41 | NUR ---
SHIFT SUMMARY MR DOHERTY SEEMS TO BE A LITTLE MORE COMFORTABLE TODAY THAN YESTERDAY, STILL REQUIRING PAIN MEDICATIONS TO TAKE THE EDGE OFF THE PAIN BUT LOOKS MORE COMFORTABLE BETWEEN DOSES. ON 35% AIRVO TO TRACHE ON CONTINUOUS PULSE OX IN THE 90S. STRONG PRODUCTIVE COUGH, YELLOW/BROWN SPUTUM EXPECTORATED. TRACHE AREA CLEANSED AND NEW GAUZE DRESSING APPLIED. UP TO CHAIR TODAY AND STOOD WITH THE WALKER AND MARCHED IN PLACE FOR EXERCISE. FEET WITH DRY SCALY SKIN SOAKED AND CLEANSED, LOTION APPLIED. VARGAS TO BEDSIDE DRAINAGE WITH CLEAR YELLOW URINE. VARGAS REMOVAL READDRESSED WITH MR DOHERTY BUT HE IS TOO CONCERNED TO ALLOW ME TO REMOVE VARGAS CATHETER. HE SAID IT HAS BEEN ROTATIONALLY CHANGED OUT DURING ADMISSION. GOOD UOP. SMALL BM. BED LOW, CALL LIGHT IN REACH AND CALLING APPROPRIATELY.
[2024-05-07] MEDS ORDERED: Warfarin Sodium 4 MG Tab PO ONE (18:00)
[2024-05-07 20:06] VITALS: BP 115/66
--- NOTE | 2024-05-08 04:07 | NUR ---
SHIFT SUMMARY PATIENT IS ALERT AND ORIENTED. PATIENT HAS HAD NO ACUTE EVENTS THIS SHIFT. VITAL SIGNS REVIEWED. PATIENT HAS BEEN UP OFF AND ON MOST OF NIGHT. PATIENT REQUESTED SLEEP MEDICATION WHICH SEEMED EFFECTIVE. PATIENT HAS BEEN MEDICATED WITH PAIN MEDICATIONS PER EMAR. PATIENT HAS HAD NO NAUSEA, VOMITTING OR SOB THIS SHIFT. PATIENT HAS BEEN ON 40% AIRVO TO TRACH AFTER PATIENT HAS PERIODS OF DESATTING. PATIENT STILL HAS PRODUCTIVE COUGH. PATIENTS VARGAS IS PATENT AND DRAINING TO GRAVITY. BED IN LOCKED AND LOWEST POSITION. CALL LIGHT IN PLACE. WILL MONITOR UNTIL SHIFT CHANGE.
[2024-05-08 05:49] LABS: BASOPHILS ABSOLUTE AUTO 0.03 K/mm3 (0.00-0.23); BASOPHILS PERCENT AUTO 0 % (0-2); EOSINOPHILS ABSOLUTE AUTO 0.01 K/mm3 (0.00-0.68); EOSINOPHILS PERCENT AUTO 0 % (0-6); Hematocrit 33.7 % (37.0-53.0); Hemoglobin 10.7 g/dL (13.5-17.5); IMMATURE GRAN ABSOLUTE AUTO 0.02 K/mm3 (0.00-0.10); IMMATURE GRAN PERCENT AUTO 0 % (0-1); LYMPHOCYTES ABSOLUTE AUTO 0.64 K/mm3 (0.84-5.20); LYMPHOCYTES PERCENT AUTO 9 % (21-46); MONOCYTES ABSOLUTE AUTO 0.74 K/mm3 (0.16-1.47); MONOCYTES PERCENT AUTO 10 % (4-13); Mean Corpuscular HGB 27.5 pg (26.0-34.0); Mean Corpuscular HGB Conc 31.8 g/dL (31.5-36.5); Mean Corpuscular Volume 87 fL (80-100); Mean Platelet Volume 9.5 fL (9.1-12.4); NEUTROPHILS ABSOLUTE AUTO 5.96 K/mm3 (1.96-9.15); NEUTROPHILS PERCENT AUTO 81 % (41-73); Platelet Count 215 K/mm3 (150-400); RDW Coefficient Variation 16.5 % (11.7-14.2); RDW Standard Deviation 49.7 fL (35.1-46.3); Red Blood Cell Count 3.89 M/mm3 (4.30-5.90)
[2024-05-08 06:03] LABS: International Normalized Ratio 2.37; Prothrombin Time Results 23.8 Sec (9.7-11.5)
[2024-05-08 06:25] LABS: Albumin, Blood 2.6 g/dL (3.4-5.0); Albumin/Globulin Ratio 0.7 (0.8-1.8); Bilirubin, Total 0.3 mg/dL (0.1-1.0); Bun/Creatinine Ratio 33.9 (12.0-20.0); Calcium, Blood 9.2 mg/dL (8.5-10.1); Creatinine, Blood 1.24 mg/dL (0.60-1.20); Globulin, Blood 3.9 g/dL (2.2-4.0); Magnesium, Blood 2.2 mg/dL (1.6-2.4); Potassium, Blood 4.2 mmol/L (3.5-5.5); Total Protein, Blood 6.5 g/dL (6.4-8.2)
[2024-05-08 07:22] VITALS: BP 111/67
[2024-05-08 09:57] VITALS: BP 113/75
--- NOTE | 2024-05-08 15:38 | NUR ---
SHIFT SUMMARY MR DOHERTY HAS BEEN TIRED TODAY, MORE EMOTIONAL, VERBALISING GRIEF FOR LOSS OF HIS STRENGTH AND FOR THE CANCER DIAGNOSIS. HIS DAUGHTER IS VISITING FROM [place] TODAY. HE SPENT MOST OF THE MORNING IN BED BUT HAS BEEN UP IN THE CHAIR THIS AFTERNOON. HE WALKED WITH HIS WALKER, GAIT BELT, O2 AND ASSISTANCE AROUND THE HALLS AND DID WELL, RESTING A COUPLE OF TIMES BUT WALKED APPROX 100FT. CONTINUOUS PULSE OX IN THE 90S ON 46% AIRVO. TRACHE AREA CLEANSED, MODERATE AMOUNT OF YELLOW SPUTUM AROUND TRACHE. FEET SOAKED AND LOTION APPLIED, SKIN LOOKS LESS SCALY AFTER 3RD DAY OF SOAKING AND LOTION. LARGE HARD BM. HE HAS BEEN DRINKING LOTS OF FLUIDS AND TOOK MIRILAX THIS MORNING. PAIN LEVEL SIMILAR TO YESTERDAY 6-8 TO THROAT/NECK AREA. CALL LIGHT IN REACH AND MR DOHERTY IS USING IT APPROPRIATELY.
[2024-05-08] MEDS ORDERED: Warfarin Sodium 5 MG Tab PO ONE (18:00)
[2024-05-08 19:16] VITALS: BP 104/69
[2024-05-09 03:40] VITALS: BP 107/64
[2024-05-09 05:30] LABS: BASOPHILS ABSOLUTE AUTO 0.03 K/mm3 (0.00-0.23); BASOPHILS PERCENT AUTO 1 % (0-2); EOSINOPHILS ABSOLUTE AUTO 0.04 K/mm3 (0.00-0.68); EOSINOPHILS PERCENT AUTO 1 % (0-6); Hematocrit 33.8 % (37.0-53.0); Hemoglobin 10.9 g/dL (13.5-17.5); IMMATURE GRAN ABSOLUTE AUTO 0.02 K/mm3 (0.00-0.10); IMMATURE GRAN PERCENT AUTO 0 % (0-1); LYMPHOCYTES ABSOLUTE AUTO 0.67 K/mm3 (0.84-5.20); LYMPHOCYTES PERCENT AUTO 10 % (21-46); MONOCYTES ABSOLUTE AUTO 0.85 K/mm3 (0.16-1.47); MONOCYTES PERCENT AUTO 13 % (4-13); Mean Corpuscular HGB 28.2 pg (26.0-34.0); Mean Corpuscular HGB Conc 32.2 g/dL (31.5-36.5); Mean Corpuscular Volume 87 fL (80-100); Mean Platelet Volume 9.5 fL (9.1-12.4); NEUTROPHILS ABSOLUTE AUTO 4.91 K/mm3 (1.96-9.15); NEUTROPHILS PERCENT AUTO 75 % (41-73); Platelet Count 247 K/mm3 (150-400); RDW Coefficient Variation 16.6 % (11.7-14.2); RDW Standard Deviation 51.3 fL (35.1-46.3); Red Blood Cell Count 3.87 M/mm3 (4.30-5.90); White Blood Cell Count 6.52 K/mm3 (4.00-11.30)
[2024-05-09 05:44] LABS: International Normalized Ratio 2.3; Prothrombin Time Results 23.1 Sec (9.7-11.5)
[2024-05-09 05:57] LABS: Albumin, Blood 2.6 g/dL (3.4-5.0); Albumin/Globulin Ratio 0.7 (0.8-1.8); Bilirubin, Total 0.3 mg/dL (0.1-1.0); Calcium, Blood 9.2 mg/dL (8.5-10.1); Creatinine, Blood 1.25 mg/dL (0.60-1.20); Globulin, Blood 3.9 g/dL (2.2-4.0); Magnesium, Blood 2.5 mg/dL (1.6-2.4); Potassium, Blood 4.1 mmol/L (3.5-5.5); Total Protein, Blood 6.5 g/dL (6.4-8.2)
[2024-05-09 07:08] VITALS: BP 106/71
[2024-05-09 15:22] VITALS: BP 114/69
--- NOTE | 2024-05-09 16:25 | NUR ---
SHIFT SUMMARY A&OX4, COOPERATIVE WITH CARE, ANXIOUS ABOUT RADIATION APPT TOMORROW. CALLS APPROPRIATELY. NO ACUTE EVENTS THIS SHIFT. DEEP SUCTION DONE BY RT, PT SUCTIONS INDEPENDENTLY. REDDISH/BROWN TINGED SPUTUM NOTED. PAIN CONTROLLED PER EMAR. PATIENT DENIES CP/PRESSURE, HEADACHE, DIZZINESS, OR HEADACHE. CURRENTLY ON 46% AIRVO AND 6L O2. LBM TODAY. APPT SCHEDULED TOMORROW AT [facility] AT 12, TRANSPORT CONFIRMED FOR 1130. REMINDER TO SEND 2-3 O2 TANKS WITH PATIENT. CURRENTLY WATCHING TV. CALL LIGHT WITHIN REACH.
[2024-05-09] MEDS ORDERED: Warfarin Sodium 4 MG Tab PO SCH (18:00)
[2024-05-09 18:58] VITALS: BP 104/63
[2024-05-10 04:07] VITALS: BP 108/75
--- NOTE | 2024-05-10 05:22 | NUR ---
PT HAD A ROUGH NIGHT, HE IS VERY ANXIOUS ABOUT DX AND RADIATION STARTING 05/10/24. PAIN INTERVETIONS OFFERED LITTE RELIEF UNTIL ABOUT 0200 WHEN PT FELL ASLEEP. OBESSIVE WITH TRACH SUCTIONING AT BEDSIDE AND REQUESTED TRACH DRESSING CHANGE FROM RT. RT DECLINED D/T DRESSING BEING CHANGED TODAY AND NOT NECESSARY, LISTED AND OFFERED SUPPORT. OFFERED TO CALL PT [employer], PT DECLINED.
[2024-05-10 06:03] LABS: BASOPHILS ABSOLUTE AUTO 0.04 K/mm3 (0.00-0.23); BASOPHILS PERCENT AUTO 1 % (0-2); EOSINOPHILS ABSOLUTE AUTO 0.09 K/mm3 (0.00-0.68); EOSINOPHILS PERCENT AUTO 1 % (0-6); Hematocrit 34.9 % (37.0-53.0); Hemoglobin 10.8 g/dL (13.5-17.5); IMMATURE GRAN ABSOLUTE AUTO 0.02 K/mm3 (0.00-0.10); IMMATURE GRAN PERCENT AUTO 0 % (0-1); LYMPHOCYTES ABSOLUTE AUTO 0.83 K/mm3 (0.84-5.20); LYMPHOCYTES PERCENT AUTO 13 % (21-46); MONOCYTES ABSOLUTE AUTO 0.95 K/mm3 (0.16-1.47); MONOCYTES PERCENT AUTO 14 % (4-13); Mean Corpuscular HGB 27.6 pg (26.0-34.0); Mean Corpuscular HGB Conc 30.9 g/dL (31.5-36.5); Mean Corpuscular Volume 89 fL (80-100); Mean Platelet Volume 9.4 fL (9.1-12.4); NEUTROPHILS ABSOLUTE AUTO 4.71 K/mm3 (1.96-9.15); NEUTROPHILS PERCENT AUTO 71 % (41-73); Platelet Count 302 K/mm3 (150-400); RDW Coefficient Variation 16.8 % (11.7-14.2); RDW Standard Deviation 53.2 fL (35.1-46.3); Red Blood Cell Count 3.92 M/mm3 (4.30-5.90); White Blood Cell Count 6.64 K/mm3 (4.00-11.30)
[2024-05-10 06:30] LABS: International Normalized Ratio 2.07
[2024-05-10 06:36] LABS: Albumin, Blood 2.6 g/dL (3.4-5.0); Albumin/Globulin Ratio 0.6 (0.8-1.8); Bilirubin, Total 0.3 mg/dL (0.1-1.0); Bun/Creatinine Ratio 31.5 (12.0-20.0); Calcium, Blood 9.6 mg/dL (8.5-10.1); Creatinine, Blood 1.49 mg/dL (0.60-1.20); Globulin, Blood 4.1 g/dL (2.2-4.0); Magnesium, Blood 2.6 mg/dL (1.6-2.4); Potassium, Blood 4.5 mmol/L (3.5-5.5); Total Protein, Blood 6.7 g/dL (6.4-8.2)
[2024-05-10 08:02] VITALS: BP 118/72
--- NOTE | 2024-05-10 12:30 | NUR ---
PATIENT LEFT UNIT AT [address] [place] [address] FOR FIRST RADIATION. HE LEFT UNIT VIA WHEELCHAIR TRANSPORT WITH [facility] AND WAS GIVEN 3 PORTABLE OXYGEN TANKS TO LAST THROUGH PROCEDURE.
[2024-05-10 14:26] VITALS: BP 146/84
[2024-05-10 16:04] LABS: Source, Urine Foley catheter
[2024-05-10 16:07] LABS: Appearance, Urine Clear (Clear); Bilirubin, Urine Neg (Neg); Blood, Urine 5+ (Neg); Color, Urine Yellow (P-Yellow); Glucose Qualitative, Urine 4+ (Neg); Ketones, Urine Neg (Neg); Leukocyte Esterase, Urine Neg (Neg); Nitrite, Urine Neg (Neg); Protein, Urine Neg (Neg); Urobilinogen, Urine NORM (Normal)
[2024-05-10 17:03] LABS: White Blood Cells, Urine 0-2 /hpf (0-5)
[2024-05-10 17:05] LABS: Bacteria Few /hpf; Squamous Epithelial Cells Rare /hpf (Few)
[2024-05-10] MEDS ORDERED: Warfarin Sodium 4 MG Tab PO SCH (18:00)
[2024-05-10 19:18] VITALS: BP 98/67
--- NOTE | 2024-05-10 19:25 | NUR ---
SHIFT SUMMARY PT A/OX4. AIRVOW AT SETTINGS MAINTAINING SATS ABOVE 90%. PT TOLERATING DIET. PILLS IN PUDDING. PRN PAIN FOR GENERALIZED PAIN TO THROAT AND UPPER THORACIC CAVITY. PATIENT CONTINUES TO REPORT A PAIN LEVEL OF 8/10. PATIENT TRANSFERRED TO [facility] BUT DID NOT RECIEVE RADIATION THERAPY THEY NEED TO MAKE ADJUSTMENTS, PT REPORTS HE WILL GO BACK IN APPROXIMATELY 2 DAYS. PAPERWORK FROM [facility]CER CENTER PLACED IN CHART. VARGAS CATHETER REPLACED TODAY AND URINALYSIS SENT PER PROTOCOL. 1 PERSON ASSIST TO BSC. ABLE TO MAKE NEEDS KNOWN. CALLS FREQUENTLY. RT CHANGED DRESSING AROUND TRACH, DUE TO SOILAGE. INNER CANNULA WAS CHANGED 05/09
[2024-05-11 01:32] VITALS: BP 109/65
--- NOTE | 2024-05-11 05:12 | NUR ---
AAOX4, COOPERATIVE AND PLEASANT. MINIMAL ASSIST TO BSC WITH WALKER. C/O CONSTIPATION, NO BM THIS SHIFT. PT ALBE TO MANAGE SECRRTIONS WITH SUCTION AT BEDSIDE. RADIATION DID NOT WORK ON 05/10/24 D/T MALFUCTION WITH MASK FIT AND RADIATION RAY, ONCOLOGY WILL FIX AND PLAN IS TO HAVE RADIATION IN 2-3 DAYS. PT VOICED FEELING OF FEAR OF RADIATION AND HIS CA DX, LISTENED AND SYMPATHIZED WITH PT, OFFERED SPIRITAL VISIT OR CARE MANAGEMENT, PT WILL CONSIDER.
[2024-05-11 06:01] LABS: BASOPHILS ABSOLUTE AUTO 0.03 K/mm3 (0.00-0.23); BASOPHILS PERCENT AUTO 1 % (0-2); EOSINOPHILS ABSOLUTE AUTO 0.16 K/mm3 (0.00-0.68); EOSINOPHILS PERCENT AUTO 3 % (0-6); Hematocrit 35.4 % (37.0-53.0); Hemoglobin 11.1 g/dL (13.5-17.5); IMMATURE GRAN ABSOLUTE AUTO 0.03 K/mm3 (0.00-0.10); IMMATURE GRAN PERCENT AUTO 1 % (0-1); LYMPHOCYTES PERCENT AUTO 15 % (21-46); MONOCYTES ABSOLUTE AUTO 0.74 K/mm3 (0.16-1.47); MONOCYTES PERCENT AUTO 14 % (4-13); Mean Corpuscular HGB 27.6 pg (26.0-34.0); Mean Corpuscular HGB Conc 31.4 g/dL (31.5-36.5); Mean Corpuscular Volume 88 fL (80-100); Mean Platelet Volume 8.9 fL (9.1-12.4); NEUTROPHILS PERCENT AUTO 67 % (41-73); Platelet Count 354 K/mm3 (150-400); RDW Coefficient Variation 16.7 % (11.7-14.2); RDW Standard Deviation 52.8 fL (35.1-46.3); Red Blood Cell Count 4.02 M/mm3 (4.30-5.90); White Blood Cell Count 5.36 K/mm3 (4.00-11.30)
[2024-05-11 06:24] LABS: International Normalized Ratio 2.45; Prothrombin Time Results 24.5 Sec (9.7-11.5)
[2024-05-11 06:25] LABS: Albumin, Blood 2.7 g/dL (3.4-5.0); Albumin/Globulin Ratio 0.7 (0.8-1.8); Bilirubin, Total 0.3 mg/dL (0.1-1.0); Calcium, Blood 9.7 mg/dL (8.5-10.1); Creatinine, Blood 1.28 mg/dL (0.60-1.20); Globulin, Blood 4.1 g/dL (2.2-4.0); Magnesium, Blood 2.6 mg/dL (1.6-2.4); Potassium, Blood 4.2 mmol/L (3.5-5.5); Total Protein, Blood 6.8 g/dL (6.4-8.2)
[2024-05-11 08:00] VITALS: BP 110/71
--- NOTE | 2024-05-11 14:11 | NUR ---
Spiritual Care Visit. Pt. is awake in bed and welcomed my visit. This caramel candy maker sat down and facilitated a lengthy life review and update. For several moments matters of hay and belief are considered. Pt. displays evidence of being engaged and aware. Prayed with the Pt. Pt. verbalized gratitude for the spiritual care visit.
--- NOTE | 2024-05-11 16:55 | NUR ---
SUMMARY NO ACUTE CHANGES THIS SHIFT, PLAN FOR CHEMO AFTER MASK IS FITTED APPROPRIATELY. PT IS ALERT AND ORIENTED X4, ABLE TO EXPRESS NEEDS. NO CHANGE IN O2 NEEDS.
[2024-05-11] MEDS ORDERED: Warfarin Sodium 5 MG Tab PO ONE (18:00)
[2024-05-11 18:14] VITALS: BP 115/79
[2024-05-11 19:27] VITALS: BP 108/70
[2024-05-12 02:55] VITALS: BP 104/68
[2024-05-12 05:03] LABS: BASOPHILS ABSOLUTE AUTO 0.04 K/mm3 (0.00-0.23); BASOPHILS PERCENT AUTO 1 % (0-2); EOSINOPHILS ABSOLUTE AUTO 0.17 K/mm3 (0.00-0.68); EOSINOPHILS PERCENT AUTO 3 % (0-6); Hematocrit 35.9 % (37.0-53.0); Hemoglobin 11.2 g/dL (13.5-17.5); IMMATURE GRAN ABSOLUTE AUTO 0.03 K/mm3 (0.00-0.10); IMMATURE GRAN PERCENT AUTO 1 % (0-1); LYMPHOCYTES PERCENT AUTO 15 % (21-46); MONOCYTES ABSOLUTE AUTO 0.66 K/mm3 (0.16-1.47); MONOCYTES PERCENT AUTO 12 % (4-13); Mean Corpuscular HGB 27.9 pg (26.0-34.0); Mean Corpuscular HGB Conc 31.2 g/dL (31.5-36.5); Mean Corpuscular Volume 90 fL (80-100); NEUTROPHILS ABSOLUTE AUTO 3.61 K/mm3 (1.96-9.15); NEUTROPHILS PERCENT AUTO 68 % (41-73); Platelet Count 425 K/mm3 (150-400); RDW Coefficient Variation 16.9 % (11.7-14.2); RDW Standard Deviation 53.7 fL (35.1-46.3); Red Blood Cell Count 4.01 M/mm3 (4.30-5.90); White Blood Cell Count 5.31 K/mm3 (4.00-11.30)
[2024-05-12 05:30] LABS: Albumin, Blood 2.7 g/dL (3.4-5.0); Albumin/Globulin Ratio 0.7 (0.8-1.8); Bilirubin, Total 0.3 mg/dL (0.1-1.0); Bun/Creatinine Ratio 30.6 (12.0-20.0); Calcium, Blood 9.6 mg/dL (8.5-10.1); Creatinine, Blood 1.44 mg/dL (0.60-1.20); Globulin, Blood 4.1 g/dL (2.2-4.0); Magnesium, Blood 2.5 mg/dL (1.6-2.4); Potassium, Blood 4.5 mmol/L (3.5-5.5); Total Protein, Blood 6.8 g/dL (6.4-8.2)
--- NOTE | 2024-05-12 05:50 | NUR ---
AAOX4, MAKES NEED KNOW WITH CALL LIGHT. HAD A LATE SUPER, 1600 INSULIN GIVEN LATE. SLEPT OFF AND ON THROUGHOUT THE NIGHT. PAIN MEDICATION GIVEN PRN. ABLE TO MANAGE SECRETIONS FROM TRACH WITH SUCTION @ BEDSIDE. INQUIRED ABOUT RADIATION APPT, REMINDED PT THE CENTER IS WORKING ON HIS MASK AND WILL CALL WHEN READY.
[2024-05-12 05:53] LABS: International Normalized Ratio 2.68; Prothrombin Time Results 26.7 Sec (9.7-11.5)
[2024-05-12 07:03] VITALS: BP 113/75
[2024-05-12] MEDS ORDERED: Protein Supplement 30 ML UD PO SCH (09:00)
[2024-05-12] MEDS ORDERED: Warfarin Sodium 5 MG Tab PO SCH (18:00)
--- NOTE | 2024-05-12 19:16 | NUR ---
SHIFT SUMMARY PATIENT A/OX4, ABLE TO MAKE NEEDS KNONW. PLEASANT AND COOPERATVIE WITH CARE. RESPIRATORY AT BEDSIDE MULTIPLE TIMES THROUGHOUT THE DAY, CHANGED DRESSING TO TRACH SITE AND APPLIED VASOLINE PER DR. BJ ALAMO. SAM IN PLACE. PATIENT TRANSPORTED TO [facility] THIS EVENING FOR RADIATION, PATIENT TOLERATED WELL. PRN DILAUDID AND OXYCODONE ADMINISTERED MULTIPLE TIMES THIS SHIFT, PER AUG. PLAN FOR RADIATION AGAIN TOMORROW MORNING AT 0915. NO OTHER CONCERNS AT THIS TIME.
[2024-05-12 20:07] VITALS: BP 106/75
[2024-05-13 03:21] VITALS: BP 95/61
--- NOTE | 2024-05-13 05:01 | NUR ---
AAOX4, ANXIOUS AND AFRAID TO FALL ASLEEP D/T SOB, O2 SAT 90'S. USES CALL LIGHT WELL. RT CALLED AND TUBE IN TRACH CHANGED WHICH HELPED. ASSISTED TO BSC NEEDED. PRN PAIN MEDICTION GIVEN FOR THROAT TO ABDOMEN PAIN. RADIATION @ 0945 AND TRANSIT WILL CAGE TENDER @0915.
[2024-05-13 06:40] LABS: BASOPHILS ABSOLUTE AUTO 0.06 K/mm3 (0.00-0.23); BASOPHILS PERCENT AUTO 1 % (0-2); EOSINOPHILS ABSOLUTE AUTO 0.33 K/mm3 (0.00-0.68); EOSINOPHILS PERCENT AUTO 5 % (0-6); Hematocrit 35.1 % (37.0-53.0); Hemoglobin 10.9 g/dL (13.5-17.5); IMMATURE GRAN ABSOLUTE AUTO 0.05 K/mm3 (0.00-0.10); IMMATURE GRAN PERCENT AUTO 1 % (0-1); LYMPHOCYTES ABSOLUTE AUTO 0.68 K/mm3 (0.84-5.20); LYMPHOCYTES PERCENT AUTO 9 % (21-46); MONOCYTES ABSOLUTE AUTO 0.83 K/mm3 (0.16-1.47); MONOCYTES PERCENT AUTO 11 % (4-13); Mean Corpuscular HGB 27.8 pg (26.0-34.0); Mean Corpuscular HGB Conc 31.1 g/dL (31.5-36.5); Mean Corpuscular Volume 90 fL (80-100); Mean Platelet Volume 9.1 fL (9.1-12.4); NEUTROPHILS ABSOLUTE AUTO 5.33 K/mm3 (1.96-9.15); NEUTROPHILS PERCENT AUTO 73 % (41-73); Platelet Count 469 K/mm3 (150-400); RDW Coefficient Variation 17.1 % (11.7-14.2); RDW Standard Deviation 54.6 fL (35.1-46.3); Red Blood Cell Count 3.92 M/mm3 (4.30-5.90); White Blood Cell Count 7.28 K/mm3 (4.00-11.30)
[2024-05-13 06:50] LABS: International Normalized Ratio 2.31; Prothrombin Time Results 23.2 Sec (9.7-11.5)
[2024-05-13 07:05] LABS: Albumin, Blood 2.7 g/dL (3.4-5.0); Albumin/Globulin Ratio 0.7 (0.8-1.8); Bilirubin, Total 0.3 mg/dL (0.1-1.0); Bun/Creatinine Ratio 34.9 (12.0-20.0); Calcium, Blood 9.8 mg/dL (8.5-10.1); Creatinine, Blood 1.26 mg/dL (0.60-1.20); Magnesium, Blood 2.2 mg/dL (1.6-2.4); Potassium, Blood 4.1 mmol/L (3.5-5.5); Total Protein, Blood 6.7 g/dL (6.4-8.2)
[2024-05-13 07:06] VITALS: BP 103/65
--- NOTE | 2024-05-13 14:32 | NUR ---
A/O VERY PLEASENT ARVO 35 TO 45%, PT FEEDING SELF AND ABLE TO MAKE NEEDS KNOWN. NO S/S OF DISTRESS.
--- NOTE | 2024-05-13 14:33 | NUR ---
0915 PT TRANSFERED TO ONCOLOGY RADIATION.
--- NOTE | 2024-05-13 14:34 | NUR ---
1030 PT BACK FROM RADIATION, NOW UP IN CHAIR WAITING FOR LUNCH.
--- NOTE | 2024-05-13 14:37 | NUR ---
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 PT NOW EATING ATY BEDSIDE
[2024-05-13] MEDS ORDERED: Warfarin Sodium 4 MG Tab PO SCH (18:00)
--- NOTE | 2024-05-13 19:25 | NUR ---
NO CHANGE PT AT BEDSIDE CALL LIGHT WITHIN REACH MAKES NEEDS KNOWN
[2024-05-13 20:13] VITALS: BP 91/66
[2024-05-14 04:38] VITALS: BP 100/67
[2024-05-14 06:03] LABS: BASOPHILS ABSOLUTE AUTO 0.05 K/mm3 (0.00-0.23); BASOPHILS PERCENT AUTO 1 % (0-2); EOSINOPHILS PERCENT AUTO 5 % (0-6); Hematocrit 36.1 % (37.0-53.0); Hemoglobin 11.2 g/dL (13.5-17.5); IMMATURE GRAN ABSOLUTE AUTO 0.03 K/mm3 (0.00-0.10); IMMATURE GRAN PERCENT AUTO 1 % (0-1); LYMPHOCYTES ABSOLUTE AUTO 0.77 K/mm3 (0.84-5.20); LYMPHOCYTES PERCENT AUTO 12 % (21-46); MONOCYTES ABSOLUTE AUTO 0.79 K/mm3 (0.16-1.47); MONOCYTES PERCENT AUTO 12 % (4-13); Mean Corpuscular HGB 27.7 pg (26.0-34.0); Mean Corpuscular Volume 89 fL (80-100); NEUTROPHILS ABSOLUTE AUTO 4.59 K/mm3 (1.96-9.15); NEUTROPHILS PERCENT AUTO 70 % (41-73); Platelet Count 498 K/mm3 (150-400); RDW Coefficient Variation 17.2 % (11.7-14.2); RDW Standard Deviation 54.4 fL (35.1-46.3); Red Blood Cell Count 4.04 M/mm3 (4.30-5.90); White Blood Cell Count 6.53 K/mm3 (4.00-11.30)
[2024-05-14 06:20] LABS: International Normalized Ratio 2.03; Prothrombin Time Results 20.6 Sec (9.7-11.5)
[2024-05-14 06:33] LABS: Albumin, Blood 2.8 g/dL (3.4-5.0); Albumin/Globulin Ratio 0.7 (0.8-1.8); Bilirubin, Total 0.3 mg/dL (0.1-1.0); Bun/Creatinine Ratio 39.4 (12.0-20.0); Calcium, Blood 9.7 mg/dL (8.5-10.1); Creatinine, Blood 1.37 mg/dL (0.60-1.20); Magnesium, Blood 2.4 mg/dL (1.6-2.4); Potassium, Blood 4.1 mmol/L (3.5-5.5); Total Protein, Blood 6.8 g/dL (6.4-8.2)
--- NOTE | 2024-05-14 06:45 | NUR ---
SHIFT SUMMARY: Pt is admitted for respiratory failure with hypoxia and is a full code. Is alert and able to make needs known. ADLs have been 1p. Pain has been managed with PRN medications. Folly in place and draining clear yellow urine. On airvo with trach to maintain SPO2 greater than 90%. Able to self suction.
[2024-05-14 07:48] VITALS: BP 97/70
[2024-05-14 15:55] VITALS: BP 115/75
[2024-05-14] MEDS ORDERED: Warfarin Sodium 4 MG Tab PO SCH (18:00)
--- NOTE | 2024-05-14 19:15 | NUR ---
REPORT RECEIVED VERIFIED A/O VSS PT DOING WELL TODAY MINIMAL C/O PAIN TO ABD AND THROAT. PT SELF SUCTIONS AND IS WELL AWARE OF HIS ROUTINE AND WHAT HE DIDS AND HOW TO MAKE NEEDS KNOW. DAUGHTER DOWN FROM [facility] AND AT BEDSIDE. ROUTINE BREATHING TREATMENTS IN PROCESS. CALL LIGHT WITHIN REACH
[2024-05-14 19:52] VITALS: BP 113/80
[2024-05-15 05:01] VITALS: BP 112/69
[2024-05-15 06:01] LABS: International Normalized Ratio 2.17; Prothrombin Time Results 21.9 Sec (9.7-11.5)
[2024-05-15 07:23] VITALS: BP 120/75
[2024-05-15 08:53] LABS: BASOPHILS ABSOLUTE AUTO 0.06 K/mm3 (0.00-0.23); BASOPHILS PERCENT AUTO 1 % (0-2); EOSINOPHILS PERCENT AUTO 4 % (0-6); Hematocrit 37.3 % (37.0-53.0); Hemoglobin 11.5 g/dL (13.5-17.5); IMMATURE GRAN ABSOLUTE AUTO 0.05 K/mm3 (0.00-0.10); IMMATURE GRAN PERCENT AUTO 1 % (0-1); LYMPHOCYTES ABSOLUTE AUTO 0.83 K/mm3 (0.84-5.20); LYMPHOCYTES PERCENT AUTO 12 % (21-46); MONOCYTES ABSOLUTE AUTO 0.89 K/mm3 (0.16-1.47); MONOCYTES PERCENT AUTO 13 % (4-13); Mean Corpuscular HGB 27.8 pg (26.0-34.0); Mean Corpuscular HGB Conc 30.8 g/dL (31.5-36.5); Mean Corpuscular Volume 90 fL (80-100); Mean Platelet Volume 9.2 fL (9.1-12.4); NEUTROPHILS ABSOLUTE AUTO 4.98 K/mm3 (1.96-9.15); NEUTROPHILS PERCENT AUTO 70 % (41-73); Platelet Count 582 K/mm3 (150-400); RDW Coefficient Variation 17.4 % (11.7-14.2); Red Blood Cell Count 4.14 M/mm3 (4.30-5.90); White Blood Cell Count 7.11 K/mm3 (4.00-11.30)
[2024-05-15 09:02] LABS: Bun/Creatinine Ratio 37.4 (12.0-20.0); Calcium, Blood 9.7 mg/dL (8.5-10.1); Creatinine, Blood 1.31 mg/dL (0.60-1.20); Potassium, Blood 4.2 mmol/L (3.5-5.5)
[2024-05-15 15:10] VITALS: BP 104/69
--- NOTE | 2024-05-15 16:49 | NUR ---
SUMMARY NO ACUTE CHANGES THIS SHIFT. PT IS ALERT AND ORIENTED X4, ABLE TO MAKE NEEDS KNOWN. TREATED PAIN PER EMAR. PT DOES MAJORITY OF OWN TRACH CARE NEEDED. CBG SCHEDULE ALTERED SLIGHTLY DUE TO PT REQUEST TO EAT LATER IN THE DAY. LARGE BM THIS MORNING.
[2024-05-15] MEDS ORDERED: Warfarin Sodium 4 MG Tab PO SCH (18:00)
[2024-05-15 20:17] VITALS: BP 107/73
[2024-05-16 02:16] VITALS: BP 121/80
--- NOTE | 2024-05-16 06:11 | NUR ---
PT STABLE THROUGHOUT THE SHIFT. PT REMAINED AOX4 AND 1 ASSIST OOB TO BSC. PT REMAINS ON AIRVO 35L AT 36%. PT PAIN HAS BEEN MANAGED WITH PRN PAIN MEDICATIONS BUT NO SIGNIFICANT RELIEF REPORTED. PT WAS ABLE TO GET SOME SLEEP THIS SHIFT BUT IS NOW UPSET AT BEING WOKEN UP BY LAB. PT WAS UNDER IMPRESSION FROM PREVIOUS PHYSICIAN THAT HIS BLOOD DRAWS WOULD BE TWICE A WEEK NOT EVERY MORNING AND IS TIRED OF BEING POKED SO FREQUENTLY. PT VITAL SIGNS REMAIN WNL. PT CONTINUES TO DO SELF TRACH CARE AND IS ABLE TO COMMUNICATE WITH A SPEAKING VALVE AND WRITTING.
[2024-05-16 07:13] VITALS: BP 102/70
--- NOTE | 2024-05-16 07:46 | NUR ---
Spoke sanjuana Joy @ [facility], who was calling to see if patient had been scheduled a ride for ratiation today at 0930. Per Charge, Maria T Judge, transportation not set up as we did not have treatment time. Per Benita, she had given patient a copy of this weeks' schedule when he was there for treatment last week. She will send another copy home with him today to ensure transporation set up for the week. She will also be sending Magic Mouthwash with patient and will include detailed instructions. Will return call when we know if transportation can be set up for today or not. [phone] Ayden Joy
--- NOTE | 2024-05-16 11:32 | NUR ---
PATIENT DECANNULATED THIS MORNING WHILE GETTING READY TO GO TO RADIATION. RT NOTIFIED AND PROMPTLY CAME TO ROOM AND RECANNULATED. PATIENT HAD NO C/O RESPIRATORY DISTRESS OR DISCOMFORT. SATTING WELL ON 8LPM/MASK HE WAS ON CANISTER IN PREPARATION FOR TRANSPORT. PATIENT ALSO REFUSED HIS AM BLOOD DRAW, STATING HE HAD BEEN TOLD HE WAS ONLY GOING TO BE "POKED TWICE A WEEK". DR. BANG NOTIFIED.
--- NOTE | 2024-05-16 11:47 | NUR ---
RADIATION THERAPY SCHEDULE SENT BACK TO HOSPITAL WITH PATIENT. Tx THU-THU x [place] AND NEW YEARS. Tx AND OFFICE VISIT THURSDAYS. COPY GIVEN TO CHARGE, TREMAYNE GAMING RN, TO SCHEDULE TRANSPORTATION. SCHEDULE FOLLOWS: THURSDAY 05/17 @ 0930 - Tx ONLY FRIDAY 05/18 @ 0945 - Tx ONLY SATURDAY 05/19 @ 0930 - Tx AND OFFICE VISIT SUNDAY 05/20 @ 30 - Tx ONLY WEDNESDAY 05/23 @ 30 - Tx ONLY THURSDAY 05/24 @ 30 - Tx ONLY FRIDAY 05/25 @ 0945 - Tx ONLY SATURDAY 05/26 @ 30 - Tx AND OFFICE VISIT SUNDAY 05/27 @ 30 - Tx ONLY WEDNESDAY 05/30 @ 30 - Tx ONLY THURSDAY 05/31 @ 30 - Tx ONLY FRIDAY 06/01 - NO TREATMENT SATURDAY 06/02 @ 30 - Tx AND OFFICE VISIT SUNDAY 06/03 @ 0930 - Tx ONLY WEDNESDAY 06/06 @ 30 - Tx ONLY THURSDAY 06/07 @ 30 - Tx ONLY THURSDAY 06/08 - NO TREATMENT FRIDAY 06/09 @ 30 - Tx AND OFFICE VISIT SATURDAY 06/10 @ 30 - Tx ONLY TUESDAY 06/13 @ 30 - Tx ONLY WEDNESDAY 06/14 @ 30 - Tx ONLY THURSDAY 06/15 @ 30 - Tx ONLY FRIDAY 06/16 @ 30 - Tx AND OFFICE VISIT SATURDAY 06/17 @ 0930 - Tx ONLY TUESDAY 06/20 @ 30 - Tx ONLY WEDNESDAY 06/21 @ 30 - Tx ONLY THURSDAY 06/22 @ 30 - Tx ONLY FRIDAY 06/23 @ 0930 - Tx AND OFFICE VISIT SATURDAY 06/24 @ 0930 - Tx ONLY TUESDAY 06/27 @ 0930 - Tx ONLY WEDNESDAY 06/28 @ 30 - Tx ONLY THURSDAY 06/29 @ 0930 - Tx ONLY FRIDAY 06/30 @ 30 - Tx AND OFFICE VISIT SATURDAY 07/01 @ 0930 - Tx ONLY
[2024-05-16 15:05] VITALS: BP 106/78
[2024-05-16] MEDS ORDERED: Warfarin Sodium 4 MG Tab PO SCH (18:00)
--- NOTE | 2024-05-16 18:45 | NUR ---
DAY SHIFT SUMMARY: A&Ox4. PLEASANT AND COOPERATIVE WITH CARE. DEMONSTRATES PROFICIENT ABILITY TO UTILIZE CALL SYSTEM. SBA c FWW TO BSC. MEDS WHOLE WITH CHOCOLATE PUDDING. VARGAS PATENT AND DRAINING TO GRAVITY. RADIATION TREATMENT TODAY. TRACH DECANNULATED TODAY PRIOR TO LEAVING AND RT IMMEDIATELY RECANNULATED. NO RESPIRATORY DISTRESS AND SATTED APPROPRIATELY FOLLOWING BEDSIDE PROCEDURE AND WENT TO RADIATION WITHOUT ISSUE AFTER PLACEMENT VERIFIED. BROUGHT BACK COPY OF SCHEDULE THROUGH MID. COPY TO TREMAYNE GAMING RN WHO SCHEDULED RIDES THROUGH NEXT WEEK. SCHEDULE COPIED TO CHART NOTE. ALSO CAROLE SAMPLE OF MAGIC MOUTHWASH, WHICH PATIENT WANTED LEFT AT BEDSIDE. COUMADIN HOME DOSE CONTINUED ADN DAILY PT/INRs DC'd PER PATIENT REQUEST. PLANS FOR RADIATION TOMORROW. BED IN LOWEST POSITION. CALL LIGHT WITHIN REACH. REPORT TO ONCOMING NURSE.
[2024-05-16 19:36] VITALS: BP 108/74
--- NOTE | 2024-05-17 01:44 | NUR ---
CARE NOTE- PT REPORTED TRACH FEELS DIFFERENT. PT DID HAVE TRACH DECANULATED ON DAYSHIFT. DAY SHIFT RN REPORTED RT REPLACED TRACH. TONIGHT PROVIDER CALLED AND A CXR WAS ORDERED. PT IN NO DISTRESS.
[2024-05-17 03:52] VITALS: BP 108/71
--- NOTE | 2024-05-17 04:15 | NUR ---
NOC SUMMARY- PAIN HAS BEEN MANAGED WELL. PT HAD ORDERED CXR COMPLETED. PT REMAINS ON AIRVO. PT VARGAS DRAINING TO GRAVITY. PT DENIES SOB. RT AWARE OF ISSUE WITH TRACH. CALL LIGHT IN REACH.
[2024-05-17 07:14] VITALS: BP 107/72
--- NOTE | 2024-05-17 10:48 | NUR ---
pt left room at 0935 for radiation therapy. rt in room prior changing inner cannula and deep suctioning.
[2024-05-17 15:33] VITALS: BP 105/72
--- NOTE | 2024-05-17 16:44 | NUR ---
SHIFT SUMMARY PT TRANSFERRED TO [facility]Y CENTER FOR RADIATION THERAPY AT 0930. RT WAS IN ROOM REPLACING INNER CANNULA AND DOING DEEP SUCTIONING PRIOR TO RADIATION. RT REMOVED A PLUG WITH DEEP SUCTIONING. PT CONTINUES TO SELF SUCTION AND COUGH UP THICH HENDRICKSON MUCUS. CALLS APPROPRIATELY. MAKES NEEDS KNOWN. VARGAS CATHETER PRESENT, NO S/S OF INFECTION. NO IV. NO TELE. 1 PERSON ASSIST WITH FWW TO BSC
[2024-05-17] MEDS ORDERED: Warfarin Sodium 5 MG Tab PO SCH (18:00)
[2024-05-17 19:16] VITALS: BP 91/61
[2024-05-18 03:00] VITALS: BP 104/65
--- NOTE | 2024-05-18 03:45 | NUR ---
NOC SUMMARY- PT PAIN MANAGED WELL. PT REMAINS ON AIRVO, PT DENIES SOB. PT HAS BEEN MANAGING SECRETIONS WELL WITH SUCTION. PT HAS BEEN RESTING QUIETLY THROUGHOUT SHIFT. PT CALLS APPROPIATELY. PT TURNS SELF. CALL LIGHT IN REACH.
[2024-05-18 04:53] LABS: BASOPHILS ABSOLUTE AUTO 0.04 K/mm3 (0.00-0.23); BASOPHILS PERCENT AUTO 1 % (0-2); EOSINOPHILS ABSOLUTE AUTO 0.22 K/mm3 (0.00-0.68); EOSINOPHILS PERCENT AUTO 3 % (0-6); Hematocrit 38.4 % (37.0-53.0); Hemoglobin 11.8 g/dL (13.5-17.5); IMMATURE GRAN ABSOLUTE AUTO 0.04 K/mm3 (0.00-0.10); IMMATURE GRAN PERCENT AUTO 1 % (0-1); LYMPHOCYTES PERCENT AUTO 9 % (21-46); MONOCYTES ABSOLUTE AUTO 0.76 K/mm3 (0.16-1.47); MONOCYTES PERCENT AUTO 10 % (4-13); Mean Corpuscular HGB 27.7 pg (26.0-34.0); Mean Corpuscular HGB Conc 30.7 g/dL (31.5-36.5); Mean Corpuscular Volume 90 fL (80-100); Mean Platelet Volume 8.9 fL (9.1-12.4); NEUTROPHILS ABSOLUTE AUTO 6.12 K/mm3 (1.96-9.15); NEUTROPHILS PERCENT AUTO 78 % (41-73); Platelet Count 562 K/mm3 (150-400); RDW Coefficient Variation 17.7 % (11.7-14.2); RDW Standard Deviation 57.1 fL (35.1-46.3); Red Blood Cell Count 4.26 M/mm3 (4.30-5.90); White Blood Cell Count 7.88 K/mm3 (4.00-11.30)
[2024-05-18 05:06] LABS: International Normalized Ratio 2.18
[2024-05-18 05:13] LABS: Albumin/Globulin Ratio 0.7 (0.8-1.8); Bilirubin, Total 0.4 mg/dL (0.1-1.0); Bun/Creatinine Ratio 43.2 (12.0-20.0); Creatinine, Blood 1.25 mg/dL (0.60-1.20); Globulin, Blood 4.3 g/dL (2.2-4.0); Potassium, Blood 4.1 mmol/L (3.5-5.5); Total Protein, Blood 7.3 g/dL (6.4-8.2)
[2024-05-18 07:31] VITALS: BP 102/69
--- NOTE | 2024-05-18 10:04 | NUR ---
PATIENT TO RADIATION VIA TRANSPORT
--- NOTE | 2024-05-18 11:58 | NUR ---
PATEINT BACK FROM RADIATION, CALL LIGHT WITH IN REACH
[2024-05-18 14:57] VITALS: BP 113/64
--- NOTE | 2024-05-18 16:08 | NUR ---
NO ACUTE CHANGES, TRANSPORTED FOR RADIATION TODAY, ALERT AND OREINTED X4, CLEARS CONGESTIONS AND DOES SUCTION TO TRACH INDEPEDANTLY, EASILY REPOSITIONS SELF IN BED, BM TODAY, MEDICATED FOR PAIN, MAKES NEEDS KNOWN, PATIENT EMOTIONAL TODAY CRYING AND SAYING "SORRY" REGULARLY TO STAFF. CALL LIGHT WITH IN REACH, WILL RELAY TO PM CHUY
[2024-05-18] MEDS ORDERED: Rivaroxaban 10 MG Tab PO SCH (18:00)
[2024-05-18] MEDS ORDERED: Warfarin Sodium 4 MG Tab PO SCH (18:00)
[2024-05-18 19:37] VITALS: BP 114/74
[2024-05-19 04:12] VITALS: BP 103/65
--- NOTE | 2024-05-19 06:23 | NUR ---
PATIENT IS A&OX4. PATIENT CALLS APPROPRIATELY AND IS ABLE TO MAKE HIS NEEDS KNOWN. PATIENT HAS RESTED OFF AND ON T/O SHIFT. RT IN TO SEE PATIENT SEVERAL TIMES THIS SHIFT. RT REPORTS THAT PORTABLE OXYGEN IS SET TO GO FOR PATIENTS RADIATION-TURN PORTABLE OXYGEN TO [address] ON PATIENT AND PATIENT WILL BE READY TO GO FROM AN RT STAND POINT. PATIENT PREPARED HIS STUFF THIS MORNING FOR RADIATION. PATIENT C/O PAIN-MEDICATED PER ORDERS; SEE EMAR. BED IS LOCKED IN THE LOWEST POSITION WITH CALL LIGHT IN REACH. CARE IS ONGOING.
[2024-05-19 07:31] VITALS: BP 107/71
--- NOTE | 2024-05-19 09:00 | NUR ---
pt laying in bed, awake a/ox4, cooperative with care, impulsive, lungs are clear dim t/o, resp even and unlabored, no cough noted, trach noise noted, currently on 7 liters 02 blow by, self suctions, hrr, no edema noted, ppp+1, cap refill <3 sec, vs stable, afebrile, btx4, reports reg bm's and declined mirlax this am, lynn cath draining clear yellow urine, skin c/w/d, maew, up ad armando in room, call light in reach.
[2024-05-19 16:10] VITALS: BP 116/77
--- NOTE | 2024-05-19 17:59 | NUR ---
Pt up to chair this after noon, went to radiation, tolerated well, requires pain meds every four hrs, asleep at this time, call light in reach.
[2024-05-19] MEDS ORDERED: Rivaroxaban 10 MG Tab PO SCH (18:00)
[2024-05-19 19:19] VITALS: BP 101/68
[2024-05-20 04:50] VITALS: BP 108/65
--- NOTE | 2024-05-20 05:30 | NUR ---
SHIFT SUMMARY NOC PT A/O X 4. PLEASANT AND COOPERATIVE WITH CARE. VSS. NO ACUTE CHANGES TO REPORT. PT HAS TRACH IN PLACE WITH O2 7L TRACH BLOW IN MAINTAINING SPO2 >92%. RT CLEANED CANNULA AND REPLACED DRESSING. PT THROAT PAIN BEING MANAGED PER EMAR. PT HAS RADIATION THERAPY SCHEDULED FOR TODAY. VARGAS IN PLACE DRAINING TO GRAVITY. PT ANTICIPATED TO DISCHARGE NEXT WEEK TO [facility] IN [place], OR NEAR [place]. PT CURRENTLY RESTING WITH BED IN LOWEST POSITION, AND CALL LIGHT WITHIN REACH.
[2024-05-20 08:08] VITALS: BP 108/72
--- NOTE | 2024-05-20 12:05 | NUR ---
CONFIRMED WITH [facility], PATIENT HAS RIDES TO THE [facility]CER CENTER NEXT WEEK FOR HIS TREATMENTS
[2024-05-20 15:54] VITALS: BP 105/61
[2024-05-20] MEDS ORDERED: ALPRAZolam 0.5 MG Tab PO PRN (17:40)
--- NOTE | 2024-05-20 17:57 | NUR ---
SHIFT SUMMARY MR DOHERTY HAS VOICED ANXIETY AND SADNESS TODAY. HE HAS VOICED A FEAR OF , CONCERN OVER HIS DIAGNOSIS, WORRY ABOUT HIS PLAN OF CARE. THIS WAS DISCUSSED WITH DR KATHLEEN - THE PLAN IS FOR MR DOHERTY TO REMAIN HERE TO COMPLETE THE RADIATION TREATMENTS AND AVOID A DYSRUPTION IN TREATMENT. MR DOHERTY RECEIVED RADIATION THERAPY THIS MORNING. ON RETURN HE SAT UP IN THE CHAIR, WALKED TO THE END OF THE HALLWAY AND BACK WITH GAITBELT, WALKER AND OXYGEN. HE FEELS THAT HE HAS LOST MUSCLE STRENGTH IN HIS ARMS AND HIS ARM WEAKNESS IS HINDERING HIM MORE THAN LEG WEAKNESS. HE DECLINED A SHOWER AND DECLINED TO GET UP AND WALK TO THE TOILET RATHER THAN USING A COMMODE AND WAS VERY TIRED BY THE END OF THE SHIFT. HE SAID THAT HE IS NOT SLEEPING THROUGH THE NIGHT AND IS GETTING DISTURBED FREQUENTLY. HE HAD A BEDBATH IN THE CHAIR, SOAKED HIS FEET AND CREAM APPLIED TWICE. THE PEELING DRY SKIN ON HIS FEET HAS IMPROVED. RT CHANGED TRACHE DRESSING. STILL COUGHING UP THICK YELLOW SPUTUM. MEPILEX APPLIED TO THE SMALL OPEN AREA ON HIS LEFT BUTTOCK. ON EGGCRATE MATTRESS IN CHAIR AND IN BED. VARGAS STILL IN PLACE AND MR DOHERTY DOES NOT WANT THIS REMOVED. IN BED NOW., BED LOW, CALL LIGHT IN REACH.
[2024-05-20 19:46] VITALS: BP 110/71
--- NOTE | 2024-05-20 22:27 | NUR ---
THIS RN ACCIDENTLY CHARTED FOR 914 INSTEAD OF 2114 FOR PT SHIFT ASSESSMENT.
--- NOTE | 2024-05-21 00:10 | NUR ---
PT ARRIVED TO ROOM 336 AT 0000HOURS, AOX3/4. COOPERATIVE. ARRIVED VIA GURNEY BY [facility] TECH.
--- NOTE | 2024-05-21 03:12 | NUR ---
SHIFT SUMMARY PT AOX4, COOPERATIVE, ABLE TO MAKE NEEDS KNOWN. PT HAS REMAINDED IN BED FOR ENTIRETY OF SHIFT. TOOK 2 SNACKS EARLIER IN SHIFT, SF JELLO AND PUDDING. CATHETER INTACT/PATENT AND DRAINING TO GRAVITY. TRACH PATENT/INTACT, PT HAD COUGHING FITS BEFORE SLEEPING AND PERFORMED SELF CARE. BED IN LOWEST POSITION, CALL LIGHT WITHIN REACH.
[2024-05-21 05:13] VITALS: BP 103/67
[2024-05-21 05:38] LABS: BASOPHILS ABSOLUTE AUTO 0.03 K/mm3 (0.00-0.23); BASOPHILS PERCENT AUTO 0 % (0-2); EOSINOPHILS PERCENT AUTO 3 % (0-6); Hemoglobin 11.1 g/dL (13.5-17.5); IMMATURE GRAN ABSOLUTE AUTO 0.03 K/mm3 (0.00-0.10); IMMATURE GRAN PERCENT AUTO 0 % (0-1); LYMPHOCYTES ABSOLUTE AUTO 0.59 K/mm3 (0.84-5.20); LYMPHOCYTES PERCENT AUTO 8 % (21-46); MONOCYTES PERCENT AUTO 10 % (4-13); Mean Corpuscular HGB 27.9 pg (26.0-34.0); Mean Corpuscular HGB Conc 31.7 g/dL (31.5-36.5); Mean Corpuscular Volume 88 fL (80-100); Mean Platelet Volume 9.3 fL (9.1-12.4); NEUTROPHILS ABSOLUTE AUTO 5.77 K/mm3 (1.96-9.15); NEUTROPHILS PERCENT AUTO 79 % (41-73); Platelet Count 486 K/mm3 (150-400); RDW Coefficient Variation 17.3 % (11.7-14.2); RDW Standard Deviation 55.4 fL (35.1-46.3); Red Blood Cell Count 3.98 M/mm3 (4.30-5.90); White Blood Cell Count 7.32 K/mm3 (4.00-11.30)
[2024-05-21 06:08] LABS: Bun/Creatinine Ratio 41.3 (12.0-20.0); Calcium, Blood 9.6 mg/dL (8.5-10.1); Creatinine, Blood 1.26 mg/dL (0.60-1.20); Potassium, Blood 3.9 mmol/L (3.5-5.5)
[2024-05-21 07:59] VITALS: BP 103/72
[2024-05-21 15:27] VITALS: BP 95/67
--- NOTE | 2024-05-21 18:19 | NUR ---
SHIFT SUMMARY MR DOHERTY HAS COUGHED UP THICK YELLOW SPUTUM TODAY. HE AMBULATED IN THE HALLS, SAME DISTANCE YESTERDAY BUT HE WAS MORE TIRED AND HAD TO TAKE MORE REST BREAKS ON HIS WALK TODAY. GAIT BELT, WALKER AND PORTABLE OXYGEN USED. PAIN SOMEWHAT CONTROLLED WITH MEDICATIONS, IT TAKES THE EDGE OFF BUT HE SAID HE'S BEEN HAVING MORE BURNING PAIN TO HIS NECK HE'S RECEIVED MORE RADIATION TREATMENTS. HE STILL HAS THE VARGAS CATHETER IN AND VERBALISED STRONG OBJECTION TO HAVING IT REMOVED. BOWEL MOVEMENT X 3 TODAY. MEPILEX TO LEFT BUTTOCK OVER SMALL OPEN AREA, BUTTOCKS EXCORIATED, EGGCRATE MATTRESS USED IN CHAIR AND IN BED AND FREQUENT REPOSITIONING THROUGHOUT THE DAY. CALL LIGHT IN REACH.
[2024-05-21 19:59] VITALS: BP 113/67
[2024-05-22 03:33] VITALS: BP 103/67
--- NOTE | 2024-05-22 05:57 | NUR ---
SHIFT SUMMARY NOC PT A/O X 4. PLEASANT AND COOPERATIVE WITH CARE. VSS. NO ACUTE EVENTS TO REPORT. PT THROAT/GENERALIZED PAIN BEING MANAGED PER EMAR. ON O2 6L VIA TRACH BLOW IN. VARGAS IN PLACE WITH GOOD OUTPUT. PT DECLINED BEDTIME BOWEL CARE RX AND REPORTED 4 BM DURING DAY SHIFT. PT WILL BE UNDERGOING RADIATION THERAPY UNTIL 06/28/23 THEN DISCHARGE UP TO [facility] IN [place], [place]. PT CURRENTLY RESTING WITH BED IN LOWEST POSITION, AND CALL LIGHT WITHIN REACH.
[2024-05-22 09:34] VITALS: BP 103/64
[2024-05-22 16:47] VITALS: BP 103/67
--- NOTE | 2024-05-22 18:27 | NUR ---
SHIFT SUMMARY AOX4, 1 ASSIST WITH THE FWW TO THE BSC. CALLS AND MAKES NEEDS KNOWN. MEDICATED FOR PAIN PER THE EMAR. NO ACUTE CHANGES. PT ON ROOM AIR VIA THE TRACH FOR 4 HOURS TODAY AND TOLERATED OKAY. RESPIRATORY THERAPY INITIATED AND UPDATED ON HIS TOLERANCE. HARD STOOLS, ENCOURAGED PT TO USE MIRALAX. UP TO THE CHAIR FOR DINNER. MEDS GIVEN IN SUGAR FREE PUDDING. PT REPOSITIONED THROUGHOUT THE SHIFT. CALL LIGHT WITHIN REACH, BED LOCKED AND IN THE LOWEST POSITION. WILL REPORT TO ONCOMING NURSE.
[2024-05-22 19:36] VITALS: BP 94/61
[2024-05-23 05:09] VITALS: BP 104/67
--- NOTE | 2024-05-23 05:44 | NUR ---
SHIFT SUMMARY NOC PT A/O X 4. PLEASANT AND COOPERATIVE WITH CARE. VSS. NO ACUTE CHANGES TO REPORT. ON O2 6L VIA TRACH BLOW IN SPO2 >95%. THROAT/GENERALIZED PAIN BEING MANAGED PER EMAR. PT TOOK BEDTIME DOSE OF MIRALAX, BUT DECLINED COLACE. HAS VARGAS IN PLACE WITH GOOD OUTPUT. PT SCHEDULED TO RESUME RADIATION TREATMENT FOR THROAT CANCER THIS MORNING. PT CURRENTLY RESTING WITH BED IN LOWEST POSITION, AND CALL LIGHT WITHIN REACH.
[2024-05-23 07:01] VITALS: BP 104/72
--- NOTE | 2024-05-23 08:11 | NUR ---
Pt sitting up in bed awake a/ox3, pleasant and coooperative with care, follows commands well, reports pain at 8/10, dilaudid given, will be going to radiation this am, lungs are clear t/o, can hear trach noise throughout, self suctions, on 6 liters 02 via blowby, hrirr, no edema noted, ppp+1, cap refill <3 sec, vs stable, afebrile, btx4, states he's constipated again, took miralax, lynn cath draining yellow urine, skin has pea size sore to bottom, not in a place that can have a dressing, rita, one person assist, rafaela, call light in reach, will be going to radiation tx this am.
[2024-05-23] MEDS ORDERED: Ondansetron HCl 2 MG / ML 2ML Vial IV SCH (09:30)
[2024-05-23] MEDS ORDERED: Dexamethasone Sodium Phosphate 4 MG/ML 5ML VIAL IV SCH (09:30)
[2024-05-23 15:18] VITALS: BP 97/60
--- NOTE | 2024-05-23 18:14 | NUR ---
no acute changes this shift, rates pain at 8/10 regardless of pain med or follow up, no further needs this shift. call light in reach.
[2024-05-23 19:05] VITALS: BP 102/67
--- NOTE | 2024-05-24 04:39 | NUR ---
SHIFT SUMMARY PT ALERT ORIENTED X 4 CALLS APPROPRIATELY. REMAINS ON A TRACHEA WITH O2 AT 6L BLOW IN. VARGAS CATHETER DRAINING YELLOW URINE. C/O THROAT PAIN MEDICATED WITH DILAUDID AND OXY WITH GOOD PAIN CONTROL. GETS UP TO CHAIR WITH 1 PERSON ASSIST. HE CONTINUES ON RADIATION Q DAY. HE HAS NO IV. TAKES HIS PILLS WHOLE IN PUDDING. REMAINS ON FS AC. CONTINUES ON A DAILY WEIGHT. HIS PLAN IS TO BE DISCHARGED TO A [facility] IN [place] WHEN HE FINISHES HIS TREATMENTS. VSS. RESTING IN BED AT THIS TIME WITH CALL LIGHT IN REACH
[2024-05-24 05:06] VITALS: BP 103/64
[2024-05-24 07:16] VITALS: BP 95/58
[2024-05-24] MEDS ORDERED: Magnesium Oxide 400 MG Tab PO SCH (09:00)
--- NOTE | 2024-05-24 09:00 | NUR ---
pt laying in bed awake eating breakfast, a/ox4, cooperative with care, follows commands well, requests pain meds prior to going to radiation, lungs are clear, in uppers, some wheezing noted to bases, may be trach noise, currenlty on 6li 02, self suctions, hrr, no edema noted, ppp+1, cap refill<3 sec, vs stable, afebrile, btx4, had bm yesterday, lynn cath draining yellow urine, skin has dime size sore to buttock in crack, maew, uses a walker to transfer, rafaela, call light in reach.
[2024-05-24 15:35] VITALS: BP 107/69
--- NOTE | 2024-05-24 17:06 | NUR ---
SUMMARY PT SITTING UP IN BED, HAS BEEN PLEASANT AND COOPERATIVE WITH CARE, WENT TO RADIATION TREATMENT TODAY PRESCRIBED, PT UP IN THE HALLS WITH THERAPY, MED PER EMAR FOR PAIN, VSS, WILL CONT TO MONITOR
[2024-05-24 19:34] VITALS: BP 105/69
[2024-05-25 03:35] VITALS: BP 109/67
--- NOTE | 2024-05-25 04:51 | NUR ---
SHIFT SUMMARY PT ALERT ORIENTED X 4 ABLE TO VERBALIZE NEEDS BUT HES HARD TO UNDERSTAND AT TIMES R/T HIS TRACHEA. C/O THROAT PAIN MEDICATED WITH DILAUDID AND OXY WITH GOOD PAIN RELIEF. C/O ANXIETY AND TROUBLY SLEEPING. MEDICATED WITH TRAZODONE WITH GOOD RESULTS. REMAINS WITH A VARGAS CATHETER DRAINING YELLOW URINE. HE REMAINS A DAILY WEIGHT. HE HAS NO IV. HE CONTINUES GOING TO RADIATION DAILY. HE IS CURRENTLY ON 6L BLOW IN TO HIS TRACHEA. VSS ON 6L VIA TRACHEA SATTING AT 98%. HES RESTING AT THIS TIME WITH CALL LIGHT IN REACH
[2024-05-25 08:02] VITALS: BP 105/66
[2024-05-25] MEDS ORDERED: Dexamethasone Sodium Phosphate 4 MG/ML 1ML Vial IV SCH ×2 (12:00→13:25)
[2024-05-25] MEDS ORDERED: Ondansetron HCl 2 MG / ML 2ML Vial IV SCH ×2 (12:00→13:25)
[2024-05-25 12:54] LABS: Albumin, Blood 3.1 g/dL (3.4-5.0); Albumin/Globulin Ratio 0.7 (0.8-1.8); Bilirubin, Total 0.4 mg/dL (0.1-1.0); Calcium, Blood 10.1 mg/dL (8.5-10.1); Creatinine, Blood 1.38 mg/dL (0.60-1.20); Globulin, Blood 4.5 g/dL (2.2-4.0); Potassium, Blood 4.9 mmol/L (3.5-5.5); Total Protein, Blood 7.6 g/dL (6.4-8.2)
[2024-05-25 12:59] LABS: BASOPHILS ABSOLUTE AUTO 0.03 K/mm3 (0.00-0.23); BASOPHILS PERCENT AUTO 0 % (0-2); EOSINOPHILS ABSOLUTE AUTO 0.16 K/mm3 (0.00-0.68); EOSINOPHILS PERCENT AUTO 2 % (0-6); Hematocrit 37.4 % (37.0-53.0); Hemoglobin 11.9 g/dL (13.5-17.5); IMMATURE GRAN ABSOLUTE AUTO 0.05 K/mm3 (0.00-0.10); IMMATURE GRAN PERCENT AUTO 1 % (0-1); LYMPHOCYTES ABSOLUTE AUTO 0.43 K/mm3 (0.84-5.20); LYMPHOCYTES PERCENT AUTO 4 % (21-46); MONOCYTES ABSOLUTE AUTO 0.69 K/mm3 (0.16-1.47); MONOCYTES PERCENT AUTO 7 % (4-13); Mean Corpuscular HGB 28.5 pg (26.0-34.0); Mean Corpuscular HGB Conc 31.8 g/dL (31.5-36.5); Mean Corpuscular Volume 90 fL (80-100); Mean Platelet Volume 9.8 fL (9.1-12.4); NEUTROPHILS ABSOLUTE AUTO 8.57 K/mm3 (1.96-9.15); NEUTROPHILS PERCENT AUTO 86 % (41-73); Platelet Count 376 K/mm3 (150-400); RDW Coefficient Variation 17.4 % (11.7-14.2); RDW Standard Deviation 57.1 fL (35.1-46.3); Red Blood Cell Count 4.17 M/mm3 (4.30-5.90); White Blood Cell Count 9.93 K/mm3 (4.00-11.30)
[2024-05-25] MEDS ORDERED: CARBOPLATIN IV SCH (13:00)
[2024-05-25] MEDS ORDERED: NS IV SCH (13:00)
[2024-05-25] MEDS ORDERED: Dexamethasone Sodium Phosphate 4 MG/ML 1ML Vial IV ONE (13:35)
[2024-05-25] MEDS ORDERED: Ondansetron HCl 2 MG / ML 2ML Vial IV ONE (13:35)
--- NOTE | 2024-05-25 13:37 | NUR ---
UPDATE CHEMO GIVEN TODAY BY RANDI. DR. BRAVO CALLED TO CONFIRM CHEMO TO BE GIVEN IN HOSPITAL WEEKLY, HE STATED YES. ALSO CONFIRMED THAT NEXT WEEK, CHEMO IS OKAY TO BE GIVEN ON THURSDAY INSTEAD OF THURSDAY. PHARMACY NOTIFIED. FUTURE CHEMO TO BE GIVEN ON TUESDAYS. BEDSIDE NURSE NOTIFIED. WILL PASS ALONG IN CHARGE REPORT WELL.
[2024-05-25] MEDS ORDERED: Lidocaine 2% Viscous Soln 20 ML,Nystatin 100,000 Unit/ml Susp 20 ML,Mag Hydrox/Al Hydro... MT PRN (15:00)
[2024-05-25 15:04] VITALS: BP 123/100
--- NOTE | 2024-05-25 17:58 | NUR ---
SHIFT SUMMARY PT AOX4, 1 ASSIST WITH THE FWW TO THE CHAIR/BSC. RADIATION COMPLETED TODAY, CHEMO COMPLETED TODAY. PT TOLERATED WELL. MEDICATED FOR PAIN PER THE EMAR. SURGERY CONSULTED TODAY FOR L GLUTEAL WOUND. PT TAKES MEDICATIONS WITH SUGAR-FREE VANILLA PUDDING. SELF-SUCTIONS AND CLEARS TRACH. REPOSITIONED THROUGHOUT THE SHIFT. DOUBLE EGG CRATE ON BED. CALL LIGHT WITHIN REACH, BED LOCKED AND IN THE LOWEST POSITION. WILL REPORT TO ONCOMING NURSE.
[2024-05-25 19:17] VITALS: BP 97/65
[2024-05-25] MEDS ORDERED: Docusate Sodium 100 MG Cap PO SCH (21:00)
--- NOTE | 2024-05-26 05:39 | NUR ---
SHIFT SUMMARY NOC PT A/O X 4. PLEASANT AND COOPERATIVE WITH CARE. VSS. NO ACUTE EVENTS TO REPORT. PT HAD BOTH RADIATION AND CHEMO YESTERDAY, AND ANOTHER ROUND OF RADIATION THERAPY SCHEDULED FOR THIS MORNING. PT GENERALIZED PAIN BEING MANAGED PER EMAR. VARGAS IN PLACE PATENT AND DRAINING TO GRAVITY. PT REPORTED FEELING WIPED OUT AFTER BOTH TX YESTERDAY AND HAS SLEPT THROUGH MOST OF SHIFT. PT WAITING FOR COMPLETION OF RADIATION THERAPY TO DISCHARGE TO [facility] UP [facility] [address] AT END OF JUNE. PT CURRENTLY RESTING WITH BED IN [facility] POSITIO, AND CALL [facility] WITHIN REACH.
[2024-05-26 06:07] VITALS: BP 135/73
[2024-05-26 08:01] VITALS: BP 95/77
[2024-05-26 08:02] VITALS: BP 95/77
[2024-05-26 16:23] VITALS: BP 110/67
--- NOTE | 2024-05-26 18:29 | NUR ---
SHIFT SUMMARY A/OX4, ABLE TO MAKE NEEDS KNOWN. PATIENT PARTICULAR WITH CARE PROVIDED, HOWEVER PLEASANT AND COOPERATIVE WITH STAFF. STAND BY ASSIST WITH TRANSFERS. SBP<100 THIS AM, DIURETICS AND CARDIAC MEDS HELD PER AUG. PATIENT SELF SUCTIONS TRACH TO CLEAR SECRETIONS. COMPLAINING OF GENERALIZED PAIN THROUGHOUT THE SHIFT, PRN DILAUDID AND DARWIN GIVEN PER AUG. ABLE TO ATTEND RADIATION THIS MORNING AT THE CANCER CENTER, TOLERATED WELL. VARGAS IN PLACE, PATENT AND DRAINING PROPERLY. PATIENT RELUCTANT TO PARTICIPATE IN SPEECH THERAPY THIS AFTERNOON AND STATES HAS "TOO MUCH TO DO" AND IS UNABLE TO DO THE EXERCISES RECOMMENDED FOR HIM BY SPEECH AND PHSYICAL THERAPY. STATES RADIATION AND CHEMO ARE "WEARING ME DOWN" AND DOING RECOMMENDED EXERCISES IS "TOO EXHAUSTING". PROVIDED EDUCATION TO PATIENT THAT THERAPY SERVICES ARE ONLY TRYING TO HELP HIM HEAL AND IMPROVE HIS MOBILITY, PATIENT NOT RECEPTIVE AT THIS TIME. PATIENT ALSO STATES HE IS "HOPEFUL FOR A MIRACLE" AND HAS A POSITIVE OUTLOOK ON CURRENT DIAGNOSES. NO OTHER CONCERNS AT THIS TIME.
[2024-05-26 19:48] VITALS: BP 116/67
[2024-05-27 05:52] VITALS: BP 95/69
--- NOTE | 2024-05-27 06:49 | NUR ---
SHIFT SUMMARY NOC PT A/O X 4. PLEASANT AND COOPERATIVE WITH CARE. VSS. ON CHEMOTHERAPY PRECAUTIONS DUE TO RECEIVING CHEMO EVERY THURSDAY. PT ON O2 6L VIA TRACH BLOW IN SPO2 >92%. PT GENERALIZED PAIN/ANXIETY BEING MANAGED PER EMAR. PT RECEIVED BOWEL CARE RX LAST NIGHT, BUT NO BM DURING SHIFT. PT HAS RADIATION THERAPY SCHEDULED FOR TODAY. PT CURRENTLY RESTING WITH BED IN LOWEST POSITION, AND CALL LIGHT WITHIN REACH.
[2024-05-27 07:18] VITALS: BP 107/60
--- NOTE | 2024-05-27 07:30 | NUR ---
ASSUMED CARE: PT SITTING UPRIGHT IN BED. 6L TRACH COLLAR. RIG MECHANIC AT BEDSIDE ASSISTING WITH BELONGINGS. DENIES FURTHER NEEDS OR CONCERNS AT THIS TIME.
--- NOTE | 2024-05-27 09:10 | NUR ---
PT TAKEN TO RADIATION TREATMENT VIA WHEEL CHAIR BY TRANSPORT STAFF.
--- NOTE | 2024-05-27 10:20 | NUR ---
nurse from cancer center called to relay pt's radiation schedule for next week. call to [facility] ambulance to arrange transport.
--- NOTE | 2024-05-27 10:45 | NUR ---
pt returned from cancer center via wheel chair and escorted by transporter.
[2024-05-27 17:20] VITALS: BP 111/69
--- NOTE | 2024-05-27 17:30 | NUR ---
SHIFT SUMMARY: PT TAKEN FOR RADIATION TODAY AND APPOINTMENTS SET UP FOR NEXT WEEK. PT MEDICATED FOR PAIN X2. SITTING UPRIGHT IN CHAIR MOST OF SHIFT. DENIES FURTHER NEEDS OR CONCERNS AT THIS TIME.
[2024-05-27 19:34] VITALS: BP 99/63
[2024-05-28 02:52] VITALS: BP 106/65
--- NOTE | 2024-05-28 04:10 | NUR ---
SHIFT SUMM: PT IS A PLEASANT 73 YO FULL CODE WHO WAS ADMITTED FOR RESP FAILURE ON 03/16/24. PT HAS A TRACH WITH COLLAR ON 6L.PT HAS A VARGAS FOR RETENTION AND I A 1 PERSON TO BS FOR BM'S. PT HAS NO IV ACCESS AND AN ORDER FOR NO IV. PT IS A SN AC CBG CHECK BUT NO HS CHECK. PT TOOK PAIN MEDS THEY CAME AVAILABLE FOR PAIN WHOLE IN PUDDING. CONT PULSE OX HAS BEEN D/C AND PT MOSTLY COMPLAINS OF THROAT PAIN AND WAS MEDICATED. FROM DAYSHIFT REPORT PT IS DUE TO D/C ON Jun TO A FACILITY CALLED [facility]. PT IS LOOKING FORWARD TO HIS DAUGHTERS COMING TO VISIT SOON AND ID HOPING HIS VOICE WILL BE BETTER BY THEN.PT MAKES NEEDS KNOWN AND CALLS NEEDED. PT ASLEEP NOW.
[2024-05-28 07:31] VITALS: BP 98/65
[2024-05-28 16:07] VITALS: BP 114/68
--- NOTE | 2024-05-28 16:15 | NUR ---
SHIFT SUMMARY: NO EVENTS OR CHANGES WITH THE PATIENT THROUGHOUT THE SHIFT. HE CONTINUES TO C/O PAIN AND HE EXPRESSES FRUSTRATION WITH THE KITCHEN; INTERVENTIONS HAVE BEEN MADE TO ASSIST WITH THIS FRUSTRATION, BUT OUTCOMES ARE NOT SATISFACTORY FOR THE PATIENT. HE MAKES HIS NEEDS KNOWN, IS OVERALL PLEASANT AND COOPERATIVE WITH CARE, IN BEDISDE CHAIR, CALL LIGHT WITHIN REACH, NO SIGNS OR SYMPTOMS OF DISTRESS, PLAN OF CARE ONGOING; PENDING PLACEMENT 06/28/24 TO [facility].
[2024-05-28 19:35] VITALS: BP 112/68
--- NOTE | 2024-05-29 03:51 | NUR ---
NOT MUCH CHANGES PROV PREV NIGHTSHIFT W/PT. ACCORDING TO DAYSHIFT PT HAD A BAD DAY YESTERDAY AND KITCHEN DID NOT COOPERATE WITH HIS REQUESTS. PT ENJOYED SEEING SHEILA THE SERVICE DOG. PT WAS MEDICATED FOR SORE THROAT NEEDED THROUGHOUT THE SHIFT AND HAS BEEN RESTING. PT DID GET UP TO THE BSC AND SAT THERE FOR A WHILE TRYING TO HAVE A BM W/NO SUCCESS. CATH CARE COMPLETED W/VARGAS AND PT CONTINUES TO HAVE A LOT OF OUTPUT. PT TOOK MEDS WHOLE W/PUDDING AND HARD TROUBLE SPEAKING THIS SHIFT. PT WAS REPOSITIONED MLTIPLE TIMES THIS SHIFT. PT HAS CALL LIGHT IN REACH AND USES NEEDED. PT IS VERY PATICULAR WITH HIS CARE AND ROUTINE BUT IS MOSTLY COOPERATIVE.
[2024-05-29 04:59] VITALS: BP 104/69
[2024-05-29 07:17] VITALS: BP 106/62
[2024-05-29] MEDS ORDERED: Ipratropium/Albuterol SulF 2.5-0.5MG/3 ML Amp INH SCH (16:30)
[2024-05-29 17:45] VITALS: BP 106/65
--- NOTE | 2024-05-29 17:46 | NUR ---
SHIFT SUMMARY: PATIENT A/O X 4. PATIENT STATED HE DID NOT FEEL WELL TODAY HOWEVER DID PARTICIPATE WITH CARES. PATIENT AMBULATED AROUND THE MED SURG FLOOR WITH OXYGEN AND FWW. PATIENT ABLE TO SUCTION HIS TRACH WITH NO DIFFICULTY. PATIENT HAS REPORTED HIGH PAIN TODAY HOWEVER WAS COVERED WITH PAIN MEDICATION PER EMAR. PATIENT ABLE TO VOICE ANY ISSUES THAT NEED TO BE ADDRESSED WITH NO ISSUES
--- NOTE | 2024-05-29 17:55 | NUR ---
CONTACTED DR STEWARD REGARDING MEDICATION ALDACTONE AND BUMEX HELD DUE TO BP 106/65. OK TO HOLD MED PER DR AYERS
[2024-05-29 20:26] VITALS: BP 106/65
[2024-05-30 02:22] VITALS: BP 98/64
--- NOTE | 2024-05-30 03:26 | NUR ---
A&OX4, VSS HOWEVER, BP'S REMAIN SOFT-98/64 THIS AM; MEDICATED FOR C/O BACK OAIN AND "BURNING" IN THROAT WHICH KEPT HIM AWAKE LATE, IND W/SUCTIONING, ABLE TO MAKE NEEDS KNOWN, APPEARS TO BE SLEEPING COMFORTABLY AT THIS TIME, WILL CONT TO MONITOR UNTIL REPORT GIVEN TO ONCOMING NURSE.
[2024-05-30 07:09] VITALS: BP 106/64
[2024-05-30 13:13] LABS: BASOPHILS ABSOLUTE AUTO 0.03 K/mm3 (0.00-0.23); BASOPHILS PERCENT AUTO 0 % (0-2); EOSINOPHILS ABSOLUTE AUTO 0.17 K/mm3 (0.00-0.68); EOSINOPHILS PERCENT AUTO 2 % (0-6); Hematocrit 38.3 % (37.0-53.0); IMMATURE GRAN ABSOLUTE AUTO 0.04 K/mm3 (0.00-0.10); IMMATURE GRAN PERCENT AUTO 0 % (0-1); LYMPHOCYTES ABSOLUTE AUTO 0.35 K/mm3 (0.84-5.20); LYMPHOCYTES PERCENT AUTO 4 % (21-46); MONOCYTES ABSOLUTE AUTO 0.55 K/mm3 (0.16-1.47); MONOCYTES PERCENT AUTO 6 % (4-13); Mean Corpuscular HGB 28.3 pg (26.0-34.0); Mean Corpuscular HGB Conc 31.3 g/dL (31.5-36.5); Mean Corpuscular Volume 90 fL (80-100); Mean Platelet Volume 9.7 fL (9.1-12.4); NEUTROPHILS ABSOLUTE AUTO 7.99 K/mm3 (1.96-9.15); NEUTROPHILS PERCENT AUTO 88 % (41-73); Platelet Count 298 K/mm3 (150-400); RDW Coefficient Variation 17.6 % (11.7-14.2); RDW Standard Deviation 57.9 fL (35.1-46.3); Red Blood Cell Count 4.24 M/mm3 (4.30-5.90); White Blood Cell Count 9.13 K/mm3 (4.00-11.30)
[2024-05-30 13:35] LABS: Bun/Creatinine Ratio 48.8 (12.0-20.0); Calcium, Blood 9.9 mg/dL (8.5-10.1); Creatinine, Blood 1.21 mg/dL (0.60-1.20); Potassium, Blood 4.3 mmol/L (3.5-5.5)
[2024-05-30 15:31] VITALS: BP 96/63
--- NOTE | 2024-05-30 16:54 | NUR ---
NO ACUTE CHANGES THIS SHIFT. PT HAD RADIATION THERAPY TODAY SCHEDULED. PT REPORTS THROAT HAS BEEN INCREASINGLY PAINFUL WITH TREATMENTS. TEARFUL TODAY. USES 8L WITH FACEMASK DURING TRANSPORT AND AMBULATION. PT AMBULATED AROUND UNIT TODAY WITH FWW AND O2 SET UP. VARGAS IN PLACE AND DRAINING TO GRAVITY. ALERT AND ORIENTED X4, ABLE TO EXPRESS NEEDS. 2 BM TODAY. CBG AND PAIN TREATED PER EMAR
[2024-05-30 19:55] VITALS: BP 102/64
[2024-05-31 03:23] VITALS: BP 93/59
--- NOTE | 2024-05-31 04:39 | NUR ---
A&OX4, VSS, MEDICATED 2X FOR C/O GENERALIZED & THROAT PAIN, AMBULATED IN HALLWAY THIS SHIFT W/PORCELAIN ENAMEL INSTALLER, APPEARED TP SLEEP WELL T/O THE NIGHT, SLEEPING AT THIS TIME, CALL LIGHT IN REACH, WILL CONT TO MONITOR UNTIL REPORT GIVEN TO ONCOMING NURSE.
[2024-05-31 07:09] VITALS: BP 97/62
[2024-05-31] MEDS ORDERED: Ondansetron HCl 2 MG / ML 2ML Vial IV SCH (13:30)
[2024-05-31] MEDS ORDERED: Dexamethasone Sodium Phosphate 4 MG/ML 5ML VIAL IV SCH (13:30)
[2024-05-31] MEDS ORDERED: NS IV SCH (14:00)
[2024-05-31] MEDS ORDERED: CARBOPLATIN IV SCH (14:00)
[2024-05-31] MEDS ORDERED: NS 250 ML IV PRN (14:10)
--- NOTE | 2024-05-31 16:54 | NUR ---
NO ACUTE CHANGES THIS SHIFT. PT RECIEVED RADIATION AND CHEMO TREATMENT TODAY. TREATED FOR HEADACHE PER EMAR. NO OTHER COMPLAINTS AT THIS TIME.
[2024-05-31 19:47] VITALS: BP 100/72
[2024-06-01 03:37] VITALS: BP 106/65
--- NOTE | 2024-06-01 05:26 | NUR ---
NOC SUMMARY- PT PAIN MANAGED WELL. PT HAD NO ISSUES. PT HAS BEEN REATING QUIETLY DURING SHIFT. PT SUCTIONS TRACH NEEDED. CALL LIGHT IN REACH.
[2024-06-01 07:40] VITALS: BP 104/70
[2024-06-01 15:18] VITALS: BP 122/78
--- NOTE | 2024-06-01 18:30 | NUR ---
END OF SHIFT SUMMARY: A&Ox4. PLEASANT AND COOPERATIVE WITH CARE. CALLS APPROPRIATELY AND IS ABLE TO ADVOCATE NEEDS EFFECTIVELY. CONTINENT OF AYSE; LBM TODAY. VARGAS SECONDARY TO CHRONIC RETENTION. SBA c FWW. REQUESTS PRN OXYCODONE 10MG AND HYDROMORPHONE 2MG ROUTINELY WHEN AVAILABLE FOR PAIN. RECOMMENDED TAKING JUST ONE OR THE OTHER BUT STATES THEY WORK BETTER WHEN TAKEN TOGETHER. NO CHEMO OR RADIATION Tx TODAY. WALKED UNIT WITH GOLF CART ATTENDANT. BED IN LOWEST POSITION, CALL LIGHT WITHIN REACH, ALL NEEDS MET. REPORT TO ONCOMING NURSE.
[2024-06-01 20:30] VITALS: BP 104/54
[2024-06-02 02:09] VITALS: BP 91/65
[2024-06-02 07:51] VITALS: BP 104/66
[2024-06-02 15:01] VITALS: BP 101/63
--- NOTE | 2024-06-02 16:11 | NUR ---
SHIFT SUMMARY- PT WAS TRANSPORTED TO [facility] FOR [facility]IATION TREATMENT TODAY. HE HAS A C/O BEING EXTRA TIRED AND DECLINED TO WALK TO THE BATHROOM WHEN THE CRYPTOLOGIC SUPERVISOR SUGGESTED USING THE TOLIET RATHER THAN THE COMMODE. PT BECAME IRRITATED WITH HER AND DECLINED TO GO AT ALL. THIS RN ASSISTED THE PT TO THE COMMODE WHERE HE HAD A LARGE STOOL. HE REPEATEDLY TOLD THE CRYPTOLOGIC SUPERVISOR HE WASN'T READY TO GET UP, HE WAITED FOR THIS RN TO ASSIST HIM OFF THE COMMODE. NOTED A SMALL THICKENED AREA OF TISSUE PERIANAL ON THE LEFT SIDE, PT STATES "I GET THOSE ALL THE TIME, NOTHING TO WORRY ABOUT," MD NOTIFIED IT WAS DRAINING THICK MILKY WHITE FLUID. MD AWARE NO NEW ORDERS. 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 REPLACED MEPILEX DRESSINGS TODAY. PT STATES THE [place] ANAL AREA DOES NOT HURT AT ALL. PRN PAIN MEDICATION GIVEN THHE PT HAS BEEN TAKING IT. ALL BP AFFECTING MEDS WERE HELD THIS AM PER MD ORDER.
[2024-06-02 17:23] VITALS: BP 99/78
[2024-06-02 20:23] VITALS: BP 107/68
--- NOTE | 2024-06-03 03:13 | NUR ---
SHIFT SUMMARY NO ACUTE EVENTS OR CHANGES DURING THIS SHIFT. MEDICATED Q4HRS PRN FOR C/O 9/10 THROAT PAIN (SEE EMAR). BED AT THE LOWEST POSITION, CALL LIGHT WITHIN REACH. PT IS ABLE TO MAKE HIS NEEDS KNOWN, AND IS COOPERATIVE WITH CARE.
[2024-06-03 03:18] VITALS: BP 97/59
[2024-06-03 07:16] VITALS: BP 100/64
[2024-06-03 15:24] VITALS: BP 99/66
--- NOTE | 2024-06-03 15:35 | NUR ---
SHIFT SUMMARY- PT ALERT AND ORIENTED, 1PA WITH AMBULATION AND TRANSFERS. HE HAS BEEN USING THE COMMODE FOR THE PAST COUPLE OF DAYS, HE STATES HE IS JUST FEELING MORE WEAK. PT RECIEVED A BED BATH (MINUS THE HAIR WASH) THIS MORNING, LOTION APPLIED TO FEET, NEW SOCKS, GOWN HOUSE COAT AND TOTAL LINNEN CHANGE WAS COMPLETED. PT HAS A BOTTLE OF GI COCTAIL IN HIS BEDIDE TABLE. AFTER TALKING WITH THE PT, HE STATED YESTERDAY HE HAS SOME OF THAT IN HIS DRAWER. SPOKE TO HIM FURTHER ABOUT IT AND HE STATED THEY "GAVE IT TO ME OVER AT THE CANCER CENTER AND SAID I CAN KEEP IT WITH ME TO USE." THE PT WAS INSISTENT ON THIS, APPARENTLY HE HAS BEEN MEDICATING HIMSELF WITH IT FOR SEVERAL DAYS. THIS RN ASKED THAT HE NOTIFY STAFF WHEN HE TAKES IT SO IT CAN BE DOCUMENTED TO BE SURE HE IS NOT USING IT MORE OFTEN THAN PERSCRIBED. PT HAS BEEN DOING THAT SINCE LAST NIGHT WHEN WE SPOKE. PT HAS WALKED IN THE HALLWAY WITH THE GOLF TECHNICIAN TODAY ONCE, AND THEY ARE PREPARING NOW, TO DO IT A SECOND TIME, THE PT WOULD LIKE TO GET INTO BED AFTER THIS WALK. NO CURRENT S&S OF DISTRESS NOTED. PT TRANSPORTATION IS SET UP FOR RADIATION Tx APPOINTMENTS THROUGH THE MONTH OF JUNE.
[2024-06-03 18:55] VITALS: BP 106/63
[2024-06-03 19:35] VITALS: BP 107/65
[2024-06-04 04:27] VITALS: BP 103/67
--- NOTE | 2024-06-04 05:31 | NUR ---
Pt here x5 wks, continues to have significant pain, medicated with dilaudid PO, and oxycodone. UOP 3000 mls this shift. Trach mist on with 6L O2. Delgado patent. No edema, voice hoarse and using magic mouth wash which was provided from oncology, this at bedside and will let nurse know when he uses. BM x2 on 06/03. VS WNL.
[2024-06-04 07:46] VITALS: BP 102/68
[2024-06-04 15:14] VITALS: BP 96/69
--- NOTE | 2024-06-04 17:18 | NUR ---
SHIFT SUMMARY: NO CHANGES WITH PATIENT THROUGHOUT THE SHIFT. HE IS IN BED, CALL LIGHT WITHIN REACH, PLAN OF CARE ONGOING.
[2024-06-04 19:55] VITALS: BP 104/65
--- NOTE | 2024-06-05 05:44 | NUR ---
Pt doing well this night, still has significant pain, utilized PO oxycodone, and PO dilaudid, and hurricaine spray. VS WNL, PO intake WNL. Pt lynn with 1400 mls out, trach still with O2 mist at 6L. independent with sxn, will continue radiation tx on Thursday.
[2024-06-05 06:27] VITALS: BP 93/65
[2024-06-05 07:46] VITALS: BP 114/60
[2024-06-05 14:37] VITALS: BP 112/73
--- NOTE | 2024-06-05 15:58 | NUR ---
SHIFT SUMMARY PT IS A/OX4. 1 PERSON ASSIST TO BSC/CHAIR. NO ACUTE EVENTS THROUGHOUT THIS SHIFT. PT MEDICATED WITH TYLENOL X1, ROXINOL X1, AND DILAUDID X1 FOR CHRONIC PAIN. PT UP IN CHAIR FOR MUCH OF THE SHIFT. CALLS APPROPRAITELY, ABLE MAKE NEEDS KNOWN.
[2024-06-05 19:11] VITALS: BP 99/72
[2024-06-05] MEDS ORDERED: Lidocaine 2% Viscous Soln 20 ML,Nystatin 100,000 Unit/ml Susp 20 ML,Mag Hydrox/Al Hydro... MT PRN (19:20)
--- NOTE | 2024-06-06 04:49 | NUR ---
Pt slept well this night, decreased use of pain meds. Pt with soft b/p, but overall VS are WNL. Pt remains on O2 trach mist. Voice hoarse, L/S WNL. Continues to do trach care and suctioning independently. Does have Rad Tx today.
[2024-06-06 05:53] LABS: BASOPHILS ABSOLUTE AUTO 0.02 K/mm3 (0.00-0.23); BASOPHILS PERCENT AUTO 0 % (0-2); EOSINOPHILS ABSOLUTE AUTO 0.24 K/mm3 (0.00-0.68); EOSINOPHILS PERCENT AUTO 3 % (0-6); Hematocrit 33.6 % (37.0-53.0); Hemoglobin 10.6 g/dL (13.5-17.5); IMMATURE GRAN ABSOLUTE AUTO 0.02 K/mm3 (0.00-0.10); IMMATURE GRAN PERCENT AUTO 0 % (0-1); LYMPHOCYTES ABSOLUTE AUTO 0.37 K/mm3 (0.84-5.20); LYMPHOCYTES PERCENT AUTO 5 % (21-46); MONOCYTES ABSOLUTE AUTO 0.54 K/mm3 (0.16-1.47); MONOCYTES PERCENT AUTO 8 % (4-13); Mean Corpuscular HGB 29.1 pg (26.0-34.0); Mean Corpuscular HGB Conc 31.5 g/dL (31.5-36.5); Mean Corpuscular Volume 92 fL (80-100); Mean Platelet Volume 9.8 fL (9.1-12.4); NEUTROPHILS ABSOLUTE AUTO 5.93 K/mm3 (1.96-9.15); NEUTROPHILS PERCENT AUTO 83 % (41-73); Platelet Count 225 K/mm3 (150-400); RDW Coefficient Variation 18.4 % (11.7-14.2); RDW Standard Deviation 59.7 fL (35.1-46.3); Red Blood Cell Count 3.64 M/mm3 (4.30-5.90); White Blood Cell Count 7.12 K/mm3 (4.00-11.30)
[2024-06-06 06:25] LABS: Albumin, Blood 2.8 g/dL (3.4-5.0); Albumin/Globulin Ratio 0.8 (0.8-1.8); Bilirubin, Total 0.3 mg/dL (0.1-1.0); Bun/Creatinine Ratio 36.3 (12.0-20.0); Calcium, Blood 9.2 mg/dL (8.5-10.1); Creatinine, Blood 1.13 mg/dL (0.60-1.20); Globulin, Blood 3.5 g/dL (2.2-4.0); Total Protein, Blood 6.3 g/dL (6.4-8.2)
[2024-06-06 07:08] VITALS: BP 97/63
[2024-06-06 16:01] VITALS: BP 120/72
[2024-06-06 17:58] VITALS: BP 103/59
[2024-06-06 19:24] VITALS: BP 116/78
--- NOTE | 2024-06-06 20:15 | NUR ---
SHIFT SUMMARY- PT ALERT AND ORIENTED, 1PA TO THE BSC WHEN NEEDED. PT HAS HAD NO ACUTE CHANGES T/O THE DAY. IV IN THE LEFT FA IS SL AT THIS TIME. BEDSIDE REPORT COMPLETED WITH THE NIGHT RN. PT C/O FLUID COLLECTION IN THE TUBE FOR HIS HEATED HIGH FLOW O2. CALLED RT TO ADVISE. PT IN BED CALL LIGHT IN REACH NO S&S OF DISTRESS NOTED.
[2024-06-07 02:59] VITALS: BP 103/72
--- NOTE | 2024-06-07 06:35 | NUR ---
SHIFT SUMMARY: Pt is admitted for respiratory failure with hypoxia and is a full code. Is alert and able to make needs known. ADLs have been SBA. on ISO for radiation therapy. Pain has been managed with PRN medications. Trach intact and managed by self. On 8l via trach mask.
[2024-06-07 07:05] VITALS: BP 103/74
[2024-06-07 15:08] VITALS: BP 91/58
--- NOTE | 2024-06-07 17:04 | NUR ---
SHIFT SUMMARY: PATIENT A/0 X 4. PATIENT HAD RADIATION AND CHEMO TODAY, SCOLOMINE PATCH PLACED FOR NAUSEA. PATIENT ABLE TO CALL FOR ASSISTANCE AND HAS REQUIRED PAIN MEDS EVERY 4 HOURS FOR PAIN.
[2024-06-07 23:14] VITALS: BP 100/62
--- NOTE | 2024-06-08 03:56 | NUR ---
SHIFT SUMMARY ADMITTED FOR RESPIRATORY FAILURE. FULL CODE. 8 LPM O2 THROUGH A TRACH IN PLACE. GLOTTIS CANCER W/METS. DR. BRAVO IS ONCOLOGY CONSULT. CHEMO AND RADIATION ARE SCHEDULED. WHEN HE COMPLETES 5 MORE WEEKS OF RADIATION HE MAY BE PLACED IN [facility] IN [place]. VARGAS IN PLACE. 1 ASSIST W/FWW - BRP. PAIN MEDICATION GIVEN THIS SHIFT. HE IS A&O X4.
[2024-06-08 05:13] VITALS: BP 98/55
[2024-06-08 08:09] VITALS: BP 106/68
--- NOTE | 2024-06-08 15:41 | NUR ---
UNEVENTFUL DAY FOR THE PT, STATED HE FLET HE WAS IN RESIDENTIAL AND THAT HE NEEDED TO GET OUT OF HERE, CONT COMPLAINING OF PAIN TO THROAT, PT COVERED PER MAR
--- NOTE | 2024-06-08 19:30 | NUR ---
CONT TO HAVE A GOOD DAY, PT SAT UP IN CHAIR CALL LIGHT WITHIN REACH AND HAS BEEN ABLE TO MAKE NEEDS KNOWS. WILL CONT TO MONITOR
[2024-06-08 20:11] VITALS: BP 90/57
[2024-06-09 04:14] VITALS: BP 102/60
--- NOTE | 2024-06-09 05:46 | NUR ---
ROOM # 339 (DX-ISO-A/O- ADLS-PAIN- IV-TELE- CATH- RESTRAINTS-RESULT SHIFT SUMMARY# PT ALERT AND ORIENTED TIMES 2-3. PT NOT COOPERATIVE WITH O2 OR CONTINUOUS PULSE OX. PT STATING SHE COULD NOT BREATHE, BUT WAS AT 94%. AT 0310 RESPONDED TO PT REQUEST FOR HELP. PT WAS DIAPHORETIC, LABORED MOUTH BREATHING, CRACKLES IN LUNGS AND AT 28 RESP/MIN. SLOWLY RAISED O2 TO 7L TO GET PT TO 96%. ON CALLED ORDERED LASIX AND VBG. PT IS ON C-PAP WITH 5L O2 AND APPEARES TO BE COMFORTABLE AND RESTING QUIETLY IN BED. BED IN LOW POSITION, CALL LIGHT WITHIN REACH, RAILS TIMES 2.
[2024-06-09 07:44] VITALS: BP 118/78
[2024-06-09 15:26] VITALS: BP 98/55
--- NOTE | 2024-06-09 16:55 | NUR ---
PATIENT WENT TO [facility] TODAY FOR RADIATION. UP IN CHAIR FOR MOST OF THIS SHIFT. UP WITH FWW AND SBA. TOLERATING MINCED AND MOIST DIET AND TAKING IN ALL SUPPLEMENTS. VARGAS TO GRAVITY WITH CLEAR/YELLOW URINE OUTPUT. PATIENT REPORTS PAIN MANAGED WITH OXYCODONE AND DILAUDID. SELF SUCTIONS TRACH PRN. AIRVO AT 26% FI02. NO NEW CONCERNS THIS SHIFT. PLEASANT AND COOPERATIVE AND ABLE TO MAKE NEEDS KNOWN.
[2024-06-09 17:08] VITALS: BP 101/67
[2024-06-09 19:19] VITALS: BP 112/68
--- NOTE | 2024-06-10 03:24 | NUR ---
SHIFT SUMMARY NO ACUTE EVENTS DURING THIS SHIFT. MEDICATED T/O THE NIGHT PER EMAR FOR C/O 01/15 PAIN IN THE THROAT AREA. PT REPORTS "TAKES THE EDGE OFF". VARGAS DRAINING YELLOW URINE. PT RESTING WELL FEW HRS DURING THE NIGHT. O2 SAT'S>99% ON AIRVO. PT WALKED AROUND THE UNIT WITH FWW AND SBA @HS. PT IS A&O X4, ABLE TO MAKE HIS NEEDS KNOWN, PLEASANT, AND COOPERATIVE WITH CARE. BED AT THE LOWEST POSITION, CALL LIGHT W/I REACH.
[2024-06-10 04:46] VITALS: BP 102/65
[2024-06-10 07:39] VITALS: BP 102/58
[2024-06-10 15:27] VITALS: BP 92/66
[2024-06-10 17:40] VITALS: BP 132/55
--- NOTE | 2024-06-10 18:15 | NUR ---
NO ACUTE CHANGES THIS SHIFT. WENT TO [facility] THIS AM FOR RADIATION. TOLERATING DIET AND EATING 100% OF MOST MEALS PLUS SUPPLEMENTS. COOPERATIVE WITH CARE, ABLE TO MAKE NEEDS KNOWN. PAIN MANAGED WITH DILAUDID AND OXYCODONE. TRACH CARE COMPLETED BY RESPIRATORY CARE. BLOOD SUGARS AC, NO COVERAGE NEEDED. NO NEW CONCERNS THIS SHIFT.
[2024-06-10 19:19] VITALS: BP 101/70
[2024-06-11 05:42] VITALS: BP 96/56
--- NOTE | 2024-06-11 06:07 | NUR ---
Shift Summary Pt states he is a constant 01/15, pain managed per EMAR. Trach in place, pt self suctions, evaluated by RT. Danny in place, patent. Takes pills with pudding. Pt was very painful and wanted to sleep this AM, standing daily weight delayed for now. No acute changes.
--- NOTE | 2024-06-11 09:00 | NUR ---
pt sitting up in bed awake a/ox4, cooperative with care, follows commands well, reports 8/10 pain this am, medicated per orders, takes po meds with food, self suctions his trach, he is on 8 liters 02, has a lynn cath for retention, is a one person assist to ambulate, call light in reach.
[2024-06-11 15:56] VITALS: BP 103/64
--- NOTE | 2024-06-11 19:09 | NUR ---
uneventful day for pt, medicated as he wished according to orders, he went for a walk around the unit, no acute changes this shift, call light in reach.
[2024-06-11 19:13] VITALS: BP 94/63
[2024-06-11 19:15] VITALS: BP 108/68
[2024-06-12 06:07] VITALS: BP 103/64
[2024-06-12 07:30] VITALS: BP 91/56
--- NOTE | 2024-06-12 09:41 | NUR ---
Pt sitting up in bed eating breakfast and watching tv, a/ox4, pleasant and cooperative, makes needs known, takes po meds whole with food, trach in place, RT in room earlier for trach care, has a harsh productive cough, on 8 liters 02, hrr, no edema noted, lynn cath in place for retention, skin ok, maew, uses a walker and sba to ambulate, call light in reach.
[2024-06-12 15:18] VITALS: BP 91/64
--- NOTE | 2024-06-12 18:12 | NUR ---
pt had an uneventful day, ambulated around the unit with assist, had two doses of pain meds, no further changes this shift call light in reach.
[2024-06-12 19:38] VITALS: BP 101/63
[2024-06-13 03:59] VITALS: BP 96/57
[2024-06-13 07:31] VITALS: BP 91/61
--- NOTE | 2024-06-13 12:14 | NUR ---
PATIENT WENT TO RADIATION THERAPY AND IS RETURNED. APPLIED PRN ALOE VERA AROUND RADIATION SITE ANTERIOR AND POSTERIOR TO REDDENNED AREAS AROUND TRACH PER ONCOLOGIST ORDERS.
[2024-06-13 16:12] VITALS: BP 109/65
[2024-06-13 19:17] VITALS: BP 93/61
[2024-06-14 04:31] VITALS: BP 101/61
[2024-06-14 06:06] LABS: BASOPHILS ABSOLUTE AUTO 0.03 K/mm3 (0.00-0.23); BASOPHILS PERCENT AUTO 1 % (0-2); EOSINOPHILS ABSOLUTE AUTO 0.15 K/mm3 (0.00-0.68); EOSINOPHILS PERCENT AUTO 3 % (0-6); Hematocrit 34.9 % (37.0-53.0); IMMATURE GRAN ABSOLUTE AUTO 0.02 K/mm3 (0.00-0.10); IMMATURE GRAN PERCENT AUTO 0 % (0-1); LYMPHOCYTES ABSOLUTE AUTO 0.29 K/mm3 (0.84-5.20); LYMPHOCYTES PERCENT AUTO 5 % (21-46); MONOCYTES ABSOLUTE AUTO 0.51 K/mm3 (0.16-1.47); MONOCYTES PERCENT AUTO 9 % (4-13); Mean Corpuscular HGB 29.6 pg (26.0-34.0); Mean Corpuscular HGB Conc 31.5 g/dL (31.5-36.5); Mean Corpuscular Volume 94 fL (80-100); Mean Platelet Volume 9.2 fL (9.1-12.4); NEUTROPHILS ABSOLUTE AUTO 4.96 K/mm3 (1.96-9.15); NEUTROPHILS PERCENT AUTO 83 % (41-73); Platelet Count 258 K/mm3 (150-400); RDW Coefficient Variation 18.9 % (11.7-14.2); RDW Standard Deviation 65.3 fL (35.1-46.3); Red Blood Cell Count 3.72 M/mm3 (4.30-5.90); White Blood Cell Count 5.96 K/mm3 (4.00-11.30)
[2024-06-14 06:34] LABS: Albumin/Globulin Ratio 0.8 (0.8-1.8); Bilirubin, Total 0.4 mg/dL (0.1-1.0); Bun/Creatinine Ratio 40.2 (12.0-20.0); Calcium, Blood 9.4 mg/dL (8.5-10.1); Creatinine, Blood 1.22 mg/dL (0.60-1.20); Globulin, Blood 3.6 g/dL (2.2-4.0); Potassium, Blood 3.8 mmol/L (3.5-5.5); Total Protein, Blood 6.6 g/dL (6.4-8.2)
[2024-06-14 07:04] VITALS: BP 104/68
--- NOTE | 2024-06-14 07:13 | NUR ---
INFORMATION SECURITY ASSOCIATE SUMMARY NO ACUTE CHANGES OVERNIGHT. SEE ASSESSMENT CHARTING.
[2024-06-14] MEDS ORDERED: Saline Nasal Spray 45 ML PRN (12:45)
[2024-06-14] MEDS ORDERED: OxyCODONE HCL 5 MG TAB PO ONE (13:05)
[2024-06-14] MEDS ORDERED: Dexamethasone Sod Phos 10 MG/ML 1ML VIAL IV ONE (14:25)
[2024-06-14 15:17] VITALS: BP 98/63
[2024-06-14] MEDS ORDERED: OxyCODONE HCL 5 MG TAB PO PRN (16:45)
--- NOTE | 2024-06-14 19:53 | NUR ---
SHIFT SUMMARY DIET UPGRADED TO REGULAR DIET PER DR. LORENZO AND ALSO ORDERED AN INCREASE TO 15 MG OF OXYCODONE. RT CAPPED TRACH AND PLACED PATIENT ON 2L NC. SATTING >95%. PATIENT WENT TO RADIATION THERAPY AND ALSO RECEIVED CHEMOTHERAPY TREATMENT WITH CHARGE NURSE
[2024-06-14 20:08] VITALS: BP 100/60
[2024-06-15 03:55] VITALS: BP 102/57
--- NOTE | 2024-06-15 05:55 | NUR ---
CHANGE MANAGEMENT COORDINATOR SUMMARY PTS TRACH IS NOW CAPPED AND IS TOLERATING 2L NC. HIS PAIN APPEARED BETTER CONTOLLED TONIGHT WITH HIS INCREASED DOSE OF PAIN MEDICATION AND DID NOT HAVE SIDE EFFECTS OR EXPERIENCE TOO MUCH SEDATION. HE IS HAPPY WITH HIS DIET CHANGE AND HIS PAIN MEDICATION REGIMEN.
[2024-06-15 07:30] VITALS: BP 108/65
[2024-06-15 15:31] VITALS: BP 101/61
--- NOTE | 2024-06-15 17:51 | NUR ---
SHIFT SUMMARY PATIENT HAS HAD TRACH CAPPED FOR [address] SUPPOSED TO EVALUATE IF TRACH REMOVAL IS APPROPRIATE BUT HAS NOT COME BY TODAY. PATIENT ON 2L NC AT REST. TOOK A WALK AROUND UNIT ON 2L BUT WHEN SITTING BACK DOWN BECAME SHORT OF BREATH INCREASED O2 TO 4L AND HE RECOVERED, SATS WERE NOT LOW UPON CHECKING AFTER WALK. DECREASED PT BACK DOWN TO 2L AND HE IS BACK TO BASELINE. PRN PAIN MEDICATIONS DILAUDID AND OXYCODONE GIVEN TOGETHER, PATIENT STATES PAIN IS USUALLY AN 8/10 AND MEDS "BARELY TAKE THE EDGE OFF". TOLERATING REGULAR DIET. SMALL BOWEL MOVEMENT THIS EVENING.
[2024-06-15 20:02] VITALS: BP 97/63
[2024-06-16 04:37] VITALS: BP 99/69
--- NOTE | 2024-06-16 07:06 | NUR ---
SHIFT SUMMARY AT START OF SHIFT, PT SITTING UP IN CHAIR AT BEDSIDE. ATE 100% OF HIS DINNER. PT WENT FOR A WALK AROUND UNIT APPROX 2245. WHILE ON WALK, PT WEIGHED AT 191.2lbs. PT REQUESTED PAIN MEDICATIONS WITH CHOCOLATE PUDDING. PT SLEEPING SOUNDLY. PT WOKE FOR MEDICATIONS, AND IS CURRENTLY GETTING READY TO BE TAKEN FOR HIS DAILY RADIATION TREATMENT.
[2024-06-16 07:49] VITALS: BP 95/64
[2024-06-16 14:58] VITALS: BP 117/68
[2024-06-16 19:31] VITALS: BP 91/48
--- NOTE | 2024-06-16 19:38 | NUR ---
report receivied verified pt had uneventful day, cont his normal day of radiation expecting possible trach being removed but surgeon never assessed pt today. pt had a lot of pain from radiation and was treated. no s/s aspiration while eating regular diet, educated pt on safe eating.
[2024-06-17 04:22] VITALS: BP 106/77
--- NOTE | 2024-06-17 04:36 | NUR ---
IN HOUSE COUNSEL SUMMARY PT A/OX4. ABLE TO MAKE NEEDS KNOWN. DR ROWLEY AT BEDSIDE AT APROX 1945. SPOKE WITH THE PT AND DETERMINED TO REMOVE TRACHYOSTOMY TUBE AT THIS TIME. DECANNULATION WAS DONE AT BEDSIDE. LENNOX DRESSING APPLIED LOOSELY AND SECURED WITH TAPE. PT EDUCATED ON NEED TO APPLY PRESSURE WHEN TALKING AND COUGHING. DRESSING SHOULD NOT BE AIR TIGHT TO AVOID SC EMPHYSEMA. PT NEEDED REPEAT EDUCATION T/O THE SHIFT WITH REMINDERS TO APPY PRESSURE. PT ENCOURAGED TO TALK ONLY WHEN NEEDED. PT WAKEFUL T/O THE NIGHT AND EXPRESSED FEELING ANXIOUS ABOUT THE STOMA CLOSING AND DECANNULATION. CONTINNUED TO SUPPORT AND EDUCATE THE PT. PT PLEASANT T/O THE SHIFT. AVRGAS IN PLACE AND DRAINING TO GRAVITY. PT C/O DISCOMFOT/PAIN. MED PER AUG. CALL LIGHT ACCESSIBLE.
[2024-06-17 08:01] VITALS: BP 110/60
[2024-06-17] MEDS ORDERED: Ondansetron 4 MG TAB PO PRN (15:00)
--- NOTE | 2024-06-17 15:28 | NUR ---
NOTE: RECEIVED A CALL FROM [facility] TO VERIFIED PATIENT RADIATIONS TX FOR NEXT WEEK JUN 20- AND MAKE SURE THE RIDES SET UP. NOTIFIED STEPHANIA-AIR POLLUTION ENGINEER. PER STEPHANIA PATIENT RIDES ALREADY SET-UP AND TAKEN CARE OF.
[2024-06-17 15:36] VITALS: BP 101/59
--- NOTE | 2024-06-17 16:10 | NUR ---
SHIFT SUMMARY: PATIENT HAD HIS RADIATION DONE TODAY AT [facility]. PATIENT MEDICATED FOR PAIN/SALVADOR AND FOR NAUSEA PER EMAR c GOOD EFFECT. PATIENT HAS MOD APPETITE, VARGAS IN PLACED FOR ACUTE RETENTION, PATENT DRAINING YELLOW URINE TO GRAVITY. PATIENT HAS BEEN APPLYING PRESSURE TO TRACH SITE WHEN COUGHING AND TALKING T/O SHIFT, DRESSING APPEARS C/D/I. PATIENT HAS NO NEW ACUTE CHANGES THIS SHIFT. VITAL SIGNS REVIEWED. CALL LIGHT IN REACH.
[2024-06-17 17:44] VITALS: BP 91/57
[2024-06-17 19:32] VITALS: BP 107/57
--- NOTE | 2024-06-18 03:19 | NUR ---
SURGICAL ENDOSCOPIST SUMMARY VSS. TRACHE WAS REMOVED PREVIOUSLY. WAS COUGHING UP YELLOW/GREEN TINGED MUCOUS FROM SITE, AREA CLEANSED AND NEW DRESSING APPLIED. RT NOTIFIED. UP AND AMBULATING WITH O2 ABOUT HALLWAY WITH STAFF ACCOMPANIMENT. HOB ELEVATED WHEN IN BED. TOLERATING MEDS WITH APPLESAUCE. LUNG SOUNDS DIMINISHED PER AUSCULTATION. O2 AT 2L/MIN PER NC. PAIN MEDS ADMIN - SEE MAR FOR DETAILS. HAS BEEN RESTING QUIETLY SINCE PAIN MEDS ADMIN AT HS. CALL LIGHT IN REACH, RAILS UP X 2 AND BED IN LOW POSITION FOR SAFETY. WILL C0NT TO MONITOR.
[2024-06-18 04:21] VITALS: BP 105/67
[2024-06-18 07:08] VITALS: BP 99/64
[2024-06-18 15:28] VITALS: BP 118/66
--- NOTE | 2024-06-18 17:50 | NUR ---
SHIFT SUMMARY PT A&OX4 AND ANSWERS QUESTIONS APPROPRIATELY. PT VOICE MUMBLED DUE TO HEALING TRACH PLACEMENT. PT RECEIVED SCHEDULED AND PRN MEDICATIONS. VSS, NO COMPLAINTS OF CP/PRESSURE OR SOB. PT AMBULATED SBA W/ FWW AROUND THE UNIT AND WAS ABLE TO [place] THE FLOOR TWICE. PT SPENT MOST OF SHIFT SITTING IN HIS CHAIR. NO ACUTE EVENTS AT THIS TIME. PT REPOSITIONED INDEPENDENTLY. FALL PRECAUTIONS IN PLACE AND CALL LIGHT IN REACH.
[2024-06-18 19:43] VITALS: BP 106/66
--- NOTE | 2024-06-19 03:25 | NUR ---
COMMUNITY PLACEMENT WORKER SUMMARY: PT A&O X4. MAKES NEEDS KNOWN TO STAFF. PT VOICE MUMBLED DUE TO HEALING TRACH STOMA. USES CALL LIGHT APPROPRIATELY. VSS. NO ACUTE CHANGES THIS SHIFT. MEDICATED WITH PRN DILAUDED, OXYCODONE, AND TRAZODONE PER EMAR ORDER; EFFECTIVE. VARGAS PATENT AND DRAINING CLEAR YELLOW URINE TO GRAVITY. PT REFUSING VS TO BE TAKEN T/O THE NIGHT. PT STATES, "I HAVE AN ORDER NOT TO TAKE VS AT NIGHT." NO ODER NOTED IN PT RECORD. WHEN DISCUSSED FURHTER WITH PT, PT IS REFUSING VS TO BE CHECKED DURING THE NIGHT. EDUCATION PROVIDED ON THE NEED TO DO VISUAL SAFETY CHECKS AND PT CONSENTS TO HAVE STAFF VISUALLY CHECK ON HIM AND INTERVENE PRN. PT REPOSITIONS INDEPENDENTLY IN BED. BED IN LOWEST POSITION. CALL LIGHT IN REACH.
[2024-06-19 07:25] VITALS: BP 107/62
[2024-06-19 11:00] VITALS: BP 100/60
--- NOTE | 2024-06-19 11:20 | NUR ---
NOTE PT BLOOD PRESSURE WAS LOW. I CLARIFIED WITH DR. LORENZO HE IS OK TO HAVE BLOOD PRESSURE ALTERING MEDS. DR. LORENZO REPORTED HE WAS "OK TO GET ALL MEDS AND HE CHANGED THE METOPROLOL NEXT DOSE TO TOMORROW." PT REPORTS NO CURRENT DIZZINESS S/S OF LOW BLOOD PRESSURE.
[2024-06-19 17:58] VITALS: BP 111/71
--- NOTE | 2024-06-19 19:11 | NUR ---
SHIFT SUMMARY PT A&OX4. PT ADMITTED DUE TO RESPIRATORY FAILURE WITH HYPOXIA AND HYPERCAPNIA. PT REPORTS SOB WITH TALKING. PT HAD RECENT TRACH REMOVAL, DRESSING IS C/D/I. PT ON 2L WITH N/C BUT WITH 4L ON WALKING. PT WENT ON A TWO LAP WALK ON UNIT TODAY WITH THIS RN. PT ON REGULAR DIET, TOLERATING. PT REPORTS PAIN, PAIN MANAGED PER EMAR. RESPIRATORY THERAPY WORKED WITH PT TODAY. PT HAS CHRONIC VARGAS, NO DEPENDENT LOOPS, FREE FLOWING. VSS. PT USES BSC. PT SITTING UP IN CHAIR THROUGH DAY. PT HAS NO IV ORDER. CALL LIGHT IN REACH, CALLS APPROPRIATE.
[2024-06-19 19:55] VITALS: BP 95/58
--- NOTE | 2024-06-20 06:42 | NUR ---
SHIFT SUMMARY PT A&OX4 AND ANSWERSE QUESTIONS APPROPRIATELY. PT VOICES FEELINGS OF REMORSE INVOLVING HIS FRIEND'S PASSING RECENTLY. THERAPEUTIC COMMUNICATION UTELIZED. VSS, NO COMPLAINTS OF CP/PRESSURE OR SOB. PT RECEIVED SCHEDULED AND PRN MEDICATIONS WITH NO ADVERSE EFFECTS. PT SPENT MOST OF SHIFT IN BED RESTING. NO ACUTE EVENTS AT THIS TIME. PT REPOSITIONED INDEPENDENTLY. FALL PRECAUTIONS IN PLACE, NO ACUTE EVENTS AT THIS TIME. PT CALL LIGHT WITHIN REACH.
[2024-06-20 07:16] VITALS: BP 120/75
[2024-06-20] MEDS ORDERED: Metoprolol Succinate 25 MG TABCR PO SCH (09:00)
[2024-06-20 15:17] VITALS: BP 112/61
--- NOTE | 2024-06-20 19:22 | NUR ---
SHIFT SUMMARY: PT IS A/O X 4, SBA PLEASANT AND COOPERATIVE WITH CARE. PT WENT TO RADIATION THERAPY THIS MORNING. REPORTS RADIATION BURN TO NECK. ALOE VERA TO BE APPLIED TO NECK BY RT WHEN STOMA DRESSING CHANGE DONE TODAY BY RT. PT HAS VARGAS CATHETER PATENT AND DRAING CLEAR YELLOW URINE. PT HAS REDNESS TO BOTTOM. PT ABLE TO REPOSITION SELF. PT REMINDED TO REPOSITION SELF Q2 HOURS WHILE HE WAS IN HIS ROOM. PT WAS UP TO CHAIR ALL DAY. PT EATING WELL. PT PAIN MANAGED WITH CURRENT PAIN MEDICATION REGIMEN.
[2024-06-20 21:07] VITALS: BP 105/73
--- NOTE | 2024-06-21 05:20 | NUR ---
SHIFT SUMMARY; PATIENT SLEPT IN LONG INTERVALS AFTER TAKING ESCORTED WALK IN [place]. MEDICATED PRN FOR PAIN.
[2024-06-21 07:58] VITALS: BP 103/62
[2024-06-21] MEDS ORDERED: Arginine/Glutamine/Calcium Hmb 1 Packet PO SCH (09:00)
--- NOTE | 2024-06-21 11:18 | NUR ---
Spiritual Care Visit. Pt. is sitting up in a chair, and had just returned form his daily radiation. Pt. is pleasant. pastoral care is given as the Pt. verbalized about the sudden passing of his best friend. Facilitated life story of the Pt. and his friend and their relationship that has stood the test of time since they were teenagers. Considered other matters of hay and belief. Listen with empathy and a calming presence. Grief care is given. Prayed for both the Pt. and the of his friend that passed. Pt. verbalized gratitude for the spiritual care visit and welcomed this executive housekeeper to return.
[2024-06-21 15:58] VITALS: BP 103/66
--- NOTE | 2024-06-21 18:55 | NUR ---
SHIFT SUMMARY: PT IS A/O X 4, SBA PLEASANT AND COOPERATIVE WITH CARE. PT HAD RADIATION THERAPY THIS MORNING AT [facility]. PT AMBULATED THE HALLS OF THE UNIT. HE WAS ABLE TO AMBULATE ON RA WITH SATS AT 99-100% AND C/O MILD SOB. DRESSING CHANGE TO STOMA COMPLETED BY RT. PT PAIN MANAGED WITH CURRENT PAIN MEDICATIONS. PT IS EATING WELL AND DRINKING FLUIDS WELL. VARGAS CATHETER PATENT AND DRAINING CLEAR YELLOW URINE.
[2024-06-21 19:38] VITALS: BP 94/60
[2024-06-22 05:28] VITALS: BP 103/64
[2024-06-22 06:04] LABS: BASOPHILS ABSOLUTE AUTO 0.03 K/mm3 (0.00-0.23); BASOPHILS PERCENT AUTO 1 % (0-2); EOSINOPHILS ABSOLUTE AUTO 0.14 K/mm3 (0.00-0.68); EOSINOPHILS PERCENT AUTO 3 % (0-6); Hematocrit 33.9 % (37.0-53.0); IMMATURE GRAN ABSOLUTE AUTO 0.02 K/mm3 (0.00-0.10); IMMATURE GRAN PERCENT AUTO 0 % (0-1); LYMPHOCYTES PERCENT AUTO 6 % (21-46); MONOCYTES PERCENT AUTO 10 % (4-13); Mean Corpuscular HGB 30.3 pg (26.0-34.0); Mean Corpuscular HGB Conc 32.4 g/dL (31.5-36.5); Mean Corpuscular Volume 93 fL (80-100); Mean Platelet Volume 9.5 fL (9.1-12.4); NEUTROPHILS ABSOLUTE AUTO 3.98 K/mm3 (1.96-9.15); NEUTROPHILS PERCENT AUTO 80 % (41-73); Platelet Count 201 K/mm3 (150-400); RDW Coefficient Variation 17.9 % (11.7-14.2); RDW Standard Deviation 61.5 fL (35.1-46.3); Red Blood Cell Count 3.63 M/mm3 (4.30-5.90); White Blood Cell Count 4.97 K/mm3 (4.00-11.30)
[2024-06-22 06:50] LABS: Albumin/Globulin Ratio 0.8 (0.8-1.8); Bilirubin, Total 0.4 mg/dL (0.1-1.0); Bun/Creatinine Ratio 48.5 (12.0-20.0); Calcium, Blood 9.3 mg/dL (8.5-10.1); Creatinine, Blood 1.34 mg/dL (0.60-1.20); Globulin, Blood 3.7 g/dL (2.2-4.0); Magnesium, Blood 2.6 mg/dL (1.6-2.4); Phosphorus, Blood 4.5 mg/dL (2.5-4.9); Potassium, Blood 4.1 mmol/L (3.5-5.5); Total Protein, Blood 6.7 g/dL (6.4-8.2)
[2024-06-22 07:46] VITALS: BP 123/68
--- NOTE | 2024-06-22 15:19 | NUR ---
Spiirtual Care Visit Attempted. Pt. welcomed my visit, but verbalized that he was "on the commode". Pt. and this telescope operator agreed to have me return after the Pt. does his walk with his nurse.
[2024-06-22 15:27] VITALS: BP 102/78
--- NOTE | 2024-06-22 18:39 | NUR ---
SHIFT SUMMARY: PT A/O X 4 SBA WITH FWW. PT WENT TO RADIATION THERAPY THIS MORNING. PT HAD ELEVATED MAGNESIUM LEVEL SO HEL PO MAGNESIUM. PT EATING WELL. HE HAD BM TODAY AND VARGAS IS PATENT AND DRAINING CLEAR YELLOW URINE. PT DRESSING TO TRACH SITE COMPLETED THIS EVENING PER ORDERS. SKIN FROM RADIATION THERAP CONTINUES TO BE RED. NO OPEN SKIN LESIONS. TRACH CONTINUES TO BE OPEN AND HAS BROWNISH COLORED DISCHARGE. PT ABLE TO MAKE NEEDS KNOWN. PT AMBULATED AROUND MEDICAL FLOOR UNIT 2 TIMES THIS EVENING. STEADY ON FEET. HE WORKED WITH SPEECH THERAPY AND DID NECK EXERCISES.
[2024-06-22 19:40] VITALS: BP 107/69
--- NOTE | 2024-06-23 06:19 | NUR ---
SHIFT SUMMARY PT A&OX4 AND ANSWERS QUESTIONS APPOROPRIATELY. PT SPENT MOST OF SHIFT RESTING IN BED OR IN HIS CHAIR. PT RECEIVED HS AND PRN MEDICATION WITH NO ADVERSE EFFECTS. PT DRESSING CHANGED AND C/D/I. VSS, NO COMPLAINTS OF CP/PRESSURE OR SOB. NO ACUTE EVENTS AT THIS TIME. PT REPOSITIONED INDEPENDENTLY. FALL PRECAUTIONS IN PLACE AND CALL LIGHT IN REACH.
[2024-06-23 07:28] VITALS: BP 100/61
--- NOTE | 2024-06-23 09:05 | NUR ---
PT TRANSFERED FOR RADIATION THERAPY APPOINTMENT VIA WHEELCHAIR.
[2024-06-23 15:56] VITALS: BP 108/60
--- NOTE | 2024-06-23 17:47 | NUR ---
SHIFT SUMMARY PT IS A/OX4. NO ACUTE CHANGES THROUGHOUT THIS SHIFT. ON RA. VARGAS DRAINING CLEAR, YELLOW URINE TO GRAVITY. PT IS A 1 PERSON ASSIST TO BSC. MEDS ARE TAKEN WHOLE W/PUDDING. PT CALLS APPROPRIATELY USING THE CALL LIGHT.
[2024-06-23 19:42] VITALS: BP 102/70
[2024-06-24 05:40] VITALS: BP 99/61
--- NOTE | 2024-06-24 06:40 | NUR ---
JUVENILE DETENTION OFFICER SUMMARY NO ACUTE CHANGE. PT A/OX4. ABLE TO MAKE NEEDS KNOWN. MEDS GIVEN PER AUG. PT REFUSED MIRALAX WITH [address], PATENT AND DRAINING TO GRAVITY. CALL LIGHT ACCESSIBLE. CARE WITH CONTINUE UNTIL REPORT GIVEN TO ONCOMING NURSE.
[2024-06-24 08:52] VITALS: BP 100/68
[2024-06-24 14:43] VITALS: BP 92/63
--- NOTE | 2024-06-24 17:25 | NUR ---
SHIFT SUMMARY PT IS A/OX4, SBA WITH FWW. NO ACUTE CHANGES THROUGHOUT THIS SHIFT. VARGAS PATENT AND DRAINING CLEAR, YELLOW URINE TO GRAVITY. MEDS TAKEN WHOLE WITH PUDDING. DRESSINGS TO THE TRACHEOSTOMY SITE CHANGED THIS SHIFT.
[2024-06-24 19:17] VITALS: BP 110/69
[2024-06-25 04:51] VITALS: BP 101/60
--- NOTE | 2024-06-25 06:18 | NUR ---
CATEGORY DEVELOPMENT ANALYST SUMMARY NO ACUTE CHANGE. PT A/OX4. ABLE TO MAKE NEEDS KNOWN. CALLS FREQUENTLY AND OFTEN COMPLAINS ABOUT THE CARE/ATTENTION HE IS GETTING. PT C/O OF 01/15 PAIN FROM RADIATION BURN TO NECK. OFFERED EDUCATION AND SUPPORT. DRESSING CHANGED TO THROAT. MEDS GIVEN PER AUG. VARGAS PATENT AND DRAINING; URINE IS YELLOW BUT CLOUDY. PT DENIES PAIN/BURNING. CALL LIGHT ACCESSIBLE. CARE WILL CONTINUE UNTIL REPORT GIVEN TO ONCOMING NURSE.
[2024-06-25 07:29] VITALS: BP 112/63
[2024-06-25 10:09] VITALS: BP 101/63
[2024-06-25 15:21] VITALS: BP 107/68
--- NOTE | 2024-06-25 17:45 | NUR ---
SHIFT SUMMARY PATIENT SITTING IN CHAIR, BASEBALL INSPECTOR AND REPAIRER OFFERED TO HELP PATIENT BACK TO BED, THIS AM AND AFTERNOON. PATIENT REFUSED. MEDICATED FOR PAIN PER EMAR. PATIENT REQUIRES MULTIPLE VERBAL REMINDERS TO HOLD PRESSURE OVER OLD TRACH SITE TO ENCOURAGE HEALING AND CLOSURE. TO ADVERSE EVENTS DURING SHIFT.
[2024-06-25] MEDS ORDERED: Bumetanide 1 MG Tab PO SCH (18:00)
--- NOTE | 2024-06-25 18:27 | NUR ---
KP HELD AM AND PM WELL SPIRONOLACTONE DUE TO LOW BLOOD PRESSURES AND DR STEWARD ORDERED TO HOLD AND ADJUSTED HOLDING PARAMETER TO HOLD IF LESS THAN 110 SYSTOLIC.
[2024-06-25 19:53] VITALS: BP 93/61
[2024-06-25 19:55] VITALS: BP 95/69
[2024-06-26 04:42] VITALS: BP 95/53
[2024-06-26 04:46] VITALS: BP 98/68
--- NOTE | 2024-06-26 05:06 | NUR ---
SHIFT SUMMARY: WONG IS A&OX4. VSS, BP LOW BUT CONSISTENT WITH TREND, NO ACUTE EVENTS OVERNIGHT. PT CONTINUES TO WEAR O2 VIA NC FOR COMFORT. ALOE VERA GEL APPLIED TO PT'S NECK AND DRESSING CHANGED OVER HEALING TRACH SITE THIS SHIFT. HE IS TOLERATING PO INTAKE WELL, IS A ONE-PERSON ASSIST WITH THE F[facility], AND TOOK A WALK AROUND THE UNIT THIS SHIFT. SAM ROONEY, HE IS ABLE TO MAKE HIS NEEDS KNOWN. HE IS LYING IN BED WITH THE CALL LIGHT IN REACH, BED IN LOWEST POSITION. WILL GIVE REPORT TO ONCOMING SHIFT.
[2024-06-26 08:34] VITALS: BP 98/61
[2024-06-26 10:05] VITALS: BP 105/61
[2024-06-26 14:42] VITALS: BP 98/62
--- NOTE | 2024-06-26 15:43 | NUR ---
TRACH STOMA CARE COMPLETED - REDRESSED THE STOMA PER WOUND CARE ORDERS. SCANT AMOUNT OF YELLOW DRAINAGE NOTED. PT DEMONSTRATES APPLYING PRESSURE TO STOMA WHEN SPEAKING OR COUGHING. HE IS KNOWLEDGABLE WITH CARE OF STOMA. ALOE VERA APPLIED TO THE REDNESS/IRRITATED SKIN ON NECK FROM RADIATION TREATMENTS. PT TOLERATED PROCEDURE WELL.
[2024-06-26 19:24] VITALS: BP 106/58
--- NOTE | 2024-06-26 19:29 | NUR ---
PT IS A & O X4. ABLE TO USE CALL LIGHT TO MAKE NEEDS KNOWN. ROOM AIR DURING THE DAY. BOWEL MOVEMENT TODAY. WALKED WITH PT, ONE PERSON ASSIST WITH FWW AND GB. PREFERS PILLS WITH SUGAR FREE VANILLA PUDDING. REQUESTS PAIN MEDICATION EVERY 4 HOURS, AND REPORTS THAT IT NEVER FULLY ALLEVIATES THE PAIN, IT "TAKES THE EDGE OFF", BUT RATES PAIN A "CONSTANT" 8/10. PAIN TO NECK WITH RADIATION SITES. ALOE VERA APPLIED TO NECK SCABS/REDDENED AREA. NO ADVERSE EVENTS TODAY.
[2024-06-27 03:37] VITALS: BP 100/57
--- NOTE | 2024-06-27 05:07 | NUR ---
SHIFT SUMMARY: admited for respiratoy failure with hypoxia and is a full code. is alert and able to make needs known. ADLs have been SBA. pain has been managed with PRN medication. folly in place and draining clear yellow urine. trach care with dressing change was done.
[2024-06-27 07:20] VITALS: BP 101/58
[2024-06-27 14:32] VITALS: BP 107/61
[2024-06-27 17:11] VITALS: BP 103/66
--- NOTE | 2024-06-27 18:30 | NUR ---
PT ALERT AND ORIENTED X4, VSS WITH LOWER BP, HELD BUMEX, ALDACTONE, AND METOPROLOL FOR BP 101/58. PT PAIN SOMEWHAT TOLERABLE WITH Q4 PAIN MEDS AND HURICAIN SPRAY. CHRONIC VARGAS IN PLACE DRAINING CLOUDY YELLOW URINE. RT CHANGED PT TRACH BANDAGE PER PT REQUEST. PT CALLS APPROPRIATLY ABLE TO MAKE NEEDS KNOWN. UNABLE TO HAVE RADIATION TREATMENT TODAY D/T MACHINE NOT WORKING PER [facility], PLAN IS TO HAVE TWO TREATMENTS ON THURSDAY, 930 AND 1530 TO KEEP WITH CURRENT PLAN TO FINISH RADIATION ON THURSDAY. PT UP IN CHAIR THROUGHOUT SHIFT, CALL LIGHT IN REACH.
[2024-06-27 19:32] VITALS: BP 102/58
--- NOTE | 2024-06-27 23:47 | NUR ---
5627 PT SITTING IN BEDSIDE CHAIR, SCHOOL NURSE FINISHING GIVING PT A BATH. PT REPORTS PAIN ALL OVER, PAIN MEDS GIVEN, WILL EVAL FOR EFFECT. PT REPORTS N/T FEET THAT IS NOT NEW. VARGAS FOR RETENTION IN PLACE WITH CLEAR YELLOW URINE. NO OTHER APPARENT SIGNS OF DISTRESS. CALL LIGHT IS IN REACH.
--- NOTE | 2024-06-28 01:16 | NUR ---
0000 PT SITTING IN CHAIR AT BEDSIDE, WATCHING TV. DENIES NEED FOR ANYTHING AT THIS TIME. NO APPARENT SIGNS OF DISTRESS. CALL LIGHT IS IN REACH.
--- NOTE | 2024-06-28 01:46 | NUR ---
PT IS SITTING IN CHAIR AT BEDSIDE, EYES CLOSED, APPEARS TO BE SLEEPING, BREATHING IS EVEN, UNLABORED. NO APPARENT SIGNS OF DISTRESS. CALL LIGHT IS IN REACH.
[2024-06-28 02:45] VITALS: BP 102/60
--- NOTE | 2024-06-28 04:44 | NUR ---
PT SITTING IN CHAIR AT BEDSIDE, APPEARS TO BE SLEEPING, EYES CLOSED, BREATHING IS EVEN, UNLABORED. NO APPARENT SIGNS OF DISTRESS. CALL LIGHT IS IN REACH.
--- NOTE | 2024-06-28 04:44 | NUR ---
PT IS AAO X 4, ON RA. REPORTS PAIN ALL OVER, GOT OXYCODONE AND PO DILAUDED AT HS. REPORTS N/T IN FEET, NOT NEW. REDNESS AND EDEMA IN LE'S/FEET. OLD AMP OF L GREAT TOE. REDNESS ON FRONT OF THROAT AND TOP OF CHEST FROM RADIATION. OLD TRACHEA SITE APPEARS TO BE HEALING WELL. VARGAS FOR RETENTION WITH CLEAR YELLOW URINE. SLIGHT REDNESS IN ALMA ROSA AREA.
--- NOTE | 2024-06-28 05:58 | NUR ---
PT SITTING IN CHAIR AT BEDSIDE. AWAKE, NO APPARENT SIGNS OF DISTRESS. REQUESTING ICE BUT THE POWER IS OFF RIGHT NOW AND THE MACHINES ARE NOT WORKING. LET PT KNOW WHAT WAS GOING ON AND THAT SOMEONE WOULD BRING ICE SOON THE POWER COMES BACK ON. PT IS OK WITH WAITING. NO OTHER CHANGES THIS SHIFT. CALL LIGHT IS IN REACH.
[2024-06-28 07:16] LABS: BASOPHILS ABSOLUTE AUTO 0.02 K/mm3 (0.00-0.23); BASOPHILS PERCENT AUTO 0 % (0-2); EOSINOPHILS ABSOLUTE AUTO 0.12 K/mm3 (0.00-0.68); EOSINOPHILS PERCENT AUTO 3 % (0-6); Hematocrit 35.7 % (37.0-53.0); Hemoglobin 11.4 g/dL (13.5-17.5); IMMATURE GRAN ABSOLUTE AUTO 0.02 K/mm3 (0.00-0.10); IMMATURE GRAN PERCENT AUTO 0 % (0-1); LYMPHOCYTES ABSOLUTE AUTO 0.25 K/mm3 (0.84-5.20); LYMPHOCYTES PERCENT AUTO 5 % (21-46); MONOCYTES ABSOLUTE AUTO 0.37 K/mm3 (0.16-1.47); MONOCYTES PERCENT AUTO 8 % (4-13); Mean Corpuscular HGB 30.5 pg (26.0-34.0); Mean Corpuscular HGB Conc 31.9 g/dL (31.5-36.5); Mean Corpuscular Volume 96 fL (80-100); Mean Platelet Volume 9.4 fL (9.1-12.4); NEUTROPHILS ABSOLUTE AUTO 3.83 K/mm3 (1.96-9.15); NEUTROPHILS PERCENT AUTO 83 % (41-73); Platelet Count 182 K/mm3 (150-400); RDW Coefficient Variation 17.8 % (11.7-14.2); Red Blood Cell Count 3.74 M/mm3 (4.30-5.90); White Blood Cell Count 4.61 K/mm3 (4.00-11.30)
[2024-06-28 07:25] LABS: Albumin, Blood 3.1 g/dL (3.4-5.0); Albumin/Globulin Ratio 0.7 (0.8-1.8); Bilirubin, Total 0.4 mg/dL (0.1-1.0); Bun/Creatinine Ratio 55.6 (12.0-20.0); Calcium, Blood 9.3 mg/dL (8.5-10.1); Creatinine, Blood 1.08 mg/dL (0.60-1.20); Globulin, Blood 4.2 g/dL (2.2-4.0); Magnesium, Blood 2.5 mg/dL (1.6-2.4); Potassium, Blood 4.1 mmol/L (3.5-5.5); Total Protein, Blood 7.3 g/dL (6.4-8.2)
[2024-06-28 09:40] VITALS: BP 100/64
[2024-06-28 15:09] VITALS: BP 104/59
--- NOTE | 2024-06-28 19:32 | NUR ---
NO ACUTE CHANGES THIS SHIFT, RADIATION THIS SHIFT. TREATED PAIN PER EMAR. PT REPORTS STRESS C/O DISCHARGE PLAN.
[2024-06-28 20:45] VITALS: BP 104/59
[2024-06-29 07:47] VITALS: BP 100/59
--- NOTE | 2024-06-29 11:24 | NUR ---
MORNING NOTE ASSUMED CARE OF PATIENT AT APPROX. 0700. PATIENT UP IN CHAIR DURING REPORT. PATIENT ON 2L NC. PER PATIENT THIS IS HIS BASELINE. PATIENT HAS BANDAGE OVER TRACH SITE. PATIENT DOING RADIATION DAILY. MORNING MEDICATIONS PASSED WITH SUGAR FREE PUDDING WIHTOUT ISSUE. PATIENT PICKED UP AT APPROX 0900 FOR RADIATION TREATMENT. PATIENT RETURNED AT APPROX. 1030. REPORT GIVEN TO CHUY MONROE AT APPROX. 1115 TO ASSUMED CARE OF PATIENT.
--- NOTE | 2024-06-29 11:39 | NUR ---
RECIEVED REPORT AND ASSUMED CARE OF PT. HE IS SITTING UP IN THE CHAIR NEXT TO THE BED, CALL LIGHT IN REACH, ABLE TO MAKE HIS NEEDS KNOWN.
[2024-06-29 17:20] VITALS: BP 104/62
--- NOTE | 2024-06-29 18:14 | NUR ---
SHIFT SUMMARY: WONG IS A&OX4. VSS, NO ACUTE EVENTS THIS SHIFT. HE IS TOLERATING PO INTAKE WELL, IS A STANDBY ASSIST WITH THE FWW, AND HAD A LARGE BM TODAY. SPOKE WITH CARE COORDINATION REGARDING DISCHARGE PLANNING. DRESSING TO PRIOR TRACH SITE C/D&I. HE IS SITTING IN THE CHAIR AT THE BEDSIDE WITH THE CALL LIGHT IN REACH, HE IS ABLE TO MAKE HIS NEEDS KNOWN. WILL GIVE REPORT TO ONCOMING SHIFT.
[2024-06-29 19:29] VITALS: BP 91/58
[2024-06-29 19:31] VITALS: BP 109/59
--- NOTE | 2024-06-30 00:38 | NUR ---
SHIFT SUMMARY PT ALERT AND ORIENTED TIMES 4. PT IS FULL CODE. HX OF HFpEF, CAD, AND COPD. PT WAS TALKATIVE ABOUT HIS MEDICAL ISSUES AND CONCERNS ABOUT HOME HEALTH WHEN HE IS DC D FROM HOSPITAL. PT IS COOPERATIVE WITH STAFF AND ABLE TO AMBULATE FROM BED TO CHAIR AND TOILET. BED IN LOW POSITION, CALL LIGHT WITHIN REACH, RAILS TIMES 2.
[2024-06-30 04:06] VITALS: BP 106/62
--- NOTE | 2024-06-30 05:17 | NUR ---
SHIFT SUMMARY PT A&Ox4. MEDICATED FOR GENERALIZED PAIN. PT ON 2L OF OXYGEN WHICH IS HIS BASELINE. LEGS EDEMETOUS AND ELEVATED ON PILLOWS AT HS. NO ACUTE CHANGES. VSS. BED IN LOWEST POSITION AND CALL LIGHT IN REACH.
[2024-06-30 07:30] VITALS: BP 93/57
[2024-06-30 16:00] VITALS: BP 108/67
--- NOTE | 2024-06-30 17:14 | NUR ---
Spiritual Care Visit. Pt. is sit up and playing a video game on his phone when he welcomes my visit. Pt. is pleasant and verbalizes that he has two raadiation treatments to go before he will be transferred to a [facility] in [place]. Listen with emapthy and a calming presence as the Pt. verbalizes that he is very comfortable about living alone. Considered matters of hay and belief. Pt. displayed evidence of being encouraged. The speech therapist came to work with the Pt. so I excused myself until tomorrow.
--- NOTE | 2024-06-30 18:12 | NUR ---
NO ACUTE CHANGES THIS SHIFT. PT WENT FOR RADIATION SCHEDULED, REPORTS PAIN IN THROAT AND FOUL SMELLING DEBRIS FROM THROAT AREA. MD AWARE. TREATED PAIN PER EMAR. ALERT AND ORIENTED X4, SBA WITH FWW
[2024-06-30 19:06] VITALS: BP 116/61
[2024-07-01 01:50] VITALS: BP 99/68
--- NOTE | 2024-07-01 04:50 | NUR ---
SHIFT SUMMARY PT A&Ox4. NO ACUTE CHANGES. PT MEDICATED FOR PAIN PER EMAR. PT PREFERED TO BE UP IN CHAIR FOR MOST OF THE NIGHT BUT DID GET IN BED ABOUT 0230 AND WAS ABLE TO SLEEP. RT AT BEDSIDE AT START OF SHIFT. VSS. BED IN LOWEST POSITION AND CALL LIGHT IN REACH.
[2024-07-01 07:17] VITALS: BP 99/64
[2024-07-01] MEDS ORDERED: Alogliptin Benzoate 25 MG TAB PO SCH (09:00)
--- NOTE | 2024-07-01 14:39 | NUR ---
SPiritual Care Visit. Pt. is awake and welcomes my visit. Pt. is pleasant but displays evidence of discouragement. With theraaputic listening and a calming presence the Pt. finally vewrbalizes concerns about [place]. Pt. verbalizes that he is not confidant about a timely transfer to his adult foster care facility in [place]. After spending a significant time with empathetic listening, the Pt. displayed a lightened mood and verbalized gratitude for the spiritual care visit.
[2024-07-01] MEDS ORDERED: Insulin Human Lispro 100 Units/ML 3ML Syringe SC SCH (17:00)
[2024-07-01 17:23] VITALS: BP 101/69
[2024-07-01 19:24] VITALS: BP 104/60
--- NOTE | 2024-07-01 19:39 | NUR ---
SHIFT SUMMARY BLOOD PRESSURE SOFT THIS AM, DR JOSEPH NOTIFIED, IMDUR AND SPIRONOLACTONE HELD THIS AM AND THEN BUMEX HELD THIS EVENING DUE TO VITAL SIGNS OUTSIDE PARAMETERS. HE CONTINUES TO HAVE ANXIETY ABOUT LIVING IN AN ADULT FOSTER HOME. BILLING ANALYST TRIED SEVERAL TIMES TO REASSURE PATIENT OF THE PLAN AND DETAILS THAT ARE KNOWN THUS FAR. MEDICATED FOR PAIN PER EMAR. BED IN LOW POSITION, CALL LIGHT IN REACH. HE IS ABLE TO MAKE HIS NEEDS KNOWN.
[2024-07-02 03:01] VITALS: BP 106/61
--- NOTE | 2024-07-02 05:54 | NUR ---
SHIFT SUMMARY NOC PT A/O X 4. PLEASANT AND COOPERATIVE WITH CARE. VSS. NO ACUTE CHANGES TO REPORT. PT STATED FEELING WIPED OUT FROM RADIATION TX AND DECLINED USUAL BEFORE BED WALK WITH STAFF. PT PAIN BEING MANAGED PER EMAR. PT ON 2L/NC FOR SLEEP. TRACH SITE IS HEALING WITH DRESSING IN PLACE C/D/I. VARGAS IN PLACE DRAINING TO GRAVITY. PT EXPECTED TO DISCHARGE TO ADULT F[facility]ER FACILITY IN [place] ON THURSDAY AFTER LAST RADIATION TX THIS THURSDAY. PT CURRENTLY RESTING WITH BED IN LOWEST POSITION, AND CALL LIGHT WITHIN REACH.
[2024-07-02 06:14] LABS: Albumin, Blood 2.7 g/dL (3.4-5.0); Anion Gap 11 mmol/L (3-11); Blood Urea Nitrogen 62 mg/dL (8-24); Bun/Creatinine Ratio 55.4 (12.0-20.0); CO2, Blood 28 mmol/L (21-32); Calcium, Blood 8.9 mg/dL (8.5-10.1); Chloride, Blood 101 mmol/L (98-108); Creatinine, Blood 1.12 mg/dL (0.60-1.20); Glomerular Filtration Rate 68 (60-); Glucose, Blood 124 mg/dL (70-99); Phosphorus, Blood 4.3 mg/dL (2.5-4.9); Potassium, Blood 4.4 mmol/L (3.5-5.5); Sodium, Blood 136 mmol/L (136-145)
[2024-07-02 08:05] VITALS: BP 100/68
[2024-07-02] MEDS ORDERED: Empagliflozin 10 MG TAB PO SCH (09:00)
[2024-07-02 17:06] VITALS: BP 103/63
--- NOTE | 2024-07-02 18:26 | NUR ---
WONG IS ALERT AND ORIENTED X4 AND PLEASANT AND COOPERATIVE WITH CARE. PAIN MANAGED WITH Q4 DILAUDID, OXYCODONE, AND HURICAIN SPRAY. DRESSING ON NECK IS CDI. VSS, BUMEX AND IMDUR HELD FOR LOW BP. 1 PERSON ASSIST TO BSC, 2 LG BM THIS SHIFT, VARGAS IN PLACE WITH CLOUDY YELLOW URINE, GOOD OUTPUT. PT UP IN CHAIR THROUGHOUT SHIFT. PT ABLE TO MAKE NEEDS KNOWN, CALL LIGHT IN REACH.
[2024-07-02 19:43] VITALS: BP 105/63
[2024-07-03] VITALS (7 sets, daily range): BP systolic 98–109; BP diastolic 59–73
--- NOTE | 2024-07-03 05:31 | NUR ---
SHIFT SUMMARY NOC PT A/O X 4. PLEASANT AND COOPERATIVE WITH CARE. VSS. NO ACUTE EVENTS TO REPORT. PAIN BEING MANAGED PER EMAR. VARGAS IN PLACE DRAINING TO GRAVITY. PT REPORTS EXCITMENT ABOUT FINISHING LAST DOSE OF RADIATION THERAPY ON THURSDAY SO THAT THEY CAN DISCHARGE TO ADULT [facility] FACILITY IN [place] ON THURSDAY. PT CURRENTLY RESTING WITH BED IN LOWEST POSITION, AND CALL LIGHT WITHIN REACH.
--- NOTE | 2024-07-03 18:55 | NUR ---
PT A&OX4, VSS WITH LOW BP, RA, UP IN CHAIR MOST OF DAY. MANUAL BLOOD PRESSURES BEFORE BUMEX, RECHECK SHOWED LITTLE CHANGE FROM BEFORE BUMEX GIVEN. PT C/O INCREASED SWELLING IN LEGS, RN NOTED 3+ PITTING EDEMA BLE, AWARE AND GAVE OK FOR BUMEX. PT PAIN MANAGED WITH PRN OXYCODONE AND DILAUDED. DAUGHTER VISITED WITH PT AND BROUGHT HOME O2 EQUIPMENT FOR PT TO BRING TO ADULT [facility] HOME WHEN DISCHARGED FROM HOSPITAL FOLLOWING FINAL RADIATION TREATMENT. 2 MED BM ON BSC TODAY. PT ABLE TO MAKE NEEDS KNOW, CALL LIGHT IN REACH.
--- NOTE | 2024-07-04 05:17 | NUR ---
SHIFT SUMMARY NOC PT A/O X 4. PLEASANT AND COOPERATIVE [facility] CARE. VSS. PT HAD SPOTS OF BLOOD FROM NOSE AFTER SNEEZING AT BEGINNING OF SHIFT BUT DID NOT OCCUR AGAIN. PT ALSO COUGHED UP TWO SMALL BLACKISH HENDRICKSON CHUNKS FROM PRIOR TRACH SITE, PT CONCERNED THAT THEY MAY BE PIECES OF TUMOR. PT CHRONIC PAIN BEING MANAGED PER EMAR. VARGAS IN PLACE. PT HAS LAST RADIATION TREATMENT SCHEDULED FOR TODAY. PT HOME O2 EQUIPMENT DELIVERED YESTERDAY FOR TRANSPORT UP TO [facility] THAT PT WILL DISCHARGE TO TOMORROW. PT IS EAGER TO LEAVE HOSPITAL AFTER 4 MONTHS. PT CURRENTLY RESTING WITH BED IN LOWEST POSITION, AND CALL LIGHT WITHIN REACH.
[2024-07-04 07:48] VITALS: BP 96/61
--- NOTE | 2024-07-04 15:38 | NUR ---
POLST FORM COMPLETED BY PATIENT. WONG CHOSE CPR, FULL MEASURES. DR. ECHEVARRIA NOTIFIED POLST IS READY FOR HIS SIGNATURE.
[2024-07-04 16:34] VITALS: BP 111/70
--- NOTE | 2024-07-04 18:01 | NUR ---
SHIFT SUMMARY NO ACUTE CHANGES DURING THIS SHIFT. A/Ox4, DENIES SOB, REMAINS ON RA T/O SHIFT WITH O2 SATURATION LEVELS REMAINING ABOVE 92%. PAIN TREATED PER EMAR. GREAT APPETITE AND FLUID INTAKE. MORNING BUMEX DOSE HELD THIS AM DUE TO SBP BEING OUTSIDE OF PARAMETERS. PLAN FOR PT TO DISCHARGE TO SNF IN [place]. LAST RADIATION TREATMENT COMPLETED TODAY. PT CURRENTLY RESTING IN CHAIR IN ROOM EATING DINNER, CALL LIGHT WITHIN REACH, PT USES CALL LIGHT APPROPRIATELY.
[2024-07-04 20:07] VITALS: BP 105/59
--- NOTE | 2024-07-05 06:01 | NUR ---
SUMMARY: PT A/OX4, CALLS APPROPRIATELY TO SPECIFY NEEDS AND IS COOPERATIVE W/CARE. HE CAN BE CONTANKEROUS AT TIMES BUT IS PLEASANT W/EXPLANATION. DX TO TRACH REMOVED APPROX 2 WEEKS AGO REMAINS C/D/I. CHRONIC VARGAS IS PATENT AND DRAINING. PRN OXYCODONE AND DILAUDID RECEIVED FOR ADEQUATE PAIN RELIEF. OCC. COUGH PERSISTS BUT HE REMAINS ON RA W/SPO2 WNL. LAST RADIATION TX COMPLETED 07/04/24 W/PLAN FOR D/C TO ADULT [facility] C[facility] IN [place] POSSIBLY OR THURSDAY. NO ACUTE CHANGES, VSS/AFEBRILE. WCTM AND REPORT TO DAY RN.
[2024-07-05 07:16] VITALS: BP 96/55
[2024-07-05 15:37] VITALS: BP 100/59
--- NOTE | 2024-07-05 17:06 | NUR ---
PT AOX4 AND COOPERATIVE OF CARE TREATED FOR PAIN PER EMAR. PT IS ABLE TO MAKE NEEDS KNOWN. PT HAD WANTED TO SPEAK WITH CASEMANAGEMENT, BUT WAS UNABLE TO TODAY PER PT. PT IS ABLE TO MAKE NEEDS KNOWN CALL LIGHT IS IN REACH WILL CONTINUE TO MONITOR.
[2024-07-05 19:55] VITALS: BP 104/53
[2024-07-06 03:48] VITALS: BP 100/66
--- NOTE | 2024-07-06 04:07 | NUR ---
SHIFT SUMMARY PATIENT HAD NO ACUTE CHANGES. AXOX 4 AND ONE ASSIST W/FWW. WALKED [place] X ONE. DIFFICULT SPEAKING. DENIES CHEST PAIN, SOB, AND N/V. VSS/AFEBRILE. REPORTED THROAT/LEG PAIN AND PO DILAUDID AND OXYCODONE GIVEN PER EMAR. REPORTED INSOMNIA AND TRAZADONE 50 MG GIVEN PER EMAR. VARGAS PATENT AND DRAINING TO GRAVITY. NO IV ACCESS. CALL LIGHT IN REACH. BED IN LOWEST POSITION. WILL CONTINUE TO MONITOR UNTIL DAY SHIFT NURSE ASSUMES CARE.
[2024-07-06 07:45] VITALS: BP 105/59
--- NOTE | 2024-07-06 09:53 | NUR ---
Spiritual Care Visit. Pt. is awake and awaiting transfer when he welcomed my visit. Pt. is pleasant and verbalized gratitude for all of the spiritual care visits. Pryaed with the Pt. Pt. requested urgent help to get to his commode. Attending nurse notified.
--- NOTE | 2024-07-06 12:19 | NUR ---
PT WAS AOX4 TODAY AND COOPERATED WITH CARE. PT DISCHARGED AT 1000. PT WAS TRANSPORTED TO A [facility] HOME SET UP BY [facility] [place] [place]. PT HAD ALL PERSONAL BELONGINGS COLLECTED AND TAKEN WITH HIM INCULDING 02 TANKS. PT ESCORTED OUT VIA GURNEY BY [facility].
== END 2024-07-06 10:16 | disposition home health service (06) | DRG 11 ==
LOC: ER 12:38 → MEDS 23:42 → ICUE 23:42 → MEDS 23:42 → PCU 23:42 → ERHOLD 23:42 → PCU 03-17 02:33 → ICUE 03-17 09:28 → PCU 03-24 19:00 → MEDS 04-05 16:35 → PCU 04-07 12:24 → MEDS 04-16 00:28
PROVIDERS: Family Medicine; Hospitalist; Internal Medicine; Internal Medicine Critical Care Medicine; Internal Medicine Endocrinology, Diabetes & Metabolism; Nurse Practitioner Acute Care; Otolaryngology; Physician Assistant; Student in an Organized Health Care Education/Training Program; ADMIT Student in an Organized Health Care Education/Training Program
PROC: 0CBS8ZX Excision of Larynx, Via Natural or Artificial Opening Endoscopic, Diagnostic (ICD-10-PCS; 2024-03-17)
PROC: 5A1935Z Respiratory Ventilation, Less than 24 Consecutive Hours (ICD-10-PCS; 2024-03-17)
PROC: 30233K1 Transfusion of Nonautologous Frozen Plasma into Peripheral Vein, Percutaneous Approach (ICD-10-PCS; 2024-03-17)
PROC: 0B110F4 Bypass Trachea to Cutaneous with Tracheostomy Device, Open Approach (ICD-10-PCS; principal; 2024-03-17 08:00)
PROC: 5A0955A Assistance with Respiratory Ventilation, Greater than 96 Consecutive Hours, High Flow/Velocity Cannula (ICD-10-PCS; 2024-03-18)
PROC: 3E0336Z Introduction of Nutritional Substance into Peripheral Vein, Percutaneous Approach (ICD-10-PCS; 2024-03-19)
PROC: 3E03305 Introduction of Other Antineoplastic into Peripheral Vein, Percutaneous Approach (ICD-10-PCS; 2024-03-28)
PROC: 0B21XFZ Change Tracheostomy Device in Trachea, External Approach (ICD-10-PCS; 2024-03-28)
PROC: 0HBRXZZ Excision of Toe Nail, External Approach (ICD-10-PCS; 2024-04-08)
PROC: 0HBRXZZ Excision of Toe Nail, External Approach (ICD-10-PCS; 2024-04-08)
PROC: 0HBRXZZ Excision of Toe Nail, External Approach (ICD-10-PCS; 2024-04-08)
PROC: 0HBRXZZ Excision of Toe Nail, External Approach (ICD-10-PCS; 2024-04-08)
PROC: 0HBRXZZ Excision of Toe Nail, External Approach (ICD-10-PCS; 2024-04-08)
PROC: 0HBRXZZ Excision of Toe Nail, External Approach (ICD-10-PCS; 2024-04-08)
PROC: 0HBRXZZ Excision of Toe Nail, External Approach (ICD-10-PCS; 2024-04-08)
PROC: 0HBRXZZ Excision of Toe Nail, External Approach (ICD-10-PCS; 2024-04-08)
PROC: 0HBRXZZ Excision of Toe Nail, External Approach (ICD-10-PCS; 2024-04-08)
DX: C32.8 Malignant neoplasm of overlapping sites of larynx (principal); J15.8 Pneumonia due to other specified bacteria; J96.21 Acute and chronic respiratory failure with hypoxia; J96.22 Acute and chronic respiratory failure with hypercapnia; J44.0 Chronic obstructive pulmonary disease with (acute) lower respiratory infection; J44.1 Chronic obstructive pulmonary disease with (acute) exacerbation; I47.20 Ventricular tachycardia, unspecified; I50.42 Chronic combined systolic (congestive) and diastolic (congestive) heart failure; E87.29 Other acidosis; J95.03 Malfunction of tracheostomy stoma; J39.8 Other specified diseases of upper respiratory tract; J43.9 Emphysema, unspecified; R91.1 Solitary pulmonary nodule; F41.9 Anxiety disorder, unspecified; R13.10 Dysphagia, unspecified; I25.10 Atherosclerotic heart disease of native coronary artery without angina pectoris; I27.20 Pulmonary hypertension, unspecified; M70.61 Trochanteric bursitis, right hip; E11.22 Type 2 diabetes mellitus with diabetic chronic kidney disease; E78.00 Pure hypercholesterolemia, unspecified; K21.9 Gastro-esophageal reflux disease without esophagitis; K60.30 Anal fistula, unspecified; E83.41 Hypermagnesemia; D70.9 Neutropenia, unspecified; K59.00 Constipation, unspecified; I45.10 Unspecified right bundle-branch block; I48.0 Paroxysmal atrial fibrillation; E66.9 Obesity, unspecified; G89.3 Neoplasm related pain (acute) (chronic); E87.5 Hyperkalemia; B35.1 Tinea unguium; N18.31 Chronic kidney disease, stage 3a; R33.9 Retention of urine, unspecified; Z78.1 Physical restraint status; Z99.81 Dependence on supplemental oxygen; Z79.01 Long term (current) use of anticoagulants; Z79.84 Long term (current) use of oral hypoglycemic drugs; Z89.412 Acquired absence of left great toe; Z87.891 Personal history of nicotine dependence; Z68.27 Body mass index [BMI] 27.0-27.9, adult
CPT/HCPCS: 0241U; 31502; 36415; 51701; 51702; 70491; 71045; 71046; 71260; 74177; 74230; 80048; 80053; 80069; 81001; 82565; 82803; 82947; 83735; 83880; 84100; 84132; 84145; 84443; 84478; 84484; 85025; 85610; 86850; 86900; 86901; 87070; 87077; 87086; 87205; 88305; 92526; 92610; 92611; 93005; 93010; 93306; 94002; 94003; 94640; 94644; 94645; 94664; 94667; 94760; 94762; 96374; 97110; 97112; 97116; 97162; 97530; 99285-25; A7521; A9270; C8929; J0171; J0456; J0461; J0696; J1100; J1170; J1171; J1453; J1650; J1815; J1940; J2001; J2250; J2405; J2470; J2704; J2919; J3010; J3411; J7040; J7050; J7060; J7120; J7626; J9045; J9171; P9059; Q5110; Q5125; Q9957; Q9967